=== PATIENT | female | born 1990 | race Caucasian/White ===

== ENCOUNTER → 2016-11-07 | Day surgery (SDC) | payer OTHER ==
[2016-10-23 10:11] VITALS: Ht 162.6 cm; Wt 77.3 kg
[~2016-11-07] VITALS: Ht 162.6 cm; Wt 77.3 kg
[~2016-11-07] MED LIST: ATROPINE SULFATE 0.1 MG/ML 5ML SYR IV PRN; B-COTAB18 PO; BCPILLS PO; BUPIVACAINE 0.5 % 5 MG/1 ML MPF 30ML VIAL ONE; BUSP15TA70 PO; CALC150C PO; CHOL20007 PO; CLON0.5T3 PO; DICY10CA12 PO; EpHEDrine SULFATE INJ 50 MG/ML AMP IV PRN; FENTANYL CITRATE INJ 50 MCG/1 ML 2 ML VIAL IV PRN; FENTANYL CITRATE INJ 50 MCG/1 ML 2 ML VIAL ONE; HYDROCODONE/ACETAMOPHEN 5/325MG TAB PO PRN; LACT1CAP6 PO; LACTATED RINGER'S 1000ML 1,000 ML IV SCH; LACTATED RINGER'S 1000ML 500 ML IV ONE; LIDOCAINE HCL 1% 20 ML VIAL ONE; LIDOCAINE HCL 2% 2 ML VIAL (20MG/ML) ONE; LORA10TA51 PO; METOCLOPRAMIDE HCL INJ 5 MG/ML 2 ML VIAL IV PRN; MIDAZOLAM HCL 1 MG/ML 2ML VIAL ONE; ONDANSETRON INJ 2 MG/ML 2 ML VIAL IV PRN; OXYCODONE/ACETAMINOPHEN 5-325 TAB PO PRN; PHENOL EZ SWABS 89% APPLICATOR EX ONE; PROPOFOL IV EMULSION 10 MG/ML 20 ML VIAL IV ONE; SERT1TAB92 PO; SILVER SULFADIAZINE 1% CR 50 GM JAR EXT ONE; SODIUM CHLORIDE 0.9% 1000ML 1,000 ML IV SCH; [UNRECOGNIZED DRUG - OTHER] PO
--- NOTE | 2016-11-07 11:38 | History & Physical Bridge - SC ---
H&P Re-Evaluation Bridge Note: I have examined the patient, reviewed the History & Physical and in the interval since the performance of the History & Physical I have noted the following changes of clinical significance: No changes noted left hallux medial nail border ingrown toenail removal
--- NOTE | 2016-11-07 12:05 | Discharge Instructions-SurgCtr ---
Discharge Instructions Date of Service Nov 07, 2016. Visit Reason for Visit: Left Ingrown Toenail, Pain Discharge Discharge Diagnosis / Problem: left medial hallux nail border ingrown toenail Discharge Goals Goal(s): Decrease discomfort, Improve function Medications Restart Stopped Medication(s): all Activity Recommendations Activity Limitations: resume your previous activity Lifting Limitations: gradually increase as tolerated Exercise/Sports Limitations: rest today May Resume Sexual Activity: when tolerated Shower/Bathe: tomorrow Driving or Machine Use: resume 1 day after discharge Weightbearing Status: Left weightbearing (as tolerated) Anesthesia . Post Anesthesia Instructions: If you have had General Anesthesia or IV Sedation: * Do not drive today. * Resume driving when surgeon permits. * Do not make important decisions or sign legal documents today. * Call surgeon for: 1. Temperature elevations greater than 101 degrees F. 2. Uncontrollable pain. 3. Excessive bleeding. 4. Persistent nausea and vomiting. 5. Medication intolerance (nausea, vomiting or rash). * For nausea and vomiting use only clear liquids such as: tea, soda, bouillon until nausea subsides, then gradually increase diet as tolerated. * If you have any concerns or questions, call your surgeon's office. If physician is unavailable and it is an emergency, call 911 or go to the nearest emergency room. . Instructions / Follow-Up Instructions / Follow-Up apply topical medication as given today over removed toenail keep covered with bandaid keep clean and dry daily Diet Recommendations Home Diet: no limitations Procedures Procedures Performed: Left Medial Hallux Surgical Procedure To Remove Ingrown Nail Pending Studies Studies pending at discharge: no Medical Emergencies . Who to Call and When: Medical Emergencies: If at any time you feel your situation is an emergency, please call 911 immediately. . Non-Emergent Contact Non-Emergency issues call your: Primary Care Provider [phone] . . "Provider Documentation" section prepared by Alisson Wislon. . [place] Drug Monitoring Program Search Results: patient reviewed within database, no issues identified
--- NOTE | 2016-11-07 12:11 | [facility] Post Operative Brief Note ---
Immediate Operative Summary Operative Date Nov 07, 2016. Pre-Operative Diagnosis Left ingrown toenail Post-Operative Diagnosis same Procedure(s) Performed Left Medial Hallux Surgical Procedure To Remove Ingrown Nail Surgeon Dr Espinal Material Movers Surgeon(s) 0 Estimated Blood Loss 1 ml Findings toenail left hallux Specimens A. Left ingrown toenail Drains none Anesthesia local iv sedation Complication(s) None Disposition Recovery Room / PACU stable
[2016-11-07 12:55] VITALS: TEMP 36.5
--- NOTE | 2016-11-07 13:06 | Anesthesia Progress Nt - [facility] ---
Anesthesia Post Op Note Date & Time Nov 07, 2016 at 13:06 Vital Signs Pain Intensity: 0 Vital Signs Past 12 Hours Date Time Temp Pulse Resp B/P (MAP) Pulse Ox O2 Delivery O2 Flow Rate FiO2 11/07/16 12:55 36.5 95 18 120/81 (94) 96 Room Air 11/07/16 12:50 91 19 11/07/16 12:50 92 19 97 11/07/16 12:47 36.5 81 16 114/80 98 Room Air 11/07/16 12:46 109/74 11/07/16 12:45 70 19 11/07/16 12:45 69 19 95 11/07/16 12:41 108/72 11/07/16 12:40 69 22 99 11/07/16 12:40 70 22 11/07/16 12:36 108/73 11/07/16 12:35 67 16 99 11/07/16 12:35 65 16 11/07/16 12:31 107/74 11/07/16 12:30 66 13 11/07/16 12:30 66 13 99 11/07/16 12:26 99/73 11/07/16 12:25 68 19 98 11/07/16 12:25 69 19 11/07/16 12:21 110/71 11/07/16 12:20 68 17 11/07/16 12:20 70 17 97 11/07/16 12:16 105/73 11/07/16 12:15 71 22 11/07/16 12:15 72 22 98 11/07/16 12:11 115/75 11/07/16 12:10 36.7 78 16 115/75 98 Nasal Cannula 3 11/07/16 10:55 36.7 102 16 114/80 (91) 98 Room Air Notes Mental Status: alert / awake / arousable, participated in evaluation Pt Amnestic to Procedure: Yes Nausea / Vomiting: adequately controlled Pain: adequately controlled Airway Patency, RR, SpO2: stable & adequate BP & HR: stable & adequate Hydration State: stable & adequate Anesthetic Complications: no major complications apparent
[2016-11-07 13:14] VITALS: BP 106/71; PULSE 88; O2SAT 98
--- NOTE | 2016-11-07 14:08 | OPERATIVE REPORT ---
DATE OF OPERATION: 11/07/2016 SURGEON: Alisson Wilson DPM PREOPERATIVE DIAGNOSIS: Painful left foot left hallux medial nail border ingrown toenail. POSTOPERATIVE DIAGNOSIS: Same. PROCEDURE: Left hallux medial nail border ingrown toenail removal. Hemostasis was not needed. ANESTHESIA: Local IV sedation. BLOOD LOSS: 1 mL. PROCEDURE FOLLOWS: The patient was brought in the operating room and placed in the supine position. The left lower extremity was prepped and draped in the usual sterile manner. A 1:1 mixture of 1% lidocaine plain and 0.5% Marcaine was utilized to anesthetize the left hallux in a ring block fashion. Next, anesthesia was induced. A timeout was taken and the procedure began. The medial nail border of the left hallux was loosened from the medial skin folds and the base of the skin fold medially. After it was loosened, utilizing the scissors the medial nail border was cut and removed utilizing a straight stat. No phenol was used per patient's request. The area was flushed with copious amounts of normal saline. Silvadene was applied with Xeroform and dressings. The patient was taken to the recovery room with all vital signs stable and intact. She will follow up with me in the office in 1 week. She was made aware of all risks and benefits and signed consent for this procedure. She opted to have it done in the OR due to her inability to have any type of procedure done in an office setting, that is why it was done in the OR. I attest to the content of the Intraoperative Record and any orders documented therein. Any exceptions are noted below. CHRISTOS
== END | disposition home or self-care (01) ==
LOC: X.SURG 10:44
PROVIDERS: ATTEND Podiatrist
DX: L60.0 Ingrowing nail (principal)

== ENCOUNTER 2020-02-24 09:16 | Inpatient (IN) ==
[2020-02-24] MEDS ORDERED: clonazePAM 0.5 MG TAB PO STA (10:21)
--- NOTE | 2020-02-24 10:26 | Emergency Department Note ---
Impression & Plan Suicidal ideation, Depression, UTI (urinary tract infection) ED Provider Note NAME: WILL KERNS AGE: 29 SEX: F ARRIVES VIA: Walk-In INFORMANT: Patient, ED PROVIDER(S): Kendell Rothman MD CHIEF COMPLAINT: Depression, suicidal ideation PLAN: Disposition: Admit MEDICAL DECISION MAKING: The patient is a pleasant 29-year-old woman with a past medical history of bipolar disorder with prior admissions for depression and SI who presents emergency department with worsening depression, hopelessness and suicidal ideation where she feels she is unable to function and is interested in inpatient admission. She denies any auditory hallucinations. She does report some mild nasal congestion that is typical for her seasonal allergies. She denies any known COVID-19 exposures. She reports she had a negative screening test within the past month. She reports some burning with urination that began yesterday with some mild lower abdominal discomfort. She also reports a nonspecific rash on the back of her ankles that has been there for several weeks. Otherwise she denies fevers, chills, cough, nausea, vomiting, diarrhea. BBC, H/H and platelets within normal limits. Chemistry without acidosis. Electrolytes and LFTs unremarkable. hCG was negative. UA suspicious for infection given the patient's report of dysuria. However UA does show epithelial cells but with 1+ bacteria and WBCs present. Drug screen was otherwise unremarkable. Lyme screen was negative. Thus patient's rash on her posterior calves is suspected to be related to mild contact dermatitis. The patient's report of seasonal congestion COVID-19 PCR was performed and was negative. Patient was given Keflex for suspected urinary tract infection. Otherwise, the patient was medically cleared. She was admitted to [facility] for voluntary psychiatric admission. 201 signed. Triage Nursing notes reviewed and agree them. Prior medical records reviewed Vital Signs: reviewed and remarkable for no significant abnormalities Differential diagnosis: Mood disorder, infection, hypoglycemia, electrolyte abnormalities, cardiac sources, intracerebral event, toxicologic, trauma, neurologic, as well as other pathologies. ER treatment provided: See below. Laboratory studies: See below HPI: The patient is a pleasant 29-year-old woman with a past medical history of bipolar disorder with prior admissions for depression and SI who presents emergency department with worsening depression, hopelessness and suicidal ideation where she feels she is unable to function and is interested in inpatient admission. She denies any auditory hallucinations. She does report some mild nasal congestion that is typical for her seasonal allergies. She denies any known COVID-19 exposures. She reports she had a negative screening test within the past month. She reports some burning with urination that began yesterday with some mild lower abdominal discomfort. She also reports a nonspecific rash on the back of her ankles that has been there for several weeks. Otherwise she denies fevers, chills, cough, nausea, vomiting, diarrhea. ROS: See above HPI for pertinent positives & negatives. A total of 10 systems reviewed and were otherwise negative. PAST MEDICAL HISTORY:See Below PAST SURGICAL HISTORY:See Below FAMILY HISTORY:See Below SOCIAL HISTORY:See Below HOME MEDICATIONS:See Below ALLERGIES:See Below VITALS:See Below PHYSICAL EXAMINATION: GENERAL: Awake, alert, melancholy-appearing, in no distress HENT: Normocephalic, atraumatic. Oropharynx unremarkable. EYES: Normal conjunctiva. Sclera non-icteric. NECK: Supple. No nuchal rigidity. FROM. No JVD. RESPIRATORY: Clear to auscultation. CARDIAC: Regular rate, normal rhythm. Extremities warm and well perfused. Pulses equal. ABDOMEN: Soft, non-distended. No tenderness to palpation. No rebound or guarding . No masses. RECTAL: Deferred. MUSCULOSKELETAL: Chest examination reveals no tenderness. The back is symmetrical on inspection without obvious abnormality. There is no CVA tenderness to palpation. No joint edema. LOWER EXTREMITIES: Calves are equal size bilaterally and non-tender. No edema. No discoloration. NEURO: Normal sensorium. No sensory or motor deficits noted. SKIN: 2 patches of a 3 cm slightly raised dry rash on the posterior aspect of the left lower leg in a similar 3 cm patch on the posterior aspect of the right lower leg. There is no warmth or tenderness. There is no induration or fluctuance. No jaundice noted. PSYCH: Endorses depression, hopelessness, suicidal ideation. Denies auditory hallucinations. Kendell Rothman MD Past Med/Surg History Medical History Anxiety and depression Endometriosis IBS (irritable bowel syndrome) Left breast mass Normal endoscopy Surgical History H/O colonoscopy H/O laparoscopy History of esophagogastroduodenoscopy (EGD) [place] teeth extracted Family History Family/Other Asthma Hay fever Arthritis Stroke Diabetes Cancer Brother Automobile accident Grandmother (Paternal) Breast cancer Grandfather (Maternal) Colorectal cancer Diabetes Stroke Grandfather Stroke Social History Smoking Status: Never smoker Hx Alcohol Use: No Hx Substance Use: No Preferred Language: Malagasy marital status: Single current occupational status: student Feels Safe at Home: Yes Allergies Allergies Allergy/AdvReac Type Severity Reaction Status Date / Time cat dander Allergy Mild Verified 10/24/19 09:34 dog dander Allergy Mild Verified 10/24/19 09:34 pollen extracts Allergy Mild Verified 10/24/19 09:34 Sulfa (Sulfonamide Allergy Unknown DIFFICULTY Verified 10/24/19 09:34 Antibiotics) BREATHING Home Meds Home Medications Medication Instructions Recorded Confirmed L norgest/e.estradiol-e.estrad 1 tab PO HS 12/06/18 02/24/20 [Camrese Lo] Lactobacillus rhamnosus GG 1 cap PO HS 12/06/18 02/24/20 [Culturelle] cetirizine [Zyrtec] 10 mg PO HS 12/06/18 02/24/20 cholecalciferol (vitamin D3) 0 unit PO Q2D 12/06/18 02/24/20 [Vitamin D3] clonazepam [Klonopin] 0.5 mg PO DAILY PRN 12/06/18 02/24/20 dicyclomine 10 mg PO BID 12/06/18 02/24/20 levalbuterol tartrate 2 inh INHALATION Q4H PRN 12/06/18 02/24/20 vitamin B complex 1 tab PO QAM 12/06/18 02/24/20 rabeprazole 20 mg tablet,delayed 20 mg PO HS 05/11/19 02/24/20 release calcium carbonate 500 mg calcium 500 mg PO DAILY 10/24/19 02/24/20 (1,250 mg) tablet lithium carbonate 450 mg 450 mg PO BID 10/24/19 02/24/20 tablet,extended release quetiapine 25 mg PO HS 10/24/19 02/24/20 fluoxetine 20 mg PO DAILY 02/24/20 02/24/20 gabapentin 600 mg PO DAILY 02/24/20 02/24/20 Results & Data (ED) Vital Signs Vital Signs - 24 hr 02/24/20 09:28 02/24/20 09:30 02/24/20 12:00 Temperature 37.6 C H Temperature Source Oral Oral Pulse Rate 102 H Pulse Rate [Apical] 89 Pulse Rhythm Regular Pulse Strength Normal Respiratory Rate 18 18 Respiratory Effort / Characteristics Non-Labored Spontaneous Respiratory Depth Normal Respiratory Pattern Regular Blood Pressure 97/64 L Blood Pressure [Left Arm] 102/78 Blood Pressure Mean 75 Blood Pressure Mean [Left Arm] 86 Blood Pressure Position Sitting Pulse Oximetry 99 97 Oxygen Delivery Method Room Air Room Air Sepsis Recent Fever Within 48 Hours No Sepsis New/Unexplained Change in Mental Status No Sepsis Action Taken by Nursing No Action Required Laboratory Data Attestation: I reviewed the patient's lab results. Result diagrams: 02/24/20 11:40 02/24/20 11:40 Lab Results 02/24/20 02/24/20 02/24/20 Range/Units 10:30 10:30 10:33 WBC (4.8-10.8) K/uL RBC (4.2-5.4) M/uL Hgb (12.0-16.0) g/dL Hct (37-47) % MCV (80-100) fL MCH (25-34) pg MCHC (32-36) g/dL RDW Std Deviation (36.4-46.3) fL RDW Coeff of [place]ight (11.5-14.5) % Plt Count (130-400) K/uL MPV (7.4-10.4) fL Immature Gran % (Auto) % Neut % (Auto) % Lymph % (Auto) % [place] % (Auto) % Eos % (Auto) % Baso % (Auto) % Neut # (Auto) (1.4-6.5) K/uL Lymph # (Auto) (1.2-3.4) K/uL [place] # (Auto) (0.11-0.59) K/uL Eos # (Auto) (0-0.5) K/uL Baso # (Auto) (0-0.2) K/uL Immature Gran # (Auto) (0.00-0.02) K/uL Sodium (136-145) mmol/L Potassium (3.5-5.1) mmol/L Chloride (98-107) mmol/L Carbon Dioxide (21-32) mmol/L Anion Gap (3-11) BUN (7-18) mg/dl Creatinine (0.6-1.2) mg/dl Est Cr Clr Drug Dosing ml/min Est GFR ( Amer) Est GFR (Non-Af Amer) BUN/Creatinine Ratio (10-20) Glucose (70-99) mg/dl Calcium (8.5-10.1) mg/dl Total Bilirubin (0.2-1) mg/dl AST (15-37) U/L ALT (12-78) U/L Alkaline Phosphatase (45-117) U/L Total Protein (6.4-8.2) gm/dl Albumin (3.4-5.0) gm/dl Globulin (2.5-4.0) gm/dl Albumin/Globulin Ratio (0.9-2) TSH (0.300-4.500) uIu/ml Free T4 (0.8-1.6) ng/dl HCG, Qual (Negative) Urine Color Yellow Urine Appearance Clear (Clear) Urine pH 7.0 (4.5-7.5) Ur Specific [place] 1.010 (1.000-1.030) Urine Protein Negative (Negative) Urine Glucose (UA) Negative (Negative) Urine Ketones Negative (Negative) Urine Blood Negative (Negative) Urine Nitrite Negative (Negative) Urine Bilirubin Negative (Negative) Urine Urobilinogen Negative (Negative) Ur Leukocyte Esterase 2+ H (Negative) Urine WBC (Auto) 5-10 H (0-5) /hpf Urine RBC (Auto) 0-4 (0-4) /hpf U Hyaline Cast (Auto) 1-5 (0-5) /lpf U Epithel Cells (Auto) >30 H (0-5) /lpf Urine Bacteria (Auto) 1+ H (Negative) Salicylates (2.8-20) mg/dl Urine Opiates Screen Neg (Neg) Ur Methadone, Qual Neg (Neg) Acetaminophen (10-30) ug/ml Urine Barbiturates Neg (Neg) Ur Phencyclidine (PCP) Neg (Neg) U Amphetamin/Meth Scrn Neg (Neg) MDMA (Ecstasy) Screen Neg (Neg) U Benzodiazepines Scrn Neg (Neg) [place] (0.6-1.2) mmol/L Ur Cocaine Metabolite Neg (Neg) U Marijuana (THC) Screen Neg (Neg) Ethyl Alcohol mg/dL (0-3) mg/dl Lyme Disease IgG Ab (Negative) Lyme Disease IgM Ab (Negative) COVID-19 Eval Order Covid19 Done at [facility] COVID-19 PCR (Negative) 02/24/20 02/24/20 02/24/20 Range/Units 10:33 11:40 11:40 WBC 7.96 (4.8-10.8) K/uL RBC 4.61 (4.2-5.4) M/uL Hgb 13.7 (12.0-16.0) g/dL Hct 41.5 (37-47) % MCV 90.0 (80-100) fL MCH 29.7 (25-34) pg MCHC 33.0 (32-36) g/dL RDW Std Deviation 41.7 (36.4-46.3) fL RDW Coeff of [place]ight 12.8 (11.5-14.5) % Plt Count 282 (130-400) K/uL MPV 12.9 H (7.4-10.4) fL Immature Gran % (Auto) 0.3 % Neut % (Auto) 70.2 % Lymph % (Auto) 19.3 % [place] % (Auto) 6.8 % Eos % (Auto) 3.0 % Baso % (Auto) 0.4 % Neut # (Auto) 5.59 (1.4-6.5) K/uL Lymph # (Auto) 1.54 (1.2-3.4) K/uL [place] # (Auto) 0.54 (0.11-0.59) K/uL Eos # (Auto) 0.24 (0-0.5) K/uL Baso # (Auto) 0.03 (0-0.2) K/uL Immature Gran # (Auto) 0.02 (0.00-0.02) K/uL Sodium 139 (136-145) mmol/L Potassium 4.1 (3.5-5.1) mmol/L Chloride 108 H (98-107) mmol/L Carbon Dioxide 28 (21-32) mmol/L Anion Gap 3.0 (3-11) BUN 13 (7-18) mg/dl Creatinine 1.01 (0.6-1.2) mg/dl Est Cr Clr Drug Dosing 82.1 ml/min Est GFR ( Amer) 85.9 Est GFR (Non-Af Amer) 74.1 BUN/Creatinine Ratio 12.5 (10-20) Glucose 84 (70-99) mg/dl Calcium 9.5 (8.5-10.1) mg/dl Total Bilirubin 0.3 (0.2-1) mg/dl AST 20 (15-37) U/L ALT 26 (12-78) U/L Alkaline Phosphatase 57 (45-117) U/L Total Protein 8.0 (6.4-8.2) gm/dl Albumin 3.5 (3.4-5.0) gm/dl Globulin 4.5 H (2.5-4.0) gm/dl Albumin/Globulin Ratio 0.8 L (0.9-2) TSH 5.340 H (0.300-4.500) uIu/ml Free T4 0.93 (0.8-1.6) ng/dl HCG, Qual (Negative) Urine Color Urine Appearance (Clear) Urine pH (4.5-7.5) Ur Specific [place] (1.000-1.030) Urine Protein (Negative) Urine Glucose (UA) (Negative) Urine Ketones (Negative) Urine Blood (Negative) Urine Nitrite (Negative) Urine Bilirubin (Negative) Urine Urobilinogen (Negative) Ur Leukocyte Esterase (Negative) Urine WBC (Auto) (0-5) /hpf Urine RBC (Auto) (0-4) /hpf U Hyaline Cast (Auto) (0-5) /lpf U Epithel Cells (Auto) (0-5) /lpf Urine Bacteria (Auto) (Negative) Salicylates (2.8-20) mg/dl Urine Opiates Screen (Neg) Ur Methadone, Qual (Neg) Acetaminophen (10-30) ug/ml Urine Barbiturates (Neg) Ur Phencyclidine (PCP) (Neg) U Amphetamin/Meth Scrn (Neg) MDMA (Ecstasy) Screen (Neg) U Benzodiazepines Scrn (Neg) [place] (0.6-1.2) mmol/L Ur Cocaine Metabolite (Neg) U Marijuana (THC) Screen (Neg) Ethyl Alcohol mg/dL (0-3) mg/dl Lyme Disease IgG Ab (Negative) Lyme Disease IgM Ab (Negative) COVID-19 Eval Order COVID-19 PCR NEGATIVE (Negative) 02/24/20 02/24/20 02/24/20 Range/Units 11:40 11:40 11:40 WBC (4.8-10.8) K/uL RBC (4.2-5.4) M/uL Hgb (12.0-16.0) g/dL Hct (37-47) % MCV (80-100) fL MCH (25-34) pg MCHC (32-36) g/dL RDW Std Deviation (36.4-46.3) fL RDW Coeff of [place] (11.5-14.5) % Plt Count (130-400) K/uL MPV (7.4-10.4) fL Immature Gran % (Auto) % Neut % (Auto) % Lymph % (Auto) % [place] % (Auto) % Eos % (Auto) % Baso % (Auto) % Neut # (Auto) (1.4-6.5) K/uL Lymph # (Auto) (1.2-3.4) K/uL [place] # (Auto) (0.11-0.59) K/uL Eos # (Auto) (0-0.5) K/uL Baso # (Auto) (0-0.2) K/uL Immature Gran # (Auto) (0.00-0.02) K/uL Sodium (136-145) mmol/L Potassium (3.5-5.1) mmol/L Chloride (98-107) mmol/L Carbon Dioxide (21-32) mmol/L Anion Gap (3-11) BUN (7-18) mg/dl Creatinine (0.6-1.2) mg/dl Est Cr Clr Drug Dosing ml/min Est GFR ( Amer) Est GFR (Non-Af Amer) BUN/Creatinine Ratio (10-20) Glucose (70-99) mg/dl Calcium (8.5-10.1) mg/dl Total Bilirubin (0.2-1) mg/dl AST (15-37) U/L ALT (12-78) U/L Alkaline Phosphatase (45-117) U/L Total Protein (6.4-8.2) gm/dl Albumin (3.4-5.0) gm/dl Globulin (2.5-4.0) gm/dl Albumin/Globulin Ratio (0.9-2) TSH (0.300-4.500) uIu/ml Free T4 (0.8-1.6) ng/dl HCG, Qual Negative (Negative) Urine Color Urine Appearance (Clear) Urine pH (4.5-7.5) Ur Specific [place] (1.000-1.030) Urine Protein (Negative) Urine Glucose (UA) (Negative) Urine Ketones (Negative) Urine Blood (Negative) Urine Nitrite (Negative) Urine Bilirubin (Negative) Urine Urobilinogen (Negative) Ur Leukocyte Esterase (Negative) Urine WBC (Auto) (0-5) /hpf Urine RBC (Auto) (0-4) /hpf U Hyaline Cast (Auto) (0-5) /lpf U Epithel Cells (Auto) (0-5) /lpf Urine Bacteria (Auto) (Negative) Salicylates < 1.7 L (2.8-20) mg/dl Urine Opiates Screen (Neg) Ur Methadone, Qual (Neg) Acetaminophen < 2 L (10-30) ug/ml Urine Barbiturates (Neg) Ur Phencyclidine (PCP) (Neg) U Amphetamin/Meth Scrn (Neg) MDMA (Ecstasy) Screen (Neg) U Benzodiazepines Scrn (Neg) [place] 0.9 (0.6-1.2) mmol/L Ur Cocaine Metabolite (Neg) U Marijuana (THC) Screen (Neg) Ethyl Alcohol mg/dL < 3.0 (0-3) mg/dl Lyme Disease IgG Ab Negative (Negative) Lyme Disease IgM Ab Negative (Negative) COVID-19 Eval Order COVID-19 PCR (Negative) Administered Medications Discontinued Medications Cephalexin HCl (Cephalexin 500 Mg Cap) 500 mg PO NOW STA Stop: 02/24/20 11:56 Last Admin: 02/24/20 12:41 Dose: 500 mg Documented by: [id number] Clonazepam (Clonazepam 0.5 Mg Tab) 0.5 mg PO NOW STA Stop: 02/24/20 10:22 Last Admin: 02/24/20 10:44 Dose: 0.5 mg Documented by: [id number] Discharge Plan Visit Data Chief Complaint: Mental Health Evaluation Stated Complaint: [facility] ED Provider: Kendell Rothman Discharge Problem: Suicidal ideation, Depression, UTI (urinary tract infection) Patient Disposition: Admitted As Inpatient Discharge Instructions Interventions: ED Discharge Assessment Last Done: 02/24/20 14:24
[2020-02-24 11:01] LABS: Appearance Urine Clear (Clear); Bacteria Urine Automated 1+ (Negative); Bilirubin Urine Negative (Negative); Blood Urine Negative (Negative); Color Urine Yellow; Epithelial Cell Urine Auto >30 /lpf (0-5); Glucose Urine UA Negative (Negative); Ketones Urine Negative (Negative); Leukocyte Esterase Urine 2+ (Negative); Nitrite Urine Negative (Negative); Protein Urine Negative (Negative); RBC Urine Automated 0-4 /hpf (0-4); Urobilinogen Urine Negative (Negative)
[2020-02-24 11:07] LABS: Amphetamines+Metham, Urine Neg (Neg); Barbiturates, Urine Neg (Neg); Benzodiazepine, Urine Neg (Neg); Cocaine, Urine Neg (Neg); MDMA (Ecstacy), Urine Neg (Neg); Methadone, Urine Neg (Neg); Opiate, Urine Neg (Neg); Phencyclidine, Urine Neg (Neg)
[2020-02-24] MEDS ORDERED: cephALEXin 500 MG CAP PO STA (11:55)
[2020-02-24 11:58] LABS: Basophils # (auto) 0.03 K/uL (0-0.2); Basophils % (auto) 0.4 %; Eosinophils # (auto) 0.24 K/uL (0-0.5); Hematocrit (blood only) 41.5 % (37-47); Hemoglobin 13.7 g/dL (12.0-16.0); Immature Granulocytes # (auto) 0.02 K/uL (0.00-0.02); Immature Granulocytes % (auto) 0.3 %; Lymphocytes # (auto) 1.54 K/uL (1.2-3.4); Lymphocytes % (auto) 19.3 %; Mean Corpuscular Hemoglobin 29.7 pg (25-34); Mean Platelet Volume 12.9 fL (7.4-10.4); Monocytes # (auto) 0.54 K/uL (0.11-0.59); Monocytes % (auto) 6.8 %; Neutrophils # (auto) 5.59 K/uL (1.4-6.5); Neutrophils % (auto) 70.2 %; Platelet Count 282 K/uL (130-400); RDW Coefficient of Variation 12.8 % (11.5-14.5); RDW Standard Deviation 41.7 fL (36.4-46.3); Red Blood Count 4.61 M/uL (4.2-5.4); White Blood Count 7.96 K/uL (4.8-10.8)
[2020-02-24 12:17] LABS: Albumin Level 3.5 gm/dl (3.4-5.0); BUN Creatinine Ratio 12.5 (10-20); Calcium 9.5 mg/dl (8.5-10.1); Creatinine Clr Calc Pharmacy 82.1 ml/min; Est GFR (African American) 85.9; Est GFR (Non-African American) 74.1; Potassium 4.1 mmol/L (3.5-5.1)
[2020-02-24 12:25] LABS: Acetaminophen < 2 ug/ml (10-30); Lithium 0.9 mmol/L (0.6-1.2); Salicylate < 1.7 mg/dl (2.8-20)
[2020-02-24 12:28] LABS: Albumin Globulin Ratio 0.8 (0.9-2); Bilirubin,Total 0.3 mg/dl (0.2-1); Globulin 4.5 gm/dl (2.5-4.0); Thyroid Stimulating Hormone 5.34 uIu/ml (0.300-4.500)
[2020-02-24 12:37] LABS: Pregnancy Test, Serum Negative (Negative)
[2020-02-24 12:42] LABS: T4 Free Thyroxine 0.93 ng/dl (0.8-1.6)
[2020-02-24 13:18] LABS: Lyme Ab IgG w/WB Rflx Negative (Negative); Lyme Ab IgM w/WB Rflx Negative (Negative)
[2020-02-24] MEDS ORDERED: hydrOXYzine HCl 25 MG TAB PO PRN (13:33)
[2020-02-24] MEDS ORDERED: SODIUM CHLORIDE 0.65% NA SOLN 45 ML (OCEAN) PRN (13:33)
[2020-02-24] MEDS ORDERED: BISMUTH SUBSALICYLATE LIQD 236 ML PO PRN (13:33)
[2020-02-24] MEDS ORDERED: ACETAMINOPHEN 325 MG TAB PO PRN (13:33)
[2020-02-24] MEDS ORDERED: MAGNESIUM HYDROXIDE SUSP 30 ML UDC PO PRN (13:33)
[2020-02-24] MEDS ORDERED: LEVALBUTEROL TARTRATE 15 GM HFA.AER.AD INH PRN (17:50)
[2020-02-24] MEDS: DICYCLOMINE HCL 10 MG CAP PO SCH (18:45)
--- NOTE | 2020-02-24 19:10 | History & Physical ---
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 03/25/20 17:59 Fluoxetine HCl (Fluoxetine Hcl 10 Mg Cap) 10 mg PO QAM [facility] Stop: 03/26/20 08:59 Gabapentin (Gabapentin 300 Mg Cap) 300 mg PO BID [facility] Stop: 03/25/20 20:59 Hydrocortisone (Hydrocortisone 2.5% Cr 30 Gm Tube) 1 appln EXT BID [facility] Stop: 03/25/20 20:59 Hydroxyzine HCl (Hydroxyzine Hcl 25 Mg Tab) 50 mg PO HSZ PRN PRN Reason: Insomnia Stop: 03/25/20 13:32 Hydroxyzine HCl (Hydroxyzine Hcl 25 Mg Tab) 25 mg PO Q4H PRN PRN Reason: Anxiety Stop: 03/25/20 13:32 Lactobacillus Acidophilus (Lactobacillus Acidophilus (Floranex) Tab) 4 tab PO HS OLIVIA Stop: 03/25/20 21:59 Levalbuterol HCl (Levalbuterol Tartrate 15 Gm Hfa.Aer.Ad) 2 puffs INH Q4H PRN PRN Reason: Shortness Of Breath Or Wheezin Stop: 03/25/20 17:49 [place] Carbonate ([place] Carbonate 450 Mg Tabcr) 450 mg PO BID OLIVIA Stop: 03/25/20 20:59 Magnesium Hydroxide (Magnesium Hydroxide Susp 30 Ml Udc) 30 ml PO DAILY PRN PRN Reason: Constipation Stop: 03/25/20 13:32 Miscellaneous (Camrese Lo ~ Order Awaiting Action) 1 ea N/A QS [facility] Stop: 03/26/20 00:00 Psyllium Hydrophilic Mucilloid (Psyllium 58.6% Powder Packet) 1 pkt PO QAM [facility] Stop: 03/25/20 18:44 Sodium Chloride (Sodium Chloride 0.65% Na Soln 45 Ml ([place])) 1 - 2 sprays NA PRN PRN PRN Reason: Nasal Dryness/Congestion Stop: 03/25/20 13:32 Vitamin B Complex (Vitamin B Complex Tab) 1 tab PO QAM [facility] Stop: 03/26/20 08:59 Vitamin D (Cholecalciferol 1,000 Units 25 Mcg Tab) 1,000 units PO Q2D@0900 [facility] Stop: 03/27/20 08:59
[2020-02-24] MEDS: ALUMINUM/MAGNESIUM SUSP 30 ML UDC PO PRN (19:39)
[2020-02-24] MEDS: PSYLLIUM 58.6% POWDER PACKET PO SCH (20:58)
[2020-02-24] MEDS: LITHIUM CARBONATE 450 MG TABCR PO SCH (20:58)
[2020-02-24] MEDS: HYDROCORTISONE 2.5% CR 30 GM TUBE EXT SCH (20:59)
[2020-02-24] MEDS: GABAPENTIN 300 MG CAP PO SCH (21:00)
[2020-02-24] MEDS: RABEPRAZOLE 20 MG PO SCH (21:00)
[2020-02-24] MEDS: LACTOBACILLUS ACIDOPHILUS (FLORANEX) TAB PO SCH (21:01)
[2020-02-24] MEDS: LEVONORGESTREL PO SCH (21:02)
[2020-02-24] MEDS: ETHINYL ESTRADIOL PO SCH (21:02)
[2020-02-25] MEDS: RABEPRAZOLE 20 MG PO SCH ×2 (08:48→16:53)
[2020-02-25] MEDS ORDERED: FLUoxetine HCL 20 MG CAP PO SCH (09:00)
[2020-02-25] MEDS ORDERED: CALCIUM CARBONATE 1250MG TAB PO SCH (09:00)
[2020-02-25] MEDS: DICYCLOMINE HCL 10 MG CAP PO SCH ×3 (09:30→16:55)
[2020-02-25] MEDS: CALCIUM CARBONATE 1250MG TAB PO SCH (09:31)
[2020-02-25] MEDS: GABAPENTIN 300 MG CAP PO SCH ×2 (09:31→20:38)
[2020-02-25] MEDS: buPROPion SR 100 MG TABCR PO SCH (09:31)
[2020-02-25] MEDS: FLUoxetine HCL 10 MG CAP PO SCH (09:31)
[2020-02-25] MEDS: VITAMIN B COMPLEX TAB PO SCH (09:31)
[2020-02-25] MEDS: LITHIUM CARBONATE 450 MG TABCR PO SCH ×2 (09:31→20:37)
[2020-02-25] MEDS: PSYLLIUM 58.6% POWDER PACKET PO SCH (09:33)
[2020-02-25] MEDS: HYDROCORTISONE 2.5% CR 30 GM TUBE EXT SCH ×2 (09:33→20:37)
--- NOTE | 2020-02-25 11:52 | Psychiatric Progress Note ---
Date of Service February 25, 2020 Impression / Recommendations Impression This 29-year-old woman was admitted through the emergency room after she reported that she was experiencing severe depression and suicidal thoughts with various plans. She has a long history of treatment for depression, and while she has enjoyed some improvement in response to various psychiatric medications over the years, her history reveals that these improvements tend to be short lived and efforts to address diminishing favorable effect of medications through medications increases generally are ineffective. For example, when her dose of Prozac was increased as an outpatient from 10 mg to 20 mg she noticed worsening anxiety and worsening depression, and the dose of Prozac was decreased back to 10 mg. Of significance is the fact that evidently she has been given the diagnosis of bipolar disorder in the past. The patient is well educated and is fully familiar with the symptoms of bipolar disorder. When we reviewed them, she did not endorse any symptoms of melida or hypomania, and she explains that, to the contrary, she has never experienced anything other than depression that is "sometimes worse than others." She may give a window into a secondary diagnoses when she suggests that she sometimes has difficulty regulating her mood in response to situational factors and that her mood can be somewhat labile at times. However, her mood is never expansive or elated, and she notes that she never experiences decreased desire for sleep, increased energy, impulsive or reckless behaviors, or other symptoms suggestive of mleida or hypomania. She offers a broader what way of somatic complaints and is on multiple medications, with a fairly complex medication regimen. During her psychiatric evaluation she identified several additional complaints and requested additional medications to address the complaints, such as constipation, a rash on her legs, and lorazepam for "laboratory and [imaging] studies" because of the various simple phobias. With some reluctance, the patient acknowledges that her sexual orientation is homosexual. She reports that she is afraid to enter into any romantic relationship with another woman because she comes from a very religiously conservative Orthodox family and fears that her family, and her father in particular, will reject her and encourage other members of the family to stop contact with her. Also, while she initially had a support network in [place], her various friends have all graduated and moved on to other locations. Accordingly, she is socially isolated, even when she feels better. 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 And she says that she often worries about her future in terms of being able to find a job in her particular field of study. There are number of treatments that have not been tried on a number of medications that can be considered. She evidently has never taken venlafaxine or any other SNRI. She may or may not have responded favorably to bupropion as an adjunct, but says that she has not been able to tolerate or has not responded to aripiprazole and risperidone. She also indicates that higher doses of medication such as sertraline (to which she is responded in the past) and Prozac have had an idiosyncratic effect and she tends to have worsening anxiety and depression as her dosages go higher. She has considered ECT, but has concluded that she is too frightened of the prospects. She is willing to consider transcranial magnetic stimulation. Therapy needs to focus on helping this very intelligent young woman feel comfortable with her sexuality, and she will need to learn that denying herself and her identity is not a reasonable trade off for ongoing acceptance from her family of origin. Reviewed 02/25/2020. Ongoing SI and hopelessness around even minor somatic issues. (1) Suicidal ideation: 02/23 -The patient reports progressive suicidal thoughts with plans that include overdosing, self poisoning, asphyxiation, and hanging. The patient has been admitted to the locked behavioral health unit and has been placed on suicide precautions. We have referred her for individual, group, and recreational therapy. She does not seem to be willing to consider family interventions at this point, but it may be useful to work with the patient in this regard because her family dynamics seem to be pretty central to the patient's current condition. -We will continue lithium carbonate 450 mg twice a day; Prozac 10 mg a day; and add bupropion SR 75 mg as an adjunct. We will consider offering trials of an SNRI, such as venlafaxine or duloxetine. Reviewed 02/25/2020. Note dosing of Wellbutrin SR is 100 mg po qam. (2) Anxiety and depression: 02/23 -The patient reports progressive suicidal thoughts with plans that include overdosing, self poisoning, asphyxiation, and hanging. The patient has been admitted to the locked behavioral health unit and has been placed on suicide precautions. We have referred her for individual, group, and recreational therapy. She does not seem to be willing to consider family interventions at this point, but it may be useful to work with the patient in this regard because her family dynamics seem to be pretty central to the patient's current condition. -We will continue lithium carbonate 450 mg twice a day; Prozac 10 mg a day; and add bupropion SR 75 mg as an adjunct. We will consider offering trials of an SNRI, such as venlafaxine or duloxetine. Reviewed 02/25/2020. Note dosing of Wellbutrin SR is 100 mg po qam. Monitor ZAFAR. (3) Irritable bowel syndrome: 02/23 -Currently, the patient reports that she has been feeling constipated for "some time now," and notes that she often does better with a bulk laxative such as Metamucil. Currently, we have ordered Metamucil daily. Reviewed 02/25/2020. She declines Miralax. States warm tea would aggravate her reflux. Inventory Assets Strengths: Intelligent. Motivated to treatment. Well informed. Past history of some favorable response to treatment. Needs: Relief from depression symptoms. Resolution of suicidal thoughts. 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 In particular, her mother. She is also close with several of her siblings, but fears that she will very rejected by all if she tells them that her sexual orientation as lesbian.) Good Rapport with Provider: Yes Absence of Any Risk Factors Above: No Interval History Chief Complaint "I'm just really overwhelmed and still very depressed". Review of Systems Sleep Information Total Hours of Sleep: 6.5 Meal Information Percent Meal Consumed - Breakfast: 20 Percent Meal Consumed - Dinner: 90 Nutrition Comment: pt. has poor appetite r/t constipation x3days Subjective Subjective Patient was seen & assessed and interval progress reviewed with nursing and social work. Patient is careful about diet. c/o constipation but states only intervention that would held is a warm bath. Expressed worries to staff about her sister and baby niece (sister has anorexia hx). Patient is very focussed on no social supports and doesn't want family involved in hospitalization, cites Orthodox holiday but only the superficial reason. Resistant to exploring local or other supports. Reports ZAFAR last pm due to stress and overstimulation of peers on unit though also likes being here as "I'm lonely" States suicidal thoughts are ongoing but no intent to act here. Physical Exam Psychiatric Orientation: alert, oriented x 3 and cooperative Apperance: appropriately dressed, appropriately groomed and appeared stated age Eye Contact: + fair eye contact Affect: + depressed affect Mood: + depressed mood and + anxious mood Thought Process: goal directed thought process Thought Content: reality based without delusions Suicidal Thoughts: + reports suicidal thoughts Homicidal Thoughts: denies homicidal thoughts Hallucinations: no auditory hallucinations, no visual hallucinations, no tactile hallucinations and no gustatory hallucinations Cognition: attention grossly intact Estimated Intelligence: + above average estimated intelligence Vital Signs (Past 24 Hours) Last Vital Signs Temp 36.9 C 02/24/20 16:18 Pulse 74 02/24/20 16:18 Resp 16 02/24/20 16:18 BP 97/65 L 02/24/20 16:18 Pulse Ox 100 02/24/20 16:18 Results & Data ([facility]) Laboratory Results Laboratory Results - last 24 hr 02/24/20 02/24/20 02/24/20 10:33 11:40 11:40 WBC 7.96 RBC 4.61 Hgb 13.7 Hct 41.5 MCV 90.0 MCH 29.7 MCHC 33.0 RDW Std Deviation 41.7 RDW Coeff of [place] 12.8 Plt Count 282 MPV 12.9 H Immature Gran % (Auto) 0.3 Neut % (Auto) 70.2 Lymph % (Auto) 19.3 [place] % (Auto) 6.8 Eos % (Auto) 3.0 Baso % (Auto) 0.4 Neut # (Auto) 5.59 Lymph # (Auto) 1.54 [place] # (Auto) 0.54 Eos # (Auto) 0.24 Baso # (Auto) 0.03 Immature Gran # (Auto) 0.02 Sodium 139 Potassium 4.1 Chloride 108 H Carbon Dioxide 28 Anion Gap 3.0 BUN 13 Creatinine 1.01 Est Cr Clr Drug Dosing 82.1 Est GFR ( Amer) 85.9 Est GFR (Non-Af Amer) 74.1 BUN/Creatinine Ratio 12.5 Glucose 84 Calcium 9.5 Total Bilirubin 0.3 AST 20 ALT 26 Alkaline Phosphatase 57 Total Protein 8.0 Albumin 3.5 Globulin 4.5 H Albumin/Globulin Ratio 0.8 L TSH 5.340 H Free T4 0.93 HCG, Qual Salicylates Acetaminophen [place] Ethyl Alcohol mg/dL Lyme Disease IgG Ab Lyme Disease IgM Ab COVID-19 PCR NEGATIVE 02/24/20 02/24/20 02/24/20 11:40 11:40 11:40 WBC RBC Hgb Hct MCV MCH MCHC RDW Std Deviation RDW Coeff of [place] Plt Count MPV Immature Gran % (Auto) Neut % (Auto) Lymph % (Auto) [place] % (Auto) Eos % (Auto) Baso % (Auto) Neut # (Auto) Lymph # (Auto) [place] # (Auto) Eos # (Auto) Baso # (Auto) Immature Gran # (Auto) Sodium Potassium Chloride Carbon Dioxide Anion Gap BUN Creatinine Est Cr Clr Drug Dosing Est GFR ( Amer) Est GFR (Non-Af Amer) BUN/Creatinine Ratio Glucose Calcium Total Bilirubin AST ALT Alkaline Phosphatase Total Protein Albumin Globulin Albumin/Globulin Ratio TSH Free T4 HCG, Qual Negative Salicylates < 1.7 L Acetaminophen < 2 L [place] 0.9 Ethyl Alcohol mg/dL < 3.0 Lyme Disease IgG Ab Negative Lyme Disease IgM Ab Negative COVID-19 PCR Current Inpatient Medications Current Inpatient Medications: Current Inpatient Medications Acetaminophen (Acetaminophen 325 Mg Tab) 650 mg PO Q4H PRN PRN Reason: Headache or Minor Fever Stop: 03/25/20 13:32 Last Admin: 02/25/20 04:09 Dose: 650 mg Documented by: Al Hydrox/Mg Hydrox/Simethicone ([place]uminum/Magnesium Susp 30 Ml Udc) 30 ml PO Q4H PRN PRN Reason: GI Upset Stop: 03/25/20 13:32 Last Admin: 02/24/20 19:39 Dose: 30 ml Documented by: Bismuth Subsalicylate (Bismuth Subsalicylate Liqd 236 Ml) 15 ml PO PRN PRN PRN Reason: Loose Stool Stop: 03/25/20 13:32 Bupropion HCl (Bupropion Sr 100 Mg Tabcr) 100 mg PO DAILY [facility] Stop: 03/26/20 08:59 Last Admin: 02/25/20 09:31 Dose: 100 mg Documented by: Calcium Carbonate (Calcium Carbonate 1250mg Tab) 1,250 mg PO DAILY OLIVIA Stop: 03/26/20 08:59 Last Admin: 02/25/20 09:31 Dose: 1,250 mg Documented by: Clonazepam (Clonazepam 0.5 Mg Tab) 0.5 mg PO DAILY PRN PRN Reason: Blood draws or imaging studies Stop: 03/25/20 21:08 Dicyclomine HCl (Dicyclomine Hcl 10 Mg Cap) 10 mg PO TIDM [facility] Stop: 03/25/20 17:59 Last Admin: 02/25/20 09:30 Dose: 10 mg Documented by: Fluoxetine HCl (Fluoxetine Hcl 10 Mg Cap) 10 mg PO QAM [facility] Stop: 03/26/20 08:59 Last Admin: 02/25/20 09:31 Dose: 10 mg Documented by: Gabapentin (Gabapentin 300 Mg Cap) 300 mg PO BID [facility]IA Stop: 03/25/20 20:59 Last Admin: 02/25/20 09:31 Dose: 300 mg Documented by: Hydrocortisone (Hydrocortisone 2.5% Cr 30 Gm Tube) 1 appln EXT BID [facility] Stop: 03/25/20 20:59 Last Admin: 02/25/20 09:33 Dose: 1 appln Documented by: Hydroxyzine HCl (Hydroxyzine Hcl 25 Mg Tab) 50 mg PO HSZ PRN PRN Reason: Insomnia Stop: 03/25/20 13:32 Hydroxyzine HCl (Hydroxyzine Hcl 25 Mg Tab) 25 mg PO Q4H PRN PRN Reason: Anxiety Stop: 03/25/20 13:32 Lactobacillus Acidophilus (Lactobacillus Acidophilus (Floranex) Tab) 4 tab PO HS OLIVIA Stop: 03/25/20 21:59 Last Admin: 02/24/20 21:01 Dose: 4 tab Documented by: Levalbuterol HCl (Levalbuterol Tartrate 15 Gm Hfa.Aer.Ad) 2 puffs INH Q4H PRN PRN Reason: Shortness Of Breath Or Wheezin Stop: 03/25/20 17:49 [place] Carbonate ([place] Carbonate 450 Mg Tabcr) 450 mg PO BID OLIVIA Stop: 03/25/20 20:59 Last Admin: 02/25/20 09:31 Dose: 450 mg Documented by: Magnesium Hydroxide (Magnesium Hydroxide Susp 30 Ml Udc) 30 ml PO DAILY PRN PRN Reason: Constipation Stop: 03/25/20 13:32 Miscellaneous (Camrese Lo Patient's Own Oral Contraceptive) 1 ea PO HS [facility]IA Stop: 03/25/20 21:59 Last Admin: 02/24/20 21:02 Dose: 1 ea Documented by: Rabeprazole 20mg ~ Non-Formulary Patient's Own Med 1 ea PO BID [facility] Stop: 03/25/20 20:59 Last Admin: 02/25/20 08:48 Dose: 1 ea Documented by: Psyllium Hydrophilic Mucilloid (Psyllium 58.6% Powder Packet) 1 pkt PO QAM [facility] Stop: 03/25/20 18:44 Last Admin: 02/25/20 09:33 Dose: 1 pkt Documented by: Sodium Chloride (Sodium Chloride 0.65% Na Soln 45 Ml ([place])) 1 - 2 sprays NA PRN PRN PRN Reason: Nasal Dryness/Congestion Stop: 03/25/20 13:32 Vitamin B Complex (Vitamin B Complex Tab) 1 tab PO QAM [facility] Stop: 03/26/20 08:59 Last Admin: 02/25/20 09:31 Dose: 1 tab Documented by: Vitamin D (Cholecalciferol 1,000 Units 25 Mcg Tab) 1,000 units PO Q2D@0900 [facility] Stop: 03/27/20 08:59 Mental Health & Subst Abuse Tx Therapist Name of Therapist: Ioana Rico @[facility] Post Discharge Appointments Primary Care Physician Name Of Family Doctor: [facility]
[2020-02-25] MEDS: LACTOBACILLUS ACIDOPHILUS (FLORANEX) TAB PO SCH (20:39)
[2020-02-25] MEDS: LEVONORGESTREL PO SCH (20:40)
[2020-02-25] MEDS: ETHINYL ESTRADIOL PO SCH (20:40)
[2020-02-26] MEDS: RABEPRAZOLE 20 MG PO SCH ×2 (08:27→17:32)
[2020-02-26] MEDS ORDERED: CHOLECALCIFEROL 1,000 UNITS 25 MCG TAB PO SCH (09:00)
[2020-02-26] MEDS: DICYCLOMINE HCL 10 MG CAP PO SCH ×3 (09:02→17:27)
[2020-02-26] MEDS: HYDROCORTISONE 2.5% CR 30 GM TUBE EXT SCH ×2 (09:04→21:35)
[2020-02-26] MEDS: FLUoxetine HCL 10 MG CAP PO SCH (09:05)
[2020-02-26] MEDS: LITHIUM CARBONATE 450 MG TABCR PO SCH ×2 (09:05→21:28)
[2020-02-26] MEDS: VITAMIN B COMPLEX TAB PO SCH (09:06)
[2020-02-26] MEDS: CALCIUM CARBONATE 1250MG TAB PO SCH (09:06)
[2020-02-26] MEDS: buPROPion SR 100 MG TABCR PO SCH (09:07)
[2020-02-26] MEDS: GABAPENTIN 300 MG CAP PO SCH ×2 (09:07→21:29)
[2020-02-26] MEDS: PSYLLIUM 58.6% POWDER PACKET PO SCH (09:11)
[2020-02-26] MEDS: CETIRIZINE HCL 10 MG TABLET PO SCH (10:11)
[2020-02-26] MEDS: CHOLECALCIFEROL 1,000 UNITS 25 MCG TAB PO SCH (10:12)
--- NOTE | 2020-02-26 11:50 | Psychiatric Progress Note ---
Date of Service February 26, 2020 Impression / Recommendations Impression This 29-year-old woman was admitted through the emergency room after she reported that she was experiencing severe depression and suicidal thoughts with various plans. She has a long history of treatment for depression, and while she has enjoyed some improvement in response to various psychiatric medications over the years, her history reveals that these improvements tend to be short lived and efforts to address diminishing favorable effect of medications through medications increases generally are ineffective. For example, when her dose of Prozac was increased as an outpatient from 10 mg to 20 mg she noticed worsening anxiety and worsening depression, and the dose of Prozac was decreased back to 10 mg. Of significance is the fact that evidently she has been given the diagnosis of bipolar disorder in the past. The patient is well educated and is fully familiar with the symptoms of bipolar disorder. When we reviewed them, she did not endorse any symptoms of melida or hypomania, and she explains that, to the contrary, she has never experienced anything other than depression that is "sometimes worse than others." She may give a window into a secondary diagnoses when she suggests that she sometimes has difficulty regulating her mood in response to situational factors and that her mood can be somewhat labile at times. However, her mood is never expansive or elated, and she notes that she never experiences decreased desire for sleep, increased energy, impulsive or reckless behaviors, or other symptoms suggestive of melida or hypomania. She offers a broader what way of somatic complaints and is on multiple medications, with a fairly complex medication regimen. During her psychiatric evaluation she identified several additional complaints and requested additional medications to address the complaints, such as constipation, a rash on her legs, and lorazepam for "laboratory and [imaging] studies" because of the various simple phobias. With some reluctance, the patient acknowledges that her sexual orientation is homosexual. She reports that she is afraid to enter into any romantic relationship with another woman because she comes from a very religiously conservative [place] family and fears that her family, and her father in particular, will reject her and encourage other members of the family to stop contact with her. Also, while she initially had a support network in [place], her various friends have all graduated and moved on to other locations. Accordingly, she is socially isolated, even when she feels better. 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 And she says that she often worries about her future in terms of being able to find a job in her particular field of study. There are number of treatments that have not been tried on a number of medications that can be considered. She evidently has never taken venlafaxine or any other SNRI. She may or may not have responded favorably to bupropion as an adjunct, but says that she has not been able to tolerate or has not responded to aripiprazole and risperidone. She also indicates that higher doses of medication such as sertraline (to which she is responded in the past) and Prozac have had an idiosyncratic effect and she tends to have worsening anxiety and depression as her dosages go higher. She has considered ECT, but has concluded that she is too frightened of the prospects. She is willing to consider transcranial magnetic stimulation. Therapy needs to focus on helping this very intelligent young woman feel comfortable with her sexuality, and she will need to learn that denying herself and her identity is not a reasonable trade off for ongoing acceptance from her family of origin. Reviewed 02/25/2020. 02/25--ongoing SI with gesture last pm on unit with bed linens following conflict with staff suggestive of borderline pathology. (1) Suicidal ideation: 02/23 -The patient reports progressive suicidal thoughts with plans that include overdosing, self poisoning, asphyxiation, and hanging. The patient has been admitted to the [facility] behavioral health unit and has been placed on suicide precautions. We have referred her for individual, group, and recreational therapy. She does not seem to be willing to consider family interventions at this point, but it may be useful to work with the patient in this regard because her family dynamics seem to be pretty central to the patient's current condition. -We will continue lithium carbonate 450 mg twice a day; Prozac 10 mg a day; and add bupropion SR 75 mg as an adjunct. We will consider offering trials of an SNRI, such as venlafaxine or duloxetine. Reviewed 02/25/2020. Note dosing of Wellbutrin SR is 100 mg po qam. 02/25--reviewed safety plan with staff, MNPR, moved to CORDELL, safety blanket (no sheets/pillowcases) for at least 24 hrs, no leggings, reviewed consistency shift to shift on where meeting with patient. (2) Anxiety and depression: 02/23 -The patient reports progressive suicidal thoughts with plans that include overdosing, self poisoning, asphyxiation, and hanging. The patient has been admitted to the [facility] behavioral health unit and has been placed on suicide precautions. We have referred her for individual, group, and recreational therapy. She does not seem to be willing to consider family interventions at this point, but it may be useful to work with the patient in this regard because her family dynamics seem to be pretty central to the patient's current condition. -We will continue lithium carbonate 450 mg twice a day; Prozac 10 mg a day; and add bupropion SR 75 mg as an adjunct. We will consider offering trials of an SNRI, such as venlafaxine or duloxetine. Reviewed 02/25/2020. Note dosing of Wellbutrin SR is 100 mg po qam. Monitor ZAFAR. 02/25--restart Seroquel with plan to titrate tomorrow, may use lower dose prn anxiety during day. Get true lithium level trough in am and fasting metabolic labs. (3) Irritable bowel syndrome: 02/23 -Currently, the patient reports that she has been feeling constipated for "some time now," and notes that she often does better with a bulk laxative such as Metamucil. Currently, we have ordered Metamucil daily. Reviewed 02/25/2020. She declines Miralax. States warm tea would aggravate her reflux. 02/25--reports having BM yesterday but guesses not full evacuation, she is declining additional metamucil. (4) TSH elevation: 02/25--will repeat TSH in am, likely lithium induced with hair loss, would favor start of synthroid given symptoms. Inventory Assets Strengths: Intelligent. Motivated to treatment. Well informed. Past history of some favorable response to treatment. Needs: Relief from depression symptoms. Resolution of suicidal thoughts. 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 In particular, her mother. She is also close with several of her siblings, but fears that she will very rejected by all if she tells them that her sexual orientation as lesbian.) Good Rapport with Provider: Yes Absence of Any Risk Factors Above: No Interval History Chief Complaint "My needs weren't being met immediately and that was triggering for me". Review of Systems Sleep Information Total Hours of Sleep: 6 Meal Information Percent Meal Consumed - Breakfast: 50 Percent Meal Consumed - Lunch: 10 Percent Meal Consumed - Dinner: 50 Nutrition Comment: pt. continues to report poor appetite Subjective Subjective Patient was seen & assessed and interval progress reviewed with nursing and social work. Called last pm due to suicidal gesture with bed linens on overnight cashier. Patient states that she did similar when "ignored at [facility]" during 3 day isolation to room due to their Covid policies which would have been helpful information but patient had refused to sign KRISTINA per . Patient attending evening group but reports mood "tanked" after and wanted to discuss SI with staff but was encouraged to meet in day room for safety precautions at time. Patient felt she could not get out of bed and after some time waited for a 15 min check at which time placed the pillowcase around her neck. "It wasn't impulsive". Mentioned she tried adding the sheet before found again "I know it wouldn't work as I've tried before and it doesn't get tight enough". At that point she was directed to unlocked seclusion room for closer monitoring. She reports continuing to have suicidal thoughts but "more general", not around using her linens, again "I was upset". She reports wanting to file a formal complaint and reviewed that her concerns can be addressed by nursing center tutor and service excellence. She would like more of her personal items back as coloring is major coping mechanism. She shifted to discuss her concerns about hair loss, "clumps started falling out in December", reviewed TSH and nl fT4 but plan for repeat. She is declining Vistaril, Klonopin prns but "I'd like something" and reviewed that Seroquel was held on admission likely due to her excessive fatigue but since she is requesting sleep medication will resume. 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 Physical Exam Psychiatric Orientation: alert, oriented x 3 and cooperative Apperance: appropriately dressed, appropriately groomed and appeared stated age Eye Contact: + fair eye contact Motor Behavior: + psychomotor retardation Affect: + depressed affect Mood: + depressed mood and + anxious mood Thought Process: goal directed thought process Thought Content: reality based without delusions Suicidal Thoughts: + reports suicidal thoughts Homicidal Thoughts: denies homicidal thoughts Hallucinations: no auditory hallucinations, no visual hallucinations, no tactile hallucinations and no gustatory hallucinations Cognition: recent memory grossly intact (Her, the patient often responds "I cannot quite remember." For example, when she references to "the depression got worse because of all the stressors she could not identify the stressors and responded by saying, "I just do not remember.") and attention grossly intact Estimated Intelligence: + above average estimated intelligence Insight: good insight and + limited insight Judgement: + impaired judgement Vital Signs (Past 24 Hours) Last Vital Signs Temp 36.9 C 02/26/20 06:46 Pulse 73 02/26/20 06:46 Resp 16 02/26/20 06:46 BP 102/70 02/26/20 06:46 Pulse Ox 100 02/24/20 16:18 Results & Data ([facility]) Current Inpatient Medications Current Inpatient Medications: Current Inpatient Medications Acetaminophen (Acetaminophen 325 Mg Tab) 650 mg PO Q4H PRN PRN Reason: Headache or Minor Fever Stop: 03/25/20 13:32 Last Admin: 02/25/20 04:09 Dose: 650 mg Documented by: Al Hydrox/Mg Hydrox/Simethicone (Aluminum/Magnesium Susp 30 Ml Udc) 30 ml PO Q4H PRN PRN Reason: GI Upset Stop: 03/25/20 13:32 Last Admin: 02/24/20 19:39 Dose: 30 ml Documented by: Bismuth Subsalicylate (Bismuth Subsalicylate Liqd 236 Ml) 15 ml PO PRN PRN PRN Reason: Loose Stool Stop: 03/25/20 13:32 Bupropion HCl (Bupropion Sr 100 Mg Tabcr) 100 mg PO DAILY OLIVIA Stop: 03/26/20 08:59 Last Admin: 02/26/20 09:07 Dose: 100 mg Documented by: Calcium Carbonate (Calcium Carbonate 1250mg Tab) 1,250 mg PO DAILY [facility] Stop: 03/26/20 08:59 Last Admin: 02/26/20 09:06 Dose: 1,250 mg Documented by: Cetirizine HCl (Cetirizine Hcl 10 Mg Tablet) 10 mg PO QAM [facility] Stop: 03/27/20 08:59 Last Admin: 02/26/20 10:11 Dose: 10 mg Documented by: Clonazepam (Clonazepam 0.5 Mg Tab) 0.5 mg PO DAILY PRN PRN Reason: Blood draws or imaging studies Stop: 03/25/20 21:08 Dicyclomine HCl (Dicyclomine Hcl 10 Mg Cap) 10 mg PO TIDM [facility] Stop: 03/25/20 17:59 Last Admin: 02/26/20 09:02 Dose: 10 mg Documented by: Fluoxetine HCl (Fluoxetine Hcl 10 Mg Cap) 10 mg PO QAM [facility] Stop: 03/26/20 08:59 Last Admin: 02/26/20 09:05 Dose: 10 mg Documented by: Gabapentin (Gabapentin 300 Mg Cap) 300 mg PO BID [facility] Stop: 03/25/20 20:59 Last Admin: 02/26/20 09:07 Dose: 300 mg Documented by: Hydrocortisone (Hydrocortisone 2.5% Cr 30 Gm Tube) 1 appln EXT BID [facility] Stop: 03/25/20 20:59 Last Admin: 02/26/20 09:04 Dose: 1 appln Documented by: Hydroxyzine HCl (Hydroxyzine Hcl 25 Mg Tab) 50 mg PO HSZ PRN PRN Reason: Insomnia Stop: 03/25/20 13:32 Hydroxyzine HCl (Hydroxyzine Hcl 25 Mg Tab) 25 mg PO Q4H PRN PRN Reason: Anxiety Stop: 03/25/20 13:32 Lactobacillus Acidophilus (Lactobacillus Acidophilus (Floranex) Tab) 4 tab PO HS OLIVIA Stop: 03/25/20 21:59 Last Admin: 02/25/20 20:39 Dose: 4 tab Documented by: Levalbuterol HCl (Levalbuterol Tartrate 15 Gm Hfa.Aer.Ad) 2 puffs INH Q4H PRN PRN Reason: Shortness Of Breath Or Wheezin Stop: 03/25/20 17:49 Vail Carbonate (Vail Carbonate 450 Mg Tabcr) 450 mg PO BID [facility] Stop: 03/25/20 20:59 Last Admin: 02/26/20 09:05 Dose: 450 mg Documented by: Magnesium Hydroxide (Magnesium Hydroxide Susp 30 Ml Udc) 30 ml PO DAILY PRN PRN Reason: Constipation Stop: 03/25/20 13:32 Miscellaneous (Camrese Lo Patient's Own Oral Contraceptive) 1 ea PO HS OLIVIA Stop: 03/25/20 21:59 Last Admin: 02/25/20 20:40 Dose: 1 ea Documented by: Rabeprazole 20mg ~ Non-Formulary Patient's Own Med 1 ea PO BID OLIVIA Stop: 03/25/20 20:59 Last Admin: 02/26/20 08:27 Dose: 1 ea Documented by: Psyllium Hydrophilic Mucilloid (Psyllium 58.6% Powder Packet) 1 pkt PO QAM OLIVIA Stop: 03/25/20 18:44 Last Admin: 02/26/20 09:11 Dose: Not Given Documented by: Quetiapine Fumarate (Quetiapine Fumarate 25 Mg Tablet) 25 mg PO HS [facility] Stop: 03/27/20 21:59 Quetiapine Fumarate (Quetiapine Fumarate 25 Mg Tablet) 12.5 mg PO Q6 PRN PRN Reason: Anxiety Stop: 03/27/20 11:59 Sodium Chloride (Sodium Chloride 0.65% Na Soln 45 Ml ([place])) 1 - 2 sprays NA PRN PRN PRN Reason: Nasal Dryness/Congestion Stop: 03/25/20 13:32 Vitamin B Complex (Vitamin B Complex Tab) 1 tab PO QAM OLIVIA Stop: 03/26/20 08:59 Last Admin: 02/26/20 09:06 Dose: 1 tab Documented by: Vitamin D (Cholecalciferol 1,000 Units 25 Mcg Tab) 1,000 units PO DAILY OLIVIA Stop: 03/27/20 08:59 Last Admin: 02/26/20 10:12 Dose: 1,000 units Documented by: Mental Health & Subst Abuse Tx Therapist Name of Therapist: Ioana Rico (usually calls on Tuesdays and Fridays) [employer] Software Developer Name of [employer] Software Developer: none Post Discharge Appointments Primary Care Physician Name Of Family Doctor: [facility], would like new provider, doesn't want to go on campus re:covid fears
[2020-02-26] MEDS: QUEtiapine FUMARATE 25 MG TABLET PO PRN (12:59)
[2020-02-26] MEDS: LACTOBACILLUS ACIDOPHILUS (FLORANEX) TAB PO SCH (21:30)
[2020-02-26] MEDS: LEVONORGESTREL PO SCH (21:31)
[2020-02-26] MEDS: ETHINYL ESTRADIOL PO SCH (21:31)
[2020-02-26] MEDS ORDERED: QUEtiapine FUMARATE 25 MG TABLET PO SCH (22:00)
[2020-02-26] MEDS: clonazePAM 0.5 MG TAB PO PRN (22:40)
[2020-02-27] MEDS: clonazePAM 0.5 MG TAB PO PRN (06:25)
[2020-02-27] MEDS: RABEPRAZOLE 20 MG PO SCH ×2 (08:36→17:24)
[2020-02-27 09:19] LABS: Thyroid Stimulating Hormone 2.19 uIu/ml (0.300-4.500)
[2020-02-27] MEDS: DICYCLOMINE HCL 10 MG CAP PO SCH ×3 (09:31→17:23)
[2020-02-27] MEDS: HYDROCORTISONE 2.5% CR 30 GM TUBE EXT SCH ×2 (09:31→21:02)
[2020-02-27] MEDS: LITHIUM CARBONATE 450 MG TABCR PO SCH ×2 (09:31→20:59)
[2020-02-27] MEDS: GABAPENTIN 300 MG CAP PO SCH (09:32)
[2020-02-27] MEDS: VITAMIN B COMPLEX TAB PO SCH (09:32)
[2020-02-27] MEDS: PSYLLIUM 58.6% POWDER PACKET PO SCH (09:32)
[2020-02-27] MEDS: FLUoxetine HCL 10 MG CAP PO SCH (09:32)
[2020-02-27] MEDS: CALCIUM CARBONATE 1250MG TAB PO SCH (09:32)
[2020-02-27] MEDS: CETIRIZINE HCL 10 MG TABLET PO SCH (09:33)
[2020-02-27] MEDS: buPROPion SR 100 MG TABCR PO SCH (09:33)
[2020-02-27] MEDS: CHOLECALCIFEROL 1,000 UNITS 25 MCG TAB PO SCH (09:33)
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
[2020-02-27] MEDS ORDERED: GABAPENTIN 250 MG/5 ML 470 ML BTL PO ONE (13:45)
[2020-02-27] MEDS: POLYETHYLENE (MIRALAX) 17 GM PACK PO SCH (14:13)
[2020-02-27] MEDS: LACTOBACILLUS ACIDOPHILUS (FLORANEX) TAB PO SCH (21:01)
[2020-02-27] MEDS: LEVONORGESTREL PO SCH (21:03)
[2020-02-27] MEDS: ETHINYL ESTRADIOL PO SCH (21:03)
[2020-02-27] MEDS: QUEtiapine FUMARATE 25 MG TABLET PO SCH (21:04)
[2020-02-27] MEDS ORDERED: GABAPENTIN 150 MG/3 ML UDP PO ONE (22:00)
[2020-02-28] MEDS: RABEPRAZOLE 20 MG PO SCH ×2 (08:33→17:06)
[2020-02-28] MEDS: DICYCLOMINE HCL 10 MG CAP PO SCH ×3 (08:33→17:07)
[2020-02-28] MEDS: CALCIUM CARBONATE 1250MG TAB PO SCH (09:09)
[2020-02-28] MEDS: LITHIUM CARBONATE 450 MG TABCR PO SCH ×2 (09:09→20:56)
[2020-02-28] MEDS: CETIRIZINE HCL 10 MG TABLET PO SCH (09:10)
[2020-02-28] MEDS: VITAMIN B COMPLEX TAB PO SCH (09:10)
[2020-02-28] MEDS: CHOLECALCIFEROL 1,000 UNITS 25 MCG TAB PO SCH (09:10)
[2020-02-28] MEDS: HYDROCORTISONE 2.5% CR 30 GM TUBE EXT SCH ×2 (09:12→20:56)
[2020-02-28] MEDS: POLYETHYLENE (MIRALAX) 17 GM PACK PO SCH (09:13)
[2020-02-28] MEDS: PSYLLIUM 58.6% POWDER PACKET PO SCH (09:13)
[2020-02-28] MEDS: FLUoxetine HCL 10 MG CAP PO SCH (09:16)
--- NOTE | 2020-02-28 11:36 | Psychiatric Progress Note ---
Date of Service February 28, 2020 Impression / Recommendations Impression Admission Assessment - This 29-year-old woman was admitted through the emergency room after she reported that she was experiencing severe depression and suicidal thoughts with various plans. She has a long history of treatment for depression, and while she has enjoyed some improvement in response to various psychiatric medications over the years, her history reveals that these improvements tend to be short lived and efforts to address diminishing favorable effect of medications through medications increases generally are ineffective. For example, when her dose of Prozac was increased as an outpatient from 10 mg to 20 mg she noticed worsening anxiety and worsening depression, and the dose of Prozac was decreased back to 10 mg. Of significance is the fact that evidently she has been given the diagnosis of bipolar disorder in the past. The patient is well educated and is fully familiar with the symptoms of bipolar disorder. When we reviewed them, she did not endorse any symptoms of melida or hypomania, and she explains that, to the contrary, she has never experienced anything other than depression that is "sometimes worse than others." She may give a window into a secondary diagnoses when she suggests that she sometimes has difficulty regulating her mood in response to situational factors and that her mood can be somewhat labile at times. However, her mood is never expansive or elated, and she notes that she never experiences decreased desire for sleep, increased energy, impulsive or reckless behaviors, or other symptoms suggestive of melida or hypomania. She offers a broader what way of somatic complaints and is on multiple medications, with a fairly complex medication regimen. During her psychiatric evaluation she identified several additional complaints and requested additional medications to address the complaints, such as constipation, a rash on her legs, and lorazepam for "laboratory and [imaging] studies" because of the various simple phobias. With some reluctance, the patient acknowledges that her sexual orientation is homosexual. She reports that she is afraid to enter into any romantic relationship with another woman because she comes from a very religiously conservative [employer] family and fears that her family, and her father in particular, will reject her and encourage other members of the family to stop contact with her. Also, while she initially had a support network in [place], her various friends have all graduated and moved on to other locations. Accordingly, she is socially isolated, even when she feels better. 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 And she says that she often worries about her future in terms of being able to find a job in her particular field of study. There are number of treatments that have not been tried on a number of medications that can be considered. She evidently has never taken venlafaxine or any other SNRI. She may or may not have responded favorably to bupropion as an adjunct, but says that she has not been able to tolerate or has not responded to aripiprazole and risperidone. She also indicates that higher doses of medication such as sertraline (to which she is responded in the past) and Prozac have had an idiosyncratic effect and she tends to have worsening anxiety and depression as her dosages go higher. She has considered ECT, but has concluded that she is too frightened of the prospects. She is willing to consider transcranial magnetic stimulation. Therapy needs to focus on helping this very intelligent young woman feel comfortable with her sexuality, and she will need to learn that denying herself and her identity is not a reasonable trade off for ongoing acceptance from her family of origin. (1) Suicidal ideation: 02/23 -The patient reports progressive suicidal thoughts with plans that include overdosing, self poisoning, asphyxiation, and hanging. The patient has been admitted to the [facility] behavioral health unit and has been placed on suicide precautions. We have referred her for individual, group, and recreational therapy. She does not seem to be willing to consider family interventions at this point, but it may be useful to work with the patient in this regard because her family dynamics seem to be pretty central to the patient's current condition. -We will continue lithium carbonate 450 mg twice a day; Prozac 10 mg a day; and add bupropion SR 75 mg as an adjunct. We will consider offering trials of an SNRI, such as venlafaxine or duloxetine. Reviewed 02/25/2020. Note dosing of Wellbutrin SR is 100 mg po qam. 02/25--reviewed safety plan with staff, MNPR, moved to CORDELL, safety blanket (no sheets/pillowcases) for at least 24 hrs, no leggings, reviewed consistency shift to shift on where meeting with patient. 02/26--return blanket but not bed linens. 02/27--continues to report active SI, but not related to items presently available to the patient. Pt not able to contract for safety with any additional items at this time. --Maintain appropriate boundaries while continuing to build therapeutic alliance and offer suggestions to target chronic SI. (2) Anxiety and depression: 02/23 -The patient reports progressive suicidal thoughts with plans that include overdosing, self poisoning, asphyxiation, and hanging. The patient has been admitted to the [facility] behavioral health unit and has been placed on suicide precautions. We have referred her for individual, group, and recreational therapy. She does not seem to be willing to consider family interventions at this point, but it may be useful to work with the patient in this regard because her family dynamics seem to be pretty central to the patient's current condition. -We will continue lithium carbonate 450 mg twice a day; Prozac 10 mg a day; and add bupropion SR 75 mg as an adjunct. We will consider offering trials of an SNRI, such as venlafaxine or duloxetine. 02/25/2020. Note dosing of Wellbutrin SR is 100 mg po qam. Monitor ZAFAR. 02/25--restart Seroquel with plan to titrate tomorrow, may use lower dose prn anxiety during day. Get true lithium level trough in am and fasting metabolic labs. 02/26--lithium remains 0.9, d/c Wellbutrin (?worsening SI), she desires d/c Neurontin due to sedation, reviewed generally tapered--she is agreeable to take 150 mg tonight. titrate seroquel 50 mg po qhs with likely to 100 mg or more to target thoughts. No immediate availability of ketamine. She had discussed ECT at least briefly with Dr. Carranza but is attending to ADLs and groups here (more active than home). 02/27--Pt continuing to give conflicting thoughts regarding willingness for medication changes. Recommendation was provided to continue titration of quetiapine as discussed above; however patient was unwilling to do so at this time. --Continue to engage patient in group and recreational programming with focus on distraction techniques and coping skills that are beneficial to combat acute SI. --With ongoing interviews, there is a part of patient's presentation that seems to be related to borderline personality traits. (3) Irritable bowel syndrome: 02/23 -Currently, the patient reports that she has been feeling constipated for "some time now," and notes that she often does better with a bulk laxative such as Metamucil. Currently, we have ordered Metamucil daily. Reviewed 02/25/2020. She declines Miralax. States warm tea would aggravate her reflux. 02/25--reports having BM yesterday but guesses not full evacuation, she is declining additional metamucil. 02/26--Miralax as reports ongoing constipation, if ineffective she would prefer enema over laxative. (4) TSH elevation: 02/25--will repeat TSH in am, likely lithium induced with hair loss, would favor start of synthroid given symptoms. 02/26--repeat TSH normal. Inventory Assets Strengths: Intelligent. Motivated to treatment. Well informed. Past history of some favorable response to treatment. Needs: Relief from depression symptoms. Resolution of suicidal thoughts. 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 In particular, her mother. She is also close with several of her siblings, but fears that she will very rejected by all if she tells them that her sexual orientation as lesbian.) Good Rapport with Provider: Yes Absence of Any Risk Factors Above: No Interval History Identifying Information WILL KERNS is a 29-year-old female who currently lives in alone in [place]. She has a history of recurrent major depression, and was admitted on 02/24/20 13:33 on a 201 voluntary agreement because of worsening suicidal ideation, with thoughts of self poisoning, and/or fixation. Chief Complaint "Honestly, I think I'm getting worse." Review of Systems Notes Constitutional: denied Cardiovascular: denied Respiratory: denied Gastrointestinal: reporting stomach is "unsettled" Neurological: denied Psychiatric: denies symptoms other than stated above Total of at least 10 systems reviewed, pertinent positives as above and in HPI. Sleep Information Total Hours of Sleep: 6.25 Meal Information Percent Meal Consumed - Breakfast: 75 Percent Meal Consumed - Lunch: 50 Percent Meal Consumed - Dinner: 60 Nutrition Comment: pt. continues to report poor appetite Subjective Subjective Patient was seen & assessed and interval progress reviewed with nursing and social work. Staff report the patient has been participating in groups, but has not yet been able to fully contract for safety on the unit. She continues to verbalize constant SI and there was an episode yesterday where patient had made a suicidal gesture by wrapping a pillowcase around her neck. Staff discuss appropriate safety precautions at that time. Pt remains in the CORDELL and on a MNPR presently. Pt was seen today to assess progress since admission. Pt states "honestly, I think I'm getting worse." When asked to elaborate on this, patient surprisingly states that her mood and anxiety are actually improved, and that she has been attending to her ADLs more than she was at home. Pt states her appetite has improved, she has been changing her clothes daily, and she has been showering. Pt does report sleep has worsened as "you guys moved me back to this room and are making me keep the door open" (safety precautions put in place as a result of her verbalizing inability to contract for safety on the unit). Despite reporting the above improvements, patient is preoccupied with the fact that she is continuing to have intense SI. Pt reports she is having intense thoughts to "break the window and jump out and kill myself." Although she states the thoughts are intense, she reports that she is "not capable" of dosing something like that, which is preventing her from acting further. Pt denies any other temptations with which to harm herself presently. She did reports she has been spending some time today thinking of how she will end her life when she goes home, specifically reporting thoughts to "suffocate myself with a plastic bag" or "stab myself." Pt reports concern that she will be discharged before she is ready to return home. Pt was asked how group programming has been going, and she states "a lot of the groups are triggering to me. And there are a lot of people monopolizing the time." Pt admits that she is aware that there are times she should excuse herself from groups, but feels "frozen". Pt admits themes of "grief and alcohol use" are particularly triggering. Pt reports that our suggestions thus far for coping strategies and distraction techniques "are not helping." Pt is simultaneously saying that medication changes are the only options to improve her suicidality, but then is refusing to consider any medications suggestions offered by this provider today. She tells this provider that she does not want to increase her quetiapine "just to deal with sleeping in an uncomfortable room" and states that the medication is being used for SI, not for sleep. When encouraged to consider titration to 75mg to target both concerns, she reports "but it was only just increased, I'm not interested in making a lot of medication changes." Pt provided concerns with all other medications suggestions presented as well. Pt was reminded that medication adjustments are only a portion of things that can be done to reduce the intensity/frequency of SI and was encouraged to participate actively in groups while also engaging in 1:1 sessions as needed. Pt states that she is experiencing abdominal discomfort presently, and will be staying in her room until lunch. Pt was encouraged to reach out to staff with any additional questions or concnerns. Treatment Summary received from outpatient therapist: (see full document in chart) - Summary completed by Ioana Rico, Ph.D. referred to therapy sessions from 01/31/2020 - 02/23/2020. Pt was admitted to the [facility] in 09/2019 with reported stressors of struggling to complete her dissertation, moving to a new apartment, and the isolation related to COVID-19 pandemic. Acute admission criteria of SI with plan and increasing intent. Pt was diagnosed with Bipolar II and PTSD. [place] 450mg BID was started, with reported reduction in SI and improvement in mood. Daily functioning improved, but with poor sleep so quetiapine 25mg qHS was started. - Pt was hospitalized at [facility] in 12/2019 for SI with worsening mood and anxiety. Numerous stressors were reported, again related to school and new housing arrangements. Pt was discharged on [place], Abilify, Gabapentin, Trazodone, and hydroxyzine. Pt's mother lived with the patient for 10 days on discharge. - Ongoing deterioration throughout 01/2020 despite participating several times per week in psychotherapy, virtual [facility], and the [facility]. Most recent concerns are related to intensified anxiety, seen with "rocking and tense breathing during sessions." Pt also demonstrating increase in depressive symptoms, with reducted appetite and excessive sleeping. SI became more overwhelming "she just couldn't do anything and the only thing she could think about was killing herself." Medications were changed over the course of 01/2020: discontinued Abilify and Trazodone, started Seroquel and Prozac, and continue lithium. Pt was encouraged to again seek inpatient psychiatric hospitalization. Physical Exam Psychiatric Orientation: alert, oriented x 3 and + guarded (irritable, somewhat argumentative) Apperance: appropriately dressed (casually, wearing sweatshirt and sweatpants), + disheveled (appearing somewhat unkempt, hair in messy ponytail) and appeared stated age Eye Contact: + fair eye contact Motor Behavior: no abnormal motor movements (observed while laying in bed) Speech: normal rate/rhythm/volume of speech (whining tone at times) Affect: + depressed affect and mood congruent with affect Mood: + depressed mood Thought Process: + perseveration (remains very focused on SI and desire to end her life); + thought process not goal directed (wanting solutions, but not able to actively discuss steps to reach them) Thought Content: + cognitive distortions (externalizing blame, think consistent with borderline PD traits), + hopelessness, + worthlessness and + self deprecation Suicidal Thoughts: + reports suicidal thoughts, + reports suicidal plan and + reports suicidal intent Pt reports continued suicidal thoughts. While planning what she would do if she were home, she also reports thoughts to jump from the window of her room to end her life. She reports realization that she does not have the means to follow through with this plan, but states intent would be "10 out of 10" if she could. Homicidal Thoughts: denies homicidal thoughts Hallucinations: no auditory hallucinations and no visual hallucinations Cognition: attention grossly intact and language grossly intact Insight: + impaired insight Judgement: + impaired judgement Vital Signs (Past 24 Hours) Last Vital Signs Temp 37.2 C 02/27/20 19:22 Pulse 87 02/27/20 06:38 Resp 16 02/27/20 06:37 BP 100/67 02/27/20 06:38 Pulse Ox 100 02/24/20 16:18 Results & Data ([facility]) Current Inpatient Medications Current Inpatient Medications: Current Inpatient Medications Acetaminophen (Acetaminophen 325 Mg Tab) 650 mg PO Q4H PRN PRN Reason: Headache or Minor Fever Stop: 03/25/20 13:32 Last Admin: 02/25/20 04:09 Dose: 650 mg Documented by: Al Hydrox/Mg Hydrox/Simethicone (Aluminum/Magnesium Susp 30 Ml Udc) 30 ml PO Q4H PRN PRN Reason: GI Upset Stop: 03/25/20 13:32 Last Admin: 02/24/20 19:39 Dose: 30 ml Documented by: Bismuth Subsalicylate (Bismuth Subsalicylate Liqd 236 Ml) 15 ml PO PRN PRN PRN Reason: Loose Stool Stop: 03/25/20 13:32 Calcium Carbonate (Calcium Carbonate 1250mg Tab) 1,250 mg PO DAILY OLIVIA Stop: 03/26/20 08:59 Last Admin: 02/28/20 09:09 Dose: 1,250 mg Documented by: Cetirizine HCl (Cetirizine Hcl 10 Mg Tablet) 10 mg PO QAM OLIVIA Stop: 03/27/20 08:59 Last Admin: 02/28/20 09:10 Dose: 10 mg Documented by: Clonazepam (Clonazepam 0.5 Mg Tab) 0.5 mg PO DAILY PRN PRN Reason: Blood draws or imaging studies Stop: 03/25/20 21:08 Last Admin: 02/27/20 06:25 Dose: 0.5 mg Documented by: Dicyclomine HCl (Dicyclomine Hcl 10 Mg Cap) 10 mg PO TIDM OLIVIA Stop: 03/25/20 17:59 Last Admin: 02/28/20 08:33 Dose: 10 mg Documented by: Fluoxetine HCl (Fluoxetine Hcl 10 Mg Cap) 10 mg PO QAM OLIVIA Stop: 03/26/20 08:59 Last Admin: 02/28/20 09:16 Dose: 10 mg Documented by: Hydrocortisone (Hydrocortisone 2.5% Cr 30 Gm Tube) 1 appln EXT BID OLIVIA Stop: 03/25/20 20:59 Last Admin: 02/28/20 09:12 Dose: Not Given Documented by: Hydroxyzine HCl (Hydroxyzine Hcl 25 Mg Tab) 50 mg PO HSZ PRN PRN Reason: Insomnia Stop: 03/25/20 13:32 Hydroxyzine HCl (Hydroxyzine Hcl 25 Mg Tab) 25 mg PO Q4H PRN PRN Reason: Anxiety Stop: 03/25/20 13:32 Lactobacillus Acidophilus (Lactobacillus Acidophilus (Floranex) Tab) 4 tab PO HS OLIVIA Stop: 03/25/20 21:59 Last Admin: 02/27/20 21:01 Dose: 4 tab Documented by: Levalbuterol HCl (Levalbuterol Tartrate 15 Gm Hfa.Aer.Ad) 2 puffs INH Q4H PRN PRN Reason: Shortness Of Breath Or Wheezin Stop: 03/25/20 17:49 [place] Carbonate ([place] Carbonate 450 Mg Tabcr) 450 mg PO BID OLIVIA Stop: 03/25/20 20:59 Last Admin: 02/28/20 09:09 Dose: 450 mg Documented by: Magnesium Hydroxide (Magnesium Hydroxide Susp 30 Ml Udc) 30 ml PO DAILY PRN PRN Reason: Constipation Stop: 03/25/20 13:32 Miscellaneous (Camrese Lo Patient's Own Oral Contraceptive) 1 ea PO HS OLIVIA Stop: 03/25/20 21:59 Last Admin: 02/27/20 21:03 Dose: 1 ea Documented by: Rabeprazole 20mg ~ Non-Formulary Patient's Own Med 1 ea PO BID OLIVIA Stop: 03/25/20 20:59 Last Admin: 02/28/20 08:33 Dose: 1 ea Documented by: Polyethylene Glycol (Polyethylene (Miralax) 17 Gm Pack) 17 gm PO DAILY [facility] Stop: 03/28/20 13:44 Last Admin: 02/28/20 09:13 Dose: Not Given Documented by: Psyllium Hydrophilic Mucilloid (Psyllium 58.6% Powder Packet) 1 pkt PO QAM [facility] Stop: 03/25/20 18:44 Last Admin: 02/28/20 09:13 Dose: Not Given Documented by: Quetiapine Fumarate (Quetiapine Fumarate 25 Mg Tablet) 12.5 mg PO Q6 PRN PRN Reason: Anxiety Stop: 03/27/20 11:59 Last Admin: 02/26/20 12:59 Dose: 12.5 mg Documented by: Quetiapine Fumarate (Quetiapine Fumarate 25 Mg Tablet) 50 mg PO HS [facility] Stop: 03/28/20 21:59 Last Admin: 02/27/20 21:04 Dose: 50 mg Documented by: Sodium Chloride (Sodium Chloride 0.65% Na Soln 45 Ml ([place])) 1 - 2 sprays NA PRN PRN PRN Reason: Nasal Dryness/Congestion Stop: 03/25/20 13:32 Vitamin B Complex (Vitamin B Complex Tab) 1 tab PO QAM OLIVIA Stop: 03/26/20 08:59 Last Admin: 02/28/20 09:10 Dose: 1 tab Documented by: Vitamin D (Cholecalciferol 1,000 Units 25 Mcg Tab) 1,000 units PO DAILY OLIVIA Stop: 03/27/20 08:59 Last Admin: 02/28/20 09:10 Dose: 1,000 units Documented by: Mental Health & Subst Abuse Tx Psychiatrist Name of Psychiatrist: Dr. Siobhan ShepherdJay Psychiatrist's Psychiatric Appointment Comment: [address] [id number] Therapist Name of Therapist: [facility] - Ioana Rico Therapist's Therapy Appointment Comment: Usually calls on Tuesdays/Fridays Staff Cytotechnologist Name of Staff Cytotechnologist: [facility] - Josefina Phone Number for Staff Cytotechnologist: [phone] Case Management Appointment Comment: [address] [facility] Discharge Appointments Primary Care Physician Name Of Family Doctor: [facility] - Dr. Azar Contact Information Discharge Discharge Address[address], [place] [address]
[2020-02-28] MEDS: LEVONORGESTREL PO SCH (20:57)
[2020-02-28] MEDS: ETHINYL ESTRADIOL PO SCH (20:57)
[2020-02-28] MEDS: LACTOBACILLUS ACIDOPHILUS (FLORANEX) TAB PO SCH (20:57)
[2020-02-28] MEDS: QUEtiapine FUMARATE 25 MG TABLET PO SCH (20:58)
[2020-02-29] MEDS: RABEPRAZOLE 20 MG PO SCH ×2 (08:41→17:22)
[2020-02-29] MEDS: LITHIUM CARBONATE 450 MG TABCR PO SCH ×2 (08:58→20:54)
[2020-02-29] MEDS: DICYCLOMINE HCL 10 MG CAP PO SCH ×3 (08:58→17:20)
[2020-02-29] MEDS: CETIRIZINE HCL 10 MG TABLET PO SCH (08:58)
[2020-02-29] MEDS: FLUoxetine HCL 10 MG CAP PO SCH (08:58)
[2020-02-29] MEDS: VITAMIN B COMPLEX TAB PO SCH (08:58)
[2020-02-29] MEDS: CALCIUM CARBONATE 1250MG TAB PO SCH (08:58)
[2020-02-29] MEDS: CHOLECALCIFEROL 1,000 UNITS 25 MCG TAB PO SCH (08:58)
[2020-02-29] MEDS: POLYETHYLENE (MIRALAX) 17 GM PACK PO SCH (09:01)
[2020-02-29] MEDS: PSYLLIUM 58.6% POWDER PACKET PO SCH (09:01)
[2020-02-29] MEDS: HYDROCORTISONE 2.5% CR 30 GM TUBE EXT SCH ×2 (09:02→20:55)
[2020-02-29] MEDS: ALUMINUM/MAGNESIUM SUSP 30 ML UDC PO PRN (10:07)
--- NOTE | 2020-02-29 12:12 | Psychiatric Progress Note ---
Date of Service February 29, 2020 Impression / Recommendations Impression Admission Assessment - This 29-year-old woman was admitted through the emergency room after she reported that she was experiencing severe depression and suicidal thoughts with various plans. She has a long history of treatment for depression, and while she has enjoyed some improvement in response to various psychiatric medications over the years, her history reveals that these improvements tend to be short lived and efforts to address diminishing favorable effect of medications through medications increases generally are ineffective. For example, when her dose of Prozac was increased as an outpatient from 10 mg to 20 mg she noticed worsening anxiety and worsening depression, and the dose of Prozac was decreased back to 10 mg. Of significance is the fact that evidently she has been given the diagnosis of bipolar disorder in the past. The patient is well educated and is fully familiar with the symptoms of bipolar disorder. When we reviewed them, she did not endorse any symptoms of melida or hypomania, and she explains that, to the contrary, she has never experienced anything other than depression that is "sometimes worse than others." She may give a window into a secondary diagnoses when she suggests that she sometimes has difficulty regulating her mood in response to situational factors and that her mood can be somewhat labile at times. However, her mood is never expansive or elated, and she notes that she never experiences decreased desire for sleep, increased energy, impulsive or reckless behaviors, or other symptoms suggestive of melida or hypomania. She offers a broader what way of somatic complaints and is on multiple medications, with a fairly complex medication regimen. During her psychiatric evaluation she identified several additional complaints and requested additional medications to address the complaints, such as constipation, a rash on her legs, and lorazepam for "laboratory and [imaging] studies" because of the various simple phobias. With some reluctance, the patient acknowledges that her sexual orientation is homosexual. She reports that she is afraid to enter into any romantic relationship with another woman because she comes from a very religiously conservative Catholic family and fears that her family, and her father in particular, will reject her and encourage other members of the family to stop contact with her. Also, while she initially had a support network in [place], her various friends have all graduated and moved on to other locations. Accordingly, she is socially isolated, even when she feels better. 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 And she says that she often worries about her future in terms of being able to find a job in her particular field of study. There are number of treatments that have not been tried on a number of medications that can be considered. She evidently has never taken venlafaxine or any other SNRI. She may or may not have responded favorably to bupropion as an adjunct, but says that she has not been able to tolerate or has not responded to aripiprazole and risperidone. She also indicates that higher doses of medication such as sertraline (to which she is responded in the past) and Prozac have had an idiosyncratic effect and she tends to have worsening anxiety and depression as her dosages go higher. She has considered ECT, but has concluded that she is too frightened of the prospects. She is willing to consider transcranial magnetic stimulation. Therapy needs to focus on helping this very intelligent young woman feel comfortable with her sexuality, and she will need to learn that denying herself and her identity is not a reasonable trade off for ongoing acceptance from her family of origin. (1) Suicidal ideation: 02/23 -The patient reports progressive suicidal thoughts with plans that include overdosing, self poisoning, asphyxiation, and hanging. The patient has been admitted to the [facility] behavioral health unit and has been placed on suicide precautions. We have referred her for individual, group, and recreational therapy. She does not seem to be willing to consider family interventions at this point, but it may be useful to work with the patient in this regard because her family dynamics seem to be pretty central to the patient's current condition. -We will continue lithium carbonate 450 mg twice a day; Prozac 10 mg a day; and add bupropion SR 75 mg as an adjunct. We will consider offering trials of an SNRI, such as venlafaxine or duloxetine. Reviewed 02/25/2020. Note dosing of Wellbutrin SR is 100 mg po qam. 02/25--reviewed safety plan with staff, MNPR, moved to [place], safety blanket (no sheets/pillowcases) for at least 24 hrs, no leggings, reviewed consistency shift to shift on where meeting with patient. 02/26--return blanket but not bed linens. 02/27--continues to report active SI, but not related to items presently available to the patient. Pt not able to contract for safety with any additional items at this time. --Maintain appropriate boundaries while continuing to build therapeutic alliance and offer suggestions to target chronic SI. 02/28 - Pt vaguely reporting "I don't feel safe", but was unable to verbalize any specific temptations on unit or specific plans/intent - She admits that SI is chronically "in the background" but becomes more pronounced when the patient is being "triggered" (2) Anxiety and depression: 02/23 -The patient reports progressive suicidal thoughts with plans that include overdosing, self poisoning, asphyxiation, and hanging. The patient has been admitted to the [facility] behavioral health unit and has been placed on suicide precautions. We have referred her for individual, group, and recreational therapy. She does not seem to be willing to consider family interventions at this point, but it may be useful to work with the patient in this regard because her family dynamics seem to be pretty central to the patient's current condition. -We will continue lithium carbonate 450 mg twice a day; Prozac 10 mg a day; and add bupropion SR 75 mg as an adjunct. We will consider offering trials of an SNRI, such as venlafaxine or duloxetine. 02/25/2020. Note dosing of Wellbutrin SR is 100 mg po qam. Monitor ZAFAR. 02/25--restart Seroquel with plan to titrate tomorrow, may use lower dose prn anxiety during day. Get true lithium level trough in am and fasting metabolic labs. 02/26--lithium remains 0.9, d/c Wellbutrin (?worsening SI), she desires d/c Neurontin due to sedation, reviewed generally tapered--she is agreeable to take 150 mg tonight. titrate seroquel 50 mg po qhs with likely to 100 mg or more to target thoughts. No immediate availability of ketamine. She had discussed ECT at least briefly with Dr. Carranza but is attending to ADLs and groups here (more active than home). 02/27--Pt continuing to give conflicting thoughts regarding willingness for medication changes. Recommendation was provided to continue titration of quetiapine as discussed above; however patient was unwilling to do so at this time. --Continue to engage patient in group and recreational programming with focus on distraction techniques and coping skills that are beneficial to combat acute S I. --With ongoing interviews, there is a part of patient's presentation that seems to be related to borderline personality traits. 02/28 - Pt agreeable with titrating quetiapine to 75mg for this evening. Reviewed that a target dose of 100mg had been suggested and patient was agreeable with continuing to work toward this dosage. - She continues to report struggles with SI, with somewhat limited group participation (3) Borderline personality disorder: 02/28 - Attempts made today to review diagnostic features of borderline personality disorder with patient to determine if she identified strongly with the criteria; however, patient reported she was familiar with the criteria as she had been given this diagnosis at [facility]. Pt reports "I don't want the diagnosis." Pt reports she has "complex trauma" but was not able to engage in conversation to discuss that the two are not mutually exclusive. - Attempts were made to work with patient on de-stigmatizing the diagnosis in her own mind, and reassuring the patient that there may be additional/alternative diagnosis that can help us more appropriate address her concerns. - Patient does continue to regularly display characteristics that suggest this pathology - Will continue to provide needed support while also maintaining consistent boundaries - Pt would likely benefit from additional information on the diagnosis as well as DBT approaches (4) Irritable bowel syndrome: 02/23 -Currently, the patient reports that she has been feeling constipated for "some time now," and notes that she often does better with a bulk laxative such as Metamucil. Currently, we have ordered Metamucil daily. Reviewed 02/25/2020. She declines Miralax. States warm tea would aggravate her reflux. 02/25--reports having BM yesterday but guesses not full evacuation, she is declining additional metamucil. 02/26--Miralax as reports ongoing constipation, if ineffective she would prefer enema over laxative. 02/28--reports ongoing, intermittent GI complaints. States she has benefitted from Zofran and/or Tums on an outpatient basis. Both were ordered for patient to be able to utilize as needed for GI complaints. (5) TSH elevation: 02/25--will repeat TSH in am, likely lithium induced with hair loss, would favor start of synthroid given symptoms. 02/26--repeat TSH normal. Inventory Assets Strengths: Intelligent. Motivated to treatment. Well informed. Past history of some favorable response to treatment. Needs: Relief from depression symptoms. Resolution of suicidal thoughts. 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 In partic víctor, her mother. She is also close with several of her siblings, but fears that she will very rejected by all if she tells them that her sexual orientation as lesbian.) Good Rapport with Provider: Yes Absence of Any Risk Factors Above: No Interval History Identifying Information WILL KERNS is a 29-year-old female who currently lives in alone in [place]. She has a history of recurrent major depression, and was admitted on 02/24/20 13:33 on a 201 voluntary agreement because of worsening suicidal ideation, with thoughts of self poisoning, and/or fixation. Chief Complaint "Um, I'm not good." Review of Systems Notes Constitutional: denied Cardiovascular: denied Respiratory: denied Gastrointestinal: reports her "stomach is churning", nausea this morning which has since resolved Neurological: denied Psychiatric: denies symptoms other than stated above Total of at least 10 systems reviewed, pertinent positives as above and in HPI. Sleep Information Total Hours of Sleep: 7 Meal Information Percent Meal Consumed - Breakfast: 100 Percent Meal Consumed - Lunch: 0 Percent Meal Consumed - Dinner: 90 Nutrition Comment: pt. continues to report poor appetite Subjective Subjective Patient was seen & assessed and interval progress reviewed with treatment team. Staff report the patient has been limited engagement in groups throughout the day. Pt did reportedly share with staff that she had thoughts to smother herself with her pillows. Pillows were removed from patient's room as she was u nable to contract for safety when discussing with staff. Pt did have a 1:1 session with our evening shift counselor, documentation from this conversation was reviewed. Pt was seen today to assess progress since admission. Pt admits that she is "not good." She admits that she has continued to struggle with suicidal ideation and reports having an "anxiety-inducing conversation" with her mother today. Pt states that her mother suggested she could sell her home in order to assist the patient in obtaining treatment at a long-term trauma facility. Pt stated she does not agree that this is appropriate. She did share with her mother that she is frustrated she has not been able to manage these symptoms without frequent hospital admissions, and reports "I just feel like treatment will be a revolving door." Pt admitted she does not feel "safe", but denied specific SI or temptations to harm self presently. This provider suggested further conversation today to evaluate other possible diagnoses that may explain or help us understand the patient's chronic suicidal ideation. Before this provider even suggested considered diagnoses, the patient stated "are you saying borderline personality disorder? Because I do not have that. I don't want that diagnosis." This provider suggested we take a step back, and the patient was asked to explain her understanding of the diagnosis and where this had previously been discussed. Pt stated "I don't want to talk about it. My last inpatient hospital had said I have it." It is the patient's perception that her current outpatient providers do not believe that this is the diagnosis, or are stating "don't worry about the diagnosis, just the treatment." Again, patient was asked to provider her understanding of the diagnosis after stating "I know all about it", but again reported "I don't want to talk about it." Pt suggests she has "complex trauma." This provider attempted a conversation to discuss that the two are not mutually exclusive, but patient dismissed this discussion. This provider did not press the issue much more, but did share that misdiagnosis is often a contributing factor in feeling as though treatment is not effective, and that this provider was concerned that not adequately evaluating all spheres of the patient's presentation may further contribute to the idea of "revolving door" treatment. Pt did report that she is feeling "agitated", admitting that it is strictly related to our conversation. This provider verbalized appreciation of patient's honesty. We did discuss previously discussed plan to continue titration of quetiapine, which patient is willing for tonight. Pt also requested to be able to utilize Tums and Zofran as needed for ongoing GI complaints. Pt denied any acute safety concerns at this time and was encouraged to attend group programming which had been occurring at the time of our conversation. Pt declined to do so at this time, but denied other needs. Physical Exam Psychiatric Orientation: alert, oriented x 3 and + guarded (uncooperative, dismissive, and at times argumentative) Apperance: appropriately dressed, appropriately groomed and appeared stated age Eye Contact: + fair eye contact (at times seems to be avoiding direct eye cont act) Motor Behavior: + abnormal motor movements (at times she is observed to be rocking back and forth as if self-soothing) Pt observed while sitting on bed Speech: normal rate/rhythm/volume of speech Affect: + depressed affect, + anxious affect and + constricted affect Mood: + depressed mood and + anxious mood Thought Process: + concrete thought process Thought Content: + preoccupation, + cognitive distortions, + hopelessness and + worthlessness Suicidal Thoughts: denies suicidal plan; + reports suicidal thoughts Hallucinations: no auditory hallucinations and no visual hallucinations Cognition: attention grossly intact and language grossly intact Estimated Intelligence: consistent with education level Insight: + impaired insight Judgement: + impaired judgement Vital Signs (Past 24 Hours) Last Vital Signs Temp 36.7 C 02/29/20 06:54 Pulse 84 02/29/20 06:55 Resp 16 02/29/20 06:54 BP 93/63 L 02/29/20 06:55 Pulse Ox 100 02/24/20 16:18 Results & Data ([facility] [[email or web address] Current Inpatient Medications Current Inpatient Medications: Current Inpatient Medications Acetaminophen (Acetaminophen 325 Mg Tab) 650 mg PO Q4H PRN PRN Reason: Headache or Minor Fever Stop: 03/25/20 13:32 Last Admin: 02/25/20 04:09 Dose: 650 mg Documented by: Al Hydrox/Mg Hydrox/Simethicone (Aluminum/Magnesium Susp 30 Ml Udc) 30 ml PO Q4H PRN PRN Reason: GI Upset Stop: 03/25/20 13:32 Last Admin: 02/29/20 10:07 Dose: 30 ml Documented by: Bismuth Subsalicylate (Bismuth Subsalicylate Liqd 236 Ml) 15 ml PO PRN PRN PRN Reason: Loose Stool Stop: 03/25/20 13:32 Calcium Carbonate (Calcium Carbonate 1250mg Tab) 1,250 mg PO DAILY OLIVIA Stop: 03/26/20 08:59 Last Admin: 02/29/20 08:58 Dose: 1,250 mg Documented by: Cetirizine HCl (Cetirizine Hcl 10 Mg Tablet) 10 mg PO QAM OLIVIA Stop: 03/27/20 08:59 Last Admin: 02/29/20 08:58 Dose: 10 mg Documented by: Clonazepam (Clonazepam 0.5 Mg Tab) 0.5 mg PO DAILY PRN PRN Reason: Blood draws or imaging studies Stop: 03/25/20 21:08 Last Admin: 02/27/20 06:25 Dose: 0.5 mg Documented by: Dicyclomine HCl (Dicyclomine Hcl 10 Mg Cap) 10 mg PO TIDM [facility] Stop: 03/25/20 17:59 Last Admin: 02/29/20 08:58 Dose: 10 mg Documented by: Fluoxetine HCl (Fluoxetine Hcl 10 Mg Cap) 10 mg PO QAM [facility] Stop: 03/26/20 08:59 Last Admin: 02/29/20 08:58 Dose: 10 mg Documented by: Hydrocortisone (Hydrocortisone 2.5% Cr 30 Gm Tube) 1 appln EXT BID OLIVIA Stop: 03/25/20 20:59 Last Admin: 02/29/20 09:02 Dose: 1 appln Documented by: Hydroxyzine HCl (Hydroxyzine Hcl 25 Mg Tab) 50 mg PO HSZ PRN PRN Reason: Insomnia Stop: 03/25/20 13:32 Hydroxyzine HCl (Hydroxyzine Hcl 25 Mg Tab) 25 mg PO Q4H PRN PRN Reason: Anxiety Stop: 03/25/20 13:32 Lactobacillus Acidophilus (Lactobacillus Acidophilus (Floranex) Tab) 4 tab PO HS OLIVIA Stop: 03/25/20 21:59 Last Admin: 02/28/20 20:57 Dose: 4 tab Documented by: Levalbuterol HCl (Levalbuterol Tartrate 15 Gm Hfa.Aer.Ad) 2 puffs INH Q4H PRN PRN Reason: Shortness Of Breath Or Wheezin Stop: 03/25/20 17:49 Binger Carbonate (Binger Carbonate 450 Mg Tabcr) 450 mg PO BID OLIVIA Stop: 03/25/20 20:59 Last Admin: 02/29/20 08:58 Dose: 450 mg Documented by: Magnesium Hydroxide (Magnesium Hydroxide Susp 30 Ml Udc) 30 ml PO DAILY PRN PRN Reason: Constipation Stop: 03/25/20 13:32 Miscellaneous (Camrese Lo Patient's Own Oral Contraceptive) 1 ea PO HS OLIVIA Stop: 03/25/20 21:59 Last Admin: 02/28/20 20:57 Dose: 1 ea Documented by: Rabeprazole 20mg ~ Non-Formulary Patient's Own Med 1 ea PO BID OLIVIA Stop: 03/25/20 20:59 Last Admin: 02/29/20 08:41 Dose: 1 ea Documented by: Polyethylene Glycol (Polyethylene (Miralax) 17 Gm Pack) 17 gm PO DAILY OLIVIA Stop: 03/28/20 13:44 Last Admin: 02/29/20 09:01 Dose: Not Given Documented by: Psyllium Hydrophilic Mucilloid (Psyllium 58.6% Powder Packet) 1 pkt PO QAM OLIVIA Stop: 03/25/20 18:44 Last Admin: 02/29/20 09:01 Dose: Not Given Documented by: Quetiapine Fumarate (Quetiapine Fumarate 25 Mg Tablet) 12.5 mg PO Q6 PRN PRN Reason: Anxiety Stop: 03/27/20 11:59 Last Admin: 02/26/20 12:59 Dose: 12.5 mg Documented by: Quetiapine Fumarate (Quetiapine Fumarate 25 Mg Tablet) 50 mg PO HS OLIVIA Stop: 03/28/20 21:59 Last Admin: 02/28/20 20:58 Dose: 50 mg Documented by: Sodium Chloride (Sodium Chloride 0.65% Na Soln 45 Ml ([place])) 1 - 2 sprays NA PRN PRN PRN Reason: Nasal Dryness/Congestion Stop: 03/25/20 13:32 Vitamin B Complex (Vitamin B Complex Tab) 1 tab PO QAM OLIVIA Stop: 03/26/20 08:59 Last Admin: 02/29/20 08:58 Dose: 1 tab Documented by: Vitamin D (Cholecalciferol 1,000 Units 25 Mcg Tab) 1,000 units PO DAILY OLIVIA Stop: 03/27/20 08:59 Last Admin: 02/29/20 08:58 Dose: 1,000 units Documented by: Mental Health & Subst Abuse Tx Psychiatrist [facility] Comment: [id number], [place] [id number] Therapist Name of Therapist: [facility] - Ioana Rico Therapist's Therapy Appointment Comment: Usually calls on Tuesdays/Fridays Geomagnetist Name of Geomagnetist: [facility] - Josefina Phone Number for Geomagnetist: [phone] Case Management Appointment Comment: [address] [facility] Post Discharge Appointments Primary Care Physician Name Of Family Doctor: Tiffanie - Dr. Azar Contact Information Discharge Discharge Address: [address] [place] [address], [address], [address], [place] [address]
[2020-02-29] MEDS ORDERED: CALCIUM CARBONATE 500 MG CHEWABLE TAB PO PRN (13:47)
[2020-02-29] MEDS ORDERED: ONDANSETRON 8MG OD TAB PO PRN (13:51)
[2020-02-29] MEDS: LEVONORGESTREL PO SCH (20:55)
[2020-02-29] MEDS: ETHINYL ESTRADIOL PO SCH (20:55)
[2020-02-29] MEDS: LACTOBACILLUS ACIDOPHILUS (FLORANEX) TAB PO SCH (20:56)
[2020-02-29] MEDS ORDERED: QUEtiapine FUMARATE 25 MG TABLET PO SCH (22:00)
--- NOTE | 2020-03-01 07:56 | Psychiatric Progress Note ---
Date of Service March 01, 2020 Impression / Recommendations Impression 29-year-old female with a history of recurrent depression, PTSD, and borderline personality disorder who is admitted voluntarily with severe depression and suicidal thoughts with various plans. She has a long history of treatment for depression, and while she reports some improvement in response to various psychiatric medications over the years, improvements tend to be short lived and efforts to address diminishing favorable effect of medications through medications increases generally are ineffective. She appears to meet criteria for borderline personality disorder, with difficulty regulating her mood in response to situational factors, inappropriate anger, stress related dissociative symptoms, and recurrent suicidal behavior/gestures. She also reports a broad array of somatic symptoms for which she is on multiple medications, is socially isolated with no local supports, and is refusing contact with her mother and sister, although she has been calling them on the phone. She has a local therapist, but sees a psychiatrist in [place]. She has not been able to make progress on her PhD, and a meeting with the [place] office of student care and advocacy is being arranged. Quetiapine is being titrated here to target mood, and she has considered ECT, but has concluded that she is too frightened of the prospects. She is willing to consider transcranial magnetic stimulation. She had a suicidal gesture on the unit last weekend, and remains suicidal to the extent that she has been placed on enhanced precautions with no access to pillowcases or sheets, and in a private room. Inpatient tr eatment is medically necessary due to the severity of symptoms and risk for suicide if discharged. (1) Suicidal ideation: 02/23 -The patient reports progressive suicidal thoughts with plans that include overdosing, self poisoning, asphyxiation, and hanging. The patient has been admitted to the [facility] behavioral health unit and has been placed on suicide precautions. We have referred her for individual, group, and recreational therapy. She does not seem to be willing to consider family interventions at this point, but it may be useful to work with the patient in this regard because her family dynamics seem to be pretty central to the patient's current condition. -We will continue lithium carbonate 450 mg twice a day; Prozac 10 mg a day; and add bupropion SR 75 mg as an adjunct. We will consider offering trials of an SNRI, such as venlafaxine or duloxetine. Reviewed 02/25/2020. Note dosing of Wellbutrin SR is 100 mg po qam. 02/25--reviewed safety plan with staff, MNPR, moved to [place], safety blanket (no sheets/pillowcases) for at least 24 hrs, no leggings, reviewed consistency shift to shift on where meeting with patient. 02/26--return blanket but not bed linens. 02/27--continues to report active SI, but not related to items presently available to the patient. Pt not able to contract for safety with any additional items at this time. --Maintain appropriate boundaries while continuing to build therapeutic alliance and offer suggestions to target chronic SI. 02/28 - Pt vaguely reporting "I don't feel safe", but was unable to verbalize any specific temptations on unit or specific plans/intent - She admits that SI is chronically "in the background" but becomes more pronounced when the patient is being "triggered" 03/01 -patient continues to endorse suicidal thoughts, states she would not feel safe having access to sheets or pillowcases that she could wrap around her neck, but feels safe in her current environment with safety blankets, 1 cotton blanket, and no access to other items without staff supervision. Her door is being kept open so that she is visible from the nurses station. -Continue private room and current precautions. -Encourage patient to continue to identify effective coping skills. (2) Anxiety and depression: 02/23 -The patient reports progressive suicidal thoughts with plans that include overdosing, self poisoning, asphyxiation, and hanging. The patient has been admitted to the locked behavioral health unit and has been placed on suicide precautions. We have referred her for individual, group, and recreational therapy. She does not seem to be willing to consider family interventions at this point, but it may be useful to work with the patient in this regard because her family dynamics seem to be pretty central to the patient's current condition. -We will continue lithium carbonate 450 mg twice a day; Prozac 10 mg a day; and add bupropion SR 75 mg as an adjunct. We will consider offering trials of an SNRI, such as venlafaxine or duloxetine. 02/25/2020. Note dosing of Wellbutrin SR is 100 mg po qam. Monitor ZAFAR. 02/25--restart Seroquel with plan to titrate tomorrow, may use lower dose prn anxiety during day. Get true lithium level trough in am and fasting metabolic labs. 02/26--lithium remains 0.9, d/c Wellbutrin (?worsening SI), she desires d/c Neurontin due to sedation, reviewed generally tapered--she is agreeable to take 150 mg tonight. titrate seroquel 50 mg po qhs with likely to 100 mg or more to target thoughts. No immediate availability of ketamine. She had discussed ECT at least briefly with Dr. Carranza but is attending to ADLs and groups here (more active than home). 02/27--Pt continuing to give conflicting thoughts regarding willingness for medication changes. Recommendation was provided to continue titration of quetiapine as discussed above; however patient was unwilling to do so at this time. --Continue to engage patient in group and recreational programming with focus on distraction techniques and coping skills that are beneficial to combat acute SI. --With ongoing interviews, there is a part of patient's presentation that seems to be related to borderline personality traits. 02/28 - Pt agreeable with titrating quetiapine to 75mg for this evening. Reviewed that a target dose of 100mg had been suggested and patient was agreeable with continuing to work toward this dosage. - She continues to report struggles with SI, with somewhat limited group participation 02/28 -continue quetiapine titration, increasing to 100 mg at bedtime for tonight. Fasting labs reviewed for monitoring on an atypical: Done 02/27/2020, FG 86, FLP notable for cholesterol 221. TSH was repeated as it was slightly elevated on admission, and was normal at 2.190. -Patient continues to refuse a family meeting, so we will schedule a treatment planning meeting with her outpatient therapist. Agree with recommendation for [facility]/residential treatment, trauma focused program. Patient lists multiple barriers to this, but admits it has yet been explored. -Message was left for outpatient psychiatrist, Dr. Thompson, in [place] yesterday requesting return call to coordinate care. (3) Borderline personality disorder: 02/28 - Attempts made today to review diagnostic features of borderline personality disorder with patient to determine if she identified strongly with the criteria; however, patient reported she was familiar with the criteria as she had been given this diagnosis at [facility]. Pt reports "I don't want the diagnosis." Pt reports she has "complex trauma" but was not able to engage in conversation to discuss that the two are not mutually exclusive. - Attempts were made to work with patient on de-stigmatizing the diagnosis in her own mind, and reassuring the patient that there may be additiona l/alternative diagnosis that can help us more appropriate address her concerns. - Patient does continue to regularly display characteristics that suggest this pathology - Will continue to provide needed support while also maintaining consistent boundaries - Pt would likely benefit from additional information on the diagnosis as well as DBT approaches 03/01 -Reviewed differential diagnosis with patient, as well as the fact that we will likely not make a definitive diagnosis here, due to the acute nature of treatment here, as well as her unwillingness to allow us access to her previous records or to get collateral information from her family. (4) Irritable bowel syndrome: 02/23 -Currently, the patient reports that she has been feeling constipated for "some time now," and notes that she often does better with a bulk laxative such as Metamucil. Currently, we have ordered Metamucil daily. Reviewed 02/25/2020. She declines Miralax. States warm tea would aggravate her reflux. 02/25--reports having BM yesterday but guesses not full evacuation, she is declining additional metamucil. 02/26--Miralax as reports ongoing constipation, if ineffective she would prefer enema over laxative. 02/28--reports ongoing, intermittent GI complaints. States she has benefitted from Zofran and/or Tums on an outpatient basis. Both were ordered for patient to be able to utilize as needed for GI complaints. (5) TSH elevation: 02/25--will repeat TSH in am, likely lithium induced with hair loss, would favor start of synthroid given symptoms. 02/26--repeat TSH normal. Inventory Assets Strengths: Intelligent. Motivated to treatment. Well informed. Past history of some favorable response to treatment. Needs: Relief from depression symptoms. Resolution of suicidal thoughts. 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 In particular, her mother. She is also close with several of her siblings, but fears that she will very rejected by all if she tells them that her sexual orientation as lesbian.) Good Rapport with Provider: Yes Absence of Any Risk Factors Above: No Interval History Identifying Information WILL KERNS is a 29-year-old female who currently lives in alone in [place]. She has a history of recurrent major depression, PTSD, and borderline personality disorder, and was admitted on 02/24/20 13:33 on a 201 voluntary agreement because of worsening suicidal ideation, with thoughts of self poisoning, and/or fixation. Chief Complaint " Worse". Review of Systems Sleep Information Total Hours of Sleep: 7.75 Meal Information Percent Meal Consumed - Breakfast: 100 Percent Meal Consumed - Lunch: 50 Percent Meal Consumed - Dinner: 75 Nutrition Comment: pt. continues to report poor appetite Subjective Subjective Patient was seen & assessed and interval progress reviewed with nursing and social work. Staff report she continues to report poor mood, rated at a 1/10, and said she felt "sad." She attended most groups, at times requiring prompting and displaying minimal participation, and has not been engaging spontaneously with staff. Her outpatient psychiatrist was contacted and a message left requesting to coordinate care. She stated that her suicidal thoughts were less intense yesterday, and agreed to continue titrating quetiapine to 75 mg at bedtime. Her therapist spoke with staff this morning to report patient called her upset that borderline personality disorder was suggested as a diagnosis, although she agreed the symptoms are present. Ioana stated the patient was in a virtual IOP in Jan. that was 3 days a week while getting therapy twice weekly, and they were recommending a higher level of care. On my assessment, she was seen in her room, where she has just been processing with a counselor, as she is having a difficult morning. She states she feels worse because "I was hopeful when I first came in," and now feels "all I really want to do is ." She endorses suicidal thoughts, stating she has been looking out the window at the hospital roof and thinking about jumping off. She denies a plan to hurt herself in the hospital, stating "they took away everything I could use, my sheets and pillowcases." She says that if she had them, she would use them to try to hurt herself. She rates her mood is 0-1/10, stating she was at 1/10 on admission. She says nothing helps, and the only things she appreciates about the hospital are the food and exercise group, as she likes to do stretches. She denies side effects to medication, and reports sleep was disturbed last night by nightmares, although she cannot recall what they were about. She wants to know "did you change my diagnosis?" Spent some time discussing psychiatric diagnoses, the process of making diagnoses, the fact that she has not allowed us to talk to her family or friends or obtain her previous inpatient records which hampers that process, and that there are several diagnoses that could be considered for her symptom cluster. Discussed that her therapist called in this morning and reviewed the information provided, including that a higher level of care was being recommended, such as PHP or residential treatment. The patient was argumentative about this, stating "no, Ioana told me my insurance would not pay for that." Try to clarify how this was determined, if they had explored residential or PHP options, which the patient denied that they had. Stated that we would schedule a meeting with her therapist to discuss this altogether clear of any miscommunication/misunderstandings. She states she has been talking to her mother and sister on the phone, but it was "not good," as her mother was encouraging her to go to a trauma disorder program, which the patient fears will cost money "she does not have, and it might not even work." Again reviewed recommendations for a family meeting, which the patient continues to refuse. Physical Exam Psychiatric Orientation: alert and cooperative Apperance: appropriately dressed Overweight female, casually dressed in street clothes, limited grooming. Seated on the edge of her bed in no acute distress. Eye Contact: + poor eye contact Only brief eye contact, gazes mostly on the floor. Slight rocking back and forth periodically throughout the interview. Nonspontaneous, monotone Affect: + depressed affect, + blunted affect, + constricted affect and mood nettie ruent with affect Mood: + depressed mood Thought Process: goal directed thought process Thought Content: + cognitive distortions, + hopelessness and + worthlessness Suicidal Thoughts: + reports suicidal thoughts Homicidal Thoughts: denies homicidal thoughts Hallucinations: no auditory hallucinations Cognition: attention grossly intact and language grossly intact Estimated Intelligence: consistent with education level Insight: + poor insight Judgement: + poor judgement Vital Signs (Past 24 Hours) Last Vital Signs Temp 36.8 C 03/01/20 06:26 Pulse 66 03/01/20 06:26 Resp 16 03/01/20 06:26 BP 99/67 L 03/01/20 06:26 Pulse Ox 100 02/24/20 16:18 Results & Data ([facility]) Current Inpatient Medications Current Inpatient Medications: Current Inpatient Medications Acetaminophen (Acetaminophen 325 Mg Tab) 650 mg PO Q4H PRN PRN Reason: Headache or Minor Fever Stop: 03/25/20 13:32 Last Admin: 02/25/20 04:09 Dose: 650 mg Documented by: Al Hydrox/Mg Hydrox/Simethicone (Aluminum/Magnesium Susp 30 Ml Udc) 30 ml PO Q4H PRN PRN Reason: GI Upset Stop: 03/25/20 13:32 Last Admin: 02/29/20 10:07 Dose: 30 ml Documented by: Bismuth Subsalicylate (Bismuth Subsalicylate Liqd 236 Ml) 15 ml PO PRN PRN PRN Reason: Loose Stool Stop: 03/25/20 13:32 Calcium Carbonate (Calcium Carbonate 1250mg Tab) 1,250 mg PO DAILY [facility] Stop: 03/26/20 08:59 Last Admin: 02/29/20 08:58 Dose: 1,250 mg Documented by: Calcium Carbonate (Calcium Carbonate 500 Mg Chewable Tab) 1,500 mg PO Q6H PRN PRN Reason: Indigestion Stop: 03/30/20 13:46 Last Admin: 02/29/20 15:29 Dose: 1,500 mg Documented by: Cetirizine HCl (Cetirizine Hcl 10 Mg Tablet) 10 mg PO QAM OLIVIA Stop: 03/27/20 08:59 Last Admin: 02/29/20 08:58 Dose: 10 mg Documented by: Clonazepam (Clonazepam 0.5 Mg Tab) 0.5 mg PO DAILY PRN PRN Reason: Blood draws or imaging studies Stop: 03/25/20 21:08 Last Admin: 02/27/20 06:25 Dose: 0.5 mg Documented by: Dicyclomine HCl (Dicyclomine Hcl 10 Mg Cap) 10 mg PO TIDM [facility] Stop: 03/25/20 17:59 Last Admin: 02/29/20 17:20 Dose: 10 mg Documented by: Fluoxetine HCl (Fluoxetine Hcl 10 Mg Cap) 10 mg PO QAM OLIVIA Stop: 03/26/20 08:59 Last Admin: 02/29/20 08:58 Dose: 10 mg Documented by: Hydrocortisone (Hydrocortisone 2.5% Cr 30 Gm Tube) 1 appln EXT BID OLIVIA Stop: 03/25/20 20:59 Last Admin: 02/29/20 20:55 Dose: 1 appln Documented by: Hydroxyzine HCl (Hydroxyzine Hcl 25 Mg Tab) 50 mg PO HSZ PRN PRN Reason: Insomnia Stop: 03/25/20 13:32 Hydroxyzine HCl (Hydroxyzine Hcl 25 Mg Tab) 25 mg PO Q4H PRN PRN Reason: Anxiety Stop: 03/25/20 13:32 Lactobacillus Acidophilus (Lactobacillus Acidophilus (Floranex) Tab) 4 tab PO HS [facility] Stop: 03/25/20 21:59 Last Admin: 02/29/20 20:56 Dose: 4 tab Documented by: Levalbuterol HCl (Levalbuterol Tartrate 15 Gm Hfa.Aer.Ad) 2 puffs INH Q4H PRN PRN Reason: Shortness Of Breath Or Wheezin Stop: 03/25/20 17:49 [place] Carbonate ([place] Carbonate 450 Mg Tabcr) 450 mg PO BID [facility] Stop: 03/25/20 20:59 Last Admin: 02/29/20 20:54 Dose: 450 mg Documented by: Magnesium Hydroxide (Magnesium Hydroxide Susp 30 Ml Udc) 30 ml PO DAILY PRN PRN Reason: Constipation Stop: 03/25/20 13:32 Miscellaneous (Camrese Lo Patient's Own Oral Contraceptive) 1 ea PO HS [facility] Stop: 03/25/20 21:59 Last Admin: 02/29/20 20:55 Dose: 1 ea Documented by: Rabeprazole 20mg ~ Non-Formulary Patient's Own Med 1 ea PO BID [facility] Stop: 03/25/20 20:59 Last Admin: 02/29/20 17:22 Dose: 1 ea Documented by: Ondansetron HCl (Ondansetron 8mg Od Tab) 8 mg PO Q6H PRN PRN Reason: Nausea Stop: 03/30/20 13:50 Last Admin: 03/01/20 00:57 Dose: 8 mg Documented by: Polyethylene Glycol (Polyethylene (Miralax) 17 Gm Pack) 17 gm PO DAILY OLIVIA Stop: 03/28/20 13:44 Last Admin: 02/29/20 09:01 Dose: Not Given Documented by: Psyllium Hydrophilic Mucilloid (Psyllium 58.6% Powder Packet) 1 pkt PO QAM OLIVIA Stop: 03/25/20 18:44 Last Admin: 02/29/20 09:01 Dose: Not Given Documented by: Quetiapine Fumarate (Quetiapine Fumarate 25 Mg Tablet) 12.5 mg PO Q6 PRN PRN Reason: Anxiety Stop: 03/27/20 11:59 Last Admin: 02/26/20 12:59 Dose: 12.5 mg Documented by: Quetiapine Fumarate (Quetiapine Fumarate 25 Mg Tablet) 75 mg PO HS OLIVIA Stop: 03/30/20 21:59 Last Admin: 02/29/20 20:56 Dose: 75 mg Documented by: Sodium Chloride (Sodium Chloride 0.65% Na Soln 45 Ml ([place])) 1 - 2 sprays NA PRN PRN PRN Reason: Nasal Dryness/Congestion Stop: 03/25/20 13:32 Vitamin B Complex (Vitamin B Complex Tab) 1 tab PO QAM OLIVIA Stop: 03/26/20 08:59 Last Admin: 02/29/20 08:58 Dose: 1 tab Documented by: Vitamin D (Cholecalciferol 1,000 Units 25 Mcg Tab) 1,000 units PO DAILY OLIVIA Stop: 03/27/20 08:59 Last Admin: 02/29/20 08:58 Dose: 1,000 units Documented by: Mental Health & Subst Abuse Tx Psychiatrist Name of Psychiatrist: Dr. Siobhan Cross Psychiatrist's Psychiatric Appointment Comment: [id number] [place] [address] Therapist Name of Therapist: [facility] - Ioana Rico Therapist's Therapy Appointment Comment: Usually calls on Tuesdays/Fridays Floor Refinisher Name of Floor Refinisher: [facility] Josefina Phone Number for Floor Refinisher: [phone] Case Management Appointment Comment: [address] [facility] Post Discharge Appointments Primary Care Physician Name Of Family Doctor: Tiffanie Azar Contact Information Discharge Discharge Address: [address], [place] [address]
[2020-03-01] MEDS: RABEPRAZOLE 20 MG PO SCH ×2 (08:17→17:21)
[2020-03-01] MEDS: VITAMIN B COMPLEX TAB PO SCH (09:13)
[2020-03-01] MEDS: LITHIUM CARBONATE 450 MG TABCR PO SCH ×2 (09:13→20:20)
[2020-03-01] MEDS: PSYLLIUM 58.6% POWDER PACKET PO SCH (09:13)
[2020-03-01] MEDS: DICYCLOMINE HCL 10 MG CAP PO SCH ×3 (09:13→17:21)
[2020-03-01] MEDS: FLUoxetine HCL 10 MG CAP PO SCH (09:14)
[2020-03-01] MEDS: HYDROCORTISONE 2.5% CR 30 GM TUBE EXT SCH ×2 (09:14→20:19)
[2020-03-01] MEDS: CALCIUM CARBONATE 1250MG TAB PO SCH (09:14)
[2020-03-01] MEDS: POLYETHYLENE (MIRALAX) 17 GM PACK PO SCH (09:14)
[2020-03-01] MEDS: CHOLECALCIFEROL 1,000 UNITS 25 MCG TAB PO SCH (09:15)
[2020-03-01] MEDS: CETIRIZINE HCL 10 MG TABLET PO SCH (09:15)
[2020-03-01] MEDS: QUEtiapine FUMARATE 25 MG TABLET PO PRN (10:56)
[2020-03-01] MEDS: LEVONORGESTREL PO SCH (20:19)
[2020-03-01] MEDS: ETHINYL ESTRADIOL PO SCH (20:19)
[2020-03-01] MEDS: LACTOBACILLUS ACIDOPHILUS (FLORANEX) TAB PO SCH (20:20)
[2020-03-01] MEDS: QUEtiapine FUMARATE 100 MG TABLET PO SCH (20:20)
[2020-03-02] MEDS: RABEPRAZOLE 20 MG PO SCH ×2 (08:38→17:15)
[2020-03-02] MEDS: FLUoxetine HCL 10 MG CAP PO SCH (09:53)
[2020-03-02] MEDS: CHOLECALCIFEROL 1,000 UNITS 25 MCG TAB PO SCH (09:54)
[2020-03-02] MEDS: CETIRIZINE HCL 10 MG TABLET PO SCH (09:54)
[2020-03-02] MEDS: VITAMIN B COMPLEX TAB PO SCH (09:54)
[2020-03-02] MEDS: LITHIUM CARBONATE 450 MG TABCR PO SCH ×2 (09:54→20:51)
[2020-03-02] MEDS: DICYCLOMINE HCL 10 MG CAP PO SCH ×3 (09:54→17:16)
[2020-03-02] MEDS: POLYETHYLENE (MIRALAX) 17 GM PACK PO SCH (09:55)
[2020-03-02] MEDS: CALCIUM CARBONATE 1250MG TAB PO SCH (09:55)
[2020-03-02] MEDS: PSYLLIUM 58.6% POWDER PACKET PO SCH (09:55)
[2020-03-02] MEDS: HYDROCORTISONE 2.5% CR 30 GM TUBE EXT SCH ×2 (09:59→19:37)
[2020-03-02] MEDS: QUEtiapine FUMARATE 25 MG TABLET PO PRN (14:26)
--- NOTE | 2020-03-02 16:33 | Psychiatric Progress Note ---
Date of Service March 02, 2020 Impression / Recommendations Impression 29-year-old female with a history of recurrent depression, PTSD, and borderline personality disorder who is admitted voluntarily with severe depression and suicidal thoughts with various plans. She has a long history of treatment for depression, and while she reports some improvement in response to various psychiatric medications over the years, improvements tend to be short lived and efforts to address diminishing favorable effect of medications through medications increases generally are ineffective. She appears to meet criteria for borderline personality disorder, with difficulty regulating her mood in response to situational factors, inappropriate anger, stress related dissociative symptoms, and recurrent suicidal behavior/gestures. She also reports a broad array of somatic symptoms for which she is on multiple medications, is socially isolated with no local supports, and is refusing contact with her mother and sister, although she has been calling them on the phone. She has a local therapist, but sees a psychiatrist in [place]. She has not been able to make progress on her PhD, and a meeting with the [place] office of student care and advocacy is being arranged. Quetiapine is being titrated here to target mood, and she has considered ECT, but has concluded that she is too frightened of the prospects. She is willing to consider transcranial magnetic stimulation. She had a suicidal gesture on the unit last weekend, and remains suicidal to the extent that she has been placed on enhanced precautions with no access to pillowcases or sheets, and in a private room. Inpatient tr eatment is medically necessary due to the severity of symptoms and risk for suicide if discharged. (1) Suicidal ideation: 02/23 -The patient reports progressive suicidal thoughts with plans that include overdosing, self poisoning, asphyxiation, and hanging. The patient has been admitted to the [facility] behavioral health unit and has been placed on suicide precautions. We have referred her for individual, group, and recreational therapy. She does not seem to be willing to consider family interventions at this point, but it may be useful to work with the patient in this regard because her family dynamics seem to be pretty central to the patient's current condition. -We will continue lithium carbonate 450 mg twice a day; Prozac 10 mg a day; and add bupropion SR 75 mg as an adjunct. We will consider offering trials of an SNRI, such as venlafaxine or duloxetine. Reviewed 02/25/2020. Note dosing of Wellbutrin SR is 100 mg po qam. 02/25--reviewed safety plan with staff, MNPR, moved to [place], safety blanket (no sheets/pillowcases) for at least 24 hrs, no leggings, reviewed consistency shift to shift on where meeting with patient. 02/26--return blanket but not bed linens. 02/27--continues to report active SI, but not related to items presently available to the patient. Pt not able to contract for safety with any additional items at this time. --Maintain appropriate boundaries while continuing to build therapeutic alliance and offer suggestions to target chronic SI. 02/28 - Pt vaguely reporting "I don't feel safe", but was unable to verbalize any specific temptations on unit or specific plans/intent - She admits that SI is chronically "in the background" but becomes more pronounced when the patient is being "triggered" 03/01 -patient continues to endorse suicidal thoughts, states she would not feel safe having access to sheets or pillowcases that she could wrap around her neck, but feels safe in her current environment with safety blankets, 1 cotton blanket, and no access to other items without staff supervision. Her door is being kept open so that she is visible from the nurses station. -Continue private room and current precautions. -Encourage patient to continue to identify effective coping skills. 03/02 -Patient continues to report suicidality, and describes intrusive ruminative s uicidal thoughts. She reported today that, for example, during a therapy group that focused on learning self soothing and relaxation techniques involving, among other things, listening to the sounds of rushing water and waves at a beach she could only think of the fact that she wants to drown herself or, if she was at the beach, she would want to bury her self in the sand and suffocate. -Patient reports that until this year she has not had self-injurious impulses, and she is visibly distressed by the obsessive and intrusive nature of her suicidal thoughts. Within this context, we discussed the use of medications that may help with obsessive ruminations and other disorders associated with anxiety. The plan today will include adding venlafaxine extended release 37.5 mg daily beginning 1009 and titrating as indicated. 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 -The patient notes that she feels certain that she could not contract for safety where she did leave the hospital at this point, and inpatient psychiatric hospitalization remains the least intensive, least restrictive level of care consistent with the patient's clinical and safety needs. (2) Anxiety and depression: 02/23 -The patient reports progressive suicidal thoughts with plans that include overdosing, self poisoning, asphyxiation, and hanging. The patient has been admitted to the [facility] unit and has been placed on suicide precautions. We have referred her for individual, group, and recreational th erapy. She does not seem to be willing to consider family interventions at this point, but it may be useful to work with the patient in this regard because her family dynamics seem to be pretty central to the patient's current condition. -We will continue lithium carbonate 450 mg twice a day; Prozac 10 mg a day; and add bupropion SR 75 mg as an adjunct. We will consider offering trials of an SNRI, such as venlafaxine or duloxetine. 02/25/2020. Note dosing of Wellbutrin SR is 100 mg po qam. Monitor ZAFAR. 02/25--restart Seroquel with plan to titrate tomorrow, may use lower dose prn anxiety during day. Get true lithium level trough in am and fasting metabolic labs. 02/26--lithium remains 0.9, d/c Wellbutrin (?worsening SI), she desires d/c Neurontin due to sedation, reviewed generally tapered--she is agreeable to take 150 mg tonight. titrate seroquel 50 mg po qhs with likely to 100 mg or more to target thoughts. No immediate availability of ketamine. She had discussed ECT at least briefly with Dr. Carranza but is attending to ADLs and groups here (more active than home). 02/27--Pt continuing to give conflicting thoughts regarding willingness for medication changes. Recommendation was provided to continue titration of quetiapine as discussed above; however patient was unwilling to do so at this time. --Continue to engage patient in group and recreational programming with focus on distraction techniques and coping skills that are beneficial to combat acute SI. --With ongoing interviews, there is a part of patient's presentation that seems to be related to borderline personality traits. 02/28 - Pt agreeable with titrating quetiapine to 75mg for this evening. Reviewed that a target dose of 100mg had been suggested and patient was agreeable with co ntinuing to work toward this dosage. - She continues to report struggles with SI, with somewhat limited group participation 02/28 -continue quetiapine titration, increasing to 100 mg at bedtime for t onight. Fasting labs reviewed for monitoring on an atypical: Done 02/27/2020, FG 86, FLP notable for cholesterol 221. TSH was repeated as it was slightly elevated on admission, and was normal at 2.190. -Patient continues to refuse a family meeting, so we will schedule a treatment planning meeting with her outpatient therapist. Agree with recommendation for [facility]/residential treatment, trauma focused program. Patient lists multiple barriers to this, but admits it has yet been explored. -Message was left for outpatient psychiatrist, Dr. Thompson, in [place] yesterday requesting return call to coordinate care. 03/02 -We will continue quetiapine as above. The patient says that she does not feel that quetiapine is particularly helpful, at least at bedtime, although she does note that lower dose as needed quetiapine does help sometimes with anxiety during the day. -Patient feels strongly that she cannot tolerate a higher dose of Prozac higher than 10 mg a day, and, at the same time, says that she believes that Prozac 10 mg a day is helpful. She is, however, willing to allow us to add an additional antidepressant medication. The patient tells us that she has not previously taken an SNRI medication, and we discussed venlafaxine extended release. She asked that we continue Prozac, at least temporarily, and I told her that we would be willing to do a "cross titration" of Prozac and venlafaxine extended release, beginning at 37.5 mg daily. -Although last week she had told us that she fell she was sleeping "too much," today she reports seater grinder awakening and says that she would like to go back on trazodone, medication that she says, in retrospect, was helpful in helping her sleep. -Zolpidem will be offered as a "rescue" hypnotic in the event that she finds that trazodone, in combination with quetiapine is not sufficient to allow sleep. (3) Borderline personality disorder: 02/28 - Attempts made today to review diagnostic features of borderline personality disorder with patient to determine if she identified strongly with the criteria; however, patient reported she was familiar with the criteria as she had been given this diagnosis at [facility]. Pt reports "I don't want the diagnosis." Pt reports she has "complex trauma" but was not able to engage in conversation to discuss that the two are not mutually exclusive. - Attempts were made to work with patient on de-stigmatizing the diagnosis in her own mind, and reassuring the patient that there may be additional/alternative diagnosis that can help us more appropriate address her concerns. - Patient does continue to regularly display characteristics that suggest this pathology - Will continue to provide needed support while also maintaining consistent boundaries - Pt would likely benefit from additional information on the diagnosis as well as DBT approaches 03/01 -Reviewed differential diagnosis with patient, as well as the fact that we will likely not make a definitive diagnosis here, due to the acute nature of treatment here, as well as her unwillingness to allow us access to her previous records or to get collateral information from her family. (4) Irritable bowel syndrome: 02/23 -Currently, the patient reports that she has been feeling constipated for "some time now," and notes that she often does better with a bulk laxative such as Metamucil. Currently, we have ordered Metamucil daily. Reviewed 02/25/2020. She declines Miralax. States warm tea would aggravate her reflux. 02/25--reports having BM yesterday but guesses not full evacuation, she is declining additional metamucil. 02/26--Miralax as reports ongoing constipation, if ineffective she would prefer enema over laxative. 02/28--reports ongoing, intermittent GI complaints. States she has benefitted from Zofran and/or Tums on an outpatient basis. Both were ordered for patient to be able to utilize as needed for GI complaints. 03/02 --the patient reports some improvement in this regard. (5) TSH elevation: 02/25--will repeat TSH in am, likely lithium induced with hair loss, would favor start of synthroid given symptoms. 02/26--repeat TSH normal. Inventory Assets Strengths: Intelligent. Motivated to treatment. Well informed. Past history of some favorable response to treatment. Needs: Relief from depression symptoms. Resolution of suicidal thoughts. 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 In gena cular, her mother. She is also close with several of her siblings, but fears that she will very rejected by all if she tells them that her sexual orientation as lesbian.) Good Rapport with Provider: Yes Absence of Any Risk Factors Above: No Interval History Identifying Information WILL KERNS is a 29-year-old female who currently lives in alone in [place]. She has a history of recurrent major depression, PTSD, and borderline personality disorder, and was admitted on 02/24/20 13:33 on a 201 voluntary agreement because of worsening suicidal ideation, with thoughts of self poisoning, and/or asphyxiation. Chief Complaint " Depression. Suicidal." Review of Systems Sleep Information Total Hours of Sleep: 8.25 Meal Information Percent Meal Consumed - Breakfast: 100 Percent Meal Consumed - Lunch: 75 Percent Meal Consumed - Dinner: 75 Nutrition Comment: pt. continues to report poor appetite Subjective Subjective Patient was seen & assessed and interval progress reviewed with treatment team. I met individually with the patient in order to assess her current mental status, evaluate her response to treatment, make any necessary changes in the patient's treatment regimen together with the patient; address issues, questions and concerns that may arise. The patient began by telling me, somewhat tearfully, that she is quite discouraged because although she has been here for over a week now she does not feel that she has been getting better. She reports what can be described as "tunnel vision" in which she has difficulty saying anything other than unhappiness ending in . She notes that, for example, during a group and relaxation technique session this afternoon she experienced the gentle sounds of rushing water and waves as a trigger to suicidality, because it caused her to have thoughts of deliberately drowning herself or asphyxiating herself by burying herself in the sense of that she suffocates. The patient notes that the negative experience was worsened by other members of the group declaring how much the sounds had helped him feel more relaxed and soothed. She had a trial of Wellbutrin as an augmentation strategy with Prozac, but she felt that it was not helpful and bupropion was discontinued. She continues to say that she does not want a dose of Prozac higher than 10 mg a day because of complications associated with Prozac in the past. Other complaints today, in addition to depression and intrusive, ruminative, suicidal thoughts include intermittent and terminal insomnia, and she feels that hydroxyzine has not been helpful. She asked that we consider trying trazodone again because she thinks in retrospect that it was helpful for sleep. We also talked about the benefit of lithium carbonate, within the context of the fact that we are not continuing her diagnosis of bipolar disorder. The patient notes that she feels that lithium, at first, was quite effective in elevating and stabilizing her mood, even if she does not have a history of melida or hypomania. However, as she had reported last week, once her life became significantly more stressful (problems at school, social isolation, COVID-19) it felt as if lithium "no longer worked." At the same time, she does not want to stop lithium because she continues to feel that it is helpful. Similarly, she notes that she is willing to try other medications, but does not want to stop Prozac until she has a sense of how the other medications may be working. We reviewed her past medication trials, and it appears that the patient has never taken an SNRI. We talked about venlafaxine as an option. The patient is willing to try venlafaxine after we discussed material risks and anticipated benefits, but reiterated that come at least at first, she does not want to have any of her other medications changedincluding Prozac. She understands that both her antidepressants, and says that she first wants to see how she feels with the addition of venlafaxine before discontinuing Prozac. For most of the encounter I encouraged the patient to focus on her strengths and accomplishments. I reminded her that she is normally much higher functioning than she is currently, and invited her to consider her current situation as an encapsulated "bad time" that will past, and one of her main goals at this point is to make sure that she stays alive, does not commit suicide, and waits for the current bedtime to heal and resolve. We also discussed her difficulty with mood regulation and her tendency to ruminate excessively about negative aspects of her life. I am encouraging her to apply mindfulness strategies that she has learned in the past and to simply recognize when they ego-dystonic or unhappy thought in her mind that it is there, and it will also pass. Physical Exam Psychiatric Orientation: alert, oriented x 3 and cooperative Apperance: appropriately dressed, appropriately groomed and appeared stated age Eye Contact: good eye contact Motor Behavior: + psychomotor retardation Speech: + pressured speech (The patient's speech is spontaneous, and she speaks in full and complete sentences. However, her speech is somewhat soft and slowed.) Affect: + depressed affect and + anxious affect Mood: + depressed mood and + anxious mood Thought Process: goal directed thought process Thought Content: reality based without delusions Suicidal Thoughts: + reports suicidal thoughts The patient continues to report thoughts of suicide with plans that include asphyxiation or self poisoning. The patient indicates that these thoughts are extremely ego-dystonic and she is very eager for them to stop. She has made at least one suicide gesture in the hospital, but today says that she is working very hard to make sure she let staff know if she is having thoughts of self-harm and, for example, today she did tell staff that she did not feel ready to have additional clothing items in her possession because she is afraid that she might be tempted to use these to harm her self. Homicidal Thoughts: denies homicidal thoughts Hallucinations: no auditory hallucinations Cognition: recent memory grossly intact, remote memory grossly intact, attention grossly intact and language grossly intact Estimated Intelligence: + above average estimated intelligence Insight: + fair insight Judgement: + fair judgement Vital Signs (Past 24 Hours) Last Vital Signs Temp 36.5 C 03/02/20 06:29 Pulse 80 03/02/20 06:29 Resp 16 03/02/20 06:29 BP 97/64 L 03/02/20 06:29 Pulse Ox 100 02/24/20 16:18 Results & Data ([facility]) Current Inpatient Medications Current Inpatient Medications: Current Inpatient Medications Acetaminophen (Acetaminophen 325 Mg Tab) 650 mg PO Q4H PRN PRN Reason: Headache or Minor Fever Stop: 03/25/20 13:32 Last Admin: 02/25/20 04:09 Dose: 650 mg Documented by: Al Hydrox/Mg Hydrox/Simethicone (Aluminum/Magnesium Susp 30 Ml Udc) 30 ml PO Q4H PRN PRN Reason: GI Upset Stop: 03/25/20 13:32 Last Admin: 02/29/20 10:07 Dose: 30 ml Documented by: Bismuth Subsalicylate (Bismuth Subsalicylate Liqd 236 Ml) 15 ml PO PRN PRN PRN Reason: Loose Stool Stop: 03/25/20 13:32 Calcium Carbonate (Calcium Carbonate 1250mg Tab) 1,250 mg PO DAILY OLIVIA Stop: 03/26/20 08:59 Last Admin: 03/02/20 09:55 Dose: 1,250 mg Documented by: Calcium Carbonate (Calcium Carbonate 500 Mg Chewable Tab) 1,500 mg PO Q6H PRN PRN Reason: Indigestion Stop: 03/30/20 13:46 Last Admin: 02/29/20 15:29 Dose: 1,500 mg Documented by: Cetirizine HCl (Cetirizine Hcl 10 Mg Tablet) 10 mg PO QAM [facility] Stop: 03/27/20 08:59 Last Admin: 03/02/20 09:54 Dose: 10 mg Documented by: Clonazepam (Clonazepam 0.5 Mg Tab) 0.5 mg PO DAILY PRN PRN Reason: Blood draws or imaging studies Stop: 03/25/20 21:08 Last Admin: 02/27/20 06:25 Dose: 0.5 mg Documented by: Dicyclomine HCl (Dicyclomine Hcl 10 Mg Cap) 10 mg PO TIDM [facility] Stop: 03/25/20 17:59 Last Admin: 03/02/20 13:07 Dose: 10 mg Documented by: Fluoxetine HCl (Fluoxetine Hcl 10 Mg Cap) 10 mg PO QAM [facility] Stop: 03/26/20 08:59 Last Admin: 03/02/20 09:53 Dose: 10 mg Documented by: Hydrocortisone (Hydrocortisone 2.5% Cr 30 Gm Tube) 1 appln EXT BID OLIVIA Stop: 03/25/20 20:59 Last Admin: 03/02/20 09:59 Dose: Not Given Documented by: Hydroxyzine HCl (Hydroxyzine Hcl 25 Mg Tab) 50 mg PO HSZ PRN PRN Reason: Insomnia Stop: 03/25/20 13:32 Hydroxyzine HCl (Hydroxyzine Hcl 25 Mg Tab) 25 mg PO Q4H PRN PRN Reason: Anxiety Stop: 03/25/20 13:32 Lactobacillus Acidophilus (Lactobacillus Acidophilus (Floranex) Tab) 4 tab PO HS OLIVIA Stop: 03/25/20 21:59 Last Admin: 03/01/20 20:20 Dose: 4 tab Documented by: Levalbuterol HCl (Levalbuterol Tartrate 15 Gm Hfa.Aer.Ad) 2 puffs INH Q4H PRN PRN Reason: Shortness Of Breath Or Wheezin Stop: 03/25/20 17:49 [place] Carbonate ([place] Carbonate 450 Mg Tabcr) 450 mg PO BID OLIVIA Stop: 03/25/20 20:59 Last Admin: 03/02/20 09:54 Dose: 450 mg Documented by: Magnesium Hydroxide (Magnesium Hydroxide Susp 30 Ml Udc) 30 ml PO DAILY PRN PRN Reason: Constipation Stop: 03/25/20 13:32 Miscellaneous (Camrese Lo Patient's Own Oral Contraceptive) 1 ea PO HS OLIVIA Stop: 03/25/20 21:59 Last Admin: 03/01/20 20:19 Dose: 1 ea Documented by: Rabeprazole 20mg ~ Non-Formulary Patient's Own Med 1 ea PO BID OLIVIA Stop: 03/25/20 20:59 Last Admin: 03/02/20 08:38 Dose: 1 ea Documented by: Ondansetron HCl (Ondansetron 8mg Od Tab) 8 mg PO Q6H PRN PRN Reason: Nausea Stop: 03/30/20 13:50 Last Admin: 03/01/20 00:57 Dose: 8 mg Documented by: Polyethylene Glycol (Polyethylene (Miralax) 17 Gm Pack) 17 gm PO DAILY OLIVIA Stop: 03/28/20 13:44 Last Admin: 03/02/20 09:55 Dose: Not Given Documented by: Psyllium Hydrophilic Mucilloid (Psyllium 58.6% Powder Packet) 1 pkt PO QAM OLIVIA Stop: 03/25/20 18:44 Last Admin: 03/02/20 09:55 Dose: Not Given Documented by: Quetiapine Fumarate (Quetiapine Fumarate 25 Mg Tablet) 12.5 mg PO Q6 PRN PRN Reason: Anxiety Stop: 03/27/20 11:59 Last Admin: 03/02/20 14:26 Dose: 12.5 mg Documented by: Quetiapine Fumarate (Quetiapine Fumarate 100 Mg Tablet) 100 mg PO HS OLIVIA Stop: 03/31/20 21:59 Last Admin: 03/01/20 20:20 Dose: 100 mg Documented by: Sodium Chloride (Sodium Chloride 0.65% Na Soln 45 Ml ([place])) 1 - 2 sprays NA PRN PRN PRN Reason: Nasal Dryness/Congestion Stop: 03/25/20 13:32 Vitamin B Complex (Vitamin B Complex Tab) 1 tab PO QAM OLIVIA Stop: 03/26/20 08:59 Last Admin: 03/02/20 09:54 Dose: 1 tab Documented by: Vitamin D (Cholecalciferol 1,000 Units 25 Mcg Tab) 1,000 units PO DAILY OLIVIA Stop: 03/27/20 08:59 Last Admin: 03/02/20 09:54 Dose: 1,000 units Documented by: Mental Health & Subst Abuse Tx Psychiatrist Name of Psychiatrist: Dr. Siobhan ShepherdJay Psychiatrist's Psychiatric Appointment Comment: [id number] [place] [id number] Therapist Name of Therapist: [facility] - Ioana Rico Therapist's Therapy Appointment Comment: Usually calls on Tuesdays/Fridays Childcare Attendant Name of Childcare Attendant: [employer] Advocacy - [place] Phone Number for Childcare Attendant: [phone] Case Management Appointment Comment: [facility] Post Discharge Appointments Primary Care Physician Name Of Family Doctor: Tiffanie - Dr. Azar Contact Information Discharge Discharge Address: [address] [place] [address], [address], [address], [place] [address]
[2020-03-02] MEDS: LEVONORGESTREL PO SCH (20:51)
[2020-03-02] MEDS: LACTOBACILLUS ACIDOPHILUS (FLORANEX) TAB PO SCH (20:51)
[2020-03-02] MEDS: ETHINYL ESTRADIOL PO SCH (20:51)
[2020-03-02] MEDS: QUEtiapine FUMARATE 100 MG TABLET PO SCH (20:52)
[2020-03-02] MEDS: traZODone HCL 50 MG TAB PO PRN (20:52)
[2020-03-03] MEDS: RABEPRAZOLE 20 MG PO SCH ×2 (08:34→18:12)
[2020-03-03] MEDS: DICYCLOMINE HCL 10 MG CAP PO SCH ×3 (09:01→18:12)
[2020-03-03] MEDS: VENLAFAXINE HCL XR 37.5 MG CAPXR PO SCH (09:01)
[2020-03-03] MEDS: LITHIUM CARBONATE 450 MG TABCR PO SCH ×2 (09:01→20:55)
[2020-03-03] MEDS: CHOLECALCIFEROL 1,000 UNITS 25 MCG TAB PO SCH (09:02)
[2020-03-03] MEDS: CALCIUM CARBONATE 1250MG TAB PO SCH (09:02)
[2020-03-03] MEDS: FLUoxetine HCL 10 MG CAP PO SCH (09:02)
[2020-03-03] MEDS: VITAMIN B COMPLEX TAB PO SCH (09:02)
[2020-03-03] MEDS: CETIRIZINE HCL 10 MG TABLET PO SCH (09:03)
[2020-03-03] MEDS: PSYLLIUM 58.6% POWDER PACKET PO SCH (09:08)
[2020-03-03] MEDS: HYDROCORTISONE 2.5% CR 30 GM TUBE EXT SCH ×2 (09:08→20:55)
[2020-03-03] MEDS: POLYETHYLENE (MIRALAX) 17 GM PACK PO SCH (09:09)
[2020-03-03] MEDS: hydrOXYzine HCl 25 MG TAB PO PRN ×2 (12:46→20:27)
--- NOTE | 2020-03-03 15:08 | Psychiatric Progress Note ---
Date of Service March 03, 2020 Impression / Recommendations Impression 29-year-old female with a history of recurrent depression, PTSD, and borderline personality disorder who is admitted voluntarily with severe depression and suicidal thoughts with various plans. She has a long history of treatment for depression, and while she reports some improvement in response to various psychiatric medications over the years, improvements tend to be short lived and efforts to address diminishing favorable effect of medications through medications increases generally are ineffective. She appears to meet criteria for borderline personality disorder, with difficulty regulating her mood in response to situational factors, inappropriate anger, stress related dissociative symptoms, and recurrent suicidal behavior/gestures. She also reports a broad array of somatic symptoms for which she is on multiple medications, is socially isolated with no local supports, and is refusing contact with her mother and sister, although she has been calling them on the phone. She has a local therapist, but sees a psychiatrist in [place]. 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 Quetiapine is being titrated here to target mood, and she has considered ECT, but has concluded that she is too frightened of the prospects. She is willing to consider transcranial magnetic stimulation. She had a suicidal gesture on the unit last weekend, and remains suicidal to the extent that she has been placed on enhanced precautions with no access to pillowcases or sheets, and in a private room. Inpatient t reatment is medically necessary due to the severity of symptoms and risk for suicide if discharged. (1) Suicidal ideation: 02/23 -The patient reports progressive suicidal thoughts with plans that include overdosing, self poisoning, asphyxiation, and hanging. The patient has been admitted to the [facility] behavioral health unit and has been placed on suicide precautions. We have referred her for individual, group, and recreational therapy. She does not seem to be willing to consider family interventions at this point, but it may be useful to work with the patient in this regard because her family dynamics seem to be pretty central to the patient's current condition. -We will continue lithium carbonate 450 mg twice a day; Prozac 10 mg a day; and add bupropion SR 75 mg as an adjunct. We will consider offering trials of an SNRI, such as venlafaxine or duloxetine. Reviewed 02/25/2020. Note dosing of Wellbutrin SR is 100 mg po qam. 02/25--reviewed safety plan with staff, MNPR, moved to [place], safety blanket (no sheets/pillowcases) for at least 24 hrs, no leggings, reviewed consistency shift to shift on where meeting with patient. 02/26--return blanket but not bed linens. 02/27--continues to report active SI, but not related to items presently available to the patient. Pt not able to contract for safety with any additional items at this time. --Maintain appropriate boundaries while continuing to build therapeutic alliance and offer suggestions to target chronic SI. 02/28 - Pt vaguely reporting "I don't feel safe", but was unable to verbalize any specific temptations on unit or specific plans/intent - She admits that SI is chronically "in the background" but becomes more pronounced when the patient is being "triggered" 03/01 -patient continues to endorse suicidal thoughts, states she would not feel safe having access to sheets or pillowcases that she could wrap around her neck, but feels safe in her current environment with safety blankets, 1 cotton blanket, and no access to other items without staff supervision. Her door is being kept open so that she is visible from the nurses station. -Continue private room and current precautions. -Encourage patient to continue to identify effective coping skills. 03/02 -Patient continues to report suicidality, and describes intrusive ruminative suicidal thoughts. She reported today that, for example, during a therapy group that focused on learning self soothing and relaxation techniques involving, among other things, listening to the sounds of rushing water and waves at a beach she could only think of the fact that she wants to drown herself or, if she was at the beach, she would want to bury her self in the sand and suffocate. -Patient reports that until this year she has not had self-injurious impulses, and she is visibly distressed by the obsessive and intrusive nature of her suicidal thoughts. Within this context, we discussed the use of medications that may help with obsessive ruminations and other disorders associated with anxiety. The plan today will include adding venlafaxine extended release 37.5 mg daily beginning 0 and titrating as indicated. 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 -The patient notes that she feels certain that she could not contract for safety where she did leave the hospital at this point, and inpatient psychiatric hospitalization remains the least intensive, least restrictive level of care consistent with the patient's clinical and safety needs. 03/03 - Patient continues to report active suicidal ideation but she feels safe in this unit currently. - Patient agrees with the further titration of quetiapine 50 mg every night and 150 mg will be tried today. However the patient is advised that she can titrate slowly if she does not feel comfortable since that she expresses her concern over faster titration. - If the patient feels too drowsy with increased quetiapine, trazodone will be discontinued. (2) Anxiety and depression: 02/23 -The patient reports progressive suicidal thoughts with plans that include overdosing, self poisoning, asphyxiation, and hanging. The patient has been admitted to the [facility] behavioral health unit and has been placed on suicide precautions. We have referred her for individual, group, and recreational therapy. She does not seem to be willing to consider family interventions at this point, but it may be useful to work with the patient in this regard because her family dynamics seem to be pretty central to the patient's current condition. -We will continue lithium carbonate 450 mg twice a day; Prozac 10 mg a day; and add bupropion SR 75 mg as an adjunct. We will consider offering trials of an SNRI, such as venlafaxine or duloxetine. 02/25/2020. Note dosing of Wellbutrin SR is 100 mg po qam. Monitor ZAFAR. 02/25--restart Seroquel with plan to titrate tomorrow, may use lower dose prn anxiety during day. Get true lithium level trough in am and fasting metabolic labs. 02/26--lithium remains 0.9, d/c Wellbutrin (?worsening SI), she desires d/c Neurontin due to sedation, reviewed generally tapered--she is agreeable to take 150 mg tonight. titrate seroquel 50 mg po qhs with likely to 100 mg or more to target thoughts. No immediate availability of ketamine. She had discussed ECT at least briefly with Dr. Carranza but is attending to ADLs and groups here (more active than home). 02/27--Pt continuing to give conflicting thoughts regarding willingness for medication changes. Recommendation was provided to continue titration of quetiapine as discussed above; however patient was unwilling to do so at this time. --Continue to engage patient in group and recreational programming with focus on distraction techniques and coping skills that are beneficial to combat acute SI. --With ongoing interviews, there is a part of patient's presentation that seems to be related to borderline personality traits. 02/28 - Pt agreeable with titrating quetiapine to 75mg for this evening. Reviewed that a target dose of 100mg had been suggested and patient was agreeable with continuing to work toward this dosage. - She continues to report struggles with SI, with somewhat limited group participation 02/28 -continue quetiapine titration, increasing to 100 mg at bedtime for tonight. Fasting labs reviewed for monitoring on an atypical: Done 02/27/2020, FG 86, FLP notable for cholesterol 221. TSH was repeated as it was slightly elevated on admission, and was normal at 2.190. -Patient continues to refuse a family meeting, so we will schedule a treatment planning meeting with her outpatient therapist. Agree with recommendation for PHP/residential treatment, trauma focused program. Patient lists multiple barriers to this, but admits it has yet been explored. -Message was left for outpatient psychiatrist, Dr. Thompson, in [place] yesterday requesting return call to coordinate care. 03/02 -We will continue quetiapine as above. The patient says that she does not feel that quetiapine is particularly helpful, at least at bedtime, although she does note that lower dose as needed quetiapine does help sometimes with anxiety during the day. -Patient feels strongly that she cannot tolerate a higher dose of Prozac higher than 10 mg a day, and, at the same time, says that she believes that Prozac 10 mg a day is helpful. She is, however, willing to allow us to add an additional antidepressant medication. The patient tells us that she has not previously taken an SNRI medication, and we discussed venlafaxine extended release. She asked that we continue Prozac, at least temporarily, and I told her that we would be willing to do a "cross titration" of Prozac and venlafaxine extended release, beginning at 37.5 mg daily. 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 -Zolpidem will be offered as a "rescue" hypnotic in the event that she finds that trazodone, in combination with quetiapine is not sufficient to allow sleep. 03/03 - Venlafaxine ER will be titrated further. - Due to increased restlessness and agitated feeling, utilization of hydroxyzine was recommended. (3) Borderline personality disorder: 02/28 - Attempts made today to review diagnostic features of borderline personality disorder with patient to determine if she identified strongly with the criteria; however, patient reported she was familiar with the criteria as she had been given this diagnosis at [facility]. Pt reports "I don't want the diagnosis." Pt reports she has "complex trauma" but was not able to engage in conversation to discuss that the two are not mutually exclusive. - Attempts were made to work with patient on de-stigmatizing the diagnosis in her own mind, and reassuring the patient that there may be additional/alternative diagnosis that can help us more appropriate address her concerns. - Patient does continue to regularly display characteristics that suggest this pathology - Will continue to provide needed support while also maintaining consistent boundaries - Pt would likely benefit from additional information on the diagnosis as well as DBT approaches 03/01 -Reviewed differential diagnosis with patient, as well as the fact that we will likely not make a definitive diagnosis here, due to the acute nature of treatment here, as well as her unwillingness to allow us access to her previous records or to get collateral information from her family. (4) Irritable bowel syndrome: 02/23 -Currently, the patient reports that she has been feeling constipated for "some time now," and notes that she often does better with a bulk laxative such as Metamucil. Currently, we have ordered Metamucil daily. Reviewed 02/25/2020. She declines Miralax. States warm tea would aggravate her reflux. 02/25--reports having BM yesterday but guesses not full evacuation, she is declining additional metamucil. 02/26--Miralax as reports ongoing constipation, if ineffective she would prefer enema over laxative. 02/28--reports ongoing, intermittent GI complaints. States she has benefitted from Zofran and/or Tums on an outpatient basis. Both were ordered for patient to be able to utilize as needed for GI complaints. 03/02 --the patient reports some improvement in this regard. (5) TSH elevation: 02/25--will repeat TSH in am, likely lithium induced with hair loss, would favor start of synthroid given symptoms. 02/26--repeat TSH normal. Inventory Assets Strengths: Intelligent. Motivated to treatment. Well informed. Past history of some favorable response to treatment. Needs: Relief from depression symptoms. Resolution of suicidal thoughts. 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 In particular, her mother. She is also close with several of her siblings, but fears that she will very rejected by all if she tells them that her sexual orientation as lesbian.) Good Rapport with Provider: Yes Absence of Any Risk Factors Above: No Interval History Identifying Information WILL KERNS is a 29-year-old female who currently lives in alone in [place]. She has a history of recurrent major depression, PTSD, and borderline personality disorder, and was admitted on 02/24/20 13:33 on a 201 voluntary agreement because of worsening suicidal ideation, with thoughts of self poisoning, and/or asphyxiation. Chief Complaint "[I feel suicidal, more depressed and more anxious. Review of Systems Notes Constitutional: denied cardiovascular: denied Respiratory: denied GI: denied Neurologic: denied Psychiatric: denies symptoms other than stated above Remainder of 10 body systems also reviewed and denied other than noted above. Sleep Information Total Hours of Sleep: 6 Meal Information Percent Meal Consumed - Breakfast: 100 Percent Meal Consumed - Lunch: 75 Percent Meal Consumed - Dinner: 90 Nutrition Comment: pt. continues to report poor appetite Subjective Subjective Patient was seen & assessed and interval progress reviewed with nursing and social work. Staff report that patient has been attending group activities but she has been expressing negative comments about almost everything. She still refuses to have family meetings. Patient was seen today to assess progress since admission. Patient reports that she feels suicidal, more depressed and more anxious. She has been having body sensation, which she describes agitated feeling and it has been ongoing a couple of days and denies worsening sensations since taking venlafaxine ER 37.5 mg this morning. She states that she has never tried hydroxyzine in the past for this and she is willing to try them if it is not for sleeping. She also states that when she feels suicidal, she has a lot of plans in her mind, including jump off of a building, drowning herself, and strangling herself but admits that she feels safe in this unit. She tried coping skills without any help when she had suicidal thoughts. She also states that she does not feel happy and comfortable because the providers keep changing here and everyone has different suggestions for her medication regimen. She agrees to titrate quetiapine more if it is done slowly since it helps her anxiety somewhat. She feels anxious and depressed especially at nights more but throughout the days, even though she is around people or participates in group activities, she does not feel better. She has been on trazodone 50 mg for sleeping but she does not have quality of sleep because of bad dreams. She complains that nothing helps her. Appetite has been good. Physical Exam Psychiatric Orientation: alert and oriented x 3 Apperance: appropriately dressed and appropriately groomed Eye Contact: + fair eye contact Motor Behavior: steady gait and station and no abnormal motor movements Speech: normal rate/rhythm/volume of speech Affect: + depressed affect, + anxious affect, + irritable affect and mood congruent with affect Mood: + depressed mood, + anxious mood and + irritable mood Thought Process: goal directed thought process, clear/coherent thought process and + perseveration Thought Content: reality based without delusions and + hopelessness Suicidal Thoughts: + reports suicidal thoughts, + reports suicidal plan and + reports suicidal intent Homicidal Thoughts: denies homicidal thoughts Hallucinations: no auditory hallucinations and no visual hallucinations Cognition: recent memory grossly intact, remote memory grossly intact, attention grossly intact and language grossly intact Estimated Intelligence: average estimated intelligence Insight: + limited insight Judgement: + limited judgement Vital Signs (Past 24 Hours) Last Vital Signs Temp 36.8 C 03/03/20 06:43 Pulse 69 03/03/20 06:43 Resp 16 03/03/20 06:43 BP 72/49 L 03/03/20 06:43 Pulse Ox 100 02/24/20 16:18 Results & Data ([facility]) Current Inpatient Medications Current Inpatient Medications: Current Inpatient Medications Acetaminophen (Acetaminophen 325 Mg Tab) 650 mg PO Q4H PRN PRN Reason: Headache or Minor Fever Stop: 03/25/20 13:32 Last Admin: 02/25/20 04:09 Dose: 650 mg Documented by: Al Hydrox/Mg Hydrox/Simethicone (Aluminum/Magnesium Susp 30 Ml Udc) 30 ml PO Q4H PRN PRN Reason: GI Upset Stop: 03/25/20 13:32 Last Admin: 02/29/20 10:07 Dose: 30 ml Documented by: Bismuth Subsalicylate (Bismuth Subsalicylate Liqd 236 Ml) 15 ml PO PRN PRN PRN Reason: Loose Stool Stop: 03/25/20 13:32 Calcium Carbonate (Calcium Carbonate 1250mg Tab) 1,250 mg PO DAILY OLIVIA Stop: 03/26/20 08:59 Last Admin: 03/03/20 09:02 Dose: 1,250 mg Documented by: Calcium Carbonate (Calcium Carbonate 500 Mg Chewable Tab) 1,500 mg PO Q6H PRN PRN Reason: Indigestion Stop: 03/30/20 13:46 Last Admin: 02/29/20 15:29 Dose: 1,500 mg Documented by: Cetirizine HCl (Cetirizine Hcl 10 Mg Tablet) 10 mg PO QAM OLIVIA Stop: 03/27/20 08:59 Last Admin: 03/03/20 09:03 Dose: 10 mg Documented by: Clonazepam (Clonazepam 0.5 Mg Tab) 0.5 mg PO DAILY PRN PRN Reason: Blood draws or imaging studies Stop: 03/25/20 21:08 Last Admin: 02/27/20 06:25 Dose: 0.5 mg Documented by: Dicyclomine HCl (Dicyclomine Hcl 10 Mg Cap) 10 mg PO TIDM OLIVIA Stop: 03/25/20 17:59 Last Admin: 03/03/20 12:36 Dose: 10 mg Documented by: Fluoxetine HCl (Fluoxetine Hcl 10 Mg Cap) 10 mg PO QAM [facility] Stop: 03/26/20 08:59 Last Admin: 03/03/20 09:02 Dose: 10 mg Documented by: Hydrocortisone (Hydrocortisone 2.5% Cr 30 Gm Tube) 1 appln EXT BID OLIVIA Stop: 03/25/20 20:59 Last Admin: 03/03/20 09:08 Dose: 1 appln Documented by: Hydroxyzine HCl (Hydroxyzine Hcl 25 Mg Tab) 50 mg PO HSZ PRN PRN Reason: Insomnia Stop: 03/25/20 13:32 Hydroxyzine HCl (Hydroxyzine Hcl 25 Mg Tab) 25 mg PO Q4H PRN PRN Reason: Anxiety Stop: 03/25/20 13:32 Last Admin: 03/03/20 12:46 Dose: 25 mg Documented by: Lactobacillus Acidophilus (Lactobacillus Acidophilus (Floranex) Tab) 4 tab PO HS [facility] Stop: 03/25/20 21:59 Last Admin: 03/02/20 20:51 Dose: 4 tab Documented by: Levalbuterol HCl (Levalbuterol Tartrate 15 Gm Hfa.Aer.Ad) 2 puffs INH Q4H PRN PRN Reason: Shortness Of Breath Or Wheezin Stop: 03/25/20 17:49 Kenner Carbonate (Kenner Carbonate 450 Mg Tabcr) 450 mg PO BID [facility] Stop: 03/25/20 20:59 Last Admin: 03/03/20 09:01 Dose: 450 mg Documented by: Magnesium Hydroxide (Magnesium Hydroxide Susp 30 Ml Udc) 30 ml PO DAILY PRN PRN Reason: Constipation Stop: 03/25/20 13:32 Miscellaneous (Camrese Lo Patient's Own Oral Contraceptive) 1 ea PO HS [facility] Stop: 03/25/20 21:59 Last Admin: 03/02/20 20:51 Dose: 1 ea Documented by: Rabeprazole 20mg ~ Non-Formulary Patient's Own Med 1 ea PO BID [facility] Stop: 03/25/20 20:59 Last Admin: 03/03/20 08:34 Dose: 1 ea Documented by: Ondansetron HCl (Ondansetron 8mg Od Tab) 8 mg PO Q6H PRN PRN Reason: Nausea Stop: 03/30/20 13:50 Last Admin: 03/01/20 00:57 Dose: 8 mg Documented by: Polyethylene Glycol (Polyethylene (Miralax) 17 Gm Pack) 17 gm PO DAILY [facility] Stop: 03/28/20 13:44 Last Admin: 03/03/20 09:09 Dose: Not Given Documented by: Psyllium Hydrophilic Mucilloid (Psyllium 58.6% Powder Packet) 1 pkt PO QAM [facility] Stop: 03/25/20 18:44 Last Admin: 03/03/20 09:08 Dose: Not Given Documented by: Quetiapine Fumarate (Quetiapine Fumarate 25 Mg Tablet) 12.5 mg PO Q6 PRN PRN Reason: Anxiety Stop: 03/27/20 11:59 Last Admin: 03/02/20 14:26 Dose: 12.5 mg Documented by: Quetiapine Fumarate (Quetiapine Fumarate 100 Mg Tablet) 100 mg PO HS [facility] Stop: 04/02/20 21:59 Quetiapine Fumarate (Quetiapine Fumarate 25 Mg Tablet) 50 mg PO HS [facility] Stop: 04/02/20 21:59 Sodium Chloride (Sodium Chloride 0.65% Na Soln 45 Ml ([place])) 1 - 2 sprays NA PRN PRN PRN Reason: Nasal Dryness/Congestion Stop: 03/25/20 13:32 Trazodone HCl (Trazodone Hcl 50 Mg Tab) 50 mg PO HS PRN PRN Reason: Sleep Stop: 04/01/20 21:59 Last Admin: 03/02/20 20:52 Dose: 50 mg Documented by: Venlafaxine HCl (Venlafaxine Hcl Xr 37.5 Mg Capxr) [facility] Stop: 04/02/20 08:59 Last Admin: 03/03/20 09:01 Dose: 37.5 mg Documented by: Vitamin B Complex (Vitamin B Complex Tab) 1 tab PO QAM [facility] Stop: 03/26/20 08:59 Last Admin: 03/03/20 09:02 Dose: 1 tab Documented by: Vitamin D (Cholecalciferol 1,000 Units 25 Mcg Tab) 1,000 units PO DAILY [facility] Stop: 03/27/20 08:59 Last Admin: 03/03/20 09:02 Dose: 1,000 units Documented by: Mental Health & Subst Abuse Tx Psychiatrist Name of Psychiatrist: Dr. Siobhan Shepherd-Jay Psychiatrist's Psychiatric Appointment Comment: [address] [place] [id number] Therapist Name of Therapist: [facility] - Ioana Rico Therapist's Therapy Appointment Comment: Usually calls on Tuesdays/Fridays Sports Internship Name of Sports Internship: [employer] [facility] [employer]ocacy - Josefina Phone Number for Sports Internship: [phone] Case Management Appointment Comment: [facility] Post Discharge Appointments Primary Care Physician Name Of Family Doctor: [facility] - Dr. Azar Contact Information Discharge Discharge Address: [address], [address], [address], [place] [address]
[2020-03-03] MEDS: LACTOBACILLUS ACIDOPHILUS (FLORANEX) TAB PO SCH (20:55)
[2020-03-03] MEDS: LEVONORGESTREL PO SCH (20:56)
[2020-03-03] MEDS: ETHINYL ESTRADIOL PO SCH (20:56)
[2020-03-03] MEDS: QUEtiapine FUMARATE 25 MG TABLET PO SCH (20:56)
[2020-03-03] MEDS: QUEtiapine FUMARATE 100 MG TABLET PO SCH (20:56)
[2020-03-04] MEDS: RABEPRAZOLE 20 MG PO SCH ×2 (08:04→16:59)
[2020-03-04] MEDS: DICYCLOMINE HCL 10 MG CAP PO SCH ×3 (09:13→17:00)
[2020-03-04] MEDS: LITHIUM CARBONATE 450 MG TABCR PO SCH ×2 (09:13→21:02)
[2020-03-04] MEDS: VENLAFAXINE HCL XR 37.5 MG CAPXR PO SCH (09:13)
[2020-03-04] MEDS: PSYLLIUM 58.6% POWDER PACKET PO SCH (09:14)
[2020-03-04] MEDS: FLUoxetine HCL 10 MG CAP PO SCH (09:14)
[2020-03-04] MEDS: CHOLECALCIFEROL 1,000 UNITS 25 MCG TAB PO SCH (09:14)
[2020-03-04] MEDS: CETIRIZINE HCL 10 MG TABLET PO SCH (09:14)
[2020-03-04] MEDS: VITAMIN B COMPLEX TAB PO SCH (09:14)
[2020-03-04] MEDS: POLYETHYLENE (MIRALAX) 17 GM PACK PO SCH (09:14)
[2020-03-04] MEDS: CALCIUM CARBONATE 1250MG TAB PO SCH (09:14)
[2020-03-04] MEDS: HYDROCORTISONE 2.5% CR 30 GM TUBE EXT SCH ×2 (09:15→21:08)
--- NOTE | 2020-03-04 09:38 | Psychiatric Progress Note ---
Date of Service March 04, 2020 Impression / Recommendations Impression 29-year-old female with a history of recurrent depression, PTSD, and borderline personality disorder who is admitted voluntarily with severe depression and suicidal thoughts with various plans. She has a long history of treatment for depression, and while she reports some improvement in response to various psychiatric medications over the years, improvements tend to be short lived and efforts to address diminishing favorable effect of medications through dose increases generally are ineffective. She appears to meet criteria for borderline personality disorder, with difficulty regulating her mood in response to situational factors, inappropriate anger, stress related dissociative symptoms, and recurrent suicidal behavior/gestures. She also reports a broad array of somatic symptoms for which she is on multiple medications, is socially isolated with no local supports, and is refusing to involve her family in treatment, although she has been calling them on the phone. She has a local therapist, but sees a psychiatrist in [place]. 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 Quetiapine and venlafaxine XR are being titrated here to target mood, and she has declined ECT. She is willing to consider transcranial magnetic stimulation, but this would have to be done as an outpatient. She had a suicidal gesture on the unit 02/24, and remains suicidal to the extent that she has been placed on enhanced precautions with no access to pillowcases or sheets, and in a private room. Inpatient treatment is medically necessary due to the severity of symptoms and risk for suicide if discharged. (1) Suicidal ideation: 02/23 -The patient reports progressive suicidal thoughts with plans that include overdosing, self poisoning, asphyxiation, and hanging. The patient has been admitted to the [facility] behavioral health unit and has been placed on suicide precautions. We have referred her for individual, group, and recreational therapy. She does not seem to be willing to consider family interventions at this point, but it may be useful to work with the patient in this regard because her family dynamics seem to be pretty central to the patient's current condition. -We will continue lithium carbonate 450 mg twice a day; Prozac 10 mg a day; and add bupropion SR 75 mg as an adjunct. We will consider offering trials of an SNRI, such as venlafaxine or duloxetine. Reviewed 02/25/2020. Note dosing of Wellbutrin SR is 100 mg po qam. 02/25--reviewed safety plan with staff, MNPR, moved to CORDELL, safety blanket (no sheets/pillowcases) for at least 24 hrs, no leggings, reviewed consistency shift to shift on where meeting with patient. 02/26--return blanket but not bed linens. 02/27--continues to report active SI, but not related to items presently available to the patient. Pt not able to contract for safety with any additional items at this time. --Maintain appropriate boundaries while continuing to build therapeutic alliance and offer suggestions to target chronic SI. 02/28 - Pt vaguely reporting "I don't feel safe", but was unable to verbalize any specific temptations on unit or specific plans/intent - She admits that SI is chronically "in the background" but becomes more pronounced when the patient is being "triggered" 03/01 -patient continues to endorse suicidal thoughts, states she would not feel safe having access to sheets or pillowcases that she could wrap around her neck, but feels safe in her current environment with safety blankets, 1 cotton blanket, and no access to other items without staff supervision. Her door is being kept open so that she is visible from the nurses station. -Continue private room and current precautions. -Encourage patient to continue to identify effective coping skills. 03/02 -Patient continues to report suicidality, and describes intrusive ruminative suicidal thoughts. She reported today that, for example, during a therapy group that focused on learning self soothing and relaxation techniques involving, among other things, listening to the sounds of rushing water and waves at a beach she could only think of the fact that she wants to drown herself or, if she was at the beach, she would want to bury her self in the sand and suffocate. -Patient reports that until this year she has not had self-injurious impulses, and she is visibly distressed by the obsessive and intrusive nature of her suicidal thoughts. Within this context, we discussed the use of medications that may help with obsessive ruminations and other disorders associated with anxiety. The plan today will include adding venlafaxine extended release 37.5 mg daily beginning 1010 and titrating as indicated. Because the patient feels very strongly that she does not wish to discontinue Prozac until she is able to organizational psychologist the effect of venlafaxine, in terms of adverse effects and possible response, we will continue low-dose Prozac together with lower dose of venlafaxine and cross titrate as appropriate. -The patient notes that she feels certain that she could not contract for safety where she did leave the hospital at this point, and inpatient psychiatric hospitalization remains the least intensive, least restrictive level of care consistent with the patient's clinical and safety needs. 03/03 - Patient continues to report active suicidal ideation but she feels safe in this unit currently. - Patient agrees with the further titration of quetiapine 50 mg every night and 150 mg will be tried today. However the patient is advised that she can titrate slowly if she does not feel comfortable since that she expresses her concern over faster titration. - If the patient feels too drowsy with increased quetiapine, trazodone will be discontinued. 03/04 -Patient continues to report active suicidal ideation but she still feels safe in her current setting. -Continue MNPR. (2) Anxiety and depression: 02/23 -The patient reports progressive suicidal thoughts with plans that include overdosing, self poisoning, asphyxiation, and hanging. The patient has been admitted to the [facility] behavioral health unit and has been placed on suicide precautions. We have referred her for individual, group, and recreational therapy. She does not seem to be willing to consider family interventions at this point, but it may be useful to work with the patient in this regard because her family dynamics seem to be pretty central to the patient's current condition. -We will continue lithium carbonate 450 mg twice a day; Prozac 10 mg a day; and add bupropion SR 75 mg as an adjunct. We will consider offering trials of an SNRI, such as venlafaxine or duloxetine. 02/25/2020. Note dosing of Wellbutrin SR is 100 mg po qam. Monitor ZAFAR. 02/25--restart Seroquel with plan to titrate tomorrow, may use lower dose prn anxiety during day. Get true lithium level trough in am and fasting metabolic labs. 02/26--lithium remains 0.9, d/c Wellbutrin (?worsening SI), she desires d/c Neurontin due to sedation, reviewed generally tapered--she is agreeable to take 150 mg tonight. titrate seroquel 50 mg po qhs with likely to 100 mg or more to target thoughts. No immediate availability of ketamine. She had discussed ECT at least briefly with Dr. Carranza but is attending to ADLs and groups here (more active than home). 02/27--Pt continuing to give conflicting thoughts regarding willingness for medication changes. Recommendation was provided to continue titration of quetiapine as discussed above; however patient was unwilling to do so at this time. --Continue to engage patient in group and recreational programming with focus on distraction techniques and coping skills that are beneficial to combat acute SI. --With ongoing interviews, there is a part of patient's presentation that seems to be related to borderline personality traits. 02/28 - Pt agreeable with titrating quetiapine to 75mg for this evening. Reviewed that a target dose of 100mg had been suggested and patient was agreeable with continuing to work toward this dosage. - She continues to report struggles with SI, with somewhat limited group participation 02/28 -continue quetiapine titration, increasing to 100 mg at bedtime for tonight. Fasting labs reviewed for monitoring on an atypical: Done 02/27/2020, FG 86, FLP notable for cholesterol 221. TSH was repeated as it was slightly elevated on admission, and was normal at 2.190. -Patient continues to refuse a family meeting, so we will schedule a treatment planning meeting with her outpatient therapist. Agree with recommendation for PHP/residential treatment, trauma focused program. Patient lists multiple barriers to this, but admits it has yet been explored. -Message was left for outpatient psychiatrist, Dr. Thompson, in [place] yesterday requesting return call to coordinate care. 03/02 -We will continue quetiapine as above. The patient says that she does not feel that quetiapine is particularly helpful, at least at bedtime, although she does note that lower dose as needed quetiapine does help sometimes with anxiety during the day. -Patient feels strongly that she cannot tolerate a higher dose of Prozac higher than 10 mg a day, and, at the same time, says that she believes that Prozac 10 mg a day is helpful. She is, however, willing to allow us to add an additional antidepressant medication. The patient tells us that she has not previously taken an SNRI medication, and we discussed venlafaxine extended release. She asked that we continue Prozac, at least temporarily, and I told her that we would be willing to do a "cross titration" of Prozac and venlafaxine extended release, beginning at 37.5 mg daily. 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 -Zolpidem will be offered as a "rescue" hypnotic in the event that she finds that trazodone, in combination with quetiapine is not sufficient to allow sleep. 03/03 - Venlafaxine ER will be titrated further. - Due to increased restlessness and agitated feeling, utilization of hydroxyzine was recommended. 03/04 -Treatment plan was reviewed with the patient. Venlafaxine ER titrated to 75 mg a day and patient agrees to titrate up further to 150 to 225 mg as tolerated. Fluoxetine 10 mg discontinued without tapering. Quetiapine 150 mg tolerated well without side effects and it will be titrated further if it is not necessary after venlafaxine ER is maximized first. -Patient was advised to utilize hydroxyzine as needed for agitated feeling and utilized trazodone as needed for insomnia. However patient has been sleeping well with increased quetiapine. -If the patient still feels really anxious and agitated, augmentation with buspirone might be considered since patient does not recall if it helped or not in the past but did not experience any side effects until venlafaxine ER can be maximized. (3) Borderline personality disorder: 02/28 - Attempts made today to review diagnostic features of borderline personality disorder with patient to determine if she identified strongly with the criteria; however, patient reported she was familiar with the criteria as she had been given this diagnosis at [facility]. Pt reports "I don't want the diagnosis." Pt reports she has "complex trauma" but was not able to engage in conversation to discuss that the two are not mutually exclusive. - Attempts were made to work with patient on de-stigmatizing the diagnosis in her own mind, and reassuring the patient that there may be additional/alternative diagnosis that can help us more appropriate address her concerns. - Patient does continue to regularly display characteristics that suggest this pathology - Will continue to provide needed support while also maintaining consistent boundaries - Pt would likely benefit from additional information on the diagnosis as well as DBT approaches 03/01 -Reviewed differential diagnosis with patient, as well as the fact that we will likely not make a definitive diagnosis here, due to the acute nature of treatment here, as well as her unwillingness to allow us access to her previous records or to get collateral information from her family. (4) Irritable bowel syndrome: 02/23 -Currently, the patient reports that she has been feeling constipated for "some time now," and notes that she often does better with a bulk laxative such as Metamucil. Currently, we have ordered Metamucil daily. Reviewed 02/25/2020. She declines Miralax. States warm tea would aggravate her reflux. 02/25--reports having BM yesterday but guesses not full evacuation, she is declining additional metamucil. 02/26--Miralax as reports ongoing constipation, if ineffective she would prefer enema over laxative. 02/28--reports ongoing, intermittent GI complaints. States she has benefitted from Zofran and/or Tums on an outpatient basis. Both were ordered for patient to be able to utilize as needed for GI complaints. 03/02 --the patient reports some improvement in this regard. (5) TSH elevation: 02/25--will repeat TSH in am, likely lithium induced with hair loss, would favor start of synthroid given symptoms. 02/26--repeat TSH normal. Inventory Assets Strengths: Intelligent. Motivated to treatment. Well informed. Past history of some favorable response to treatment. Needs: Relief from depression symptoms. Resolution of suicidal thoughts. 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 In particular, her mother. She is also close with several of her siblings, but fears that she will very rejected by all if she tells them that her sexual orientation as lesbian.) Good Rapport with Provider: Yes Absence of Any Risk Factors Above: No Interval History Identifying Information WILL KERNS is a 29-year-old female who currently lives in alone in [place]. She has a history of recurrent major depression, PTSD, and borderline personality disorder, and was admitted on 02/24/20 13:33 on a 201 voluntary agreement because of worsening suicidal ideation, with thoughts of self poisoni ng, and/or asphyxiation. Chief Complaint "I feel agitated". Review of Systems Notes Constitutional: denied cardiovascular: denied Respiratory: denied GI: denied Neurologic: denied Psychiatric: denies symptoms other than stated above Remainder of 10 body systems also reviewed and denied other than noted above. Sleep Information Total Hours of Sleep: 8.5 Meal Information Percent Meal Consumed - Breakfast: 75 Percent Meal Consumed - Lunch: 75 Percent Meal Consumed - Dinner: 90 Nutrition Comment: pt. continues to report poor appetite Subjective Subjective Patient was seen & assessed and interval progress reviewed with nursing and social work. Staff report that patient has been attending group activities but she has been expressing negative comments about staff and their suggestions. Attended PM community meeting and rated her mood as 2/10 and feeling "overwhelmed". Patient was seen today to assess progress since admission. Patient reports that she still feels agitated and hydroxyzine helped somewhat. She tried buspirone in the past but does not recall if it helped her anxious feeling at that time. She admits that she slept better on quetiapine 150 mg last night and has been tolerating increased quetiapine without significant side effects. She agrees to titrate venlafaxine ER further. She has not noticed any changes in her suicidal thoughts, anxiety and depressive symptoms. She states that she talked to 1 of her sisters in [place] 1 time but does not want to have family meetings with any of her family members because they cannot do anything for from [place] and she does not want to disclose her psychiatric issues to her family members. She does not have any emotional support in [place] area except her therapist. She reports that she has been stressed out a lot due to her school work and COVID-19 situations. The importance of setting up meetings with the family members or friends in [place] reiterated with the patient since through those meetings, we can be reassured that her outpatient care plan will be continued and she will be supported after discharge. Physical Exam Psychiatric Orientation: alert and oriented x 3 Apperance: appropriately dressed and appropriately groomed Eye Contact: good eye contact Motor Behavior: steady gait and station and no abnormal motor movements; no psychomotor agitation, n akathisia and n tremor Speech: normal rate/rhythm/volume of speech Affect: + depressed affect, + anxious affect, + flat affect, + blunted affect and mood congruent with affect more subdued than yesterday Mood: + depressed mood and + anxious mood Thought Process: goal directed thought process, linear/logical thought process, clear/coherent thought process and + perseveration Thought Content: reality based without delusions, + hopelessness and + loneliness Suicidal Thoughts: + reports suicidal thoughts and + reports suicidal plan Homicidal Thoughts: denies homicidal thoughts Hallucinations: no auditory hallucinations and no visual hallucinations Cognition: recent memory grossly intact, remote memory grossly intact, attention grossly intact and language grossly intact Estimated Intelligence: average estimated intelligence Insight: + limited insight Judgement: + limited judgement Vital Signs (Past 24 Hours) Last Vital Signs Temp 37.1 C 03/03/20 20:42 Pulse 69 03/03/20 06:43 Resp 16 03/03/20 06:43 BP 72/49 L 03/03/20 06:43 Pulse Ox 100 02/24/20 16:18 Results & Data ([facility]) Current Inpatient Medications Current Inpatient Medications: Current Inpatient Medications Acetaminophen (Acetaminophen 325 Mg Tab) 650 mg PO Q4H PRN PRN Reason: Headache or Minor Fever Stop: 03/25/20 13:32 Last Admin: 02/25/20 04:09 Dose: 650 mg Documented by: Al Hydrox/Mg Hydrox/Simethicone (Aluminum/Magnesium Susp 30 Ml Udc) 30 ml PO Q4H PRN PRN Reason: GI Upset Stop: 03/25/20 13:32 Last Admin: 02/29/20 10:07 Dose: 30 ml Documented by: Bismuth Subsalicylate (Bismuth Subsalicylate Liqd 236 Ml) 15 ml PO PRN PRN PRN Reason: Loose Stool Stop: 03/25/20 13:32 Calcium Carbonate (Calcium Carbonate 1250mg Tab) 1,250 mg PO DAILY OLIVIA Stop: 03/26/20 08:59 Last Admin: 03/04/20 09:14 Dose: 1,250 mg Documented by: Calcium Carbonate (Calcium Carbonate 500 Mg Chewable Tab) 1,500 mg PO Q6H PRN PRN Reason: Indigestion Stop: 03/30/20 13:46 Last Admin: 02/29/20 15:29 Dose: 1,500 mg Documented by: Cetirizine HCl (Cetirizine Hcl 10 Mg Tablet) 10 mg PO QAM [facility] Stop: 03/27/20 08:59 Last Admin: 03/04/20 09:14 Dose: 10 mg Documented by: Clonazepam (Clonazepam 0.5 Mg Tab) 0.5 mg PO DAILY PRN PRN Reason: Blood draws or imaging studies Stop: 03/25/20 21:08 Last Admin: 02/27/20 06:25 Dose: 0.5 mg Documented by: Dicyclomine HCl (Dicyclomine Hcl 10 Mg Cap) 10 mg PO TIDM OLIVIA Stop: 03/25/20 17:59 Last Admin: 03/04/20 09:13 Dose: 10 mg Documented by: Hydrocortisone (Hydrocortisone 2.5% Cr 30 Gm Tube) 1 appln EXT BID OLIVIA Stop: 03/25/20 20:59 Last Admin: 03/04/20 09:15 Dose: 1 appln Documented by: Hydroxyzine HCl (Hydroxyzine Hcl 25 Mg Tab) 50 mg PO HSZ PRN PRN Reason: Insomnia Stop: 03/25/20 13:32 Hydroxyzine HCl (Hydroxyzine Hcl 25 Mg Tab) 25 mg PO Q4H PRN PRN Reason: Anxiety Stop: 03/25/20 13:32 Last Admin: 03/03/20 20:27 Dose: 25 mg Documented by: Lactobacillus Acidophilus (Lactobacillus Acidophilus (Floranex) Tab) 4 tab PO HS OLIVIA Stop: 03/25/20 21:59 Last Admin: 03/03/20 20:55 Dose: 4 tab Documented by: Levalbuterol HCl (Levalbuterol Tartrate 15 Gm Hfa.Aer.Ad) 2 puffs INH Q4H PRN PRN Reason: Shortness Of Breath Or Wheezin Stop: 03/25/20 17:49 [place] Carbonate ([place] Carbonate 450 Mg Tabcr) 450 mg PO BID OLIVIA Stop: 03/25/20 20:59 Last Admin: 03/04/20 09:13 Dose: 450 mg Documented by: Magnesium Hydroxide (Magnesium Hydroxide Susp 30 Ml Udc) 30 ml PO DAILY PRN PRN Reason: Constipation Stop: 03/25/20 13:32 Miscellaneous (Camrese Lo Patient's Own Oral Contraceptive) 1 ea PO HS OLIVIA Stop: 03/25/20 21:59 Last Admin: 03/03/20 20:56 Dose: 1 ea Documented by: Rabeprazole 20mg ~ Non-Formulary Patient's Own Med 1 ea PO BID OLIVIA Stop: 03/25/20 20:59 Last Admin: 03/04/20 08:04 Dose: 1 ea Documented by: Ondansetron HCl (Ondansetron 8mg Od Tab) 8 mg PO Q6H PRN PRN Reason: Nausea Stop: 03/30/20 13:50 Last Admin: 03/01/20 00:57 Dose: 8 mg Documented by: Polyethylene Glycol (Polyethylene (Miralax) 17 Gm Pack) 17 gm PO DAILY OLIVIA Stop: 03/28/20 13:44 Last Admin: 03/04/20 09:14 Dose: Not Given Documented by: Psyllium Hydrophilic Mucilloid (Psyllium 58.6% Powder Packet) 1 pkt PO QAM [facility] Stop: 03/25/20 18:44 Last Admin: 03/04/20 09:14 Dose: Not Given Documented by: Quetiapine Fumarate (Quetiapine Fumarate 25 Mg Tablet) 12.5 mg PO Q6 PRN PRN Reason: Anxiety Stop: 03/27/20 11:59 Last Admin: 03/02/20 14:26 Dose: 12.5 mg Documented by: Quetiapine Fumarate (Quetiapine Fumarate 100 Mg Tablet) 100 mg PO HS OLIVIA Stop: 04/02/20 21:59 Last Admin: 03/03/20 20:56 Dose: 100 mg Documented by: Quetiapine Fumarate (Quetiapine Fumarate 25 Mg Tablet) 50 mg PO HS OLIVIA Stop: 04/02/20 21:59 Last Admin: 03/03/20 20:56 Dose: 50 mg Documented by: Sodium Chloride (Sodium Chloride 0.65% Na Soln 45 Ml (Jeddo)) 1 - 2 sprays NA PRN PRN PRN Reason: Nasal Dryness/Congestion Stop: 03/25/20 13:32 Trazodone HCl (Trazodone Hcl 50 Mg Tab) 50 mg PO HS PRN PRN Reason: Sleep Stop: 04/01/20 21:59 Last Admin: 03/02/20 20:52 Dose: 50 mg Documented by: Venlafaxine HCl (Venlafaxine Hcl Xr 37.5 Mg Capxr) 37.5 mg PO ONCE ONE Stop: 03/04/20 09:36 Vitamin B Complex (Vitamin B Complex Tab) 1 tab PO QAM OLIVIA Stop: 03/26/20 08:59 Last Admin: 03/04/20 09:14 Dose: 1 tab Documented by: Vitamin D (Cholecalciferol 1,000 Units 25 Mcg Tab) 1,000 units PO DAILY OLIVIA Stop: 03/27/20 08:59 Last Admin: 03/04/20 09:14 Dose: 1,000 units Documented by: Mental Health & Subst Abuse Tx Psychiatrist Name of Psychiatrist: Dr. Siobhan Shepherd-Jay Psychiatrist's Psychiatric Appointment Comment: [id number] [id number] Therapist Name of Therapist: [facility] - Ioana Rico Therapist's Therapy Appointment Comment: Usually calls on Tuesdays/Fridays [employer] Name of [employer]: [facility] - Josefina Phone Number for [employer]: [phone] Case Management Appointment Comment: [address] [facility] Post Discharge Appointments Primary Care Physician Name Of Family Doctor: [facility] - Dr. Azar Contact Information Discharge Discharge Address: [address], [place] [address]
[2020-03-04] MEDS ORDERED: VENLAFAXINE HCL XR 37.5 MG CAPXR PO ONE (10:00)
[2020-03-04] MEDS: hydrOXYzine HCl 25 MG TAB PO PRN (15:52)
[2020-03-04] MEDS: LACTOBACILLUS ACIDOPHILUS (FLORANEX) TAB PO SCH (21:02)
[2020-03-04] MEDS: QUEtiapine FUMARATE 100 MG TABLET PO SCH (21:03)
[2020-03-04] MEDS: ETHINYL ESTRADIOL PO SCH (21:03)
[2020-03-04] MEDS: QUEtiapine FUMARATE 25 MG TABLET PO SCH (21:03)
[2020-03-04] MEDS: LEVONORGESTREL PO SCH (21:03)
[2020-03-05] MEDS: RABEPRAZOLE 20 MG PO SCH ×2 (08:27→17:04)
[2020-03-05] MEDS: LITHIUM CARBONATE 450 MG TABCR PO SCH ×2 (09:07→20:45)
[2020-03-05] MEDS: DICYCLOMINE HCL 10 MG CAP PO SCH ×3 (09:07→17:06)
[2020-03-05] MEDS: VENLAFAXINE HCL XR 150 MG CAPXR PO SCH (09:07)
[2020-03-05] MEDS: PSYLLIUM 58.6% POWDER PACKET PO SCH (09:08)
[2020-03-05] MEDS: POLYETHYLENE (MIRALAX) 17 GM PACK PO SCH (09:08)
[2020-03-05] MEDS: HYDROCORTISONE 2.5% CR 30 GM TUBE EXT SCH ×2 (09:08→20:52)
[2020-03-05] MEDS: CHOLECALCIFEROL 1,000 UNITS 25 MCG TAB PO SCH (09:09)
[2020-03-05] MEDS: CETIRIZINE HCL 10 MG TABLET PO SCH (09:09)
[2020-03-05] MEDS: VITAMIN B COMPLEX TAB PO SCH (09:09)
[2020-03-05] MEDS: CALCIUM CARBONATE 1250MG TAB PO SCH (09:09)
--- NOTE | 2020-03-05 12:58 | Psychiatric Progress Note ---
Date of Service March 05, 2020 Impression / Recommendations Impression 29-year-old female with a history of recurrent depression, PTSD, and borderline personality disorder who is admitted voluntarily with severe depression and suicidal thoughts with various plans. She has a long history of treatment for depression, and while she reports some improvement in response to various psychiatric medications over the years, improvements tend to be short lived and efforts to address diminishing favorable effect of medications through dose increases generally are ineffective. She appears to meet criteria for borderline personality disorder, with difficulty regulating her mood in response to situational factors, inappropriate anger, stress related dissociative symptoms, and recurrent suicidal behavior/gestures. She also reports a broad array of somatic symptoms for which she is on multiple medications, is socially isolated with no local supports, and is refusing to involve her family in treatment, although she has been calling them on the phone. She has a local therapist, but sees a psychiatrist in [place]. 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 Quetiapine and venlafaxine XR are being titrated here to target mood, and she has declined ECT. She is willing to consider transcranial magnetic stimulation, but this would have to be done as an outpatient. She had a suicidal gesture on the unit 02/24, and remains suicidal to the extent that she has been placed on enhanced precautions with no access to pillowcases or sheets, and in a private room. Meeting with [facility] took place on 03/05 to discuss the trajectory of the work for her Ph.D program. Inpatient treatment remains medically necessary due to the severity of symptoms and risk for suicide if discharged. (1) Suicidal ideation: 02/23 -The patient reports progressive suicidal thoughts with plans that include overdosing, self poisoning, asphyxiation, and hanging. The patient has been admitted to the [facility] unit and has been placed on suicide precautions. We have referred her for individual, group, and recreational therapy. She does not seem to be willing to consider family interventions at this point, but it may be useful to work with the patient in this regard because her family dynamics seem to be pretty central to the patient's current condition. -We will continue lithium carbonate 450 mg twice a day; Prozac 10 mg a day; and add bupropion SR 75 mg as an adjunct. We will consider offering trials of an SNRI, such as venlafaxine or duloxetine. Reviewed 02/25/2020. Note dosing of Wellbutrin SR is 100 mg po qam. 02/25--reviewed safety plan with staff, MNPR, moved to [place], safety blanket (no sheets/pillowcases) for at least 24 hrs, no leggings, reviewed consistency shift to shift on where meeting with patient. 02/26--return blanket but not bed linens. 02/27--continues to report active SI, but not related to items presently available to the patient. Pt not able to contract for safety with any additional items at this time. --Maintain appropriate boundaries while continuing to build therapeutic alliance and offer suggestions to target chronic SI. 02/28 - Pt vaguely reporting "I don't feel safe", but was unable to verbalize any specific temptations on unit or specific plans/intent - She admits that SI is chronically "in the background" but becomes more pronounced when the patient is being "triggered" 03/01 -patient continues to endorse suicidal thoughts, states she would not feel safe having access to sheets or pillowcases that she could wrap around her neck, but feels safe in her current environment with safety blankets, 1 cotton blanket, and no access to other items without staff supervision. Her door is being kept open so that she is visible from the nurses station. -Continue private room and current precautions. -Encourage patient to continue to identify effective coping skills. 03/02 -Patient continues to report suicidality, and describes intrusive ruminative suicidal thoughts. She reported today that, for example, during a therapy group that focused on learning self soothing and relaxation techniques involving, among other things, listening to the sounds of rushing water and waves at a beach she could only think of the fact that she wants to drown herself or, if she was at the beach, she would want to bury her self in the sand and suffocate. -Patient reports that until this year she has not had self-injurious impulses, and she is visibly distressed by the obsessive and intrusive nature of her suicidal thoughts. Within this context, we discussed the use of medications that may help with obsessive ruminations and other disorders associated with anxiety. The plan today will include adding venlafaxine extended release 37.5 mg daily beginning 1009 and titrating as indicated. Because the patient feels very strongly that she does not wish to discontinue Prozac until she is able to county court judge the effect of venlafaxine, in terms of adverse effects and possible response, we will continue low-dose Prozac together with lower dose of venlafaxine and cross titrate as appropriate. -The patient notes that she feels certain that she could not contract for safety where she did leave the hospital at this point, and inpatient psychiatric hospitalization remains the least intensive, least restrictive level of care consistent with the patient's clinical and safety needs. 03/03 - Patient continues to report active suicidal ideation but she feels safe in this unit currently. - Patient agrees with the further titration of quetiapine 50 mg every night and 150 mg will be tried today. However the patient is advised that she can titrate slowly if she does not feel comfortable since that she expresses her concern over faster titration. - If the patient feels too drowsy with increased quetiapine, trazodone will be discontinued. 03/04 -Patient continues to report active suicidal ideation but she still feels safe in her current setting. -Continue MNPR. 03/05 - Continue MNPR due to ongoing reports of feeling unsafe and admitting to ongoing SI. - She continues to be unable to contract for safety outside of the inpatient hospital setting (2) Anxiety and depression: 02/23 -The patient reports progressive suicidal thoughts with plans that include overdosing, self poisoning, asphyxiation, and hanging. The patient has been admitted to the [facility] and has been placed on suicide precautions. We have referred her for individual, group, and recreational therapy. She does not seem to be willing to consider family interventions at this point, but it may be useful to work with the patient in this regard because her family dynamics seem to be pretty central to the patient's current condition. -We will continue lithium carbonate 450 mg twice a day; Prozac 10 mg a day; and add bupropion SR 75 mg as an adjunct. We will consider offering trials of an SNRI, such as venlafaxine or duloxetine. 02/25/2020. Note dosing of Wellbutrin SR is 100 mg po qam. Monitor ZAFAR. 02/25--restart Seroquel with plan to titrate tomorrow, may use lower dose prn anxiety during day. Get true lithium level trough in am and fasting metabolic labs. 02/26--lithium remains 0.9, d/c Wellbutrin (?worsening SI), she desires d/c Neurontin due to sedation, reviewed generally tapered--she is agreeable to take 150 mg tonight. titrate seroquel 50 mg po qhs with likely to 100 mg or more to target thoughts. No immediate availability of ketamine. She had discussed ECT at least briefly with Dr. Carranza but is attending to ADLs and groups here (more active than home). 02/27--Pt continuing to give conflicting thoughts regarding willingness for medication changes. Recommendation was provided to continue titration of quetiapine as discussed above; however patient was unwilling to do so at this time. --Continue to engage patient in group and recreational programming with focus on distraction techniques and coping skills that are beneficial to combat acute SI. --With ongoing interviews, there is a part of patient's presentation that seems to be related to borderline personality traits. 02/28 - Pt agreeable with titrating quetiapine to 75mg for this evening. Reviewed that a target dose of 100mg had been suggested and patient was agreeable with continuing to work toward this dosage. - She continues to report struggles with SI, with somewhat limited group participation 02/28 -continue quetiapine titration, increasing to 100 mg at bedtime for tonight. Fasting labs reviewed for monitoring on an atypical: Done 02/27/2020, FG 86, FLP notable for cholesterol 221. TSH was repeated as it was slightly elevated on admission, and was normal at 2.190. -Patient continues to refuse a family meeting, so we will schedule a treatment planning meeting with her outpatient therapist. Agree with recommendation for [facility]/residential treatment, trauma focused program. Patient lists multiple barriers to this, but admits it has yet been explored. -Message was left for outpatient psychiatrist, Dr. Thompson, in [place] yesterday requesting return call to coordinate care. 03/02 -We will continue quetiapine as above. The patient says that she does not feel that quetiapine is particularly helpful, at least at bedtime, although she does note that lower dose as needed quetiapine does help sometimes with anxiety during the day. -Patient feels strongly that she cannot tolerate a higher dose of Prozac higher than 10 mg a day, and, at the same time, says that she believes that Prozac 10 mg a day is helpful. She is, however, willing to allow us to add an additional antidepressant medication. The patient tells us that she has not previously taken an SNRI medication, and we discussed venlafaxine extended release. She asked that we continue Prozac, at least temporarily, and I told her that we would be willing to do a "cross titration" of Prozac and venlafaxine extended release, beginning at 37.5 mg daily. 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 -Zolpidem will be offered as a "rescue" hypnotic in the event that she finds that trazodone, in combination with quetiapine is not sufficient to allow sleep. 03/03 - Venlafaxine ER will be titrated further. - Due to increased restlessness and agitated feeling, utilization of hydroxyzine was recommended. 03/04 -Treatment plan was reviewed with the patient. Venlafaxine ER titrated to 75 mg a day and patient agrees to titrate up further to 150 to 225 mg as tolerated. Fluoxetine 10 mg discontinued without tapering. Quetiapine 150 mg tolerated well without side effects and it will be titrated further if it is not necessary after venlafaxine ER is maximized first. -Patient was advised to utilize hydroxyzine as needed for agitated feeling and utilized trazodone as needed for insomnia. However patient has been sleeping well with increased quetiapine. -If the patient still feels really anxious and agitated, augmentation with buspirone might be considered since patient does not recall if it helped or not in the past but did not experience any side effects until venlafaxine ER can be maximized. 03/05 - Continue current medication regimen - continues adjustments as indicated - Meeting today with [employer]. - Pt continues to be unable to contract for safety outside of the inpatient hospital setting. She reports willingness to at least explore options for longer term treatment, specifically focused on trauma programs (3) Borderline personality disorder: 02/28 - Attempts made today to review diagnostic features of borderline personality disorder with patient to determine if she identified strongly with the criteria; however, patient reported she was familiar with the criteria as she had been given this diagnosis at [facility]. Pt reports "I don't want the diagnosis." Pt reports she has "complex trauma" but was not able to engage in conversation to discuss that the two are not mutually exclusive. - Attempts were made to work with patient on de-stigmatizing the diagnosis in her own mind, and reassuring the patient that there may be additional/alternative diagnosis that can help us more appropriate address her concerns. - Patient does continue to regularly display characteristics that suggest this pathology - Will continue to provide needed support while also maintaining consistent boundaries - Pt would likely benefit from additional information on the diagnosis as well as DBT approaches 03/01 -Reviewed differential diagnosis with patient, as well as the fact that we will likely not make a definitive diagnosis here, due to the acute nature of treatment here, as well as her unwillingness to allow us access to her previous records or to get collateral information from her family. (4) Irritable bowel syndrome: 02/23 -Currently, the patient reports that she has been feeling constipated for "some time now," and notes that she often does better with a bulk laxative such as Metamucil. Currently, we have ordered Metamucil daily. Reviewed 02/25/2020. She declines Miralax. States warm tea would aggravate her reflux. 02/25--reports having BM yesterday but guesses not full evacuation, she is declining additional metamucil. 02/26--Miralax as reports ongoing constipation, if ineffective she would prefer enema over laxative. 02/28--reports ongoing, intermittent GI complaints. States she has benefitted from Zofran and/or Tums on an outpatient basis. Both were ordered for patient to be able to utilize as needed for GI complaints. 03/02 --the patient reports some improvement in this regard. (5) TSH elevation: 02/25--will repeat TSH in am, likely lithium induced with hair loss, would favor start of synthroid given symptoms. 02/26--repeat TSH normal. Inventory Assets Strengths: Intelligent. Motivated to treatment. Well informed. Past history of some favorable response to treatment. Needs: Relief from depression symptoms. Resolution of suicidal thoughts. 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 In particular, her mother. She is also close with several of her siblings, but fears that she will very rejected by all if she tells them that her sexual orientation as lesbian.) Good Rapport with Provider: Yes Absence of Any Risk Factors Above: No Interval History Identifying Information WILL KERNS is a 29-year-old female who currently lives in alone in [place]. She has a history of recurrent major depression, PTSD, and borderline personality disorder, and was admitted on 02/24/20 13:33 on a 201 voluntary agreement because of worsening suicidal ideation, with thoughts of self poisoning, and/or asphyxiation. Chief Complaint "Um, up and down today." Review of Systems Notes Constitutional: reports feeling "drowsy" and "agitated" today Cardiovascular: denied Respiratory: denied Gastrointestinal: no change in GI complaints Neurological: denied Psychiatric: denies symptoms other than stated above Total of at least 10 systems reviewed, pertinent positives as above and in HPI. Sleep Information Total Hours of Sleep: 7 Sleep Comments: pt on q-15 minute checks Meal Information Percent Meal Consumed - Breakfast: 90 Percent Meal Consumed - Lunch: 90 Percent Meal Consumed - Dinner: 90 Nutrition Comment: pt. continues to report poor appetite Subjective Subjective Patient was seen & assessed and interval progress reviewed with treatment team. Staff report the patient continues to verbalize feeling unsafe and is not able to contract for safety outside of the hospital setting. Pt continues to report that she feels as though she is getting worse, but has yet to make significant strides in working toward an appropriate discharge plan. Pt had a meeting with [employer] this afternoon. She requested to wait until after the meeting to meet with this provider, to assess progress since admission. Pt states she has been feeling "up and down" today. Pt states she has been particularly stressed about the meeting with [employer]. Pt initially stated the meeting was not helpful, but thoughts were able to be reframed - as the reality is the patient had presented questions and repres entative from [employer] is to be getting back to her with answers. Pt was asked what some of the "up" moments were throughout the day. She admits that her mood is generally improved during exercise group, "but gets much worse right after, I feel very anxious." Pt has been observed to be out of her room quite a bit today, attending groups. Pt continues to experience suicidal ideation, and admits that she can see a ladder from her room "that would be the perfect place to jump from to kill myself." Although means to act on this plan are clearly limited, the patient admits that she can occasionally become entranced with this thoughts. When the suggestion was made to remove herself from her room during these times, the patient states "well, at night I'm tired. Am not going to not sleep in my room?" We discussed that there were obviously times that this may be a more appropriate plan. Pt continues to inquire about ways to cope with her suicidal thoughts, frequently admitting that she has already tried the ideas and they have not helped. Pt states her goal of treatment is "for the suicidal thoughts to go away completely." We discussed that an intermediate step needs to be working toward feeling comfortable with how to manage suicidal thoughts when they do occur. Pt is able to express thoughts that "I've been so focused on treatment for mood disorder, that maybe what I really need is treatment for trauma. Maybe I've been getting treatment for the wrong thing." Pt states she would be interested in reviewing information for programs that specialize in treatment for trauma-related disorders. She acknowledges, "I don't know if it's the PTSD leading the mood disorder, or the other way around." Pt admits to feeling drowsy in the morning, but otherwise denies perceived side effects related to recent medication adjustments. Pt denied other needs or concerns today. Physical Exam Psychiatric Orientation: alert, oriented x 3 and + guarded (superifically cooperative ) Apperance: appropriately dressed, appropriately groomed and appeared stated age Eye Contact: + fair eye contact Motor Behavior: steady gait and station and + psychomotor agitation (rocking behavior, increased intensity as conversation continues) Speech: normal rate/rhythm/volume of speech Affect: + anxious affect (rocking behavior) and mood congruent with affect Mood: + depressed mood and + anxious mood (reports feeling "more agitated") Thought Process: goal directed thought process (at times) Thought Content: + cognitive distortions, + hopelessness and + worthlessness Suicidal Thoughts: + reports suicidal thoughts and + reports suicidal plan Admits to ongoing SI with specific plan, though no access to means - as current temptation is to jump from a ladder she can visualize outside of her room Homicidal Thoughts: denies homicidal thoughts Hallucinations: no auditory hallucinations and no visual hallucinations Cognition: attention grossly intact and language grossly intact Insight: + limited insight Judgement: + limited judgement Vital Signs (Past 24 Hours) Last Vital Signs Temp 36.5 C 03/05/20 06:46 Pulse 84 03/05/20 06:47 Resp 16 03/05/20 06:46 BP 89/60 L 03/05/20 06:47 Pulse Ox 100 02/24/20 16:18 Results & Data ([facility]) Current Inpatient Medications Current Inpatient Medications: Current Inpatient Medications Acetaminophen (Acetaminophen 325 Mg Tab) 650 mg PO Q4H PRN PRN Reason: Headache or Minor Fever Stop: 03/25/20 13:32 Last Admin: 02/25/20 04:09 Dose: 650 mg Documented by: Al Hydrox/Mg Hydrox/Simethicone (Aluminum/Magnesium Susp 30 Ml Udc) 30 ml PO Q4H PRN PRN Reason: GI Upset Stop: 03/25/20 13:32 Last Admin: 02/29/20 10:07 Dose: 30 ml Documented by: Bismuth Subsalicylate (Bismuth Subsalicylate Liqd 236 Ml) 15 ml PO PRN PRN PRN Reason: Loose Stool Stop: 03/25/20 13:32 Calcium Carbonate (Calcium Carbonate 1250mg Tab) 1,250 mg PO DAILY [facility] Stop: 03/26/20 08:59 Last Admin: 03/05/20 09:09 Dose: 1,250 mg Documented by: Calcium Carbonate (Calcium Carbonate 500 Mg Chewable Tab) 1,500 mg PO Q6H PRN PRN Reason: Indigestion Stop: 03/30/20 13:46 Last Admin: 02/29/20 15:29 Dose: 1,500 mg Documented by: Cetirizine HCl (Cetirizine Hcl 10 Mg Tablet) 10 mg PO QAM [facility] Stop: 03/27/20 08:59 Last Admin: 03/05/20 09:09 Dose: 10 mg Documented by: Clonazepam (Clonazepam 0.5 Mg Tab) 0.5 mg PO DAILY PRN PRN Reason: Blood draws or imaging studies Stop: 03/25/20 21:08 Last Admin: 02/27/20 06:25 Dose: 0.5 mg Documented by: Dicyclomine HCl (Dicyclomine Hcl 10 Mg Cap) 10 mg PO TIDM OLIVIA Stop: 03/25/20 17:59 Last Admin: 03/05/20 12:43 Dose: 10 mg Documented by: Hydrocortisone (Hydrocortisone 2.5% Cr 30 Gm Tube) 1 appln EXT BID OLIVIA Stop: 03/25/20 20:59 Last Admin: 03/05/20 09:08 Dose: Not Given Documented by: Hydroxyzine HCl (Hydroxyzine Hcl 25 Mg Tab) 50 mg PO HSZ PRN PRN Reason: Insomnia Stop: 03/25/20 13:32 Hydroxyzine HCl (Hydroxyzine Hcl 25 Mg Tab) 25 mg PO Q4H PRN PRN Reason: Anxiety Stop: 03/25/20 13:32 Last Admin: 03/04/20 15:52 Dose: 25 mg Documented by: Lactobacillus Acidophilus (Lactobacillus Acidophilus (Floranex) Tab) 4 tab PO HS OLIVIA Stop: 03/25/20 21:59 Last Admin: 03/04/20 21:02 Dose: 4 tab Documented by: Levalbuterol HCl (Levalbuterol Tartrate 15 Gm Hfa.Aer.Ad) 2 puffs INH Q4H PRN PRN Reason: Shortness Of Breath Or Wheezin Stop: 03/25/20 17:49 Bieber Carbonate (Bieber Carbonate 450 Mg Tabcr) 450 mg PO BID OLIVIA Stop: 03/25/20 20:59 Last Admin: 03/05/20 09:07 Dose: 450 mg Documented by: Magnesium Hydroxide (Magnesium Hydroxide Susp 30 Ml Udc) 30 ml PO DAILY PRN PRN Reason: Constipation Stop: 03/25/20 13:32 Miscellaneous (Camrese Lo Patient's Own Oral Contraceptive) 1 ea PO HS OLIVIA Stop: 03/25/20 21:59 Last Admin: 03/04/20 21:03 Dose: 1 ea Documented by: Rabeprazole 20mg ~ Non-Formulary Patient's Own Med 1 ea PO BID OLIVIA Stop: 03/25/20 20:59 Last Admin: 03/05/20 08:27 Dose: 1 ea Documented by: Ondansetron HCl (Ondansetron 8mg Od Tab) 8 mg PO Q6H PRN PRN Reason: Nausea Stop: 03/30/20 13:50 Last Admin: 03/01/20 00:57 Dose: 8 mg Documented by: Polyethylene Glycol (Polyethylene (Miralax) 17 Gm Pack) 17 gm PO DAILY [facility] Stop: 03/28/20 13:44 Last Admin: 03/05/20 09:08 Dose: Not Given Documented by: Psyllium Hydrophilic Mucilloid (Psyllium 58.6% Powder Packet) 1 pkt PO QAM [facility] Stop: 03/25/20 18:44 Last Admin: 03/05/20 09:08 Dose: 1 pkt Documented by: Quetiapine Fumarate (Quetiapine Fumarate 25 Mg Tablet) 12.5 mg PO Q6 PRN PRN Reason: Anxiety Stop: 03/27/20 11:59 Last Admin: 03/02/20 14:26 Dose: 12.5 mg Documented by: Quetiapine Fumarate (Quetiapine Fumarate 100 Mg Tablet) 100 mg PO HS OLIVIA Stop: 04/02/20 21:59 Last Admin: 03/04/20 21:03 Dose: 100 mg Documented by: Quetiapine Fumarate (Quetiapine Fumarate 25 Mg Tablet) 50 mg PO HS OLIVIA Stop: 04/02/20 21:59 Last Admin: 03/04/20 21:03 Dose: 50 mg Documented by: Sodium Chloride (Sodium Chloride 0.65% Na Soln 45 Ml ([place])) 1 - 2 sprays NA PRN PRN PRN Reason: Nasal Dryness/Congestion Stop: 03/25/20 13:32 Trazodone HCl (Trazodone Hcl 50 Mg Tab) 50 mg PO HS PRN PRN Reason: Sleep Stop: 04/01/20 21:59 Last Admin: 03/02/20 20:52 Dose: 50 mg Documented by: Venlafaxine HCl (Venlafaxine Hcl Xr 150 Mg Capxr) 150 mg PO QAM [facility] Stop: 04/04/20 08:59 Last Admin: 03/05/20 09:07 Dose: 150 mg Documented by: Vitamin B Complex (Vitamin B Complex Tab) 1 tab PO QAM [facility] Stop: 03/26/20 08:59 Last Admin: 03/05/20 09:09 Dose: 1 tab Documented by: Vitamin D (Cholecalciferol 1,000 Units 25 Mcg Tab) 1,000 units PO DAILY OLIVIA Stop: 03/27/20 08:59 Last Admin: 03/05/20 09:09 Dose: 1,000 units Documented by: Mental Health & Subst Abuse Tx Psychiatrist Name of Psychiatrist: Dr. Siobhan Shepherd-Jay Psychiatrist's Psychiatric Appointment Comment: [id number] [place] [id number] Therapist Name of Therapist: [facility] - Ioana Rico Therapist's Therapy Appointment Comment: Usually calls on Tuesdays/Fridays Cableman Name of Cableman: [facility] - Josefina Phone Number for Cableman: [phone] Case Management Appointment Comment: [phone] [facility] Discharge Appointments Primary Care Physician Name Of Family Doctor: Tiffanie - Dr. Azar Contact Information Discharge Discharge Address: [address], [place] [address]
[2020-03-05] MEDS: hydrOXYzine HCl 25 MG TAB PO PRN (14:31)
[2020-03-05] MEDS: LACTOBACILLUS ACIDOPHILUS (FLORANEX) TAB PO SCH (20:45)
[2020-03-05] MEDS: LEVONORGESTREL PO SCH (20:46)
[2020-03-05] MEDS: ETHINYL ESTRADIOL PO SCH (20:46)
[2020-03-05] MEDS: QUEtiapine FUMARATE 100 MG TABLET PO SCH (20:47)
[2020-03-05] MEDS: QUEtiapine FUMARATE 25 MG TABLET PO SCH (20:48)
[2020-03-06] MEDS: RABEPRAZOLE 20 MG PO SCH ×2 (08:01→17:10)
[2020-03-06] MEDS: DICYCLOMINE HCL 10 MG CAP PO SCH ×3 (09:00→17:10)
[2020-03-06] MEDS: VENLAFAXINE HCL XR 150 MG CAPXR PO SCH (09:01)
[2020-03-06] MEDS: LITHIUM CARBONATE 450 MG TABCR PO SCH ×2 (09:01→21:23)
[2020-03-06] MEDS: CHOLECALCIFEROL 1,000 UNITS 25 MCG TAB PO SCH (09:01)
[2020-03-06] MEDS: VITAMIN B COMPLEX TAB PO SCH (09:01)
[2020-03-06] MEDS: CALCIUM CARBONATE 1250MG TAB PO SCH (09:01)
[2020-03-06] MEDS: CETIRIZINE HCL 10 MG TABLET PO SCH (09:01)
[2020-03-06] MEDS: HYDROCORTISONE 2.5% CR 30 GM TUBE EXT SCH ×2 (09:06→21:23)
[2020-03-06] MEDS: POLYETHYLENE (MIRALAX) 17 GM PACK PO SCH (09:16)
[2020-03-06] MEDS: PSYLLIUM 58.6% POWDER PACKET PO SCH (09:16)
--- NOTE | 2020-03-06 11:07 | Psychiatric Progress Note ---
Date of Service March 06, 2020 Impression / Recommendations Impression 29-year-old female with a history of recurrent depression, PTSD, and borderline personality disorder who is admitted voluntarily with severe depression and suicidal thoughts with various plans. She has a long history of treatment for depression, and while she reports some improvement in response to various psychiatric medications over the years, improvements tend to be short lived and efforts to address diminishing favorable effect of medications through dose increases generally are ineffective. She appears to meet criteria for borderline personality disorder, with difficulty regulating her mood in response to situational factors, inappropriate anger, stress related dissociative symptoms, and recurrent suicidal behavior/gestures. She also reports a broad array of somatic symptoms for which she is on multiple medications, is socially isolated with no local supports, and is refusing to involve her family in treatment, although she has been calling them on the phone. She has a local therapist, but sees a psychiatrist in [place]. 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 Quetiapine and venlafaxine XR are being titrated here to target mood, and she has declined ECT. She is willing to consider transcranial magnetic stimulation, but this would have to be done as an outpatient. She had a suicidal gesture on the unit 02/24, and remains suicidal to the extent that she has been placed on enhanced precautions with no access to pillowcases or sheets, and in a private room. Meeting with [facility] and Advocacy took place on 03/05 to discuss the trajectory of the work for her Ph.D program. Meeting on 03/06 with outpatient therapist to discuss recommendation for higher level of care. Inpatient treatment remains medically necessary due to the severity of symptoms and risk for suicide if discharged. (1) Suicidal ideation: 02/23 -The patient reports progressive suicidal thoughts with plans that include overdosing, self poisoning, asphyxiation, and hanging. The patient has been admitted to the [facility] behavioral health unit and has been placed on suicide precautions. We have referred her for individual, group, and recreational therapy. She does not seem to be willing to consider family interventions at this point, but it may be useful to work with the patient in this regard because her family dynamics seem to be pretty central to the patient's current condition. -We will continue lithium carbonate 450 mg twice a day; Prozac 10 mg a day; and add bupropion SR 75 mg as an adjunct. We will consider offering trials of an SNRI, such as venlafaxine or duloxetine. Reviewed 02/25/2020. Note dosing of Wellbutrin SR is 100 mg po qam. 02/25--reviewed safety plan with staff, MNPR, moved to CORDELL, safety blanket (no sheets/pillowcases) for at least 24 hrs, no leggings, reviewed consistency shift to shift on where meeting with patient. 02/26--return blanket but not bed linens. 02/27--continues to report active SI, but not related to items presently available to the patient. Pt not able to contract for safety with any additional items at this time. --Maintain appropriate boundaries while continuing to build therapeutic alliance and offer suggestions to target chronic SI. 02/28 - Pt vaguely reporting "I don't feel safe", but was unable to verbalize any specific temptations on unit or specific plans/intent - She admits that SI is chronically "in the background" but becomes more pronounced when the patient is being "triggered" 03/01 -patient continues to endorse suicidal thoughts, states she would not feel safe having access to sheets or pillowcases that she could wrap around her neck, but feels safe in her current environment with safety blankets, 1 cotton blanket, and no access to other items without staff supervision. Her door is being kept open so that she is visible from the nurses station. -Continue private room and current precautions. -Encourage patient to continue to identify effective coping skills. 03/02 -Patient continues to report suicidality, and describes intrusive ruminative suicidal thoughts. She reported today that, for example, during a therapy group that focused on learning self soothing and relaxation techniques involving, among other things, listening to the sounds of rushing water and waves at a beach she could only think of the fact that she wants to drown herself or, if she was at the beach, she would want to bury her self in the sand and suffocate. -Patient reports that until this year she has not had self-injurious impulses, and she is visibly distressed by the obsessive and intrusive nature of her suicidal thoughts. Within this context, we discussed the use of medications that may help with obsessive ruminations and other disorders associated with anxiety. The plan today will include adding venlafaxine extended release 37.5 mg daily beginning 1010 and titrating as indicated. 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 -The patient notes that she feels certain that she could not contract for safety where she did leave the hospital at this point, and inpatient psychiatric hospitalization remains the least intensive, least restrictive level of care consistent with the patient's clinical and safety needs. 03/03 - Patient continues to report active suicidal ideation but she feels safe in this unit currently. - Patient agrees with the further titration of quetiapine 50 mg every night and 150 mg will be tried today. However the patient is advised that she can titrate slowly if she does not feel comfortable since that she expresses her concern over faster titration. - If the patient feels too drowsy with increased quetiapine, trazodone will be discontinued. 03/04 -Patient continues to report active suicidal ideation but she still feels safe in her current setting. -Continue MNPR. 03/05 - Continue MNPR due to ongoing reports of feeling unsafe and admitting to ongoing SI. - She continues to be unable to contract for safety outside of the inpatient hospital setting 03/06 - Ongoing SI, though reporting mild improvement today - Continue MNPR at this time (2) Anxiety and depression: 02/23 -The patient reports progressive suicidal thoughts with plans that include overdosing, self poisoning, asphyxiation, and hanging. The patient has been admitted to the [facility] behavioral health unit and has been placed on suicide precautions. We have referred her for individual, group, and recreational therapy. She does not seem to be willing to consider family interventions at this point, but it may be useful to work with the patient in this regard because her family dynamics seem to be pretty central to the patient's current condition. -We will continue lithium carbonate 450 mg twice a day; Prozac 10 mg a day; and add bupropion SR 75 mg as an adjunct. We will consider offering trials of an SNRI, such as venlafaxine or duloxetine. 02/25/2020. Note dosing of Wellbutrin SR is 100 mg po qam. Monitor ZAFAR. 02/25--restart Seroquel with plan to titrate tomorrow, may use lower dose prn anxiety during day. Get true lithium level trough in am and fasting metabolic labs. 02/26--lithium remains 0.9, d/c Wellbutrin (?worsening SI), she desires d/c Neurontin due to sedation, reviewed generally tapered--she is agreeable to take 150 mg tonight. titrate seroquel 50 mg po qhs with likely to 100 mg or more to target thoughts. No immediate availability of ketamine. She had discussed ECT at least briefly with Dr. Carranza but is attending to ADLs and groups here (more active than home). 02/27--Pt continuing to give conflicting thoughts regarding willingness for medication changes. Recommendation was provided to continue titration of quetiapine as discussed above; however patient was unwilling to do so at this time. --Continue to engage patient in group and recreational programming with focus on distraction techniques and coping skills that are beneficial to combat acute SI. --With ongoing interviews, there is a part of patient's presentation that seems to be related to borderline personality traits. 02/28 - Pt agreeable with titrating quetiapine to 75mg for this evening. Reviewed that a target dose of 100mg had been suggested and patient was agreeable with continuing to work toward this dosage. - She continues to report struggles with SI, with somewhat limited group participation 02/28 -continue quetiapine titration, increasing to 100 mg at bedtime for tonight. Fasting labs reviewed for monitoring on an atypical: Done 02/27/2020, FG 86, FLP notable for cholesterol 221. TSH was repeated as it was slightly el evated on admission, and was normal at 2.190. -Patient continues to refuse a family meeting, so we will schedule a treatment planning meeting with her outpatient therapist. Agree with recommendation for PHP/residential treatment, trauma focused program. Patient lists multiple barriers to this, but admits it has yet been explored. -Message was left for outpatient psychiatrist, Dr. Thompson, in [place] yesterday requesting return call to coordinate care. 03/02 -We will continue quetiapine as above. The patient says that she does not feel that quetiapine is particularly helpful, at least at bedtime, although she does note that lower dose as needed quetiapine does help sometimes with anxiety during the day. -Patient feels strongly that she cannot tolerate a higher dose of Prozac higher than 10 mg a day, and, at the same time, says that she believes that Prozac 10 mg a day is helpful. She is, however, willing to allow us to add an additional antidepressant medication. The patient tells us that she has not previously taken an SNRI medication, and we discussed venlafaxine extended release. She asked that we continue Prozac, at least temporarily, and I told her that we would be willing to do a "cross titration" of Prozac and venlafaxine extended release, beginning at 37.5 mg daily. -Although last week she had told us that she fell she was sleeping "too much," today she reports chicken hanger awakening and says that she would like to go back on trazodone, medication that she says, in retrospect, was helpful in helping her sleep. -Zolpidem will be offered as a "rescue" hypnotic in the event that she finds that trazodone, in combination with quetiapine is not sufficient to allow sleep. 03/03 - Venlafaxine ER will be titrated further. - Due to increased restlessness and agitated feeling, utilization of hydroxyzine was recommended. 03/04 -Treatment plan was reviewed with the patient. Venlafaxine ER titrated to 75 mg a day and patient agrees to titrate up further to 150 to 225 mg as tolerated. Fluoxetine 10 mg discontinued without tapering. Quetiapine 150 mg tolerated well without side effects and it will be titrated further if it is not necessary after venlafaxine ER is maximized first. -Patient was advised to utilize hydroxyzine as needed for agitated feeling and utilized trazodone as needed for insomnia. However patient has been sleeping well with increased quetiapine. -If the patient still feels really anxious and agitated, augmentation with buspirone might be considered since patient does not recall if it helped or not in the past but did not experience any side effects until venlafaxine ER can be maximized. 03/05 - Continue current medication regimen - continues adjustments as indicated - Meeting today with Student Care and Advocacy. - Pt continues to be unable to contract for safety outside of the inpatient hospital setting. She reports willingness to at least explore options for longer term treatment, specifically focused on trauma programs 03/06 - Pt reporting desire to titrate venlafaxine to 187.5mg tomorrow morning to target anxiety/depression and ongoing SI - denying any perceived side effects at this time. Will continue quetiapine at 150mg qHS. - Meeting this afternoon with outpatient therapistIoana - likely discussing recommendation for higher level of treatment - Pt reports mild improvement in SI today, but thoughts continue to be present. She remains unable to contract for safety outside of the inpatient hospital setting. (3) Borderline personality disorder: 02/28 - Attempts made today to review diagnostic features of borderline personality disorder with patient to determine if she identified strongly with the criteria; however, patient reported she was familiar with the criteria as she had been given this diagnosis at [facility]. Pt reports "I don't want the diagnosis." Pt reports she has "complex trauma" but was not able to engage in conversation to discuss that the two are not mutually exclusive. - Attempts were made to work with patient on de-stigmatizing the diagnosis in her own mind, and reassuring the patient that there may be additional/alter [place] diagnosis that can help us more appropriate address her concerns. - Patient does continue to regularly display characteristics that suggest this pathology - Will continue to provide needed support while also maintaining consistent boundaries - Pt would likely benefit from additional information on the diagnosis as well as DBT approaches 03/01 -Reviewed differential diagnosis with patient, as well as the fact that we will likely not make a definitive diagnosis here, due to the acute nature of treatment here, as well as her unwillingness to allow us access to her previous records or to get collateral information from her family. 03/06 - Continue to focus patient's attention toward development of coping strategies and ways that she can work toward improving her condition. - Pt rather focused today on feeling "triggered" by another patient in the milieu - she was encouraged to consider strategies that would allow her to work toward reducing anxiety and removing herself from overwhelming situations. - Continue to maintain appropriate boundaries while encouraging development of appropriate coping skills (4) Irritable bowel syndrome: 02/23 -Currently, the patient reports that she has been feeling constipated for "some time now," and notes that she often does better with a bulk laxative such as Metamucil. Currently, we have ordered Metamucil daily. Reviewed 02/25/2020. She declines Miralax. States warm tea would aggravate her reflux. 02/25--reports having BM yesterday but guesses not full evacuation, she is declining additional metamucil. 02/26--Miralax as reports ongoing constipation, if ineffective she would prefer enema over laxative. 02/28--reports ongoing, intermittent GI complaints. States she has benefitted from Zofran and/or Tums on an outpatient basis. Both were ordered for patient to be able to utilize as needed for GI complaints. 03/02 --the patient reports some improvement in this regard. (5) TSH elevation: 02/25--will repeat TSH in am, likely lithium induced with hair loss, would favor start of synthroid given symptoms. 02/26--repeat TSH normal. Inventory Assets Strengths: Intelligent. Motivated to treatment. Well informed. Past history of some favorable response to treatment. Needs: Relief from depression symptoms. Resolution of suicidal thoughts. 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 In particular, her mother. She is also close with several of her siblings, but feriana rs that she will very rejected by all if she tells them that her sexual orientation as lesbian.) Good Rapport with Provider: Yes Absence of Any Risk Factors Above: No Interval History Identifying Information WILL KERNS is a 29-year-old female who currently lives in alone in [place]. She has a history of recurrent major depression, PTSD, and borderline personality disorder, and was admitted on 02/24/20 13:33 on a 201 voluntary agreement because of worsening suicidal ideation, with thoughts of self poisoning, and/or asphyxiation. Chief Complaint "I'm feeling very triggered by one of the new patients." Review of Systems Notes Constitutional: reports poor sleep last evening, fatigue today Cardiovascular: denied Respiratory: denied Gastrointestinal: denied Neurological: denied Psychiatric: denies symptoms other than stated above Total of at least 10 systems reviewed, pertinent positives as above and in HPI. Sleep Information Total Hours of Sleep: 7.75 Sleep Comments: pt on q-15 minute checks Meal Information Percent Meal Consumed - Breakfast: 90 Percent Meal Consumed - Lunch: 50 Percent Meal Consumed - Dinner: 100 Nutrition Comment: pt. continues to report poor appetite Subjective Subjective Patient was seen & assessed and interval progress reviewed with nursing and social work. Staff report the patient has been participating in group programming, occasionally spontaneously interacting with peers in the milieu. It was reported that patient did not respond positively to a newly admitted patient who has been disruptive to the milieu at times. Pt is scheduled for a support meeting this afternoon with her outpatient therapist, who has suggested to staff that recommendation is likely to be made that the patient pursue a higher level of care (PHP, IOP, etc). Pt was seen today to assess progress since admission. Pt abruptly shares "I'm feeling very triggered by one of the new patients." This provider did offer validation, but also encouraged patient to focus on the many aspects of treatment that remain in her control - specifically what she can do when she is feeling overwhelmed or agitated. Pt did state that she felt comfortable removing herself from the situation if necessary. Pt was also offered reassurance that staff will redirect any inappropriate behavior of patients as needed, but that she could also develop a plan for how she feels she can best handle the situation. Pt admits that she did not sleep well last evening as "I will still pretty agitated about this new patient." Pt does admit to feeling tired today, but unsure if this is more directly related to medications or to poor sleep. Pt reports ongoing SI, but does believe this is mildly improved so far today. She reports anxiety seems to be more prevalent at this time, stating "I'm feeling like the depression is lifting a bit and there's more anxiety underneath." We discussed potential changes to medication regimen in the next few days. Surprisingly, patient requested to titrate her dose of venlafaxine tomorrow morning. Pt is aware of meeting this afternoon with her outpatient therapist. She denied other needs or concerns at this time. Physical Exam Psychiatric Orientation: alert, oriented x 3 and cooperative (superficially ) Apperance: appropriately dressed, appropriately groomed and appeared stated age Eye Contact: good eye contact Motor Behavior: steady gait and station and + psychomotor agitation (ongoing rocking movements, changing intensity over course of conversation) Speech: normal rate/rhythm/volume of speech Affect: + anxious affect and mood congruent with affect Mood: + depressed mood and + anxious mood "I'm feeling like the depression is lifting a bit and there's more anxiety underneath" Thought Process: clear/coherent thought process and + concrete thought process Thought Content: + cognitive distortions, + hopelessness, + worthlessness and + self deprecation Suicidal Thoughts: + reports suicidal thoughts (reports mild improvement so far today) Homicidal Thoughts: denies homicidal thoughts Hallucinations: no auditory hallucinations and no visual hallucinations Cognition: attention grossly intact and language grossly intact Insight: + limited insight Judgement: + limited judgement Vital Signs (Past 24 Hours) Last Vital Signs Temp 37.2 C 03/05/20 21:27 Pulse 84 03/05/20 06:47 Resp 16 03/05/20 06:46 BP 89/60 L 03/05/20 06:47 Pulse Ox 100 02/24/20 16:18 Results & Data ([facility]) Current Inpatient Medications Current Inpatient Medications: Current Inpatient Medications Acetaminophen (Acetaminophen 325 Mg Tab) 650 mg PO Q4H PRN PRN Reason: Headache or Minor Fever Stop: 03/25/20 13:32 Last Admin: 02/25/20 04:09 Dose: 650 mg Documented by: Al Hydrox/Mg Hydrox/Simethicone (Aluminum/Magnesium Susp 30 Ml Udc) 30 ml PO Q4H PRN PRN Reason: GI Upset Stop: 03/25/20 13:32 Last Admin: 02/29/20 10:07 Dose: 30 ml Documented by: Bismuth Subsalicylate (Bismuth Subsalicylate Liqd 236 Ml) 15 ml PO PRN PRN PRN Reason: Loose Stool Stop: 03/25/20 13:32 Calcium Carbonate (Calcium Carbonate 1250mg Tab) 1,250 mg PO DAILY OLIVIA Stop: 03/26/20 08:59 Last Admin: 03/06/20 09:01 Dose: 1,250 mg Documented by: Calcium Carbonate (Calcium Carbonate 500 Mg Chewable Tab) 1,500 mg PO Q6H PRN PRN Reason: Indigestion Stop: 03/30/20 13:46 Last Admin: 02/29/20 15:29 Dose: 1,500 mg Documented by: Cetirizine HCl (Cetirizine Hcl 10 Mg Tablet) 10 mg PO QAM OLIVIA Stop: 03/27/20 08:59 Last Admin: 03/06/20 09:01 Dose: 10 mg Documented by: Clonazepam (Clonazepam 0.5 Mg Tab) 0.5 mg PO DAILY PRN PRN Reason: Blood draws or imaging studies Stop: 03/25/20 21:08 Last Admin: 02/27/20 06:25 Dose: 0.5 mg Documented by: Dicyclomine HCl (Dicyclomine Hcl 10 Mg Cap) 10 mg PO TIDM OLIVIA Stop: 03/25/20 17:59 Last Admin: 03/06/20 09:00 Dose: 10 mg Documented by: Hydrocortisone (Hydrocortisone 2.5% Cr 30 Gm Tube) 1 appln EXT BID OLIVIA Stop: 03/25/20 20:59 Last Admin: 03/06/20 09:06 Dose: 1 appln Documented by: Hydroxyzine HCl (Hydroxyzine Hcl 25 Mg Tab) 50 mg PO HSZ PRN PRN Reason: Insomnia Stop: 03/25/20 13:32 Hydroxyzine HCl (Hydroxyzine Hcl 25 Mg Tab) 25 mg PO Q4H PRN PRN Reason: Anxiety Stop: 03/25/20 13:32 Last Admin: 03/05/20 14:31 Dose: 25 mg Documented by: Lactobacillus Acidophilus (Lactobacillus Acidophilus (Floranex) Tab) 4 tab PO HS OLIVIA Stop: 03/25/20 21:59 Last Admin: 03/05/20 20:45 Dose: 4 tab Documented by: Levalbuterol HCl (Levalbuterol Tartrate 15 Gm Hfa.Aer.Ad) 2 puffs INH Q4H PRN PRN Reason: Shortness Of Breath Or Wheezin Stop: 03/25/20 17:49 [place] Carbonate ([place] Carbonate 450 Mg Tabcr) 450 mg PO BID OLIVIA Stop: 03/25/20 20:59 Last Admin: 03/06/20 09:01 Dose: 450 mg Documented by: Magnesium Hydroxide (Magnesium Hydroxide Susp 30 Ml Udc) 30 ml PO DAILY PRN PRN Reason: Constipation Stop: 03/25/20 13:32 Miscellaneous (Camrese Lo Patient's Own Oral Contraceptive) 1 ea PO HS OLIVIA Stop: 03/25/20 21:59 Last Admin: 03/05/20 20:46 Dose: 1 ea Documented by: Rabeprazole 20mg ~ Non-Formulary Patient's Own Med 1 ea PO BID OLIVIA Stop: 03/25/20 20:59 Last Admin: 03/06/20 08:01 Dose: 1 ea Documented by: Ondansetron HCl (Ondansetron 8mg Od Tab) 8 mg PO Q6H PRN PRN Reason: Nausea Stop: 03/30/20 13:50 Last Admin: 03/01/20 00:57 Dose: 8 mg Documented by: Polyethylene Glycol (Polyethylene (Miralax) 17 Gm Pack) 17 gm PO DAILY [facility] Stop: 03/28/20 13:44 Last Admin: 03/06/20 09:16 Dose: Not Given Documented by: Psyllium Hydrophilic Mucilloid (Psyllium 58.6% Powder Packet) 1 pkt PO QAM [facility] Stop: 03/25/20 18:44 Last Admin: 03/06/20 09:16 Dose: Not Given Documented by: Quetiapine Fumarate (Quetiapine Fumarate 25 Mg Tablet) 12.5 mg PO Q6 PRN PRN Reason: Anxiety Stop: 03/27/20 11:59 Last Admin: 03/02/20 14:26 Dose: 12.5 mg Documented by: Quetiapine Fumarate (Quetiapine Fumarate 100 Mg Tablet) 100 mg PO HS OLIVIA Stop: 04/02/20 21:59 Last Admin: 03/05/20 20:47 Dose: 100 mg Documented by: Quetiapine Fumarate (Quetiapine Fumarate 25 Mg Tablet) 50 mg PO HS OLIVIA Stop: 04/02/20 21:59 Last Admin: 03/05/20 20:48 Dose: 50 mg Documented by: Sodium Chloride (Sodium Chloride 0.65% Na Soln 45 Ml (Haslet)) 1 - 2 sprays NA PRN PRN PRN Reason: Nasal Dryness/Congestion Stop: 03/25/20 13:32 Trazodone HCl (Trazodone Hcl 50 Mg Tab) 50 mg PO HS PRN PRN Reason: Sleep Stop: 04/01/20 21:59 Last Admin: 03/02/20 20:52 Dose: 50 mg Documented by: Venlafaxine HCl (Venlafaxine Hcl Xr 150 Mg Capxr) 150 mg PO QAM [facility] Stop: 04/04/20 08:59 Last Admin: 03/06/20 09:01 Dose: 150 mg Documented by: Vitamin B Complex (Vitamin B Complex Tab) 1 tab PO QAM OLIVIA Stop: 03/26/20 08:59 Last Admin: 03/06/20 09:01 Dose: 1 tab Documented by: Vitamin D (Cholecalciferol 1,000 Units 25 Mcg Tab) 1,000 units PO DAILY OLIVIA Stop: 03/27/20 08:59 Last Admin: 03/06/20 09:01 Dose: 1,000 units Documented by: Mental Health & Subst Abuse Tx Psychiatrist Name of Psychiatrist: Dr. Siobhan Cross Psychiatrist's Psychiatric Appointment Comment: [id number] [id number] Therapist Name of Therapist: [facility] - [place]ana Rico Therapist's Therapy Appointment Comment: Usually calls on Tuesdays/Fridays Architect Manager Name of Architect Manager: [facility] [place]fina Phone Number for Architect Manager: [phone] Case Management Appointment Comment: [address] [facility] Discharge Appointments Primary Care Physician Name Of Family Doctor: Tiffanie Azar Contact Information Discharge Discharge Address: [address], [address], [place] [address]
[2020-03-06] MEDS: LACTOBACILLUS ACIDOPHILUS (FLORANEX) TAB PO SCH (21:21)
[2020-03-06] MEDS: LEVONORGESTREL PO SCH (21:21)
[2020-03-06] MEDS: ETHINYL ESTRADIOL PO SCH (21:21)
[2020-03-06] MEDS: QUEtiapine FUMARATE 100 MG TABLET PO SCH (21:22)
[2020-03-06] MEDS: QUEtiapine FUMARATE 25 MG TABLET PO SCH (21:22)
[2020-03-07] MEDS: RABEPRAZOLE 20 MG PO SCH ×2 (08:10→17:05)
[2020-03-07] MEDS ORDERED: VENLAFAXINE HCL XR 75 MG CAPXR PO SCH (09:00)
[2020-03-07] MEDS: DICYCLOMINE HCL 10 MG CAP PO SCH ×3 (09:09→17:05)
[2020-03-07] MEDS: LITHIUM CARBONATE 450 MG TABCR PO SCH ×2 (09:10→21:01)
[2020-03-07] MEDS: VENLAFAXINE HCL XR 37.5 MG CAPXR PO SCH (09:10)
[2020-03-07] MEDS: VENLAFAXINE HCL XR 150 MG CAPXR PO SCH (09:10)
[2020-03-07] MEDS: CALCIUM CARBONATE 1250MG TAB PO SCH (09:11)
[2020-03-07] MEDS: POLYETHYLENE (MIRALAX) 17 GM PACK PO SCH (09:11)
[2020-03-07] MEDS: PSYLLIUM 58.6% POWDER PACKET PO SCH (09:11)
[2020-03-07] MEDS: VITAMIN B COMPLEX TAB PO SCH (09:12)
[2020-03-07] MEDS: CETIRIZINE HCL 10 MG TABLET PO SCH (09:13)
[2020-03-07] MEDS: CHOLECALCIFEROL 1,000 UNITS 25 MCG TAB PO SCH (09:14)
[2020-03-07] MEDS: HYDROCORTISONE 2.5% CR 30 GM TUBE EXT SCH ×2 (09:16→21:02)
--- NOTE | 2020-03-07 09:51 | Psychiatric Progress Note ---
Date of Service March 07, 2020 Impression / Recommendations Impression 29-year-old female with a history of recurrent depression, PTSD, and borderline personality disorder who is admitted voluntarily with severe depression and suicidal thoughts with various plans. She has a long history of treatment for depression, and while she reports some improvement in response to various psychiatric medications over the years, improvements tend to be short lived and efforts to address diminishing favorable effect of medications through dose increases generally are ineffective. She appears to meet criteria for borderline personality disorder, with difficulty regulating her mood in response to situational factors, inappropriate anger, stress related dissociative symptoms, and recurrent suicidal behavior/gestures. She also reports a broad array of somatic symptoms for which she is on multiple medications, is socially isolated with no local supports, and is refusing to involve her family in treatment, although she has been calling them on the phone. She has a local therapist, but sees a psychiatrist in [place]. 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 Quetiapine and venlafaxine XR are being titrated here to target mood, and she has declined ECT. She is willing to consider transcranial magnetic stimulation, but this would have to be done as an outpatient. She had a suicidal gesture on the unit 02/24, and remains suicidal to the extent that she has been placed on enhanced precautions with no access to pillowcases or sheets, and in a private room. Meeting with Student Care and Advocacy took place on 03/05 to discuss the trajectory of the work for her Ph.D program. Meeting on 03/06 with outpatient therapist to discuss recommendation for higher level of care. Inpatient treatment remains medically necessary due to the severity of symptoms and risk for suicide if discharged. (1) Suicidal ideation: 02/23 -The patient reports progressive suicidal thoughts with plans that include overdosing, self poisoning, asphyxiation, and hanging. The patient has been admitted to the [facility] behavioral health unit and has been placed on suicide precautions. We have referred her for individual, group, and recreational therapy. She does not seem to be willing to consider family interventions at this point, but it may be useful to work with the patient in this regard because her family dynamics seem to be pretty central to the patient's current condition. -We will continue lithium carbonate 450 mg twice a day; Prozac 10 mg a day; and add bupropion SR 75 mg as an adjunct. We will consider offering trials of an SNRI, such as venlafaxine or duloxetine. Reviewed 02/25/2020. Note dosing of Wellbutrin SR is 100 mg po qam. 02/25--reviewed safety plan with staff, MNPR, moved to CORDELL, safety blanket (no sheets/pillowcases) for at least 24 hrs, no leggings, reviewed consistency shift to shift on where meeting with patient. 02/26--return blanket but not bed linens. 02/27--continues to report active SI, but not related to items presently available to the patient. Pt not able to contract for safety with any additional items at this time. --Maintain appropriate boundaries while continuing to build therapeutic alliance and offer suggestions to target chronic SI. 02/28 - Pt vaguely reporting "I don't feel safe", but was unable to verbalize any specific temptations on unit or specific plans/intent - She admits that SI is chronically "in the background" but becomes more pronounced when the patient is being "triggered" 03/01 -patient continues to endorse suicidal thoughts, states she would not feel safe having access to sheets or pillowcases that she could wrap around her neck, but feels safe in her current environment with safety blankets, 1 cotton blanket, and no access to other items without staff supervision. Her door is being kept open so that she is visible from the nurses station. -Continue private room and current precautions. -Encourage patient to continue to identify effective coping skills. 03/02 -Patient continues to report suicidality, and describes intrusive ruminative suicidal thoughts. She reported today that, for example, during a therapy group that focused on learning self soothing and relaxation techniques involving, among other things, listening to the sounds of rushing water and waves at a beach she could only think of the fact that she wants to drown herself or, if she was at the beach, she would want to bury her self in the sand and suffocate. -Patient reports that until this year she has not had self-injurious impulses, and she is visibly distressed by the obsessive and intrusive nature of her suicidal thoughts. Within this context, we discussed the use of medications that may help with obsessive ruminations and other disorders associated with anxiety. The plan today will include adding venlafaxine extended release 37.5 mg daily beginning 1010 and titrating as indicated. Because the patient feels very strongly that she does not wish to discontinue Prozac until she is able to superior court judge the effect of venlafaxine, in terms of adverse effects and possible response, we will continue low-dose Prozac together with lower dose of venlafaxine and cross titrate as appropriate. -The patient notes that she feels certain that she could not contract for safety where she did leave the hospital at this point, and inpatient psychiatric hospitalization remains the least intensive, least restrictive level of care consistent with the patient's clinical and safety needs. 03/03 - Patient continues to report active suicidal ideation but she feels safe in this unit currently. - Patient agrees with the further titration of quetiapine 50 mg every night and 150 mg will be tried today. However the patient is advised that she can titrate slowly if she does not feel comfortable since that she expresses her concern over faster titration. - If the patient feels too drowsy with increased quetiapine, trazodone will be discontinued. 03/04 -Patient continues to report active suicidal ideation but she still feels safe in her current setting. -Continue MNPR. 03/05 - Continue MNPR due to ongoing reports of feeling unsafe and admitting to ongoing SI. - She continues to be unable to contract for safety outside of the inpatient hospital setting 03/06 - Ongoing SI, though reporting mild improvement today - Continue MNPR at this time 03/07 - Reports ongoing slow improvement of SI, still unable to contract for items/additional clothing/bedding being returned at this time - Maintain MNPR (2) Anxiety and depression: 02/23 -The patient reports progressive suicidal thoughts with plans that include overdosing, self poisoning, asphyxiation, and hanging. The patient has been admitted to the [facility] behavioral health unit and has been placed on suicide precautions. We have referred her for individual, group, and recreational th erapy. She does not seem to be willing to consider family interventions at this point, but it may be useful to work with the patient in this regard because her family dynamics seem to be pretty central to the patient's current condition. -We will continue lithium carbonate 450 mg twice a day; Prozac 10 mg a day; and add bupropion SR 75 mg as an adjunct. We will consider offering trials of an SNRI, such as venlafaxine or duloxetine. 02/25/2020. Note dosing of Wellbutrin SR is 100 mg po qam. Monitor ZAFAR. 02/25--restart Seroquel with plan to titrate tomorrow, may use lower dose prn anxiety during day. Get true lithium level trough in am and fasting metabolic labs. 02/26--lithium remains 0.9, d/c Wellbutrin (?worsening SI), she desires d/c Neurontin due to sedation, reviewed generally tapered--she is agreeable to take 150 mg tonight. titrate seroquel 50 mg po qhs with likely to 100 mg or more to target thoughts. No immediate availability of ketamine. She had discussed ECT at least briefly with Dr. Carranza but is attending to ADLs and groups here (more active than home). 02/27--Pt continuing to give conflicting thoughts regarding willingness for medication changes. Recommendation was provided to continue titration of quetiapine as discussed above; however patient was unwilling to do so at this time. --Continue to engage patient in group and recreational programming with focus on distraction techniques and coping skills that are beneficial to combat acute SI. --With ongoing interviews, there is a part of patient's presentation that seems to be related to borderline personality traits. 02/28 - Pt agreeable with titrating quetiapine to 75mg for this evening. Reviewed that a target dose of 100mg had been suggested and patient was agreeable with co ntinuing to work toward this dosage. - She continues to report struggles with SI, with somewhat limited group participation 02/28 -continue quetiapine titration, increasing to 100 mg at bedtime for t onight. Fasting labs reviewed for monitoring on an atypical: Done 02/27/2020, FG 86, FLP notable for cholesterol 221. TSH was repeated as it was slightly elevated on admission, and was normal at 2.190. -Patient continues to refuse a family meeting, so we will schedule a treatment planning meeting with her outpatient therapist. Agree with recommendation for [facility]/residential treatment, trauma focused program. Patient lists multiple barriers to this, but admits it has yet been explored. -Message was left for outpatient psychiatrist, Dr. Thompson, in [place] yesterday requesting return call to coordinate care. 03/02 -We will continue quetiapine as above. The patient says that she does not feel that quetiapine is particularly helpful, at least at bedtime, although she does note that lower dose as needed quetiapine does help sometimes with anxiety during the day. -Patient feels strongly that she cannot tolerate a higher dose of Prozac higher than 10 mg a day, and, at the same time, says that she believes that Prozac 10 mg a day is helpful. She is, however, willing to allow us to add an additional antidepressant medication. The patient tells us that she has not previously taken an SNRI medication, and we discussed venlafaxine extended release. She asked that we continue Prozac, at least temporarily, and I told her that we would be willing to do a "cross titration" of Prozac and venlafaxine extended release, beginning at 37.5 mg daily. 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 -Zolpidem will be offered as a "rescue" hypnotic in the event that she finds that trazodone, in combination with quetiapine is not sufficient to allow sleep. 03/03 - Venlafaxine ER will be titrated further. - Due to increased restlessness and agitated feeling, utilization of hydroxyzine was recommended. 03/04 -Treatment plan was reviewed with the patient. Venlafaxine ER titrated to 75 mg a day and patient agrees to titrate up further to 150 to 225 mg as tolerated. Fluoxetine 10 mg discontinued without tapering. Quetiapine 150 mg tolerated well without side effects and it will be titrated further if it is not necessary after venlafaxine ER is maximized first. -Patient was advised to utilize hydroxyzine as needed for agitated feeling and utilized trazodone as needed for insomnia. However patient has been sleeping well with increased quetiapine. -If the patient still feels really anxious and agitated, augmentation with buspirone might be considered since patient does not recall if it helped or not in the past but did not experience any side effects until venlafaxine ER can be maximized. 03/05 - Continue current medication regimen - continues adjustments as indicated - Meeting today with Student Care and Advocacy. - Pt continues to be unable to contract for safety outside of the inpatient hospital setting. She reports willingness to at least explore options for longer term treatment, specifically focused on trauma programs 03/06 - Pt reporting desire to titrate venlafaxine to 187.5mg tomorrow morning to target anxiety/depression and ongoing SI - denying any perceived side effects at this time. Will continue quetiapine at 150mg qHS. - Meeting this afternoon with outpatient therapistIoana - likely discussing recommendation for higher level of treatment - Pt reports mild improvement in SI today, but thoughts continue to be present. She remains unable to contract for safety outside of the inpatient hospital setting. 03/07 - Continue current medication regimen - Encouraging patient to begin putting a discharge plan in place, as this will likely improve anxiety and allow for more significant treatment progress at this time - Exploring outpatient PHP/IOP options - patient stating she may request that mother stay with her for a period of time at discharge (3) Borderline personality disorder: 02/28 - Attempts made today to review diagnostic features of borderline personality disorder with patient to determine if she identified strongly with the criteria; however, patient reported she was familiar with the criteria as she had been given this diagnosis at [facility]. Pt reports "I don't want the diagnosis." Pt reports she has "complex trauma" but was not able to engage in conversation to discuss that the two are not mutually exclusive. - Attempts were made to work with patient on de-stigmatizing the diagnosis in her own mind, and reassuring the patient that there may be additional/alternative diagnosis that can help us more appropriate address her concerns. - Patient does continue to regularly display characteristics that suggest this pathology - Will continue to provide needed support while also maintaining consistent boundaries - Pt would likely benefit from additional information on the diagnosis as well as DBT approaches 03/01 -Reviewed differential diagnosis with patient, as well as the fact that we will likely not make a definitive diagnosis here, due to the acute nature of treatment here, as well as her unwillingness to allow us access to her previous records or to get collateral information from her family. 03/06 - Continue to focus patient's attention toward development of coping strategies and ways that she can work toward improving her condition. - Pt rather focused today on feeling "triggered" by another patient in the milieu - she was encouraged to consider strategies that would allow her to work toward reducing anxiety and removing herself from overwhelming situations. - Continue to maintain appropriate boundaries while encouraging development of a ppropriate coping skills (4) Irritable bowel syndrome: 02/23 -Currently, the patient reports that she has been feeling constipated for "some time now," and notes that she often does better with a bulk laxative such as Metamucil. Currently, we have ordered Metamucil daily. Reviewed 02/25/2020. She declines Miralax. States warm tea would aggravate her reflux. 02/25--reports having BM yesterday but guesses not full evacuation, she is declining additional metamucil. 02/26--Miralax as reports ongoing constipation, if ineffective she would prefer enema over laxative. 02/28--reports ongoing, intermittent GI complaints. States she has benefitted from Zofran and/or Tums on an outpatient basis. Both were ordered for patient to be able to utilize as needed for GI complaints. 03/02 --the patient reports some improvement in this regard. (5) TSH elevation: 02/25--will repeat TSH in am, likely lithium induced with hair loss, would favor start of synthroid given symptoms. 02/26--repeat TSH normal. Inventory Assets Strengths: Intelligent. Motivated to treatment. Well informed. Past history of some favorable response to treatment. Needs: Relief from depression symptoms. Resolution of suicidal thoughts. 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 In particular, her mother. She is also close with several of her siblings, but fears that she will very rejected by all if she tells them that her sexual orientation as lesbian.) Good Rapport with Provider: Yes Absence of Any Risk Factors Above: No Interval History Identifying Information WILL KERNS is a 29-year-old female who currently lives in alone in [place]. She has a history of recurrent major depression, PTSD, and borderline personality disorder, and was admitted on 02/24/20 13:33 on a 201 voluntary agreement because of worsening suicidal ideation, with thoughts of self poisoning, and/or asphyxiation. Chief Complaint "Um, I'm still not great." Review of Systems Notes Constitutional: reports poor sleep last evening Cardiovascular: denied Respiratory: denied Gastrointestinal: denied Neurological: denied Psychiatric: denies symptoms other than stated above Total of at least 10 systems reviewed, pertinent positives as above and in HPI. Sleep Information Total Hours of Sleep: 7 Sleep Comments: pt on q-15 minute checks Meal Information Percent Meal Consumed - Breakfast: 90 Percent Meal Consumed - Lunch: 50 Percent Meal Consumed - Dinner: 100 Nutrition Comment: pt. continues to report poor appetite Subjective Subjective Patient was seen & assessed and interval progress reviewed with treatment team. Staff report the patient has been observed to be laughing and interactive with peers, though reports ongoing significant depression and anxiety when meeting with staff. Pt had reported consideration to request that her mother stay with her again upon discharge from this hospitalization. We discussed need to push for more significant development of a discharge plan, as patient is not making progress as expected at this point in her treatment. Pt was seen today to assess progress since admission, visit included drug abuse social worker in order to clarify steps of discharge planning process. Pt continues to indicate willingness to explore possible residential/outpatient PHP/IOP programs depending on availability. She did eventually sign ROIs to allow for this referral process to begin. Pt declined to sign an KRISTINA for her mother at this time, stating she was going to speak with her first as "there's no reason to involve her in my treatment" if mother was not willing to stay with the patient on discharge. Pt admits to poor sleep last evening, and desire to trial her prn dose of trazodone if needed tonight. We discussed continuing her scheduled medications at their current doses. Pt is ambivalent about ability to contract for safety with any of her items/clothing articles/bedding being returned. She was encouraged to continue working toward this goal, and was asked to inform staff if she felt she was ready to pursue this. Pt admits to ongoing SI, but admits to mild improvement from yesterday. She denied other needs or concerns at this time. Physical Exam Psychiatric Orientation: alert, oriented x 3 and + guarded (superficially cooperative ) Apperance: appropriately dressed, appropriately groomed and appeared stated age Eye Contact: + fair eye contact Motor Behavior: steady gait and station and no abnormal motor movements (far less rocking behavior during encounter today) Speech: normal rate/rhythm/volume of speech Affect: + depressed affect and + anxious affect (with an irritable edge ) Mood: + depressed mood and + anxious mood Thought Process: goal directed thought process and thought association intact Thought Content: + cognitive distortions, + hopelessness and + worthlessness Suicidal Thoughts: + reports suicidal thoughts and + reports suicidal intent thought admits to ongoing gradual improvements Homicidal Thoughts: denies homicidal thoughts Hallucinations: no auditory hallucinations and no visual hallucinations Cognition: attention grossly intact and language grossly intact Estimated Intelligence: consistent with education level Insight: + limited insight Judgement: + limited judgement Vital Signs (Past 24 Hours) Last Vital Signs Temp 37 C 03/07/20 06:55 Pulse 85 03/07/20 06:57 Resp 16 03/07/20 06:55 BP 89/65 L 03/07/20 06:57 Pulse Ox 100 02/24/20 16:18 Results & Data ([facility]) Current Inpatient Medications Current Inpatient Medications: Current Inpatient Medications Acetaminophen (Acetaminophen 325 Mg Tab) 650 mg PO Q4H PRN PRN Reason: Headache or Minor Fever Stop: 03/25/20 13:32 Last Admin: 02/25/20 04:09 Dose: 650 mg Documented by: Al Hydrox/Mg Hydrox/Simethicone (Aluminum/Magnesium Susp 30 Ml Udc) 30 ml PO Q4H PRN PRN Reason: GI Upset Stop: 03/25/20 13:32 Last Admin: 02/29/20 10:07 Dose: 30 ml Documented by: Bismuth Subsalicylate (Bismuth Subsalicylate Liqd 236 Ml) 15 ml PO PRN PRN PRN Reason: Loose Stool Stop: 03/25/20 13:32 Calcium Carbonate (Calcium Carbonate 1250mg Tab) 1,250 mg PO DAILY OLIVIA Stop: 03/26/20 08:59 Last Admin: 03/07/20 09:11 Dose: 1,250 mg Documented by: Calcium Carbonate (Calcium Carbonate 500 Mg Chewable Tab) 1,500 mg PO Q6H PRN PRN Reason: Indigestion Stop: 03/30/20 13:46 Last Admin: 02/29/20 15:29 Dose: 1,500 mg Documented by: Cetirizine HCl (Cetirizine Hcl 10 Mg Tablet) 10 mg PO QAM OLIVIA Stop: 03/27/20 08:59 Last Admin: 03/07/20 09:13 Dose: 10 mg Documented by: Clonazepam (Clonazepam 0.5 Mg Tab) 0.5 mg PO DAILY PRN PRN Reason: Blood draws or imaging studies Stop: 03/25/20 21:08 Last Admin: 02/27/20 06:25 Dose: 0.5 mg Documented by: Dicyclomine HCl (Dicyclomine Hcl 10 Mg Cap) 10 mg PO TIDM OLIVIA Stop: 03/25/20 17:59 Last Admin: 03/07/20 09:09 Dose: 10 mg Documented by: Hydrocortisone (Hydrocortisone 2.5% Cr 30 Gm Tube) 1 appln EXT BID OLIVIA Stop: 03/25/20 20:59 Last Admin: 03/07/20 09:16 Dose: Not Given Documented by: Hydroxyzine HCl (Hydroxyzine Hcl 25 Mg Tab) 50 mg PO HSZ PRN PRN Reason: Insomnia Stop: 03/25/20 13:32 Hydroxyzine HCl (Hydroxyzine Hcl 25 Mg Tab) 25 mg PO Q4H PRN PRN Reason: Anxiety Stop: 03/25/20 13:32 Last Admin: 03/05/20 14:31 Dose: 25 mg Documented by: Lactobacillus Acidophilus (Lactobacillus Acidophilus (Floranex) Tab) 4 tab PO HS OLIVIA Stop: 03/25/20 21:59 Last Admin: 03/06/20 21:21 Dose: 4 tab Documented by: Levalbuterol HCl (Levalbuterol Tartrate 15 Gm Hfa.Aer.Ad) 2 puffs INH Q4H PRN PRN Reason: Shortness Of Breath Or Wheezin Stop: 03/25/20 17:49 [place] Carbonate ([place] Carbonate 450 Mg Tabcr) 450 mg PO BID OLIVIA Stop: 03/25/20 20:59 Last Admin: 03/07/20 09:10 Dose: 450 mg Documented by: Magnesium Hydroxide (Magnesium Hydroxide Susp 30 Ml Udc) 30 ml PO DAILY PRN PRN Reason: Constipation Stop: 03/25/20 13:32 Miscellaneous (Camrese Lo Patient's Own Oral Contraceptive) 1 ea PO HS OLIVIA Stop: 03/25/20 21:59 Last Admin: 03/06/20 21:21 Dose: 1 ea Documented by: Rabeprazole 20mg ~ Non-Formulary Patient's Own Med 1 ea PO BID [facility] Stop: 03/25/20 20:59 Last Admin: 03/07/20 08:10 Dose: 1 ea Documented by: Ondansetron HCl (Ondansetron 8mg Od Tab) 8 mg PO Q6H PRN PRN Reason: Nausea Stop: 03/30/20 13:50 Last Admin: 03/01/20 00:57 Dose: 8 mg Documented by: Polyethylene Glycol (Polyethylene (Miralax) 17 Gm Pack) 17 gm PO DAILY [facility] Stop: 03/28/20 13:44 Last Admin: 03/07/20 09:11 Dose: Not Given Documented by: Psyllium Hydrophilic Mucilloid (Psyllium 58.6% Powder Packet) [facility] [place]: 03/25/20 18:44 Last Admin: 03/07/20 09:11 Dose: Not Given Documented by: Quetiapine Fumarate (Quetiapine Fumarate 25 Mg Tablet) 12.5 mg PO Q6 PRN PRN Reason: Anxiety Stop: 03/27/20 11:59 Last Admin: 03/02/20 14:26 Dose: 12.5 mg Documented by: Quetiapine Fumarate (Quetiapine Fumarate 100 Mg Tablet) 100 mg PO HS [facility] Stop: 04/02/20 21:59 Last Admin: 03/06/20 21:22 Dose: 100 mg Documented by: Quetiapine Fumarate (Quetiapine Fumarate 25 Mg Tablet) 50 mg PO HS [facility] Stop: 04/02/20 21:59 Last Admin: 03/06/20 21:22 Dose: 50 mg Documented by: Sodium Chloride (Sodium Chloride 0.65% Na Soln 45 Ml ([place])) 1 - 2 sprays NA PRN PRN PRN Reason: Nasal Dryness/Congestion Stop: 03/25/20 13:32 Trazodone HCl (Trazodone Hcl 50 Mg Tab) 50 mg PO HS PRN PRN Reason: Sleep Stop: 04/01/20 21:59 Last Admin: 03/02/20 20:52 Dose: 50 mg Documented by: Venlafaxine HCl (Venlafaxine Hcl Xr 150 Mg Capxr) 150 mg PO QAM [facility] Stop: 04/06/20 08:59 Last Admin: 03/07/20 09:10 Dose: 150 mg Documented by: Venlafaxine HCl (Venlafaxine Hcl Xr 37.5 Mg Capxr) 37.5 mg PO QAM [facility] Stop: 04/06/20 08:59 Last Admin: 03/07/20 09:10 Dose: 37.5 mg Documented by: Vitamin B Complex (Vitamin B Complex Tab) 1 tab PO QAM [facility] Stop: 03/26/20 08:59 Last Admin: 03/07/20 09:12 Dose: 1 tab Documented by: Vitamin D (Cholecalciferol 1,000 Units 25 Mcg Tab) 1,000 units PO DAILY [facility] Stop: 03/27/20 08:59 Last Admin: 03/07/20 09:14 Dose: 1,000 units Documented by: Mental Health & Subst Abuse Tx Psychiatrist Name of Psychiatrist: Dr. Siobhan Shepherd-Jay Psychiatrist's Psychiatric Appointment Comment: [address] [id number] Therapist Name of Therapist: [facility] - Ioana Rico Therapist's Therapy Appointment Comment: Usually calls on Tuesdays/Fridays Hospice Chaplain Name of Hospice Chaplain: [facility] Austen Rocha Phone Number for Hospice Chaplain: [phone] Case Management Appointment Comment: [address] [facility] Post Discharge Appointments Primary Care Physician Name Of Family Doctor: [facility] - Dr. Azar Contact Information Discharge Discharge Address: [address], [address], [place] [address]
[2020-03-07] MEDS: LEVONORGESTREL PO SCH (21:00)
[2020-03-07] MEDS: ETHINYL ESTRADIOL PO SCH (21:00)
[2020-03-07] MEDS: LACTOBACILLUS ACIDOPHILUS (FLORANEX) TAB PO SCH (21:02)
[2020-03-07] MEDS: QUEtiapine FUMARATE 25 MG TABLET PO SCH (21:03)
[2020-03-07] MEDS: QUEtiapine FUMARATE 100 MG TABLET PO SCH (21:03)
[2020-03-08] MEDS: RABEPRAZOLE 20 MG PO SCH ×2 (08:08→17:05)
[2020-03-08] MEDS: DICYCLOMINE HCL 10 MG CAP PO SCH ×3 (09:08→17:05)
[2020-03-08] MEDS: VENLAFAXINE HCL XR 150 MG CAPXR PO SCH (09:09)
[2020-03-08] MEDS: CALCIUM CARBONATE 1250MG TAB PO SCH (09:10)
[2020-03-08] MEDS: VENLAFAXINE HCL XR 37.5 MG CAPXR PO SCH (09:10)
[2020-03-08] MEDS: HYDROCORTISONE 2.5% CR 30 GM TUBE EXT SCH ×2 (09:10→20:57)
[2020-03-08] MEDS: LITHIUM CARBONATE 450 MG TABCR PO SCH ×2 (09:10→20:57)
[2020-03-08] MEDS: CHOLECALCIFEROL 1,000 UNITS 25 MCG TAB PO SCH (09:11)
[2020-03-08] MEDS: CETIRIZINE HCL 10 MG TABLET PO SCH (09:11)
[2020-03-08] MEDS: VITAMIN B COMPLEX TAB PO SCH (09:11)
[2020-03-08] MEDS: POLYETHYLENE (MIRALAX) 17 GM PACK PO SCH (09:15)
[2020-03-08] MEDS: PSYLLIUM 58.6% POWDER PACKET PO SCH (09:15)
--- NOTE | 2020-03-08 09:38 | Psychiatric Progress Note ---
Date of Service March 08, 2020 Impression / Recommendations Impression 29-year-old female with a history of recurrent depression, PTSD, and borderline personality disorder who is admitted voluntarily with severe depression and suicidal thoughts with various plans. She has a long history of treatment for depression, and while she reports some improvement in response to various psychiatric medications over the years, improvements tend to be short lived and efforts to address diminishing favorable effect of medications through dose increases generally are ineffective. She appears to meet criteria for borderline personality disorder, with difficulty regulating her mood in response to situational factors, inappropriate anger, stress related dissociative symptoms, and recurrent suicidal behavior/gestures. She also reports a broad array of somatic symptoms for which she is on multiple medications, is socially isolated with no local supports, and is refusing to involve her family in treatment, although she has been calling them on the phone. She has a local therapist, but sees a psychiatrist in [place]. 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 Quetiapine and venlafaxine XR are being titrated here to target mood, and she has declined ECT. She is willing to consider transcranial magnetic stimulation, but this would have to be done as an outpatient. She had a suicidal gesture on the unit 02/24, and remains suicidal to the extent that she has been placed on enhanced precautions with no access to pillowcases or sheets, and in a private room. Meeting with [facility] Advocacy took place on 03/05 to discuss the trajectory of the work for her Ph.D program. Meeting on 03/06 with outpatient therapist to discuss recommendation for higher level of care. Attempting to schedule meeting with patient's mother, who has agreed to stay with the patient on discharge. Inpatient treatment remains medically necessary due to the severity of symptoms and risk for suicide if discharged. (1) Suicidal ideation: 02/23 -The patient reports progressive suicidal thoughts with plans that include overdosing, self poisoning, asphyxiation, and hanging. The patient has been admitted to the [facility] behavioral health unit and has been placed on suicide precautions. We have referred her for individual, group, and recreational therapy. She does not seem to be willing to consider family interventions at this point, but it may be useful to work with the patient in this regard because her family dynamics seem to be pretty central to the patient's current condition. -We will continue lithium carbonate 450 mg twice a day; Prozac 10 mg a day; and add bupropion SR 75 mg as an adjunct. We will consider offering trials of an SNRI, such as venlafaxine or duloxetine. Reviewed 02/25/2020. Note dosing of Wellbutrin SR is 100 mg po qam. 02/25--reviewed safety plan with staff, MNPR, moved to [place]DE[place], safety blanket (no sheets/pillowcases) for at least 24 hrs, no leggings, reviewed consistency shift to shift on where meeting with patient. 02/26--return blanket but not bed linens. 02/27--continues to report active SI, but not related to items presently available to the patient. Pt not able to contract for safety with any additional items at this time. --Maintain appropriate boundaries while continuing to build therapeutic alliance and offer suggestions to target chronic SI. 02/28 - Pt vaguely reporting "I don't feel safe", but was unable to verbalize any specific temptations on unit or specific plans/intent - She admits that SI is chronically "in the background" but becomes more pronounced when the patient is being "triggered" 03/01 -patient continues to endorse suicidal thoughts, states she would not feel safe having access to sheets or pillowcases that she could wrap around her neck, but feels safe in her current environment with safety blankets, 1 cotton blanket, and no access to other items without staff supervision. Her door is being kept open so that she is visible from the nurses station. -Continue private room and current precautions. -Encourage patient to continue to identify effective coping skills. 03/02 -Patient continues to report suicidality, and describes intrusive ruminative suicidal thoughts. She reported today that, for example, during a therapy group that focused on learning self soothing and relaxation techniques involving, among other things, listening to the sounds of rushing water and waves at a beach she could only think of the fact that she wants to drown herself or, if she was at the beach, she would want to bury her self in the sand and suffocate. -Patient reports that until this year she has not had self-injurious impulses, and she is visibly distressed by the obsessive and intrusive nature of her suicidal thoughts. Within this context, we discussed the use of medications that may help with obsessive ruminations and other disorders associated with anxiety. The plan today will include adding venlafaxine extended release 37.5 mg daily beginning 1010 and titrating as indicated. 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 -The patient notes that she feels certain that she could not contract for safety where she did leave the hospital at this point, and inpatient psychiatric hospitalization remains the least intensive, least restrictive level of care consistent with the patient's clinical and safety needs. 03/03 - Patient continues to report active suicidal ideation but she feels safe in this unit currently. - Patient agrees with the further titration of quetiapine 50 mg every night and 150 mg will be tried today. However the patient is advised that she can titrate slowly if she does not feel comfortable since that she expresses her concern over faster titration. - If the patient feels too drowsy with increased quetiapine, trazodone will be discontinued. 03/04 -Patient continues to report active suicidal ideation but she still feels safe in her current setting. -Continue MNPR. 03/05 - Continue MNPR due to ongoing reports of feeling unsafe and admitting to ongoing SI. - She continues to be unable to contract for safety outside of the inpatient hospital setting 03/06 - Ongoing SI, though reporting mild improvement today - Continue MNPR at this time 03/07 - Reports ongoing slow improvement of SI, still unable to contract for items/additional clothing/bedding being returned at this time - Maintain MNPR 03/08 - Pt reports ongoing SI, correlating with episodes of increased anxiety - Maintain MNPR, continue to encourage patient focus on ways to maintain safety and development of appropriate coping skills (2) Anxiety and depression: 02/23 -The patient reports progressive suicidal thoughts with plans that include overdosing, self poisoning, asphyxiation, and hanging. The patient has been admitted to the [facility] behavioral health unit and has been placed on suicide precautions. We have referred her for individual, group, and recreational therapy. She does not seem to be willing to consider family interventions at this point, but it may be useful to work with the patient in this regard because her family dynamics seem to be pretty central to the patient's current condition. -We will continue lithium carbonate 450 mg twice a day; Prozac 10 mg a day; and add bupropion SR 75 mg as an adjunct. We will consider offering trials of an SNRI, such as venlafaxine or duloxetine. 02/25/2020. Note dosing of Wellbutrin SR is 100 mg po qam. Monitor ZAFAR. 02/25--restart Seroquel with plan to titrate tomorrow, may use lower dose prn anxiety during day. Get true lithium level trough in am and fasting metabolic labs. 02/26--lithium remains 0.9, d/c Wellbutrin (?worsening SI), she desires d/c Neurontin due to sedation, reviewed generally tapered--she is agreeable to take 150 mg tonight. titrate seroquel 50 mg po qhs with likely to 100 mg or more to target thoughts. No immediate availability of ketamine. She had discussed ECT at least briefly with Dr. Carranza but is attending to ADLs and groups here (more active than home). 02/27--Pt continuing to give conflicting thoughts regarding willingness for medication changes. Recommendation was provided to continue titration of quetiapine as discussed above; however patient was unwilling to do so at this time. --Continue to engage patient in group and recreational programming with focus on distraction techniques and coping skills that are beneficial to combat acute SI. --With ongoing interviews, there is a part of patient's presentation that seems to be related to borderline personality traits. 02/28 - Pt agreeable with titrating quetiapine to 75mg for this evening. Reviewed that a target dose of 100mg had been suggested and patient was agreeable with continuing to work toward this dosage. - She continues to report struggles with SI, with somewhat limited group participation 02/28 -continue quetiapine titration, increasing to 100 mg at bedtime for tonight. Fasting labs reviewed for monitoring on an atypical: Done 02/27/2020, FG 86, FLP notable for cholesterol 221. TSH was repeated as it was slightly elevated on admission, and was normal at 2.190. -Patient continues to refuse a family meeting, so we will schedule a treatment planning meeting with her outpatient therapist. Agree with recommendation for [facility]/residential treatment, trauma focused program. Patient lists multiple barriers to this, but admits it has yet been explored. -Message was left for outpatient psychiatrist, Dr. Thompson, in [place] yesterday requesting return call to coordinate care. 03/02 -We will continue quetiapine as above. The patient says that she does not feel that quetiapine is particularly helpful, at least at bedtime, although she does note that lower dose as needed quetiapine does help sometimes with anxiety during the day. -Patient feels strongly that she cannot tolerate a higher dose of Prozac higher than 10 mg a day, and, at the same time, says that she believes that Prozac 10 mg a day is helpful. She is, however, willing to allow us to add an additional antidepressant medication. The patient tells us that she has not previously taken an SNRI medication, and we discussed venlafaxine extended release. She asked that we continue Prozac, at least temporarily, and I told her that we would be willing to do a "cross titration" of Prozac and venlafaxine extended release, beginning at 37.5 mg daily. 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 -Zolpidem will be offered as a "rescue" hypnotic in the event that she finds that trazodone, in combination with quetiapine is not sufficient to allow sleep. 03/03 - Venlafaxine ER will be titrated further. - Due to increased restlessness and agitated feeling, utilization of hydroxyzine was recommended. 03/04 -Treatment plan was reviewed with the patient. Venlafaxine ER titrated to 75 mg a day and patient agrees to titrate up further to 150 to 225 mg as tolerated. Fluoxetine 10 mg discontinued without tapering. Quetiapine 150 mg tolerated well without side effects and it will be titrated further if it is not necessary after venlafaxine ER is maximized first. -Patient was advised to utilize hydroxyzine as needed for agitated feeling and utilized trazodone as needed for insomnia. However patient has been sleeping well with increased quetiapine. -If the patient still feels really anxious and agitated, augmentation with buspirone might be considered since patient does not recall if it helped or not in the past but did not experience any side effects until venlafaxine ER can be maximized. 03/05 - Continue current medication regimen - continues adjustments as indicated - Meeting today with [employer] [facility] [employer] Adv[employer]. - Pt continues to be unable to contract for safety outside of the inpatient hospital setting. She reports willingness to at least explore options for longer term treatment, specifically focused on trauma programs 03/06 - Pt reporting desire to titrate venlafaxine to 187.5mg tomorrow morning to target anxiety/depression and ongoing SI - denying any perceived side effects at this time. Will continue quetiapine at 150mg qHS. - Meeting this afternoon with outpatient therapist, Ioana - likely discussing recommendation for higher level of treatment - Pt reports mild improvement in SI today, but thoughts continue to be present. She remains unable to contract for safety outside of the inpatient hospital setting. 03/07 - Continue current medication regimen - Encouraging patient to begin putting a discharge plan in place, as this will likely improve anxiety and allow for more significant treatment progress at this time - Exploring outpatient PHP/IOP options - patient stating she may request that mother stay with her for a period of time at discharge 03/08 - Pt does report improvement in depression, but states anxiety continues to be her largest concern and suicidal ideations is associated more with episodes of intense anxiety. We discussed patient's limited utilization of as needed medications for anxiety, with patient admitting it is difficult to predict when anxiety will occur. Pt was offered to utilize buspirone (which she had previously taken) as a "bridge" to target anxiety until venlafaxine reaches therapeutic levels and maximum efficacy. Risks, benefits, and potential interactions were reviewed. Pt was agreeable with this change - will start 10mg BID. - She reports sleep was somewhat improved last evening despite forgetting to request prn trazodone - Pt states her mother is planning to stay with her on discharge, we are still exploring options for PHP/IOP as well as awaiting information from the [facility] regarding options with her Ph.D program - Overall, patient admits to mild improvements, but remains unable to contract for safety outside of the hospital setting at this time. (3) Borderline personality disorder: 02/28 - Attempts made today to review diagnostic features of borderline personality disorder with patient to determine if she identified strongly with the criteria; however, patient reported she was familiar with the criteria as she had been given this diagnosis at [facility]. Pt reports "I don't want the diagnosis." Pt reports she has "complex trauma" but was not able to engage in conversation to discuss that the two are not mutually exclusive. - Attempts were made to work with patient on de-stigmatizing the diagnosis in her own mind, and reassuring the patient that there may be additional/alternative diagnosis that can help us more appropriate address her concerns. - Patient does continue to regularly display characteristics that suggest this pathology - Will continue to provide needed support while also maintaining consistent boundaries - Pt would likely benefit from additional information on the diagnosis as well as DBT approaches 03/01 -Reviewed differential diagnosis with patient, as well as the fact that we will likely not make a definitive diagnosis here, due to the acute nature of treatment here, as well as her unwillingness to allow us access to her previous records or to get collateral information from her family. 03/06 - Continue to focus patient's attention toward development of coping strategies and ways that she can work toward improving her condition. - Pt rather focused today on feeling "triggered" by another patient in the milieu - she was encouraged to consider strategies that would allow her to work toward reducing anxiety and removing herself from overwhelming situations. - Continue to maintain appropriate boundaries while encouraging development of appropriate coping skills (4) Irritable bowel syndrome: 02/23 -Currently, the patient reports that she has been feeling constipated for "some time now," and notes that she often does better with a bulk laxative such as Metamucil. Currently, we have ordered Metamucil daily. Reviewed 02/25/2020. She declines Miralax. States warm tea would aggravate her reflux. 02/25--reports having BM yesterday but guesses not full evacuation, she is declining additional metamucil. 02/26--Miralax as reports ongoing constipation, if ineffective she would prefer enema over laxative. 02/28--reports ongoing, intermittent GI complaints. States she has benefitted from Zofran and/or Tums on an outpatient basis. Both were ordered for patient to be able to utilize as needed for GI complaints. 03/02 --the patient reports some improvement in this regard. (5) TSH elevation: 02/25--will repeat TSH in am, likely lithium induced with hair loss, would favor start of synthroid given symptoms. 02/26--repeat TSH normal. Inventory Assets Strengths: Intelligent. Motivated to treatment. Well informed. Past history of some favorable response to treatment. Needs: Relief from depression symptoms. Resolution of suicidal thoughts. 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 In parti cular, her mother. She is also close with several of her siblings, but fears that she will very rejected by all if she tells them that her sexual orientation as lesbian.) Good Rapport with Provider: Yes Absence of Any Risk Factors Above: No Interval History Identifying Information WILL KERNS is a 29-year-old female who currently lives in alone in [place]. She has a history of recurrent major depression, PTSD, and borderline personality disorder, and was admitted on 02/24/20 13:33 on a 201 voluntary agreement because of worsening suicidal ideation, with thoughts of self poisoning, and/or asphyxiation. Chief Complaint "I'm ok. I still want to hear back form the school person before I decide anything." Review of Systems Notes Constitutional: reports mildly improved sleep last evening, but still disrupted Cardiovascular: denied Respiratory: denied Gastrointestinal: denied Neurological: denied Psychiatric: denies symptoms other than stated above Total of at least 10 systems reviewed, pertinent positives as above and in HPI. Sleep Information Total Hours of Sleep: 7.75 Sleep Comments: pt on q-15 minute checks Meal Information Percent Meal Consumed - Breakfast: 60 Percent Meal Consumed - Lunch: 75 Percent Meal Consumed - Dinner: 60 Nutrition Comment: pt. continues to report poor appetite Subjective Subjective Patient was seen & assessed and interval progress reviewed with nursing and social work. Staff report the patient has been participating in groups and is interactive. Her self-report regarding mood is inconsistent with observed affect - rating her mood a 3/10 and "anxious" last evening. Pt did call her mother, who verbalized willingness to stay with the patient on discharge. Pt is agreeable with this, and is requesting to discuss logistics. We are still awaiting communication from [employer] [facility] and possible IOP/PHP options. Pt was seen today to discuss progress since admission. She states she has noticed improvement in her depression, but remains concerned that anxiety does not seem to be any better. Pt states her SI is correlated most with episodes of anxiety, so she would not feel safe being discharged until this improved. We discussed her limited utilization of prn medications, and patient admits "I don't think I'm good at being able to predict when I will need them." We reviewed expectation that venlafaxine will target some anxiety once it has had the opportunity to be effective. In the interim, patient was offered the choice to use buspirone as a bridge, to specifically target the anxiety for the time being. Pt admits she was on the medication in the past, and would be willing to try it again - ideally only for a limited time. Pt was agreeable with this adjustment. She admits sleep was mildly improved last night, despite forgetting to request trazodone. Main concern continues to be middle of the night awakening. Pt reports continued SI, which she does not anticipate will improve until anxiety is better managed. Pt denied other needs or concerns at this time. Physical Exam Psychiatric Orientation: alert, oriented x 3 and cooperative (superficially ) Apperance: appropriately dressed (casually), appropriately groomed and appeared stated age Eye Contact: good eye contact Motor Behavior: steady gait and station and no abnormal motor movements Speech: normal rate/rhythm/volume of speech Affect: + anxious affect and + blunted affect Mood: + depressed mood (but admits to some improvement in depression) and + anxious mood (admits anxiety is primary concern at this time, correlated with SI) Thought Process: goal directed thought process and clear/coherent thought process Thought Content: + cognitive distortions and + hopelessness Suicidal Thoughts: + reports suicidal thoughts Homicidal Thoughts: denies homicidal thoughts Hallucinations: no auditory hallucinations and no visual hallucinations Cognition: attention grossly intact and language grossly intact Estimated Intelligence: consistent with education level Insight: + fair insight Judgement: + fair judgement Vital Signs (Past 24 Hours) Last Vital Signs Temp 36.8 C 03/08/20 06:39 Pulse 86 03/08/20 06:40 Resp 16 03/08/20 06:39 BP 90/59 L 03/08/20 06:40 Pulse Ox 100 02/24/20 16:18 Results & Data ([facility]) Current Inpatient Medications Current Inpatient Medications: Current Inpatient Medications Acetaminophen (Acetaminophen 325 Mg Tab) 650 mg PO Q4H PRN PRN Reason: Headache or Minor Fever Stop: 03/25/20 13:32 Last Admin: 02/25/20 04:09 Dose: 650 mg Documented by: Al Hydrox/Mg Hydrox/Simethicone (Aluminum/Magnesium Susp 30 Ml Udc) 30 ml PO Q4H PRN PRN Reason: GI Upset Stop: 03/25/20 13:32 Last Admin: 02/29/20 10:07 Dose: 30 ml Documented by: Bismuth Subsalicylate (Bismuth Subsalicylate Liqd 236 Ml) 15 ml PO PRN PRN PRN Reason: Loose Stool Stop: 03/25/20 13:32 Calcium Carbonate (Calcium Carbonate 1250mg Tab) 1,250 mg PO DAILY OLIVIA Stop: 03/26/20 08:59 Last Admin: 03/08/20 09:10 Dose: 1,250 mg Documented by: Calcium Carbonate (Calcium Carbonate 500 Mg Chewable Tab) 1,500 mg PO Q6H PRN PRN Reason: Indigestion Stop: 03/30/20 13:46 Last Admin: 02/29/20 15:29 Dose: 1,500 mg Documented by: Cetirizine HCl (Cetirizine Hcl 10 Mg Tablet) 10 mg PO QAM OLIVIA Stop: 03/27/20 08:59 Last Admin: 03/08/20 09:11 Dose: 10 mg Documented by: Clonazepam (Clonazepam 0.5 Mg Tab) 0.5 mg PO DAILY PRN PRN Reason: Blood draws or imaging studies Stop: 03/25/20 21:08 Last Admin: 02/27/20 06:25 Dose: 0.5 mg Documented by: Dicyclomine HCl (Dicyclomine Hcl 10 Mg Cap) 10 mg PO TIDM OLIVIA Stop: 03/25/20 17:59 Last Admin: 03/08/20 09:08 Dose: 10 mg Documented by: Hydrocortisone (Hydrocortisone 2.5% Cr 30 Gm Tube) 1 appln EXT BID OLIVIA Stop: 03/25/20 20:59 Last Admin: 03/08/20 09:10 Dose: Not Given Documented by: Hydroxyzine HCl (Hydroxyzine Hcl 25 Mg Tab) 50 mg PO HSZ PRN PRN Reason: Insomnia Stop: 03/25/20 13:32 Hydroxyzine HCl (Hydroxyzine Hcl 25 Mg Tab) 25 mg PO Q4H PRN PRN Reason: Anxiety Stop: 03/25/20 13:32 Last Admin: 03/05/20 14:31 Dose: 25 mg Documented by: Lactobacillus Acidophilus (Lactobacillus Acidophilus (Floranex) Tab) 4 tab PO HS OLIVIA Stop: 03/25/20 21:59 Last Admin: 03/07/20 21:02 Dose: 4 tab Documented by: Levalbuterol HCl (Levalbuterol Tartrate 15 Gm Hfa.Aer.Ad) 2 puffs INH Q4H PRN PRN Reason: Shortness Of Breath Or Wheezin Stop: 03/25/20 17:49 [place] Carbonate ([place] Carbonate 450 Mg Tabcr) 450 mg PO BID [facility] Stop: 03/25/20 20:59 Last Admin: 03/08/20 09:10 Dose: 450 mg Documented by: Magnesium Hydroxide (Magnesium Hydroxide Susp 30 Ml Udc) 30 ml PO DAILY PRN PRN Reason: Constipation Stop: 03/25/20 13:32 Miscellaneous (Camrese Lo Patient's Own Oral Contraceptive) 1 ea PO HS [facility] Stop: 03/25/20 21:59 Last Admin: 03/07/20 21:00 Dose: 1 ea Documented by: Rabeprazole 20mg ~ Non-Formulary Patient's Own Med 1 ea PO BID [facility] Stop: 03/25/20 20:59 Last Admin: 03/08/20 08:08 Dose: 1 ea Documented by: Ondansetron HCl (Ondansetron 8mg Od Tab) 8 mg PO Q6H PRN PRN Reason: Nausea Stop: 03/30/20 13:50 Last Admin: 03/01/20 00:57 Dose: 8 mg Documented by: Polyethylene Glycol (Polyethylene (Miralax) 17 Gm Pack) 17 gm PO DAILY [facility] Stop: 03/28/20 13:44 Last Admin: 03/08/20 09:15 Dose: Not Given Documented by: Psyllium Hydrophilic Mucilloid (Psyllium 58.6% Powder Packet) 1 pkt PO QAM [facility] Stop: 03/25/20 18:44 Last Admin: 03/08/20 09:15 Dose: Not Given Documented by: Quetiapine Fumarate (Quetiapine Fumarate 25 Mg Tablet) 12.5 mg PO Q6 PRN PRN Reason: Anxiety Stop: 03/27/20 11:59 Last Admin: 03/02/20 14:26 Dose: 12.5 mg Documented by: Quetiapine Fumarate (Quetiapine Fumarate 100 Mg Tablet) 100 mg PO HS OLIVIA Stop: 04/02/20 21:59 Last Admin: 03/07/20 21:03 Dose: 100 mg Documented by: Quetiapine Fumarate (Quetiapine Fumarate 25 Mg Tablet) 50 mg PO HS OLIVIA Stop: 04/02/20 21:59 Last Admin: 03/07/20 21:03 Dose: 50 mg Documented by: Sodium Chloride (Sodium Chloride 0.65% Na Soln 45 Ml ([place])) 1 - 2 sprays NA PRN PRN PRN Reason: Nasal Dryness/Congestion Stop: 03/25/20 13:32 Trazodone HCl (Trazodone Hcl 50 Mg Tab) 50 mg PO HS PRN PRN Reason: Sleep Stop: 04/01/20 21:59 Last Admin: 03/02/20 20:52 Dose: 50 mg Documented by: Venlafaxine HCl (Venlafaxine Hcl Xr 150 Mg Capxr) 150 mg PO QAM [facility] Stop: 04/06/20 08:59 Last Admin: 03/08/20 09:09 Dose: 150 mg Documented by: Venlafaxine HCl (Venlafaxine Hcl Xr 37.5 Mg Capxr) [facility] [place] [place] Stop: 04/06/20 08:59 Last Admin: 03/08/20 09:10 Dose: 37.5 mg Documented by: Vitamin B Complex (Vitamin B Complex Tab) 1 tab PO QAM [facility] Stop: 03/26/20 08:59 Last Admin: 03/08/20 09:11 Dose: 1 tab Documented by: Vitamin D (Cholecalciferol 1,000 Units 25 Mcg Tab) 1,000 units PO DAILY [facility]IVIA Stop: 03/27/20 08:59 Last Admin: 03/08/20 09:11 Dose: 1,000 units Documented by: Mental Health & Subst Abuse Tx Psychiatrist Name of Psychiatrist: Dr. Siobhan Shepherd-Jay Psychiatrist's Psychiatric Appointment Comment: [id number], [place] [id number] Therapist Name of Therapist: [facility] - Ioana Rico Therapist's Therapy Appointment Comment: Usually calls on Tuesdays/Fridays Cryptographer Name of Cryptographer: [facility] - Josefina Phone Number for Cryptographer: [phone] Case Management Appointment Comment: [address] [facility] Post Discharge Appointments Primary Care Physician Name Of Family Doctor: [facility] - Dr. Azar Contact Information Discharge Discharge Address: [address], [place] [address]
[2020-03-08] MEDS: busPIRone 5 MG TAB PO SCH ×2 (11:14→20:57)
[2020-03-08] MEDS: QUEtiapine FUMARATE 25 MG TABLET PO SCH (20:56)
[2020-03-08] MEDS: QUEtiapine FUMARATE 100 MG TABLET PO SCH (20:57)
[2020-03-08] MEDS: LEVONORGESTREL PO SCH (20:58)
[2020-03-08] MEDS: ETHINYL ESTRADIOL PO SCH (20:58)
[2020-03-08] MEDS: ADVANCED PROBIOTIC 1250 MG CAPSULE PO SCH (21:43)
[2020-03-08] MEDS: traZODone HCL 50 MG TAB PO PRN (21:46)
[2020-03-09] MEDS: RABEPRAZOLE 20 MG PO SCH ×2 (08:55→17:19)
[2020-03-09] MEDS: CALCIUM CARBONATE 1250MG TAB PO SCH (09:36)
[2020-03-09] MEDS: DICYCLOMINE HCL 10 MG CAP PO SCH ×3 (09:36→17:18)
[2020-03-09] MEDS: VENLAFAXINE HCL XR 37.5 MG CAPXR PO SCH (09:36)
[2020-03-09] MEDS: VITAMIN B COMPLEX TAB PO SCH (09:36)
[2020-03-09] MEDS: busPIRone 5 MG TAB PO SCH ×2 (09:36→21:12)
[2020-03-09] MEDS: LITHIUM CARBONATE 450 MG TABCR PO SCH ×2 (09:37→21:12)
[2020-03-09] MEDS: PSYLLIUM 58.6% POWDER PACKET PO SCH (09:37)
[2020-03-09] MEDS: POLYETHYLENE (MIRALAX) 17 GM PACK PO SCH (09:37)
[2020-03-09] MEDS: CHOLECALCIFEROL 1,000 UNITS 25 MCG TAB PO SCH (09:37)
[2020-03-09] MEDS: VENLAFAXINE HCL XR 150 MG CAPXR PO SCH (09:37)
[2020-03-09] MEDS: CETIRIZINE HCL 10 MG TABLET PO SCH (09:38)
[2020-03-09] MEDS: HYDROCORTISONE 2.5% CR 30 GM TUBE EXT SCH ×2 (09:40→21:12)
[2020-03-09] MEDS ORDERED: COUGH DROP (SUGAR FREE) LOZ 24 LOZ/1 BOX BUCCAL PRN (09:58)
--- NOTE | 2020-03-09 14:57 | Psychiatric Progress Note ---
Date of Service March 09, 2020 Impression / Recommendations Impression 29-year-old female with a history of recurrent depression, PTSD, and borderline personality disorder who is admitted voluntarily with severe depression and suicidal thoughts with various plans. She has a long history of treatment for depression, and while she reports some improvement in response to various psychiatric medications over the years, improvements tend to be short lived and efforts to address diminishing favorable effect of medications through dose increases generally are ineffective. She appears to meet criteria for borderline personality disorder, with difficulty regulating her mood in response to situational factors, inappropriate anger, stress related dissociative symptoms, and recurrent suicidal behavior/gestures. She also reports a broad array of somatic symptoms for which she is on multiple medications, is socially isolated with no local supports, and is refusing to involve her family in treatment, although she has been calling them on the phone. She has a local therapist, but sees a psychiatrist in [place]. 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 Quetiapine and venlafaxine XR are being titrated here to target mood, and she has declined ECT. She is willing to consider transcranial magnetic stimulation, but this would have to be done as an outpatient. She had a suicidal gesture on the unit 02/24, and remains suicidal to the extent that she has been placed on enhanced precautions with no access to pillowcases or sheets, and in a private room. Meeting with [facility] Advocacy took place on 03/05 to discuss the trajectory of the work for her Ph.D program. Meeting on 03/06 with outpatient therapist to discuss recommendation for higher level of care. A telephonic meeting with the patient's mother has been achieved, and the patient's mother is planning to come from her home near [place], [place] to [place] on 03/11/2020. The patient's response to treatment has been favorable and that both subjectively and objectively the patient's mood has considerably improved to the point that she is observed smiling and laughing frequently in the milieu, participating actively in groups, and much more positive in her interactions with staff. Patient also reports that her suicidal thoughts have diminished significantly to the degree that she is only experiencing fleeting suicidal thoughts without plan or intent. She also finds that she is no longer obsessing about these thoughts of suicide and is able to independently and quickly dismiss them. She is able to talk about ways to communicate to her support network how she would like to be treated when she is upset but how she would like to be supported when she asked for help. The patient is also considering disclosing her homosexuality to her motheralthough she knows that her mother will tell her father, and her father is likely to order her siblings not to have contact with her. The patient adds, "pretty soon my youngest brother will be out of the house, and then I will not have any excuses left and not come out to my family." This suggests that the patient is aware that she is using the her father's anticipated reaction as an excuse. (1) Suicidal ideation: 02/23 -The patient reports progressive suicidal thoughts with plans that include overdosing, self poisoning, asphyxiation, and hanging. The patient has been admitted to the [facility] unit and has been placed on suicide precautions. We have referred her for individual, group, and recreational therapy. She does not seem to be willing to consider family interventions at this point, but it may be useful to work with the patient in this regard because her family dynamics seem to be pretty central to the patient's current condition. -We will continue lithium carbonate 450 mg twice a day; Prozac 10 mg a day; and add bupropion SR 75 mg as an adjunct. We will consider offering trials of an SNRI, such as venlafaxine or duloxetine. Reviewed 02/25/2020. Note dosing of Wellbutrin SR is 100 mg po qam. 02/25--reviewed safety plan with staff, MNPR, moved to [place], safety blanket (no sheets/pillowcases) for at least 24 hrs, no leggings, reviewed consistency shift to shift on where meeting with patient. 02/26--return blanket but not bed linens. 02/27--continues to report active SI, but not related to items presently available to the patient. Pt not able to contract for safety with any additional items at this time. --Maintain appropriate boundaries while continuing to build therapeutic alliance and offer suggestions to target chronic SI. 02/28 - Pt vaguely reporting "I don't feel safe", but was unable to verbalize any specific temptations on unit or specific plans/intent - She admits that SI is chronically "in the background" but becomes more pronounced when the patient is being "triggered" 03/01 -patient continues to endorse suicidal thoughts, states she would not feel safe having access to sheets or pillowcases that she could wrap around her neck, but feels safe in her current environment with safety blankets, 1 cotton blanket, and no access to other items without staff supervision. Her door is being kept open so that she is visible from the nurses station. -Continue private room and current precautions. -Encourage patient to continue to identify effective coping skills. 03/02 -Patient continues to report suicidality, and describes intrusive ruminative suicidal thoughts. She reported today that, for example, during a therapy group that focused on learning self soothing and relaxation techniques involving, among other things, listening to the sounds of rushing water and waves at a beach she could only think of the fact that she wants to drown herself or, if she was at the beach, she would want to bury her self in the sand and suffocate. -Patient reports that until this year she has not had self-injurious impulses, and she is visibly distressed by the obsessive and intrusive nature of her suicidal thoughts. Within this context, we discussed the use of medications that may help with obsessive ruminations and other disorders associated with anxiety. The plan today will include adding venlafaxine extended release 37.5 mg daily beginning 1009 and titrating as indicated. Because the patient feels very strongly that she does not wish to discontinue Prozac until she is able to vp information technology the effect of venlafaxine, in terms of adverse effects and possible response, we will continue low-dose Prozac together with lower dose of venlafaxine and cross titrate as appropriate. -The patient notes that she feels certain that she could not contract for safety where she did leave the hospital at this point, and inpatient psychiatric hospitalization remains the least intensive, least restrictive level of care consistent with the patient's clinical and safety needs. 03/03 - Patient continues to report active suicidal ideation but she feels safe in this unit currently. - Patient agrees with the further titration of quetiapine 50 mg every night and 150 mg will be tried today. However the patient is advised that she can titrate slowly if she does not feel comfortable since that she expresses her concern over faster titration. - If the patient feels too drowsy with increased quetiapine, trazodone will be discontinued. 03/04 -Patient continues to report active suicidal ideation but she still feels safe in her current setting. -Continue MNPR. 03/05 - Continue MNPR due to ongoing reports of feeling unsafe and admitting to ongoing SI. - She continues to be unable to contract for safety outside of the inpatient hospital setting 03/06 - Ongoing SI, though reporting mild improvement today - Continue MNPR at this time 03/07 - Reports ongoing slow improvement of SI, still unable to contract for items/additional clothing/bedding being returned at this time - Maintain MNPR 03/08 - Pt reports ongoing SI, correlating with episodes of increased anxiety - Maintain MNPR, continue to encourage patient focus on ways to maintain safety and development of appropriate coping skills (2) Anxiety and depression: 02/23 -The patient reports progressive suicidal thoughts with plans that include overdosing, self poisoning, asphyxiation, and hanging. The patient has been admitted to the [facility] unit and has been placed on suicide precautions. We have referred her for individual, group, and recreational therapy. She does not seem to be willing to consider family interventions at this point, but it may be useful to work with the patient in this regard because her family dynamics seem to be pretty central to the patient's current condition. -We will continue lithium carbonate 450 mg twice a day; Prozac 10 mg a day; and add bupropion SR 75 mg as an adjunct. We will consider offering trials of an SNRI, such as venlafaxine or duloxetine. 02/25/2020. Note dosing of Wellbutrin SR is 100 mg po qam. Monitor ZAFAR. 02/25--restart Seroquel with plan to titrate tomorrow, may use lower dose prn anxiety during day. Get true lithium level trough in am and fasting metabolic labs. 02/26--lithium remains 0.9, d/c Wellbutrin (?worsening SI), she desires d/c Neurontin due to sedation, reviewed generally tapered--she is agreeable to take 150 mg tonight. titrate seroquel 50 mg po qhs with likely to 100 mg or more to target thoughts. No immediate availability of ketamine. She had discussed ECT at least briefly with Dr. Carranza but is attending to ADLs and groups here (more active than home). 02/27--Pt continuing to give conflicting thoughts regarding willingness for medication changes. Recommendation was provided to continue titration of quetiapine as discussed above; however patient was unwilling to do so at this time. --Continue to engage patient in group and recreational programming with focus on distraction techniques and coping skills that are beneficial to combat acute SI. --With ongoing interviews, there is a part of patient's presentation that seems to be related to borderline personality traits. 02/28 - Pt agreeable with titrating quetiapine to 75mg for this evening. Reviewed that a target dose of 100mg had been suggested and patient was agreeable with continuing to work toward this dosage. - She continues to report struggles with SI, with somewhat limited group participation 02/28 -continue quetiapine titration, increasing to 100 mg at bedtime for tonight. Fasting labs reviewed for monitoring on an atypical: Done 02/27/2020, FG 86, FLP notable for cholesterol 221. TSH was repeated as it was slightly elevated on admission, and was normal at 2.190. -Patient continues to refuse a family meeting, so we will schedule a treatment planning meeting with her outpatient therapist. Agree with recommendation for [facility]/residential treatment, trauma focused program. Patient lists multiple barriers to this, but admits it has yet been explored. -Message was left for outpatient psychiatrist, Dr. Thompson, in [place] yesterday requesting return call to coordinate care. 03/02 -We will continue quetiapine as above. The patient says that she does not feel that quetiapine is particularly helpful, at least at bedtime, although she does note that lower dose as needed quetiapine does help sometimes with anxiety during the day. -Patient feels strongly that she cannot tolerate a higher dose of Prozac higher than 10 mg a day, and, at the same time, says that she believes that Prozac 10 mg a day is helpful. She is, however, willing to allow us to add an additional antidepressant medication. The patient tells us that she has not previously taken an SNRI medication, and we discussed venlafaxine extended release. She asked that we continue Prozac, at least temporarily, and I told her that we would be willing to do a "cross titration" of Prozac and venlafaxine extended release, beginning at 37.5 mg daily. 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 -Zolpidem will be offered as a "rescue" hypnotic in the event that she finds that trazodone, in combination with quetiapine is not sufficient to allow sleep. 03/03 - Venlafaxine ER will be titrated further. - Due to increased restlessness and agitated feeling, utilization of hydroxyzine was recommended. 03/04 -Treatment plan was reviewed with the patient. Venlafaxine ER titrated to 75 mg a day and patient agrees to titrate up further to 150 to 225 mg as tolerated. Fluoxetine 10 mg discontinued without tapering. Quetiapine 150 mg tolerated well without side effects and it will be titrated further if it is not necessary after venlafaxine ER is maximized first. -Patient was advised to utilize hydroxyzine as needed for agitated feeling and utilized trazodone as needed for insomnia. However patient has been sleeping well with increased quetiapine. -If the patient still feels really anxious and agitated, augmentation with buspirone might be considered since patient does not recall if it helped or not in the past but did not experience any side effects until venlafaxine ER can be maximized. 03/05 - Continue current medication regimen - continues adjustments as indicated - Meeting today with Student Care and Advocacy. - Pt continues to be unable to contract for safety outside of the inpatient hospital setting. She reports willingness to at least explore options for longer term treatment, specifically focused on trauma programs 03/06 - Pt reporting desire to titrate venlafaxine to 187.5mg tomorrow morning to target anxiety/depression and ongoing SI - denying any perceived side effects at this time. Will continue quetiapine at 150mg qHS. - Meeting this afternoon with outpatient therapistIoana - likely discussing recommendation for higher level of treatment - Pt reports mild improvement in SI today, but thoughts continue to be present. She remains unable to contract for safety outside of the inpatient hospital setting. 03/07 - Continue current medication regimen - Encouraging patient to begin putting a discharge plan in place, as this will likely improve anxiety and allow for more significant treatment progress at this time - Exploring outpatient PHP/IOP options - patient stating she may request that mother stay with her for a period of time at discharge 03/08 - Pt does report improvement in depression, but states anxiety continues to be her largest concern and suicidal ideations is associated more with episodes of intense anxiety. We discussed patient's limited utilization of as needed medications for anxiety, with patient admitting it is difficult to predict when anxiety will occur. Pt was offered to utilize buspirone (which she had previously taken) as a "bridge" to target anxiety until venlafaxine reaches therapeutic levels and maximum efficacy. Risks, benefits, and potential interactions were reviewed. Pt was agreeable with this change - will start 10mg BID. - She reports sleep was somewhat improved last evening despite forgetting to request prn trazodone - Pt states her mother is planning to stay with her on discharge, we are still exploring options for PHP/IOP as well as awaiting information from the [facility] regarding options with her Ph.D program - Overall, patient admits to mild improvements, but remains unable to contract for safety outside of the hospital setting at this time. 03/09 -Today, the patient reports that she feels that her improvement has been substantial, at least in terms of her depression, although she continues to experience generalized anxiety symptoms. -Today, she tells me that she has found that hydroxyzine 25 mg has been helpful to her, although she sometimes feels that the slightly higher dose may help more, in terms of managing her anxiety. The patient also explains that she often neglects or feels reluctant to ask for a "as needed" medication, and we talked about the possibility of establishing hydroxyzine 25 or 35 or 37.5 mg t wice a day as a standing dose that she can decline if she feels she does not need it. -Patient now says that she feels that she will be able to contract for safety outside of the hospital. She says that she is fully aware that the stressors that contributed to her admission remain, but she now feels better able to face them. She also says that she is pleased with the plan for her brother to stay with her temporarily while she reintegrates into the community. -The patient is tolerating venlafaxine well. We will hold at the current dose of venlafaxine. Further titration may be indicated following discharge. (3) Borderline personality disorder: 02/28 - Attempts made today to review diagnostic features of borderline personality disorder with patient to determine if she identified strongly with the criteria; however, patient reported she was familiar with the criteria as she had been given this diagnosis at [facility]. Pt reports "I don't want the diagnosis." Pt reports she has "complex trauma" but was not able to engage in conversation to discuss that the two are not mutually exclusive. - Attempts were made to work with patient on de-stigmatizing the diagnosis in her own mind, and reassuring the patient that there may be additional/alternative diagnosis that can help us more appropriate address her concerns. - Patient does continue to regularly display characteristics that suggest this pathology - Will continue to provide needed support while also maintaining consistent boundaries - Pt would likely benefit from additional information on the diagnosis as well as DBT approaches 03/01 -Reviewed differential diagnosis with patient, as well as the fact that we will likely not make a definitive diagnosis here, due to the acute nature of treatment here, as well as her unwillingness to allow us access to her previous records or to get collateral information from her family. 03/06 - Continue to focus patient's attention toward development of coping strategies and ways that she can work toward improving her condition. - Pt rather focused today on feeling "triggered" by another patient in the milieu - she was encouraged to consider strategies that would allow her to work toward reducing anxiety and removing herself from overwhelming situations. - Continue to maintain appropriate boundaries while encouraging development of appropriate coping skills (4) Irritable bowel syndrome: 02/23 -Currently, the patient reports that she has been feeling constipated for "some time now," and notes that she often does better with a bulk laxative such as Metamucil. Currently, we have ordered Metamucil daily. Reviewed 02/25/2020. She declines Miralax. States warm tea would aggravate her reflux. 02/25--reports having BM yesterday but guesses not full evacuation, she is declining additional metamucil. 02/26--Miralax as reports ongoing constipation, if ineffective she would prefer enema over laxative. 02/28--reports ongoing, intermittent GI complaints. States she has benefitted from Zofran and/or Tums on an outpatient basis. Both were ordered for patient to be able to utilize as needed for GI complaints. 03/02 --the patient reports some improvement in this regard. (5) TSH elevation: 02/25--will repeat TSH in am, likely lithium induced with hair loss, would favor start of synthroid given symptoms. 02/26--repeat TSH normal. Inventory Assets Strengths: Intelligent. Motivated to treatment. Well informed. Past history of some favorable response to treatment. Needs: Relief from depression symptoms. Resolution of suicidal thoughts. 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 In particular, her mother. She is also close with several of her siblings, but fears that she will very rejected by all if she tells them that her sexual orientation as lesbian.) Good Rapport with Provider: Yes Absence of Any Risk Factors Above: No Interval History Identifying Information WILL KERNS is a 29-year-old female who currently lives in alone in [place]. She has a history of recurrent major depression, PTSD, and borderline personality disorder, and was admitted on 02/24/20 13:33 on a 201 voluntary agreement because of worsening suicidal ideation, with thoughts of self poisoning, and/or asphyxiation. Chief Complaint "I'm definitely less depressed". Review of Systems Sleep Information Total Hours of Sleep: 8.25 Sleep Comments: pt on q-15 minute checks Meal Information Percent Meal Consumed - Breakfast: 100 Percent Meal Consumed - Lunch: 100 Percent Meal Consumed - Dinner: 90 Nutrition Comment: pt. continues to report poor appetite Subjective Subjective Patient was seen & assessed and interval progress reviewed with treatment team. I met individually with the patient in order to assess her current mental status, evaluate her response to treatment, make any necessary changes in the patient's treatment regimen and coordination with the patient, and address issues, questions and concerns that may arise. The patient began the encounter by telling me that she feels that she is "definitely less depressed," although she continues to experience generalized anxiety. Patient also reports that although she occasionally has fleeting thoughts of suicide, these thoughts are brief and are not associated with any plan or intent. She has, "they just come and go quickly." The patient reports that she feels that venlafaxine is effective, and that she is tolerating it well. She is also managed dose titrations without difficulty. When asked about the effect of buspirone, she says that she has not noticed any difference yet, but understands that this is a medication that is not expected to work right away, and she points out that she is only taking it for about 2 days. She indicates that she feels she is tolerating it well. She reports a brief episode of feeling somewhat "dizzy" last night, but that resolved and has not re-presented itself today. We talked about the fact that the current plan is for the patient to remain in the hospital for another 2 days, until Thursday, at which point her mother will be coming to [place] from [place], [place]. The current plan is for the patient's mother to stay with the patient at her home as the patient reintegrates to the community. Much of today's encounter was devoted to exploring ways in which the patient would like her mother to provide emotional support. The patient notes that it had been suggested to her that when she, the patient, becomes upset or otherwise angry or distressed, her mother should be as ked to redirect the patient to focus on "the core issues," rather than the proximate sources of her anger distress. The patient says that she understands the logic behind this suggestion, but that what she would like her mother to do is to simply acknowledge the feelings that the patient is having, voice acceptance of them, and then give the patient "some space" so that she can self- soothe. He would then like her mother to "check-in" a little bit later to see how she is feeling. She does not want her mother to attempt to explore the nature of her feelings, and she adds that she thinks that the mother's instinct, which is to essentially diminish the patient's feelings by trying to distract her, "for example by suggesting we watch a silly video or something" does not work and the patient feels that she is being devalued. Physical Exam Psychiatric Orientation: alert, oriented x 3 and cooperative Apperance: appropriately dressed, appropriately groomed and appeared stated age Eye Contact: good eye contact Motor Behavior: steady gait and station Speech: normal rate/rhythm/volume of speech Affect: euthymic affect The patient smiles appropriately throughout the interview. "Definitely better, in terms of the depression. I still feel kind of jittery." Thought Process: goal directed thought process, linear/logical thought process and clear/coherent thought process Thought Content: reality based without delusions The patient reports continued passive suicidal thoughts that she experiences as fleeting. She also notes that these thoughts are not associated with any suicidal plan or intent, and she also indicates that she feels that, currently, she is able to dismiss these thoughts without obsessing about them. Homicidal Thoughts: denies homicidal thoughts Hallucinations: no auditory hallucinations Cognition: recent memory grossly intact, remote memory grossly intact, attention grossly intact and language grossly intact Estimated Intelligence: + above average estimated intelligence Insight: good insight Judgement: good judgement Vital Signs (Past 24 Hours) Last Vital Signs Temp 36.6 C 03/09/20 06:24 Pulse 86 03/09/20 06:25 Resp 17 03/09/20 06:24 BP 97/64 L 03/09/20 06:25 Pulse Ox 100 02/24/20 16:18 Results & Data ([facility]) Current Inpatient Medications Current Inpatient Medications: Current Inpatient Medications Acetaminophen (Acetaminophen 325 Mg Tab) 650 mg PO Q4H PRN PRN Reason: Headache or Minor Fever Stop: 03/25/20 13:32 Last Admin: 02/25/20 04:09 Dose: 650 mg Documented by: Al Hydrox/Mg Hydrox/Simethicone (Aluminum/Magnesium Susp 30 Ml Udc) 30 ml PO Q4H PRN PRN Reason: GI Upset Stop: 03/25/20 13:32 Last Admin: 02/29/20 10:07 Dose: 30 ml Documented by: Bismuth Subsalicylate (Bismuth Subsalicylate Liqd 236 Ml) 15 ml PO PRN PRN PRN Reason: Loose Stool Stop: 03/25/20 13:32 Buspirone HCl (Buspirone 5 Mg Tab) 10 mg PO BID OLIVIA Stop: 04/07/20 10:44 Last Admin: 03/09/20 09:36 Dose: 10 mg Documented by: Calcium Carbonate (Calcium Carbonate 1250mg Tab) 1,250 mg PO DAILY OLIV[facility] Stop: 03/26/20 08:59 Last Admin: 03/09/20 09:36 Dose: 1,250 mg Documented by: Calcium Carbonate (Calcium Carbonate 500 Mg Chewable Tab) 1,500 mg PO Q6H PRN PRN Reason: Indigestion Stop: 03/30/20 13:46 Last Admin: 02/29/20 15:29 Dose: 1,500 mg Documented by: Cetirizine HCl (Cetirizine Hcl 10 Mg Tablet) 10 mg PO QAM [facility] Stop: 03/27/20 08:59 Last Admin: 03/09/20 09:38 Dose: 10 mg Documented by: Clonazepam (Clonazepam 0.5 Mg Tab) 0.5 mg PO DAILY PRN PRN Reason: Blood draws or imaging studies Stop: 03/25/20 21:08 Last Admin: 02/27/20 06:25 Dose: 0.5 mg Documented by: Dicyclomine HCl (Dicyclomine Hcl 10 Mg Cap) 10 mg PO TIDM OLIVIA Stop: 03/25/20 17:59 Last Admin: 03/09/20 13:19 Dose: 10 mg Documented by: Hydrocortisone (Hydrocortisone 2.5% Cr 30 Gm Tube) 1 appln EXT BID [facility] Stop: 03/25/20 20:59 Last Admin: 03/09/20 09:40 Dose: 1 appln Documented by: Hydroxyzine HCl (Hydroxyzine Hcl 25 Mg Tab) 50 mg PO HSZ PRN PRN Reason: Insomnia Stop: 03/25/20 13:32 Hydroxyzine HCl (Hydroxyzine Hcl 25 Mg Tab) 25 mg PO Q4H PRN PRN Reason: Anxiety Stop: 03/25/20 13:32 Last Admin: 03/05/20 14:31 Dose: 25 mg Documented by: Lactobacillus Acidoph/Casei/Rhamnos (Advanced Probiotic 1250 Mg Capsule) 2 cap PO HS OLIVIA Stop: 04/07/20 21:59 Last Admin: 03/08/20 21:43 Dose: 2 cap Documented by: Levalbuterol HCl (Levalbuterol Tartrate 15 Gm Hfa.Aer.Ad) 2 puffs INH Q4H PRN PRN Reason: Shortness Of Breath Or Wheezin Stop: 03/25/20 17:49 [place] Carbonate ([place] Carbonate 450 Mg Tabcr) 450 mg PO BID OLIVIA Stop: 03/25/20 20:59 Last Admin: 03/09/20 09:37 Dose: 450 mg Documented by: Magnesium Hydroxide (Magnesium Hydroxide Susp 30 Ml Udc) 30 ml PO DAILY PRN PRN Reason: Constipation Stop: 03/25/20 13:32 Menthol (Cough Drop (Sugar Free) Lynda 24 Lynda/1 Box) 1 lynda BUCCAL PRN PRN PRN Reason: Sore Throat Stop: 04/08/20 09:57 Last Admin: 03/09/20 13:39 Dose: 1 lynda Documented by: Miscellaneous (Camrese Lo Patient's Own Oral Contraceptive) 1 ea PO [facility] Stop: 03/25/20 21:59 Last Admin: 03/08/20 20:58 Dose: 1 ea Documented by: Rabeprazole 20mg ~ Non-Formulary Patient's Own Med 1 ea PO BID [facility] Stop: 03/25/20 20:59 Last Admin: 03/09/20 08:55 Dose: 1 ea Documented by: Ondansetron HCl (Ondansetron 8mg Od Tab) 8 mg PO Q6H PRN PRN Reason: Nausea Stop: 03/30/20 13:50 Last Admin: 03/01/20 00:57 Dose: 8 mg Documented by: Polyethylene Glycol (Polyethylene (Miralax) 17 Gm Pack) 17 gm PO DAILY [facility] Stop: 03/28/20 13:44 Last Admin: 03/09/20 09:37 Dose: Not Given Documented by: Psyllium Hydrophilic Mucilloid (Psyllium 58.6% Powder Packet) 1 pkt PO QAM [facility] Stop: 03/25/20 18:44 Last Admin: 03/09/20 09:37 Dose: Not Given Documented by: Quetiapine Fumarate (Quetiapine Fumarate 25 Mg Tablet) 12.5 mg PO Q6 PRN PRN Reason: Anxiety Stop: 03/27/20 11:59 Last Admin: 03/02/20 14:26 Dose: 12.5 mg Documented by: Quetiapine Fumarate (Quetiapine Fumarate 100 Mg Tablet) 100 mg PO [facility] Stop: 04/02/20 21:59 Last Admin: 03/08/20 20:57 Dose: 100 mg Documented by: Quetiapine Fumarate (Quetiapine Fumarate 25 Mg Tablet) 50 mg PO [facility] Stop: 04/02/20 21:59 Last Admin: 03/08/20 20:56 Dose: 50 mg Documented by: Sodium Chloride (Sodium Chloride 0.65% Na Soln 45 Ml ([place])) 1 - 2 sprays NA PRN PRN PRN Reason: Nasal Dryness/Congestion Stop: 03/25/20 13:32 Trazodone HCl (Trazodone Hcl 50 Mg Tab) 50 mg PO HS PRN PRN Reason: Sleep Stop: 04/01/20 21:59 Last Admin: 03/08/20 21:46 Dose: 50 mg Documented by: Venlafaxine HCl (Venlafaxine Hcl Xr 150 Mg Capxr) 150 mg PO QAM [facility] Stop: 04/06/20 08:59 Last Admin: 03/09/20 09:37 Dose: 150 mg Documented by: Venlafaxine HCl (Venlafaxine Hcl Xr 37.5 Mg Capxr) 37.5 mg PO QAM [facility] Stop: 04/06/20 08:59 Last Admin: 03/09/20 09:36 Dose: 37.5 mg Documented by: Vitamin B Complex (Vitamin B Complex Tab) 1 tab PO QAM [facility] Stop: 03/26/20 08:59 Last Admin: 03/09/20 09:36 Dose: 1 tab Documented by: Vitamin D (Cholecalciferol 1,000 Units 25 Mcg Tab) 1,000 units PO DAILY [facility] Stop: 03/27/20 08:59 Last Admin: 03/09/20 09:37 Dose: 1,000 units Documented by: Mental Health & Subst Abuse Tx Psychiatrist [facility] Psych[facility] Appointment Comment: [phone] [place] [id number] Therapist Name of Therapist: [facility] [place] Therapist's / [phone] Date of Therapist Appointment: 03/12/20 Time of Therapist Appointment: 10:00 a.m. Therapy Appointment Comment: Family session with you and your mother Section Leader [employer] Name of Section Leader [employer]ing: Student Care [facility] Advocacy - Josefina Phone Number for Section Leader Screen Printing: [phone] Date of Appointment with Section Leader Screen Printing: 03/13/20 Time of Appointment with Section Leader Screen Printing: 1:00 p.m. Case Management Appointment Comment: Josefina will call you to discuss schooling Post Discharge Appointments Primary Care Physician Name Of Family Doctor: BERRY [facility] Time of Appointment with PCP: Follow up as needed Provider Appointment Comment: [facility] Contact Information Discharge Discharge Address: [address], [address], [place] [address]
[2020-03-09] MEDS: hydrOXYzine HCl 10 MG TAB PO SCH (21:13)
[2020-03-09] MEDS: LEVONORGESTREL PO SCH (21:15)
[2020-03-09] MEDS: ETHINYL ESTRADIOL PO SCH (21:15)
[2020-03-09] MEDS: ADVANCED PROBIOTIC 1250 MG CAPSULE PO SCH (21:16)
[2020-03-09] MEDS: QUEtiapine FUMARATE 100 MG TABLET PO SCH (21:16)
[2020-03-09] MEDS: QUEtiapine FUMARATE 25 MG TABLET PO SCH (21:17)
[2020-03-09] MEDS: traZODone HCL 50 MG TAB PO PRN (21:49)
[2020-03-10] MEDS: RABEPRAZOLE 20 MG PO SCH ×2 (08:34→17:30)
[2020-03-10] MEDS: busPIRone 5 MG TAB PO SCH ×2 (09:09→21:02)
[2020-03-10] MEDS: DICYCLOMINE HCL 10 MG CAP PO SCH ×3 (09:09→17:29)
[2020-03-10] MEDS: LITHIUM CARBONATE 450 MG TABCR PO SCH ×2 (09:10→20:56)
[2020-03-10] MEDS: VENLAFAXINE HCL XR 150 MG CAPXR PO SCH (09:10)
[2020-03-10] MEDS: VENLAFAXINE HCL XR 37.5 MG CAPXR PO SCH (09:10)
[2020-03-10] MEDS: PSYLLIUM 58.6% POWDER PACKET PO SCH (09:22)
[2020-03-10] MEDS: HYDROCORTISONE 2.5% CR 30 GM TUBE EXT SCH ×2 (09:22→20:56)
[2020-03-10] MEDS: POLYETHYLENE (MIRALAX) 17 GM PACK PO SCH (09:22)
[2020-03-10] MEDS: CALCIUM CARBONATE 1250MG TAB PO SCH (09:28)
[2020-03-10] MEDS: hydrOXYzine HCl 10 MG TAB PO SCH ×2 (09:28→20:57)
[2020-03-10] MEDS: CHOLECALCIFEROL 1,000 UNITS 25 MCG TAB PO SCH (09:29)
[2020-03-10] MEDS: VITAMIN B COMPLEX TAB PO SCH (09:29)
[2020-03-10] MEDS: CETIRIZINE HCL 10 MG TABLET PO SCH (09:29)
--- NOTE | 2020-03-10 11:17 | Psychiatric Progress Note ---
Date of Service March 10, 2020 Impression / Recommendations Impression 29-year-old female with a history of recurrent depression, PTSD, and borderline personality disorder who is admitted voluntarily with severe depression and suicidal thoughts with various plans. She has a long history of treatment for depression, and while she reports some improvement in response to various psychiatric medications over the years, improvements tend to be short lived and efforts to address diminishing favorable effect of medications through dose increases generally are ineffective. She appears to meet criteria for borderline personality disorder, with difficulty regulating her mood in response to situational factors, inappropriate anger, stress related dissociative symptoms, and recurrent suicidal behavior/gestures. She also reports a broad array of somatic symptoms for which she is on multiple medications, is socially isolated with no local supports, and is refusing to involve her family in treatment, although she has been calling them on the phone. She has a local therapist, but sees a psychiatrist in [place]. 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 Quetiapine and venlafaxine XR are being titrated here to target mood, and she has declined ECT. She is willing to consider transcranial magnetic stimulation, but this would have to be done as an outpatient. She had a suicidal gesture on the unit 02/24, and remains suicidal to the extent that she has been placed on enhanced precautions with no access to pillowcases or sheets, and in a private room. Meeting with Student Care and Advocacy took place on 03/05 to discuss the trajectory of the work for her Ph.D program. Meeting on 03/06 with outpatient therapist to discuss recommendation for higher level of care. A telephonic meeting with the patient's mother has been achieved, and the patient's mother is planning to come from her home near [place], [place] to [place] on 03/11/2020. The patient's response to treatment has been favorable and that both subjectively and objectively the patient's mood has considerably improved to the point that she is observed smiling and laughing frequently in the milieu, participating actively in groups, and much more positive in her interactions with staff. Patient also reports that her suicidal thoughts have diminished significantly to the degree that she is only experiencing fleeting suicidal thoughts without plan or intent. She also finds that she is no longer obsessing about these thoughts of suicide and is able to independently and quickly dismiss them. She is able to talk about ways to communicate to her support network how she would like to be treated when she is upset but how she would like to be supported when she asked for help. The patient is also considering disclosing her homosexuality to her motheralthough she knows that her mother will tell her father, and her father is likely to order her siblings not to have contact with her. The patient adds, "pretty soon my youngest brother will be out of the house, and then I will not have any excuses left and not come out to my family." This suggests that the patient is aware that she is using the her father's anticipated reaction as an excuse. 03/10--reviewed. Impression--marked improvement from last contact. Plan: continue current meds and treatment plan, finalizing safety plan which includes family support coming to the area. Inventory Assets Strengths: Intelligent. Motivated to treatment. Well informed. Past history of some favorable response to treatment. Needs: Relief from depression symptoms. Resolution of suicidal thoughts. 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 In particular, her mother. She is also close with several of her siblings, but fears that she will very rejected by all if she tells them that her sexual orientation as lesbian.) Good Rapport with Provider: Yes Absence of Any Risk Factors Above: No Interval History Identifying Information WILL KERNS is a 29-year-old female who currently lives in alone in [place]. She has a history of recurrent major depression, PTSD, and borderline personality disorder, and was admitted on 02/24/20 13:33 on a 201 voluntary agreement because of worsening suicidal ideation, with thoughts of self poisoning, and/or asphyxiation. 03/10--reviewed, patient known to me from earlier in stay. Chief Complaint "I'm anxious about discharge, mom here is good and bad". Review of Systems Sleep Information Total Hours of Sleep: 7.25 Sleep Comments: pt on q-15 minute checks Meal Information Percent Meal Consumed - Breakfast: 90 Percent Meal Consumed - Lunch: 100 Percent Meal Consumed - Dinner: 75 Nutrition Comment: pt. continues to report poor appetite Subjective Subjective Patient was seen & assessed and interval progress reviewed with nursing. States that she expects her suicidal thoughts to be chronic, no longer having intent or plan to act on these thoughts. States that mainly triggered by "figuring out my work" and reviewed that will have an appointment with student care and advocacy just after discharge. She states that mother will over see her medications upon discharge and stay with her for as long as needed. Denies medication concerns, feels have been helpful, still getting some am sedation and we discussed that less likely to need trazodone at home and can take earlier. Physical Exam Psychiatric Orientation: alert Apperance: appropriately dressed and appropriately groomed Eye Contact: good eye contact Motor Behavior: no abnormal motor movements Speech: normal rate/rhythm/volume of speech Affect: + depressed affect Mood: + anxious mood Thought Process: goal directed thought process Thought Content: reality based without delusions Suicidal Thoughts: denies suicidal thoughts Homicidal Thoughts: denies homicidal thoughts Hallucinations: no auditory hallucinations and no visual hallucinations Estimated Intelligence: consistent with education level Insight: + fair insight Judgement: + fair judgement Vital Signs (Past 24 Hours) Last Vital Signs Temp 36.7 C 03/10/20 06:23 Pulse 91 H 03/10/20 06:23 Resp 17 03/10/20 06:23 BP 121/84 03/10/20 06:23 Pulse Ox 100 02/24/20 16:18 Results & Data ([facility]) Current Inpatient Medications Current Inpatient Medications: Current Inpatient Medications Acetaminophen (Acetaminophen 325 Mg Tab) 650 mg PO Q4H PRN PRN Reason: Headache or Minor Fever Stop: 03/25/20 13:32 Last Admin: 02/25/20 04:09 Dose: 650 mg Documented by: Al Hydrox/Mg Hydrox/Simethicone (Aluminum/Magnesium Susp 30 Ml Udc) 30 ml PO Q4H PRN PRN Reason: GI Upset Stop: 03/25/20 13:32 Last Admin: 02/29/20 10:07 Dose: 30 ml Documented by: Bismuth Subsalicylate (Bismuth Subsalicylate Liqd 236 Ml) 15 ml PO PRN PRN PRN Reason: Loose Stool Stop: 03/25/20 13:32 Buspirone HCl (Buspirone 5 Mg Tab) 10 mg PO BID [facility] Stop: 04/07/20 10:44 Last Admin: 03/10/20 09:09 Dose: 10 mg Documented by: Calcium Carbonate (Calcium Carbonate 1250mg Tab) 1,250 mg PO DAILY [facility] Stop: 03/26/20 08:59 Last Admin: 03/10/20 09:28 Dose: 1,250 mg Documented by: Calcium Carbonate (Calcium Carbonate 500 Mg Chewable Tab) 1,500 mg PO Q6H PRN PRN Reason: Indigestion Stop: 03/30/20 13:46 Last Admin: 02/29/20 15:29 Dose: 1,500 mg Documented by: Cetirizine HCl (Cetirizine Hcl 10 Mg Tablet) 10 mg PO QAM [facility] Stop: 03/27/20 08:59 Last Admin: 03/10/20 09:29 Dose: 10 mg Documented by: Clonazepam (Clonazepam 0.5 Mg Tab) 0.5 mg PO DAILY PRN PRN Reason: Blood draws or imaging studies Stop: 03/25/20 21:08 Last Admin: 02/27/20 06:25 Dose: 0.5 mg Documented by: Dicyclomine HCl (Dicyclomine Hcl 10 Mg Cap) 10 mg PO TIDM [facility]IVIA Stop: 03/25/20 17:59 Last Admin: 03/10/20 09:09 Dose: 10 mg Documented by: Hydrocortisone (Hydrocortisone 2.5% Cr 30 Gm Tube) 1 appln EXT BID [facility] Stop: 03/25/20 20:59 Last Admin: 03/10/20 09:22 Dose: Not Given Documented by: Hydroxyzine HCl (Hydroxyzine Hcl 25 Mg Tab) 50 mg PO HSZ PRN PRN Reason: Insomnia Stop: 03/25/20 13:32 Hydroxyzine HCl (Hydroxyzine Hcl 25 Mg Tab) 25 mg PO Q4H PRN PRN Reason: Anxiety Stop: 03/25/20 13:32 Last Admin: 03/05/20 14:31 Dose: 25 mg Documented by: Hydroxyzine HCl (Hydroxyzine Hcl 10 Mg Tab) 35 mg PO BID [facility] Stop: 04/08/20 20:59 Last Admin: 03/10/20 09:28 Dose: 35 mg Documented by: Lactobacillus Acidoph/Casei/Rhamnos (Advanced Probiotic 1250 Mg Capsule) 2 cap PO HS [facility] Stop: 04/07/20 21:59 Last Admin: 03/09/20 21:16 Dose: 2 cap Documented by: Levalbuterol HCl (Levalbuterol Tartrate 15 Gm Hfa.Aer.Ad) 2 puffs INH Q4H PRN PRN Reason: Shortness Of Breath Or Wheezin Stop: 03/25/20 17:49 [place] Carbonate ([place] Carbonate 450 Mg Tabcr) 450 mg PO BID [facility] Stop: 03/25/20 20:59 Last Admin: 03/10/20 09:10 Dose: 450 mg Documented by: Magnesium Hydroxide (Magnesium Hydroxide Susp 30 Ml Udc) 30 ml PO DAILY PRN PRN Reason: Constipation Stop: 03/25/20 13:32 Menthol (Cough Drop (Sugar Free) Lynda 24 Lynda/1 Box) 1 lynda BUCCAL PRN PRN PRN Reason: Sore Throat Stop: 04/08/20 09:57 Last Admin: 03/09/20 13:39 Dose: 1 lynda Documented by: Miscellaneous (Camrese Lo Patient's Own Oral Contraceptive) 1 ea PO HS [facility] Stop: 03/25/20 21:59 Last Admin: 03/09/20 21:15 Dose: 1 ea Documented by: Rabeprazole 20mg ~ Non-Formulary Patient's Own Med 1 ea PO BID [facility] Stop: 03/25/20 20:59 Last Admin: 03/10/20 08:34 Dose: 1 ea Documented by: Ondansetron HCl (Ondansetron 8mg Od Tab) 8 mg PO Q6H PRN PRN Reason: Nausea Stop: 03/30/20 13:50 Last Admin: 03/01/20 00:57 Dose: 8 mg Documented by: Polyethylene Glycol (Polyethylene (Miralax) 17 Gm Pack) 17 gm PO DAILY [facility] Stop: 03/28/20 13:44 Last Admin: 03/10/20 09:22 Dose: Not Given Documented by: Psyllium Hydrophilic Mucilloid (Psyllium 58.6% Powder Packet) 1 pkt PO QAM [facility] Stop: 03/25/20 18:44 Last Admin: 03/10/20 09:22 Dose: Not Given Documented by: Quetiapine Fumarate (Quetiapine Fumarate 25 Mg Tablet) 12.5 mg PO Q6 PRN PRN Reason: Anxiety Stop: 03/27/20 11:59 Last Admin: 03/02/20 14:26 Dose: 12.5 mg Documented by: Quetiapine Fumarate (Quetiapine Fumarate 100 Mg Tablet) 100 mg PO HS [facility] Stop: 04/02/20 21:59 Last Admin: 03/09/20 21:16 Dose: 100 mg Documented by: Quetiapine Fumarate (Quetiapine Fumarate 25 Mg Tablet) 50 mg PO HS OL[facility] Stop: 04/02/20 21:59 Last Admin: 03/09/20 21:17 Dose: 50 mg Documented by: Sodium Chloride (Sodium Chloride 0.65% Na Soln 45 Ml ([place])) 1 - 2 sprays NA PRN PRN PRN Reason: Nasal Dryness/Congestion Stop: 03/25/20 13:32 Trazodone HCl (Trazodone Hcl 50 Mg Tab) 50 mg PO HS PRN PRN Reason: Sleep Stop: 04/01/20 21:59 Last Admin: 03/09/20 21:49 Dose: 50 mg Documented by: Venlafaxine HCl (Venlafaxine Hcl Xr 150 Mg Capxr) 150 mg PO QAM [facility] Stop: 04/06/20 08:59 Last Admin: 03/10/20 09:10 Dose: 150 mg Documented by: Venlafaxine HCl (Venlafaxine Hcl Xr 37.5 Mg Capxr) 37.5 mg PO QAM [facility] Stop: 04/06/20 08:59 Last Admin: 03/10/20 09:10 Dose: 37.5 mg Documented by: Vitamin B Complex (Vitamin B Complex Tab) 1 tab PO QAM [facility] Stop: 03/26/20 08:59 Last Admin: 03/10/20 09:29 Dose: 1 tab Documented by: Vitamin D (Cholecalciferol 1,000 Units 25 Mcg Tab) 1,000 units PO DAILY [facility] Stop: 03/27/20 08:59 Last Admin: 03/10/20 09:29 Dose: 1,000 units Documented by: Mental Health & Subst Abuse Tx Psychiatrist Name of Psychiatrist: Dr. Siobhan ShepherdEstefania Psychiatrist's Psychiatric Appointment Comment: [phone] [place] [id number] Therapist Name of Therapist: [facility] [place] Therapist's / [phone] Date of Therapist Appointment: 03/12/20 Time of Therapist Appointment: 10:00 a.m. Therapy Appointment Comment: Family session with you and your mother Helpdesk Specialist Name of Helpdesk Specialist: [facility] - [place]fina Phone Number for Helpdesk Specialist: [phone] Date of Appointment with Helpdesk Specialist: 03/13/20 Time of Appointment with Helpdesk Specialist: 1:00 p.m. Case Management Appointment Comment: Josefina will call you to discuss schooling Post Discharge Appointments Primary Care Physician Name Of Family Doctor: BERRY [facility] Time of Appointment with PCP: Follow up as needed Provider Appointment Comment: [facility] Contact Information Discharge Discharge Address: [address], [address], [place] [address]
[2020-03-10] MEDS: ETHINYL ESTRADIOL PO SCH (21:01)
[2020-03-10] MEDS: LEVONORGESTREL PO SCH (21:01)
[2020-03-10] MEDS: ADVANCED PROBIOTIC 1250 MG CAPSULE PO SCH (21:03)
[2020-03-10] MEDS: QUEtiapine FUMARATE 25 MG TABLET PO SCH (21:04)
[2020-03-10] MEDS: QUEtiapine FUMARATE 100 MG TABLET PO SCH (21:04)
[2020-03-10] MEDS: traZODone HCL 50 MG TAB PO PRN (21:08)
[2020-03-11] MEDS: RABEPRAZOLE 20 MG PO SCH (08:52)
[2020-03-11] MEDS: DICYCLOMINE HCL 10 MG CAP PO SCH ×2 (08:52→11:25)
[2020-03-11] MEDS: busPIRone 5 MG TAB PO SCH (09:10)
[2020-03-11] MEDS: VENLAFAXINE HCL XR 37.5 MG CAPXR PO SCH (09:10)
[2020-03-11] MEDS: LITHIUM CARBONATE 450 MG TABCR PO SCH (09:10)
[2020-03-11] MEDS: POLYETHYLENE (MIRALAX) 17 GM PACK PO SCH (09:11)
[2020-03-11] MEDS: PSYLLIUM 58.6% POWDER PACKET PO SCH (09:11)
[2020-03-11] MEDS: hydrOXYzine HCl 10 MG TAB PO SCH (09:11)
[2020-03-11] MEDS: CALCIUM CARBONATE 1250MG TAB PO SCH (09:11)
[2020-03-11] MEDS: HYDROCORTISONE 2.5% CR 30 GM TUBE EXT SCH (09:11)
[2020-03-11] MEDS: CHOLECALCIFEROL 1,000 UNITS 25 MCG TAB PO SCH (09:12)
[2020-03-11] MEDS: VITAMIN B COMPLEX TAB PO SCH (09:12)
[2020-03-11] MEDS: CETIRIZINE HCL 10 MG TABLET PO SCH (09:12)
[2020-03-11] MEDS: VENLAFAXINE HCL XR 150 MG CAPXR PO SCH (09:17)
--- NOTE | 2020-03-11 10:37 | Discharge Summary ---
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 admitting it is difficult to predict when anxiety will occur. Pt was offered to utilize buspirone (which she had previously taken) as a "bridge" to target anxiety until venlafaxine reaches therapeutic levels and maximum efficacy. Risks, benefits, and potential interactions were reviewed. Pt was agreeable with this change - will start 10mg BID. 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 03/09 -Today, the patient reports that she feels that her improvement has been substantial, at least in terms of her depression, although she continues to experience generalized anxiety symptoms. -Today, she tells me that she has found that hydroxyzine 25 mg has been helpful to her, although she sometimes feels that the slightly higher dose may help more, in terms of managing her anxiety. The patient also explains that she often neglects or feels reluctant to ask for a "as needed" medication, and we t alked about the possibility of establishing hydroxyzine 25 or 35 or 37.5 mg twice a day as a standing dose that she can decline if she feels she does not need it. -Patient now says that she feels that she will be able to contract for safety outside of the hospital. She says that she is fully aware that the stressors that contributed to her admission remain, but she now feels better able to face them. She also says that she is pleased with the plan for her brother to stay with her temporarily while she reintegrates into the community. -The patient is tolerating venlafaxine well. We will hold at the current dose of venlafaxine. Further titration may be indicated following discharge. (3) Borderline personality disorder: 02/28 - Attempts made today to review diagnostic features of borderline personality disorder with patient to determine if she identified strongly with the criteria; however, patient reported she was familiar with the criteria as she had been given this diagnosis at [facility]. Pt reports "I don't want the diagnosis." Pt reports she has "complex trauma" but was not able to engage in conversation to discuss that the two are not mutually exclusive. - Attempts were made to work with patient on de-stigmatizing the diagnosis in her own mind, and reassuring the patient that there may be additional/alternative diagnosis that can help us more appropriate address her concerns. - Patient does continue to regularly display characteristics that suggest this pathology - Will continue to provide needed support while also maintaining consistent boundaries - Pt would likely benefit from additional information on the diagnosis as well as DBT approaches 03/01 -Reviewed differential diagnosis with patient, as well as the fact that we will likely not make a definitive diagnosis here, due to the acute nature of treatment here, as well as her unwillingness to allow us access to her previous records or to get collateral information from her family. 03/06 - Continue to focus patient's attention toward development of coping strategies and ways that she can work toward improving her condition. - Pt rather focused today on feeling "triggered" by another patient in the milieu - she was encouraged to consider strategies that would allow her to work toward reducing anxiety and removing herself from overwhelming situations. - Continue to maintain appropriate boundaries while encouraging development of appropriate coping skills (4) Irritable bowel syndrome: 02/23 -Currently, the patient reports that she has been feeling constipated for "some time now," and notes that she often does better with a bulk laxative such as Metamucil. Currently, we have ordered Metamucil daily. Reviewed 02/25/2020. She declines Miralax. States warm tea would aggravate her reflux. 02/25--reports having BM yesterday but guesses not full evacuation, she is declining additional metamucil. 02/26--Miralax as reports ongoing constipation, if ineffective she would prefer enema over laxative. 02/28--reports ongoing, intermittent GI complaints. States she has benefitted f rom Zofran and/or Tums on an outpatient basis. Both were ordered for patient to be able to utilize as needed for GI complaints. 03/02 --the patient reports some improvement in this regard. (5) TSH elevation: 02/25--will repeat TSH in am, likely lithium induced with hair loss, would favor start of synthroid given symptoms. 02/26--repeat TSH normal. Mental Health & Subst Abuse Tx Psychiatrist Name of Psychiatrist: Dr. Siobhan Shepherd-Jay Psychiatrist's Psychiatric Appointment Comment: Left messages - please follow up to schedule Psychiatrist Release of Information: Obtained, Reviewed and Signed Therapist Name of Therapist: [facility]'s / [phone] Date of Therapist Appointment: 03/12/20 Time of Therapist Appointment: 10:00 a.m. Therapy Appointment Comment: Family session with you and your mother Therapist Release of Information: Obtained, Reviewed and Signed It Compliance Manager Name of It Compliance Manager: [facility] - Josefina Phone Number for It Compliance Manager: [phone] Date of Appointment with It Compliance Manager: 03/13/20 Time of Appointment with It Compliance Manager: 1:00 p.m. Case Management Appointment Comment: Josefina will call you to discuss schooling It Compliance Manager Release of Information: Obtained, Reviewed and Signed Post Discharge Appointments Primary Care Physician Name Of Family Doctor: Tiffanie Azar Primary Care Time of Appointment with PCP: Follow up as needed Provider Appointment Comment: [facility] Smoking Cessation Counseling Tobacco Cessation Medication Prescribed at Discharge: Not Applicable/Non-Smoker Other #1: Name of Aftercare Appointment: [facility] Phone Number of Aftercare Appointment: [phone] Aftercare Appointment Comment: Will call you to set up appt with assigned case managers Release of Information Aftercare Appointment: Obtained, Reviewed and Signed #2: Name of Aftercare Appointment: [facility] - Virtual IOP Phone Number of Aftercare Appointment: [phone] Aftercare Appointment Comment: Referral faxed - please follow up to romulo avila intake date Release of Information Aftercare Appointment: Obtained, Reviewed and Signed Contact Information Discharge Discharge Address: [address] [place] [address], [address] [facility], [place] [address] Discharge Plan Discharge Items Patient Disposition: Home - Self-Care Reason For Visit: BIPOLAR DISORDER Discharge Diagnosis: same Activity: Resume your previous activity Non-emergency contact: Primary Care Provider, Psychiatrist and Therapist Call non-emergency contact if: you have any medication questions and your symptoms worsen Follow-up/Referrals: Ashely Azar [Primary Care Provider] - Dietitian Info: previous FODMAP Diet: Other - See Diet Comment Addtl Attending Provider Instructions: SPECIAL CARE INSTRUCTIONS: 1. Follow through with your scheduled aftercare appointments. If unable to keep an appointment, please call to reschedule. 2. Take your medication only as prescribed. Medication should not be changed or stopped without the approval of your doctor. In the event of worsening symptoms or concerns about side effects, contact your doctor immediately. 3. Utilize new healthy coping skills, anger management skills, and stress management skills learned during your hospitalization. Journal feelings and process them with a support person. Identify stressors or situations that may result in relapse, deterioration or inappropriate behaviors and develop a plan to deal with those issues. 4. If your coping skills are ineffective and you are in crisis, contact your outpatient providers for direction. If unable to reach your providers, please call the [facility] CRISIS LINE AT , go to the [facility] walk-in center at [address], [address], [place], or go to the closest Emergency Room. 5. Avoid alcohol and un-prescribed drugs. 6. You have been provided with the Mental Health Advance Directives Pamphlet for your review. AFTERCARE APPOINTMENTS: * Please call your insurance company prior to your scheduled appointment to confirm your aftercare providers are covered. Take your insurance information to your appointments. WHO TO CALL AND WHEN: Medical Emergencies: For questions or emergencies related to your hospital stay, please contact the Inpatient Behavioral Health Unit at [phone]. A eap clinician is on-call 15/12 for the Behavioral Health Unit for emergencies At any time you feel your situation is an emergency, you may also call 911 immediately. Pending Studies at Discharge: No Stand-Alone Forms: [facility] [employer], Smoking Cessation, Suicide Prevention Resources Medications and DC Order Prescriptions: New trazodone 50 mg Tablet 50 mg PO HS PRN (Reason: Insomnia) 1 Days RF: 0 polyethylene glycol 3350 [Miralax] 17 gram Powder In Packet 17 g PO DAILY PRN (Reason: Constipation) 1 Days RF: 0 Metamucil (with sugar) 3.4 gram Powder In Packet 1 pkg PO QAM PRN (Reason: Constipation) 1 Days RF: 0 buspirone 10 mg tablet 10 mg PO BID Qty: 60 RF: 0 venlafaxine [Effexor XR] 150 mg capsule,extended release 24hr 150 mg PO DAILY Qty: 30 RF: 0 venlafaxine [Effexor XR] 37.5 mg capsule,extended release 24hr 37.5 mg PO DAILY 30 Days Qty: 30 RF: 0 quetiapine [Seroquel] 100 mg tablet 150 mg PO DAILY Qty: 45 RF: 0 clonazepam [Klonopin] 0.5 mg tablet 0.5 mg PO DAILY PRN (Reason: procedure) Qty: 5 RF: 0 hydroxyzine HCl 10 mg tablet 10 mg PO BID Qty: 60 RF: 0 hydroxyzine HCl 25 mg tablet 25 mg PO BID Qty: 60 RF: 0 Continued rabeprazole [AcipHex] 20 mg tablet,delayed release (DR/EC) 20 mg PO BIDWMEAL RF: 0 lithium carbonate 450 mg tablet extended release 450 mg PO BID RF: 0 calcium carbonate [Calcium 500] 500 mg calcium (1,250 mg) tablet 500 mg PO DAILY RF: 0 cetirizine [Zyrtec] 10 mg Tablet 10 mg PO HS RF: 0 vitamin B complex Tablet 1 tab PO QAM RF: 0 Culturelle 10 billion cell Capsule 1 cap PO HS RF: 0 dicyclomine 10 mg capsule 10 mg PO TIDWMEAL RF: 0 levalbuterol tartrate 45 mcg/actuation HFA aerosol inhaler 2 inh inhalation Q4H PRN (Reason: Shortness Of Breath Or Wheezing) RF: 0 cholecalciferol (vitamin D3) [Vitamin D3] 1,000 unit Tablet 0 unit PO Q2D RF: 0 L norgest/e.estradiol-e.estrad [Camrese Lo] 0.10 mg-20 mcg (84)/10 mcg (7) tablets,dose pack,3 month 1 tab PO HS RF: 0 Discontinued quetiapine 25 mg PO HS RF: 0 gabapentin 300 mg Tablet 300 mg PO BID RF: 0 fluoxetine 20 mg PO DAILY RF: 0 Discharge Orders: Discharge Order (Routine); Ordered 03/11/20 Ordered By: Chaparrita Easley Admission Data Admit Date/Time: 02/24/20 13:33 Attending Provider: Nunu Mistry Admit Provider: Sly Carranza Primary Care Provider: Ashely Azar Other Interventions: Discharge Summary Assessment (RN) Last Done: 03/11/20 11:37 PSY Interdisciplinary Discharge Planning Last Done: 03/11/20 11:37 Coding Level of Care Code 75313 D/C day mgmt > 30 min Diagnoses Suicidal ideation R45.851 Anxiety and depression F41.9; F32.9 Borderline personality disorder F60.3 Irritable bowel syndrome K58.9 TSH elevation R79.89
[2020-03-11] MEDS ORDERED: DESTROY THIS MEDICATION ONE (10:38)
[2020-03-11] MEDS ORDERED: busPIRone 15 MG TAB PO SCH (21:00)
== END 2020-03-11 13:20 | disposition home or self-care (01) | DRG 881 ==
LOC: ED 09:16 → SUATTDRO 13:33 → 3S 13:33

== ENCOUNTER 2020-05-06 14:14 | Inpatient (IN) ==
[2020-05-06] MEDS ORDERED: SODIUM CHLORIDE 0.9% 1000ML 1,000 ML IV STA (15:11)
[2020-05-06] MEDS ORDERED: SODIUM CHLORIDE 0.9% 1000ML 1,000 ML IV SCH (15:15)
[2020-05-06 16:12] LABS: Appearance Urine Clear (Clear); Bacteria Urine Automated 1+ (Negative); Bilirubin Urine Negative (Negative); Blood Urine Negative (Negative); Color Urine Yellow; Epithelial Cell Urine Auto >30 /lpf (0-5); Glucose Urine UA Negative (Negative); Ketones Urine Negative (Negative); Leukocyte Esterase Urine 2+ (Negative); Nitrite Urine Negative (Negative); Protein Urine Negative (Negative); RBC Urine Automated 0-4 /hpf (0-4); Specific Gravity Urine 1.019 (1.000-1.030); Urobilinogen Urine Negative (Negative)
[2020-05-06 16:30] LABS: Amphetamines+Metham, Urine Neg (Neg); Barbiturates, Urine Neg (Neg); Benzodiazepine, Urine Pos (Neg); Cocaine, Urine Neg (Neg); MDMA (Ecstacy), Urine Neg (Neg); Methadone, Urine Neg (Neg); Opiate, Urine Neg (Neg); Phencyclidine, Urine Neg (Neg)
[2020-05-06 17:12] LABS: Basophils # (auto) 0.02 K/uL (0-0.2); Basophils % (auto) 0.2 %; Eosinophils # (auto) 0.09 K/uL (0-0.5); Eosinophils % (auto) 0.8 %; Hematocrit (blood only) 43.2 % (37-47); Hemoglobin 14.6 g/dL (12.0-16.0); Immature Granulocytes # (auto) 0.03 K/uL (0.00-0.02); Immature Granulocytes % (auto) 0.3 %; Lymphocytes # (auto) 2.58 K/uL (1.2-3.4); Lymphocytes % (auto) 23.8 %; Mean Corpuscular Hemoglobin 29.8 pg (25-34); Mean Corpuscular Hgb Conc 33.8 g/dL (32-36); Mean Corpuscular Volume 88.2 fL (80-100); Mean Platelet Volume 12.1 fL (7.4-10.4); Monocytes % (auto) 3.7 %; Neutrophils # (auto) 7.74 K/uL (1.4-6.5); Neutrophils % (auto) 71.2 %; Platelet Count 272 K/uL (130-400); RDW Coefficient of Variation 13.4 % (11.5-14.5); RDW Standard Deviation 43.3 fL (36.4-46.3); White Blood Count 10.86 K/uL (4.8-10.8)
[2020-05-06 17:26] LABS: Alanine Aminotransferase 35 U/L (12-78); Albumin Level 3.6 gm/dl (3.4-5.0); Aspartate Aminotransferase 26 U/L (15-37); BUN Creatinine Ratio 14.6 (10-20); Blood Urea Nitrogen 15 mg/dl (7-18); Calcium 9.4 mg/dl (8.5-10.1); Carbon Dioxide 24 mmol/L (21-32); Chloride 107 mmol/L (98-107); Creatinine Clr Calc Pharmacy 78.4 ml/min; Est GFR (African American) 81.4; Est GFR (Non-African American) 70.2; Glucose 89 mg/dl (70-99); Magnesium 2.2 mg/dl (1.8-2.4); Potassium 3.7 mmol/L (3.5-5.1); Sodium 139 mmol/L (136-145)
[2020-05-06 17:29] LABS: Pregnancy Test, Serum Negative (Negative)
[2020-05-06 17:31] LABS: Albumin Globulin Ratio 0.8 (0.9-2); Alkaline Phosphatase 64 U/L (45-117); Bilirubin,Total 0.6 mg/dl (0.2-1); Creatine Kinase 248 U/L (26-192); Globulin 4.6 gm/dl (2.5-4.0); Total Protein 8.2 gm/dl (6.4-8.2); Troponin I < 0.015 ng/ml (0-0.045)
[2020-05-06 17:36] LABS: Acetaminophen < 2 ug/ml (10-30)
[2020-05-06 17:37] LABS: Salicylate < 1.7 mg/dl (2.8-20)
--- NOTE | 2020-05-06 20:08 | History & Physical Report ---
Date of Service May 06, 2020 Assessment & Plan (1) Intentional overdose of drug in tablet form: 25 tablets Clonazepam and 5 tablets Seroquel although unclear exact amounts or when she took these she is currently alert and orientated and normal QT. Continued suicidal ideation. EKG in AM to monitor QTc Consult psychiatry (2) Anxiety and depression: Hold all medications given current overdose. (3) GERD (gastroesophageal reflux disease): Continue rabeprazole (4) Endometriosis: Continue her usual control (5) IBS (irritable bowel syndrome): Admission and Anticipated Discharge Date Admission Date: 05/06/2020 History of Present Illness Chief Complaint: Intentional overdose, suicidal ideation Primary Care Provider: Ashely Madeleine Azar Maricarmen Armenta is a 30-year-old female who presents to the ER with intentional prescription drug overdose with suicidal ideation. She is unsure on the details but thinks she took 25 clonazepam either last night or 2 nights ago. Took x5 seroquel this morning with the intention of killing herself. She reports not telling anyone she was doing this. She reports recent increased depression due to her current grades which she realizes is out of proportion reaction but still having suicidal ideation. She is currently awake and alert. She was referred to medicine for admission and ongoing management of intentional overdose. Allergies Allergy/AdvReac Type Severity Reaction Status Date / Time Sulfa (Sulfonamide Allergy Severe DIFFICULTY Verified 05/06/20 21:25 Antibiotics) BREATHING cat dander Allergy Intermediate ITCHY EYES Verified 05/06/20 21:25 & THROAT, SNEEZING, CONGESTION dog dander Allergy Intermediate ITCHY EYES Verified 05/06/20 21:25 & THROAT, SNEEZING, CONGESTION gluten Allergy Intermediate Gastrointestinal Verified 05/06/20 21:25 Upset house dust Allergy Intermediate ITCHY EYES Verified 05/06/20 21:25 & THROAT, SNEEZING, CONGESTION lactose Allergy Intermediate Gastrointestinal Verified 05/06/20 21:25 Upset pollen extracts Allergy Intermediate ITCHY EYES Verified 05/06/20 21:25 & THROAT, SNEEZING, CONGESTION garlic AdvReac Intermediate Gastrointestinal Verified 05/06/20 21:25 Upset caffeine AdvReac Unknown ACID REFLUX Verified 05/06/20 21:25 chocolate flavor AdvReac Unknown ACID REFLUX Verified 05/06/20 21:25 cinnamon AdvReac Unknown ACID REFLUX Verified 05/06/20 21:25 Bibb And Derivatives AdvReac Unknown ACID REFLUX Verified 05/06/20 21:25 mint AdvReac Unknown ACID REFLUX Verified 05/06/20 21:25 onion AdvReac Unknown ACID REFLUX Verified 05/06/20 21:25 orange juice AdvReac Unknown ACID REFLUX Verified 05/06/20 21:25 paprika AdvReac Unknown ACID REFLUX Verified 05/06/20 21:25 pepper (genus Capsicum) AdvReac Unknown ACID REFLUX Verified 05/06/20 21:25 tomato AdvReac Unknown ACID REFLUX Verified 05/06/20 21:25 Home Medications Medication Instructions Recorded Confirmed Type L norgest/e.estradiol-e.estrad 1 tab PO HS 12/06/18 05/06/20 History [Camrese Lo] cetirizine [Zyrtec] 10 mg PO HS 12/06/18 05/06/20 History cholecalciferol (vitamin D3) 1,000 unit PO QAM 12/06/18 05/06/20 History [Vitamin D3] dicyclomine 10 mg PO TIDM 12/06/18 05/06/20 History vitamin B complex 1 tab PO QAM 12/06/18 05/06/20 History rabeprazole 20 mg tablet,delayed 20 mg PO AC 05/11/19 05/06/20 History release lithium carbonate 450 mg 450 mg PO BID 10/24/19 05/06/20 History tablet,extended release Lactobacillus acidophilus 10,000 mmu cells PO QAM 05/06/20 05/06/20 History [Probiotic] buspirone 15 mg PO BID 05/06/20 05/06/20 History calcium citrate [Citracal] 400 mg PO QAM 05/06/20 05/06/20 History clonazepam [Klonopin] 0.5 mg PO DIRECTED PRN 05/06/20 05/06/20 History hydroxyzine HCl 50 mg PO BID 05/06/20 05/06/20 History quetiapine [Seroquel] 300 mg PO HS 05/06/20 05/06/20 History venlafaxine 150 mg PO QAM 05/06/20 05/06/20 History venlafaxine [Effexor XR] 37.5 mg PO QAM 05/06/20 05/06/20 History Past Med/Surg History Medical History Anxiety and depression Endometriosis IBS (irritable bowel syndrome) Left breast mass Normal endoscopy Suicidal ideation UTI (urinary tract infection) Surgical History H/O colonoscopy H/O laparoscopy History of esophagogastroduodenoscopy (EGD) [place] teeth extracted Family History Family/Other Asthma Hay fever Arthritis Stroke Diabetes Cancer Brother Automobile accident Grandmother (Paternal) Breast cancer Grandfather (Maternal) Colorectal cancer Diabetes Stroke Grandfather Stroke Social History Smoking Status: Never smoker Hx Alcohol Use: No Hx Substance Use: Yes Last Used Substance: Days (ago) Preferred Language: Latvian Communication Ability: Effective Manager Retirement Required: No Beliefs That Will Affect Care: None marital status: Single Current Living Situation: Alone current occupational status: student Other Information That Helps Us Care for You: No Feels Safe at Home: Yes Safety Concerns: Feels Safe At This Time Assistive Devices: None Assistive Devices Comment: Patient states she lost her glasses "a while back" Review of Systems Review of Systems: All systems reviewed & are unremarkable except as noted in HPI & below Gastrointestinal: + abdominal pain (chronic) Physical Exam Constitutional: WD/WN, vitals as above Eyes: + anicteric sclerae; normal pupil size ENMT: external ear and nose normal, oropharynx normal Respiratory: normal respiratory effort, lungs clear to auscultation Cardiovascular: Rate/Rhythm: regular rhythm and + tachycardic Heart Sounds: no murmur Gastrointestinal (Abdomen): Inspection/Auscultation: normal bowel sounds Percussion/Palpation: + abdomen tender (generalized) and abdomen soft; no guarding and abdomen not rigid Musculoskeletal: no cyanosis or clubbing, extremities motor strength 5/5 Skin: no rashes, warm and dry Neurologic: moves all extremities and awake; not confused Psychiatric: A+Ox3, euthymic affect Thought Process: linear/logical thought process Suicidal Thoughts: + reports suicidal thoughts Hallucinations: no auditory hallucinations and no visual hallucinations Cognition: recent memory grossly intact Estimated Intelligence: + above average estimated intelligence Insight: + limited insight Judgement: + limited judgement Results & Data Results & Data ([facility]) Vital Signs (Past 12 Hours) Vital Signs Temp Pulse Pulse Resp BP BP Pulse Ox 05/06/20 19:23 89 20 133/87 98 05/06/20 18:30 86 16 121/87 99 05/06/20 18:00 85 18 127/91 98 05/06/20 17:00 75 16 119/92 100 05/06/20 16:30 81 16 125/80 98 05/06/20 16:01 97 05/06/20 16:00 76 16 107/77 96 05/06/20 15:51 75 16 124/81 100 05/06/20 14:30 37.3 C 100 H 14 90/60 L 99 Code Status & VTE Plan Code Status Full VTE Prophylaxis Plan VTE Prophylaxis will be ordered: No PG Care Time/CCT Total # of Minutes Spent Total Time Spent with Patient: Total time spent is greater than 50% in coordination of care (as documented) at patient's floor/unit and/or counseling patient: Coding Level of Care Code 01469 Initial Inpt Care Lvl 2 Diagnoses Intentional overdose of drug in tablet form T50.902A Anxiety and depression F41.9; F32.9 GERD (gastroesophageal reflux disease) K21.9 Endometriosis N80.9 IBS (irritable bowel syndrome) K58.9
[2020-05-06] MEDS ORDERED: NSS + 20MEQ KCL 20 MEQ/1,000 ML BAG IV SCH (22:00)
[2020-05-06] MEDS ORDERED: INFLUENZA VIRUS QUAD VACCINE 0.5 ML SYR IM ONE (22:35)
[2020-05-06] MEDS ORDERED: INFLUENZA ADMINISTRATION CHARGE ONE (22:35)
[2020-05-06] MEDS ORDERED: PANTOprazole 40 MG TAB PO SCH (23:00)
[2020-05-07] MEDS ORDERED: CALCIUM CARBONATE 500 MG CHEWABLE TAB PO PRN (00:16)
--- NOTE | 2020-05-07 00:31 | Emergency Department Note ---
Impression & Plan Suicidal ideation, Intentional overdose of drug in tablet form, Mood disorder ED Provider Note INFORMANT: Patient ED PROVIDER(S): Bertin Barba MD CHIEF COMPLAINT: Suicidal ideation PLAN: Disposition: Admitted Condition: Good MEDICAL DECISION MAKING: Patient presented with a benzodiazepine and Seroquel overdose. She was cooperative. She was voluntary for admission and requesting help due to her suicidality. The patient was sleepy however. Her blood pressures were low and her heart rate was borderline. This is concerning given her combination of the benzodiazepine and Seroquel. She was hydrated with normal saline. Blood work was obtained and revealed an unremarkable CBC and chemistry panel. Tox screen was negative. Her ECG showed a normal sinus rhythm with normal intervals. The patient was monitored. She gradually improved. Given the ingestion and low blood pressure further medical monitoring is warranted and once she is cleared a psychiatric consultation will be necessary. A consult was placed with internal medicine, Dr. Garcia. The patient was admitted for further management and consultation. Triage Nursing notes reviewed and agree them. Vital Signs: reviewed and remarkable for hypotension and tachycardia Differential diagnosis: Overdose, toxicologic, infection, hypoglycemia, electrolyte abnormalities, ca rdiac sources, intracerebral event, neurologic, trauma, as well as other pathologies. Diagnostics interpreted by me: ECG: Twelve-lead ECG reveals normal sinus rhythm at [address] elevation or depression. No PACs or PVCs. Normal QTC and QRS. Cardiac Monitoring: Cardiac monitoring ordered by me: The patient was placed on continuous cardiac monitoring and observed. It revealed a sinus tachycardia at 105 beats per minute without ectopy or evidence of dysrhythmia. Imaging studies: Deferred Consultation(s): [facility] HPI: The patient is a 30 year old female who presents to the Emergency Room with complaints of intentional drug overdose. This started last night with taking benzodiazepines and then taking a mouthful of Seroquel prior to arrival. The patient states that she was trying to harm her self. The patient also notes the following associated symptoms, feeling mildly nauseated and sleepy. The patient has taken no medication for relieving factors. Current pain is rated as 0/10. Patient has a history of mental health admission. Denies any recent medical illnesses. Pt denies LOC, headache, fevers, chills, diaphoresis, visual changes, neck pain, chest pain, breathing difficulties, nausea, vomiting, abdominal pain, back pain, melena, hematochezia, urinary symptoms, numbness, weakness, lymphadenopathy, rash, or other complaints. ROS: See above HPI for pertinent positives & negatives. A total of 10 systems reviewed and were otherwise negative. PAST MEDICAL HISTORY:See Below, IBS PAST SURGICAL HISTORY:See Below, FAMILY HISTORY:See Below SOCIAL HISTORY:See Below, non-smoker HOME MEDICATIONS:See Below ALLERGIES:See Below VITALS:See Below PHYSICAL EXAMINATION: GENERAL: Awake, very tired-appearing, in no distress HENT: Normocephalic, atraumatic. Oropharynx unremarkable. EYES: Normal conjunctiva. Sclera non-icteric. NECK: Inspection normal. Non-tender. Supple. No nuchal rigidity. FROM. No masses. RESPIRATORY: Clear to auscultation. No wheezes. No rales. Normal respiratory effort. CARDIAC: Normal rate. Normal rhythm. No murmurs. No rubs. Extremities warm and well perfused. Pulses equal. No JVD. GI: Soft, non-distended. No tenderness to palpation. No rebound or guarding. No masses. RECTAL: Deferred. MUSCULOSKELETAL: Atraumatic. Chest examination reveals no tenderness. The back is symmetrical on inspection without obvious abnormality. There is no CVA tenderness to palpation. No joint edema. LOWER EXTREMITIES: Calves are equal size bilaterally and non-tender. No edema. No discoloration. NEURO: Speech mildly slurred. Mildly altered sensorium. No sensory or motor deficits noted. SKIN: No rash or jaundice noted. Bertin Barba MD Past Med/Surg History Medical History (Updated 05/07/20 @ 00:27 by Bertin Barba MD) Anxiety and depression Endometriosis IBS (irritable bowel syndrome) Left breast mass Normal endoscopy Suicidal ideation UTI (urinary tract infection) Surgical History H/O colonoscopy H/O laparoscopy History of esophagogastroduodenoscopy (EGD) [place] teeth extracted Family History Family/Other Asthma Hay fever Arthritis Stroke Diabetes Cancer Brother Automobile accident Grandmother (Paternal) Breast cancer Grandfather (Maternal) Colorectal cancer Diabetes Stroke Grandfather Stroke Social History Smoking Status: Never smoker Hx Alcohol Use: No Hx Substance Use: Yes Last Used Substance: Days (ago) Preferred Language: [place] Communication Ability: Effective Cistern Room Operator Required: No Beliefs That Will Affect Care: None marital status: Single Current Living Situation: Alone current occupational status: student Other Information That Helps Us Care for You: No Feels Safe at Home: Yes Safety Concerns: Feels Safe At This Time Assistive Devices: Glasses Assistive Devices Comment: Patient states she lost her glasses "a while back" Allergies Allergies Allergy/AdvReac Type Severity Reaction Status Date / Time Sulfa (Sulfonamide Allergy Severe DIFFICULTY Verified 05/06/20 21:25 Antibiotics) BREATHING cat dander Allergy Intermediate ITCHY EYES Verified 05/06/20 21:25 & THROAT, SNEEZING, CONGESTION dog dander Allergy Intermediate ITCHY EYES Verified 05/06/20 21:25 & THROAT, SNEEZING, CONGESTION gluten Allergy Intermediate Gastrointestinal Verified 05/06/20 21:25 Upset house dust Allergy Intermediate ITCHY EYES Verified 05/06/20 21:25 & THROAT, SNEEZING, CONGESTION lactose Allergy Intermediate Gastrointestinal Verified 05/06/20 21:25 Upset pollen extracts Allergy Intermediate ITCHY EYES Verified 05/06/20 21:25 & THROAT, SNEEZING, CONGESTION garlic AdvReac Intermediate Gastrointestinal Verified 05/06/20 21:25 Upset caffeine AdvReac Unknown ACID REFLUX Verified 05/06/20 21:25 chocolate flavor AdvReac Unknown ACID REFLUX Verified 05/06/20 21:25 cinnamon AdvReac Unknown ACID REFLUX Verified 05/06/20 21:25 Onyx And Derivatives AdvReac Unknown ACID REFLUX Verified 05/06/20 21:25 mint AdvReac Unknown ACID REFLUX Verified 05/06/20 21:25 onion AdvReac Unknown ACID REFLUX Verified 05/06/20 21:25 orange juice AdvReac Unknown ACID REFLUX Verified 05/06/20 21:25 paprika AdvReac Unknown ACID REFLUX Verified 05/06/20 21:25 pepper (genus Capsicum) AdvReac Unknown ACID REFLUX Verified 05/06/20 21:25 tomato AdvReac Unknown ACID REFLUX Verified 05/06/20 21:25 Home Meds Home Medications Medication Instructions Recorded Confirmed L norgest/e.estradiol-e.estrad 1 tab PO HS 12/06/18 05/06/20 [Camrese Lo] cetirizine [Zyrtec] 10 mg PO HS 12/06/18 05/06/20 cholecalciferol (vitamin D3) 1,000 unit PO QAM 12/06/18 05/06/20 [Vitamin D3] dicyclomine 10 mg PO TIDM 12/06/18 05/06/20 vitamin B complex 1 tab PO QAM 12/06/18 05/06/20 rabeprazole 20 mg tablet,delayed 20 mg PO AC 05/11/19 05/06/20 release lithium carbonate 450 mg 450 mg PO BID 10/24/19 05/06/20 tablet,extended release Lactobacillus acidophilus 10,000 mmu cells PO QAM 05/06/20 05/06/20 [Probiotic] buspirone 15 mg PO BID 05/06/20 05/06/20 calcium citrate [Citracal] 400 mg PO QAM 05/06/20 05/06/20 clonazepam [Klonopin] 0.5 mg PO DIRECTED PRN 05/06/20 05/06/20 hydroxyzine HCl 50 mg PO BID 05/06/20 05/06/20 quetiapine [Seroquel] 300 mg PO HS 05/06/20 05/06/20 venlafaxine 150 mg PO QAM 05/06/20 05/06/20 venlafaxine [Effexor XR] 37.5 mg PO QAM 05/06/20 05/06/20 Results & Data (ED) Vital Signs Vital Signs - 24 hr 05/06/20 14:30 05/06/20 15:51 05/06/20 16:00 Temperature 37.3 C Temperature Source Oral Pulse Rate 100 H 75 76 Pulse Rate from SpO2 Sensor 75 77 Respiratory Rate 14 16 16 Respiratory Effort / Characteristics Non-Labored Respiratory Depth Normal Respiratory Pattern Regular Blood Pressure 90/60 L 124/81 107/77 Blood Pressure Mean 70 103 84 Pulse Oximetry 99 100 96 Oxygen Delivery Method Room Air Sepsis Recent Fever Within 48 Hours No Sepsis New/Unexplained Change in Mental Status No Sepsis Action Taken by Nursing No Action Required 05/06/20 16:01 05/06/20 16:30 05/06/20 17:00 Temperature Temperature Source Pulse Rate 81 75 Pulse Rate from SpO2 Sensor 82 76 Respiratory Rate 16 16 Respiratory Effort / Characteristics Respiratory Depth Respiratory Pattern Blood Pressure 125/80 119/92 Blood Pressure Mean 86 106 Pulse Oximetry 97 98 100 Oxygen Delivery Method Room Air Sepsis Recent Fever Within 48 Hours Sepsis New/Unexplained Change in Mental Status Sepsis Action Taken by Nursing 05/06/20 18:00 Temperature Temperature Source Pulse Rate 85 Pulse Rate from SpO2 Sensor 83 Respiratory Rate 18 Respiratory Effort / Characteristics Respiratory Depth Respiratory Pattern Blood Pressure 127/91 Blood Pressure Mean 96 Pulse Oximetry 98 Oxygen Delivery Method Sepsis Recent Fever Within 48 Hours Sepsis New/Unexplained Change in Mental Status Sepsis Action Taken by Nursing Laboratory Data Result diagrams: 05/06/20 16:49 05/06/20 16:49 Lab Results 05/06/20 05/06/20 05/06/20 Range/Units 14:58 14:58 16:29 WBC (4.8-10.8) K/uL RBC (4.2-5.4) M/uL Hgb (12.0-16.0) g/dL Hct (37-47) % MCV (80-100) fL MCH (25-34) pg MCHC (32-36) g/dL RDW Std Deviation (36.4-46.3) fL RDW Coeff of Dwight (11.5-14.5) % Plt Count (130-400) K/uL MPV (7.4-10.4) fL Immature Gran % (Auto) % Neut % (Auto) % Lymph % (Auto) % [place] % (Auto) % Eos % (Auto) % Baso % (Auto) % Neut # (Auto) (1.4-6.5) K/uL Lymph # (Auto) (1.2-3.4) K/uL [place] # (Auto) (0.11-0.59) K/uL Eos # (Auto) (0-0.5) K/uL Baso # (Auto) (0-0.2) K/uL Immature Gran # (Auto) (0.00-0.02) K/uL Sodium (136-145) mmol/L Potassium (3.5-5.1) mmol/L Chloride (98-107) mmol/L Carbon Dioxide (21-32) mmol/L Anion Gap (3-11) BUN (7-18) mg/dl Creatinine (0.6-1.2) mg/dl Est Cr Clr Drug Dosing ml/min Est GFR ( Amer) Est GFR (Non-Af Amer) BUN/Creatinine Ratio (10-20) Glucose (70-99) mg/dl Calcium (8.5-10.1) mg/dl Magnesium (1.8-2.4) mg/dl Total Bilirubin (0.2-1) mg/dl AST (15-37) U/L ALT (12-78) U/L Alkaline Phosphatase (45-117) U/L Total Creatine Kinase (26-192) U/L Troponin I (0-0.045) ng/ml Total Protein (6.4-8.2) gm/dl Albumin (3.4-5.0) gm/dl Globulin (2.5-4.0) gm/dl Albumin/Globulin Ratio (0.9-2) HCG, Qual (Negative) Urine Color Yellow Urine Appearance Clear (Clear) Urine pH 7.0 (4.5-7.5) Ur Specific Sandwich 1.019 (1.000-1.030) Urine Protein Negative (Negative) Urine Glucose (UA) Negative (Negative) Urine Ketones Negative (Negative) Urine Blood Negative (Negative) Urine Nitrite Negative (Negative) Urine Bilirubin Negative (Negative) Urine Urobilinogen Negative (Negative) Ur Leukocyte Esterase 2+ H (Negative) Urine WBC (Auto) 10-30 H (0-5) /hpf Urine RBC (Auto) 0-4 (0-4) /hpf U Hyaline Cast (Auto) 1-5 (0-5) /lpf U Epithel Cells (Auto) >30 H (0-5) /lpf Urine Bacteria (Auto) 1+ H (Negative) Salicylates (2.8-20) mg/dl Urine Opiates Screen Neg (Neg) Ur Methadone, Qual Neg (Neg) Acetaminophen (10-30) ug/ml Urine Barbiturates Neg (Neg) Ur Phencyclidine (PCP) Neg (Neg) U Amphetamin/Meth Scrn Neg (Neg) MDMA (Ecstasy) Screen Neg (Neg) U Benzodiazepines Scrn Pos H (Neg) Ur Cocaine Metabolite Neg (Neg) U Marijuana (THC) Screen Neg (Neg) Ethyl Alcohol mg/dL (0-3) mg/dl SARS-CoV-2 Ag (Rapid) Negative (Negative) 05/06/20 05/06/2005/06/20 Range/Units 16:49 16:49 16:49 WBC 10.86 H (4.8-10.8) K/uL RBC 4.90 (4.2-5.4) M/uL Hgb 14.6 (12.0-16.0) g/dL Hct 43.2 (37-47) % MCV 88.2 (80-100) fL MCH 29.8 (25-34) pg MCHC 33.8 (32-36) g/dL RDW Std Deviation 43.3 (36.4-46.3) fL RDW Coeff of Dwight 13.4 (11.5-14.5) % Plt Count 272 (130-400) K/uL MPV 12.1 H (7.4-10.4) fL Immature Gran % (Auto) 0.3 % Neut % (Auto) 71.2 % Lymph % (Auto) 23.8 % [place] % (Auto) 3.7 % Eos % (Auto) 0.8 % Baso % (Auto) 0.2 % Neut # (Auto) 7.74 H (1.4-6.5) K/uL Lymph # (Auto) 2.58 (1.2-3.4) K/uL [place] # (Auto) 0.40 (0.11-0.59) K/uL Eos # (Auto) 0.09 (0-0.5) K/uL Baso # (Auto) 0.02 (0-0.2) K/uL Immature Gran # (Auto) 0.03 H (0.00-0.02) K/uL Sodium 139 (136-145) mmol/L Potassium 3.7 (3.5-5.1) mmol/L Chloride 107 (98-107) mmol/L Carbon Dioxide 24 (21-32) mmol/L Anion Gap 8.0 (3-11) BUN 15 (7-18) mg/dl Creatinine 1.05 (0.6-1.2) mg/dl Est Cr Clr Drug Dosing 78.4 ml/min Est GFR ( Amer) 81.4 Est GFR (Non-Af Amer) 70.2 BUN/Creatinine Ratio 14.6 (10-20) Glucose 89 (70-99) mg/dl Calcium 9.4 (8.5-10.1) mg/dl Magnesium 2.2 (1.8-2.4) mg/dl Total Bilirubin 0.6 (0.2-1) mg/dl AST 26 (15-37) U/L ALT 35 (12-78) U/L Alkaline Phosphatase 64 (45-117) U/L Total Creatine Kinase 248 H (26-192) U/L Troponin I < 0.015 (0-0.045) ng/ml Total Protein 8.2 (6.4-8.2) gm/dl Albumin 3.6 (3.4-5.0) gm/dl Globulin 4.6 H (2.5-4.0) gm/dl Albumin/Globulin Ratio 0.8 L (0.9-2) HCG, Qual (Negative) Urine Color Urine Appearance (Clear) Urine pH (4.5-7.5) Ur Specific [place] (1.000-1.030) Urine Protein (Negative) Urine Glucose (UA) (Negative) Urine Ketones (Negative) Urine Blood (Negative) Urine Nitrite (Negative) Urine Bilirubin (Negative) Urine Urobilinogen (Negative) Ur Leukocyte Esterase (Negative) Urine WBC (Auto) (0-5) /hpf Urine RBC (Auto) (0-4) /hpf U Hyaline Cast (Auto) (0-5) /lpf U Epithel Cells (Auto) (0-5) /lpf Urine Bacteria (Auto) (Negative) Salicylates < 1.7 L (2.8-20) mg/dl Urine Opiates Screen (Neg) Ur Methadone, Qual (Neg) Acetaminophen < 2 L (10-30) ug/ml Urine Barbiturates (Neg) Ur Phencyclidine (PCP) (Neg) U Amphetamin/Meth Scrn (Neg) MDMA (Ecstasy) Screen (Neg) U Benzodiazepines Scrn (Neg) Ur Cocaine Metabolite (Neg) U Marijuana (THC) Screen (Neg) Ethyl Alcohol mg/dL (0-3) mg/dl SARS-CoV-2 Ag (Rapid) (Negative) 05/06/20 05/06/20 Range/Units 16:49 16:49 WBC (4.8-10.8) K/uL RBC (4.2-5.4) M/uL Hgb (12.0-16.0) g/dL Hct (37-47) % MCV (80-100) fL MCH (25-34) pg MCHC (32-36) g/dL RDW Std Deviation (36.4-46.3) fL RDW Coeff of Dwight (11.5-14.5) % Plt Count (130-400) K/uL MPV (7.4-10.4) fL Immature Gran % (Auto) % Neut % (Auto) % Lymph % (Auto) % [place] % (Auto) % Eos % (Auto) % Baso % (Auto) % Neut # (Auto) (1.4-6.5) K/uL Lymph # (Auto) (1.2-3.4) K/uL [place] # (Auto) (0.11-0.59) K/uL Eos # (Auto) (0-0.5) K/uL Baso # (Auto) (0-0.2) K/uL Immature Gran # (Auto) (0.00-0.02) K/uL Sodium (136-145) mmol/L Potassium (3.5-5.1) mmol/L Chloride (98-107) mmol/L Carbon Dioxide (21-32) mmol/L Anion Gap (3-11) BUN (7-18) mg/dl Creatinine (0.6-1.2) mg/dl Est Cr Clr Drug Dosing ml/min Est GFR ( Amer) Est GFR (Non-Af Amer) BUN/Creatinine Ratio (10-20) Glucose (70-99) mg/dl Calcium (8.5-10.1) mg/dl Magnesium (1.8-2.4) mg/dl Total Bilirubin (0.2-1) mg/dl AST (15-37) U/L ALT (12-78) U/L Alkaline Phosphatase (45-117) U/L Total Creatine Kinase (26-192) U/L Troponin I (0-0.045) ng/ml Total Protein (6.4-8.2) gm/dl Albumin (3.4-5.0) gm/dl Globulin (2.5-4.0) gm/dl Albumin/Globulin Ratio (0.9-2) HCG, Qual Negative (Negative) Urine Color Urine Appearance (Clear) Urine pH (4.5-7.5) Ur Specific [place] (1.000-1.030) Urine Protein (Negative) Urine Glucose (UA) (Negative) Urine Ketones (Negative) Urine Blood (Negative) Urine Nitrite (Negative) Urine Bilirubin (Negative) Urine Urobilinogen (Negative) Ur Leukocyte Esterase (Negative) Urine WBC (Auto) (0-5) /hpf Urine RBC (Auto) (0-4) /hpf U Hyaline Cast (Auto) (0-5) /lpf U Epithel Cells (Auto) (0-5) /lpf Urine Bacteria (Auto) (Negative) Salicylates (2.8-20) mg/dl Urine Opiates Screen (Neg) Ur Methadone, Qual (Neg) Acetaminophen (10-30) ug/ml Urine Barbiturates (Neg) Ur Phencyclidine (PCP) (Neg) U Amphetamin/Meth Scrn (Neg) MDMA (Ecstasy) Screen (Neg) U Benzodiazepines Scrn (Neg) Ur Cocaine Metabolite (Neg) U Marijuana (THC) Screen (Neg) Ethyl Alcohol mg/dL < 3.0 (0-3) mg/dl SARS-CoV-2 Ag (Rapid) (Negative) Administered Medications Potassium Chloride/Sodium Chloride (Normal Saline W/20 Meq Kcl) 20 meq in 1,000 mls @ 125 mls/hr IV .Q8H OLIVIA Stop: 05/07/20 05:59 Last Admin: 05/06/20 22:43 Dose: 125 mls/hr Documented by: [id number] Bcp"S~Non-Formulary (Patient's Own Med) 1 ea PO HS OLIVIA Stop: 06/05/20 22:39 Last Admin: 05/06/20 23:03 Dose: 1 tab Documented by: [id number] Discontinued Medications Sodium Chloride (Nss 1000ml) 1,000 mls @ 999 mls/hr IV .Q1H1M OLIVIA Stop: 05/06/20 16:15 Last Infusion: 05/06/20 18:08 Dose: 0 mls/hr Documented by: [id number] Admin: 05/06/20 16:28 Dose: 999 mls/hr Documented by: [id number] Sodium Chloride (Nss 1000ml) 1,000 mls @ 125 mls/hr IV .Q8H STA Stop: 05/06/20 23:10 Last Infusion: 05/06/20 21:35 Dose: 0 mls/hr Documented by: [id number] Admin: 05/06/20 18:08 Dose: 125 mls/hr Documented by: [id number] Discharge Plan Visit Data Chief Complaint: Mental Health Evaluation Stated Complaint: OVERDOSE, MHID ED Provider: Bertin Barba Discharge Problem: Suicidal ideation, Intentional overdose of drug in tablet form, Mood disorder Patient Disposition: Admitted As Inpatient Discharge Instructions Interventions: ED Discharge Assessment Last Done: 05/06/20 21:21
--- NOTE | 2020-05-07 06:52 | Electrocardiogram Report ---
Test Reason : Blood Pressure : / mmHG Vent. Rate : 084 BPM Atrial Rate : 084 BPM P-R Int : 164 ms QRS Dur : 088 ms QT Int : 390 ms P-R-T Axes : 061 061 036 degrees QTc Int : 460 ms Poor data quality, interpretation may be adversely affected Normal sinus rhythm Normal ECG No previous ECGs available Confirmed by Ramesh Grace ([id number]) on 05/07/2020 6:52:08 AM Referred By: REFERRED SELF Confirmed By:Ramesh Grace
[2020-05-07] MEDS: RABEPRAZOLE PO SCH ×3 (07:22→16:41)
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
--- NOTE | 2020-05-07 09:49 | Hospitalist Progress Note ---
Date of Service May 07, 2020 Assessment & Plan (1) Intentional overdose of drug in tablet form: 25 tablets Clonazepam and 5 tablets Seroquel although unclear exact amounts or when she took these she is currently alert and orientated and normal QT. Continued suicidal ideation. EKG in AM is normal and Qtc is normal 455 Consult psychiatry has arranged to have inpatient transfer to a locked unit by voluntary admission 201 (2) IBS (irritable bowel syndrome): (3) GERD (gastroesophageal reflux disease): Continue rabeprazole (4) Anxiety and depression: Hold all medications given current overdose. (5) Endometriosis: Continue her usual control Admission and Anticipated Discharge Date Admission Date: May 06, 2020 Subjective Patient is lying quietly in her bed she is in a semifowler position upon awakening she is appropriate she wants to leave but then does admit that she did attempt a suicide gesture she is open to voluntary admission to an inpatient psychiatric unit Review of Systems Review of Systems: Mild distress and fatigue no headache, blurry or double vision no speech or swallowing issues no chest pain, pressure or palpitations no shortness of breath, cough or wheezes no abdominal pain, nausea or vomiting, diarrhea or constipation no dysuria, hematuria or frequency no focal joint pain or swelling no back pain, CVA tenderness or radicular pain no bruising, bleeding or rashes no focal signs of weakness or numbness or altered sensation no complaints of anxiety or depression.. Physical Exam Physical Exam: The patient appeared well nourished and normally developed. Vital signs as documented. Head exam is normocephalic atraumatic no scleral icterus Neck is without JVD, thyromegaly, or carotid bruits. Lungs are clear to auscultation, no focal loss of breath sounds Cardiac exam, Rhythm is regular.. No murmurs, rubs or gallops. Abdominal exam reveals normal bowel sounds, soft non tender, no masses Extremities are nonedematous and both pedal pulses are present Neurologic exam is alert and oriented, no focal loss of strength or sensation Skin is without bruises or rashes Psychologically is without concerns for anxiety or depression. Results & Data Results & Data ([facility]) Vital Signs (Past 12 Hours) Vital Signs Temp Pulse Pulse Resp BP Pulse Ox 05/07/20 09:00 84 05/07/20 03:15 97.5 F L 79 16 108/71 95 PG Care Time/CCT Total # of Minutes Spent Total Time Spent with Patient: Total time spent is greater than 50% in coordination of care (as documented) at patient's floor/unit and/or counseling patient: Coding Level of Care Code 85580 [facility] Hosp Care Lvl 2 Diagnoses Intentional overdose of drug in tablet form T50.902A IBS (irritable bowel syndrome) K58.9 GERD (gastroesophageal reflux disease) K21.9 Anxiety and depression F41.9; F32.9 Endometriosis N80.9
--- NOTE | 2020-05-07 17:00 | Discharge Summary ---
Date of Service May 08, 2020 Admission HPI Per Admitting Provider Maricarmen Armenta is a 30-year-old female who presents to the ER with intentional prescription drug overdose with suicidal ideation. She is unsure on the details but thinks she took 25 clonazepam either last night or 2 nights ago. Took x5 seroquel this morning with the intention of killing herself. She reports not telling anyone she was doing this. She reports recent increased depression due to her current grades which she realizes is out of proportion reaction but still having suicidal ideation. She is currently awake and alert. She was referred to medicine for admission and ongoing management of intentional overdose. Principal Diagnosis intentional overdose with self harm intent Discharge Exam PT is sleeping but awakens easily, she initially is agreeable but over the visit starts to bargain about certain demands such as no blood work no iv ect she is accepted to [facility] in mental health unit. Discharge Data Allergies Allergy/AdvReac Type Severity Reaction Status Date / Time Sulfa (Sulfonamide Allergy Severe DIFFICULTY Verified 05/06/20 21:25 Antibiotics) BREATHING cat dander Allergy Intermediate ITCHY EYES Verified 05/06/20 21:25 & THROAT, SNEEZING, CONGESTION dog dander Allergy Intermediate ITCHY EYES Verified 05/06/20 21:25 & THROAT, SNEEZING, CONGESTION gluten Allergy Intermediate Gastrointestinal Verified 05/06/20 21:25 Upset house dust Allergy Intermediate ITCHY EYES Verified 05/06/20 21:25 & THROAT, SNEEZING, CONGESTION lactose Allergy Intermediate Gastrointestinal Verified 05/06/20 21:25 Upset pollen extracts Allergy Intermediate ITCHY EYES Verified 05/06/20 21:25 & THROAT, SNEEZING, CONGESTION garlic AdvReac Intermediate Gastrointestinal Verified 05/06/20 21:25 Upset caffeine AdvReac Unknown ACID REFLUX Verified 05/06/20 21:25 chocolate flavor AdvReac Unknown ACID REFLUX Verified 05/06/20 21:25 cinnamon AdvReac Unknown ACID REFLUX Verified 05/06/20 21:25 [place] And Derivatives AdvReac Unknown ACID REFLUX Verified 05/06/20 21:25 mint AdvReac Unknown ACID REFLUX Verified 05/06/20 21:25 onion AdvReac Unknown ACID REFLUX Verified 05/06/20 21:25 orange juice AdvReac Unknown ACID REFLUX Verified 05/06/20 21:25 paprika AdvReac Unknown ACID REFLUX Verified 05/06/20 21:25 pepper (genus Capsicum) AdvReac Unknown ACID REFLUX Verified 05/06/20 21:25 tomato AdvReac Unknown ACID REFLUX Verified 05/06/20 21:25 Consultations 05/06/20 18:28 ED Decision to Admit Stat 05/06/20 20:20 Consult Psychiatry Routine Hospital Course (1) Intentional overdose of drug in tablet form: 25 tablets Clonazepam and 5 tablets Seroquel although unclear exact amounts or when she took these she is currently alert and orientated and normal QT. Continued suicidal ideation. EKG in AM is normal and Qtc is normal 455 Consult psychiatry has arranged to have inpatient transfer to a locked unit by voluntary admission 201 (2) Anxiety and depression: Hold all medications related to current overdose. can continue lithium and treatment regime for the MDD to be directed by the inpatient psyche unit (3) GERD (gastroesophageal reflux disease): Continue rabeprazole (4) Endometriosis: Continue her usual control (5) IBS (irritable bowel syndrome): Total Time Total Time Spent Total Time Spent (In Minutes): > 30 minutes were needed including personal discussion with Psychiatry Discharge Plan Discharge Items Patient Disposition: Transfer Behavioral Health Fac Reason For Visit: INTENTIONAL OVERDOSE Discharge Diagnosis: intentional overdose Activity: Per Instructions section Activity Comment: per inpatient facility Non-emergency contact: Primary Care Provider and Psychiatrist Call non-emergency contact if: your symptoms worsen Follow-up/Referrals: Ashely Azar [Primary Care Provider] - Diet: Regular Addtl Attending Provider Instructions: please follow recommendations of inpatient center Pending Studies at Discharge: No Stand-Alone Forms: My [facility] Medications and DC Order Prescriptions: Continued rabeprazole [AcipHex] 20 mg tablet,delayed release (DR/EC) 20 mg PO AC RF: 0 lithium carbonate 450 mg tablet extended release 450 mg PO BID RF: 0 venlafaxine 150 mg capsule,extended release 24hr 150 mg PO QAM RF: 0 buspirone 15 mg tablet 15 mg PO BID RF: 0 venlafaxine [Effexor XR] 37.5 mg Capsule,Extended Release 24hr 37.5 mg PO QAM RF: 0 Discontinued cetirizine [Zyrtec] 10 mg Tablet 10 mg PO HS RF: 0 vitamin B complex Tablet 1 tab PO QAM RF: 0 dicyclomine 10 mg capsule 10 mg PO TIDM RF: 0 cholecalciferol (vitamin D3) [Vitamin D3] 1,000 unit Tablet 1,000 unit PO QAM RF: 0 L norgest/e.estradiol-e.estrad [Camrese Lo] 0.10 mg-20 mcg (84)/10 mcg (7) t ablets,dose pack,3 month 1 tab PO HS RF: 0 quetiapine [Seroquel] 300 mg tablet 300 mg PO HS RF: 0 clonazepam [Klonopin] 0.5 mg tablet 0.5 mg PO DIRECTED PRN (Reason: Anxiety) RF: 0 hydroxyzine HCl 50 mg tablet 50 mg PO BID RF: 0 calcium citrate [Citracal] 200 mg (950 mg) Tablet 400 mg PO QAM RF: 0 Probiotic 10 billion cell Capsule 10,000 mmu cells PO QAM RF: 0 Discharge Orders: Discharge Order (Routine); Ordered 05/07/20 Ordered By: Kyle Hu Admission Data Admit Date/Time: 05/06/20 18:29 Attending Provider: Kyle Hu Admit Provider: Omar Garcia Primary Care Provider: Ashely Azar Other Providers: Omar Garcia ; Chaparrita Easley Other Interventions: Discharge Summary Assessment (RN) Last Done: 05/08/20 13:57 Coding Level of Care Code D/C Day Management >30 mins Diagnoses Intentional overdose of drug in tablet form T50.902A Anxiety and depression F41.9; F32.9 GERD (gastroesophageal reflux disease) K21.9 Endometriosis N80.9 IBS (irritable bowel syndrome) K58.9
[2020-05-07] MEDS ORDERED: ACETAMINOPHEN 325 MG TAB PO PRN (20:08)
[2020-05-07] MEDS: busPIRone 5 MG TAB PO SCH (20:18)
[2020-05-07] MEDS: LITHIUM CARBONATE 450 MG TABCR PO SCH (20:19)
--- NOTE | 2020-05-07 21:20 | Communication Note ---
Date of Service: May 07, 2020 Attempt to strangle self with sheet without injury. !:1 ordered, suicide precautions per protocol ordered. Safe Tray Diet already in place. Nursing to call psych. Resident Activity Tracking Resident Involvement: Resident Care Provided Care Provided: Adult Hospital Medicine
--- NOTE | 2020-05-08 05:21 | Electrocardiogram Report ---
Test Reason : Blood Pressure : / mmHG Vent. Rate : 083 BPM Atrial Rate : 083 BPM P-R Int : 162 ms QRS Dur : 088 ms QT Int : 388 ms P-R-T Axes : 072 065 040 degrees QTc Int : 455 ms Normal sinus rhythm Normal ECG When compared with ECG of 06-MAY-2020 15:50, No significant change was found Confirmed by Shaan Terry ([id number]) on 05/08/2020 5:21:28 AM Referred By: REFERRED SELF Confirmed By:Shaan Terry
[2020-05-08] MEDS: RABEPRAZOLE PO SCH ×2 (08:13→09:59)
[2020-05-08] MEDS ORDERED: VENLAFAXINE HCL XR 37.5 MG CAPXR PO SCH (09:00)
[2020-05-08] MEDS: LITHIUM CARBONATE 450 MG TABCR PO SCH (09:57)
[2020-05-08] MEDS: busPIRone 5 MG TAB PO SCH (09:57)
[2020-05-08] MEDS ORDERED: hydrOXYzine HCl 25 MG TAB PO PRN (11:00)
[2020-05-09 07:27] LABS: 7-Aminoclonaz, Confirm 1190 ng/mL (<25); Hydro-Alp Ur, GC/MS NEGATIVE ng/mL (<25); Hydroxyethylflurazepam, Conf NEGATIVE ng/mL (<50); Hydroxymidazolam Ur, GC/MS NEGATIVE ng/mL (<50); Hydroxytriazolam NEGATIVE ng/mL (<50); Lorazepam, Ur GC/MS NEGATIVE ng/mL (<50); Nordiazepam, Confirm NEGATIVE ng/mL (<50); Oxazepam Ur, GC/MS NEGATIVE ng/mL (<50); Temazepam, Confirm NEGATIVE ng/mL (<50)
== END 2020-05-08 14:13 | DRG 918 ==
LOC: ED 14:14 → 2N 18:29 → SUATTDRO 18:29 → 2N 21:21